=== PATIENT | female | born 1940 ===

== ENCOUNTER 2018-02-24 23:25 | Emergency (ER) | payer MEDICARE ==
[2018-02-24 23:30] VITALS: TEMP 100.9
[2018-02-25 01:07] LABS: Basophils % (A) 0 %; Eosinophils # (A) 0.1 k/uL (0-0.7); Eosinophils % (A) 1 %; HGB 10.9 gm/dL (11.4-16.0); Lymphocytes # (A) 0.5 k/uL (1.0-4.8); Lymphocytes % (A) 6 %; MCH 31.6 pg (25.0-35.0); MCHC 33.2 g/dL (31.0-37.0); MCV 95.4 fL (80.0-100.0); Mean Platelet Volume 7.4; Monocytes # (A) 0.2 k/uL (0-1.0); Monocytes % (A) 2 %; Neutrophils # (A) 7.3 k/uL (1.3-7.7); Neutrophils % (A) 89 %; Platelet Count 159 k/uL (150-450); RBC 3.46 m/uL (3.80-5.40); RDW 14.3 % (11.5-15.5); WBC 8.3 k/uL (3.8-10.6)
[2018-02-25] MEDS ORDERED: ALBUTEROL NEBULIZED 2.5 MG/3 ML INHALATION STA (01:10)
[2018-02-25] MEDS ORDERED: cefTRIAXone IN SWFI 1,000 MG/10 ML SYRINGE IVP STA (01:11)
[2018-02-25] MEDS ORDERED: ACETAMINOPHEN TAB 325 MG TAB PO STA (01:11)
[2018-02-25 01:17] LABS: Albumin 3.1 g/dL (3.5-5.0); Ammonia <9 umol/L (<30); Calcium 8.6 mg/dL (8.4-10.2); Lactic Acid, Venous 1.2 mmol/L (0.7-2.0); Potassium 3.6 mmol/L (3.5-5.1); Total Bilirubin 0.6 mg/dL (0.2-1.3); Total Protein 5.1 g/dL (6.3-8.2)
--- NOTE | 2018-02-25 01:17 | ED ---
Altered Mental Status HPI - General Chief Complaint: Altered Mental Status Stated Complaint: Altered Mental Status Time Seen by Provider: 02/25/18 00:24 Source: patient, EMS Mode of arrival: EMS Limitations: altered mental status - History of Present Illness Initial Comments: This patient is a 77-year-old woman who was persuaded to come the emergency room by her daughter. The patient states that when she was talking to her daughter on the phone her daughter felt that she was more confused than normal. The patient denies having any complaints. She states she is not having any pain. No dyspnea. She denies any neurologic symptoms. Other review of systems , she does acknowledge having a cough which is been going on for between 1 and 2 weeks. She states she is not really having any sputum and that she is not having any shortness of breath related to this. MD Complaint: confusion Onset/Timin -: hour(s) Severity: mild Context: history of similar presentation Associated Symptoms: cough - Related Data Previous Rx's Medication Instructions Recorded Azithromycin [Zithromax Z-pack] 250 mg PO DIRECTED #6 tab 02/25/18 Allergies Allergy/AdvReac Type Severity Reaction Status Date / Time losartan [From Cozaar] Allergy Unknown Verified 02/25/18 00:27 pioglitazone [From Actos] Allergy Unknown Verified 02/25/18 00:27 Review of Systems ROS Statement: Those systems with pertinent positive or pertinent negative responses have been documented in the HPI. ROS Other: All systems not noted in ROS Statement are negative. Constitutional: Denies: fever, chills, weakness ENT: Denies: throat pain Respiratory: Reports: cough. Denies: dyspnea, wheezes, hemoptysis Cardiovascular: Reports: edema (Patient states she has some trace ankle edema). Denies: chest pain, palpitations, syncope Gastrointestinal: Denies: abdominal pain, vomiting, diarrhea Genitourinary: Denies: dysuria, hematuria Musculoskeletal: Denies: back pain Skin: Denies: rash Neurological: Reports: as per HPI, confusion. Denies: headache, weakness, numbness Past Medical History Past Medical History: No Reported History History of Any Multi-Drug Resistant Organisms: None Reported Past Surgical History: No Surgical Hx Reported Past Psychological History: No Psychological Hx Reported Smoking Status: Never smoker Past Alcohol Use History: None Reported Past Drug Use History: None Reported General Exam Limitations: altered mental status General appearance: alert, in no apparent distress, cachectic Head exam: Present: atraumatic, normocephalic Eye exam: Present: normal appearance. Absent: scleral icterus, conjunctival injection ENT exam: Present: mucous membranes dry Neck exam: Present: normal inspection, full ROM Respiratory exam: Present: wheezes (There is trace expiratory wheeze). Absent: respiratory distress, rales, rhonchi, stridor, accessory muscle use, decreased breath sounds, prolonged expiratory Cardiovascular Exam: Present: regular rate, normal rhythm, normal heart sounds. Absent: systolic murmur, diastolic murmur, rubs, gallop GI/Abdominal exam: Present: soft. Absent: distended, tenderness, guarding, rebound Extremities exam: Present: normal inspection, normal capillary refill, pedal edema (Trace edema at the ankles bilaterally). Absent: calf tenderness Back exam: Present: normal inspection. Absent: CVA tenderness (R), CVA tenderness (L) Neurological exam: Present: alert, oriented X3, CN II-XII intact Skin exam: Present: warm, dry, intact, normal color. Absent: rash Course Vital Signs 02/24/18 02/25/18 02/25/18 23:26 00:23 01:29 Temperature 100.9 F H Pulse Rate 86 80 86 Respiratory 17 17 16 Rate Blood Pressure 138/60 138/61 127/58 O2 Sat by Pulse 95 96 96 Oximetry 02/25/18 02/25/18 01:35 01:42 Temperature Pulse Rate 84 83 Respiratory 16 16 Rate Blood Pressure O2 Sat by Pulse Oximetry Medical Decision Making - Medical Decision Making Patient is a 77-year-old woman found to have small pneumonia. Discussed admission, but the patient is refusing at this point stating she would prefer to try outpatient course. She states that she does talk on the phone daily with family and that if there is any change they will prompt her to come to the hospital. - Lab Data Result diagrams: 02/25/18 00:57 02/25/18 00:57 Lab Results 02/25/18 02/25/18 02/25/18 Range/Units 00:57 00:57 00:57 WBC 8.3 (3.8-10.6) k/uL RBC 3.46 L (3.80-5.40) m/uL Hgb 10.9 L (11.4-16.0) gm/dL Hct 33.0 L (34.0-46.0) % MCV 95.4 (80.0-100.0) fL MCH 31.6 (25.0-35.0) pg MCHC 33.2 (31.0-37.0) g/dL RDW 14.3 (11.5-15.5) % Plt Count 159 (150-450) k/uL Neutrophils % 89 % Lymphocytes % 6 % Monocytes % 2 % Eosinophils % 1 % Basophils % 0 % Neutrophils # 7.3 (1.3-7.7) k/uL Lymphocytes # 0.5 L (1.0-4.8) k/uL Monocytes # 0.2 (0-1.0) k/uL Eosinophils # 0.1 (0-0.7) k/uL Basophils # 0.0 (0-0.2) k/uL PT (9.0-12.0) sec INR (<1.2) APTT (22.0-30.0) sec Sodium (137-145) mmol/L Potassium (3.5-5.1) mmol/L Chloride (98-107) mmol/L Carbon Dioxide (22-30) mmol/L Anion Gap mmol/L BUN (7-17) mg/dL Creatinine (0.52-1.04) mg/dL Est GFR (CKD-EPI)AfAm (>60 ml/min/1.73 sqM) Est GFR (CKD-EPI)NonAf (>60 ml/min/1.73 sqM) Glucose (74-99) mg/dL Plasma Lactic Acid Inck 1.2 (0.7-2.0) mmol/L Calcium (8.4-10.2) mg/dL Total Bilirubin (0.2-1.3) mg/dL AST (14-36) U/L ALT (9-52) U/L Alkaline Phosphatase (38-126) U/L Ammonia <9 (<30) umol/L Total Creatine Kinase 697 H (30-135) U/L CK-MB (CK-2) 1.3 (0.0-2.4) ng/mL CK-MB (CK-2) Rel Index 0.2 Troponin I <0.012 (0.000-0.034) ng/mL NT-Pro-B Natriuret Pep pg/mL Total Protein (6.3-8.2) g/dL Albumin (3.5-5.0) g/dL Urine Color Urine Appearance (Clear) Urine pH (5.0-8.0) Ur Specific Graham (1.001-1.035) Urine Protein (Negative) Urine Glucose (UA) (Negative) Urine Ketones (Negative) Urine Blood (Negative) Urine Nitrite (Negative) Urine Bilirubin (Negative) Urine Urobilinogen (<2.0) mg/dL Ur Leukocyte Esterase (Negative) Urine WBC (0-5) /hpf Amorphous Sediment (None) /hpf Hyaline Casts (0-2) /lpf Urine Mucus (None) /hpf Urine Opiates Screen (NotDetected) Ur Oxycodone Screen (NotDetected) Urine Methadone Screen (NotDetected) Ur Propoxyphene Screen (NotDetected) Ur Barbiturates Screen (NotDetected) U Tricyclic Antidepress (NotDetected) Ur Phencyclidine Scrn (NotDetected) Ur Amphetamines Screen (NotDetected) U Methamphetamines Scrn (NotDetected) U Benzodiazepines Scrn (NotDetected) Urine Cocaine Screen (NotDetected) U Marijuana (THC) Screen (NotDetected) 02/25/18 02/25/18 02/25/18 Range/Units 00:57 00:57 00:57 WBC (3.8-10.6) k/uL RBC (3.80-5.40) m/uL Hgb (11.4-16.0) gm/dL Hct (34.0-46.0) % MCV (80.0-100.0) fL MCH (25.0-35.0) pg MCHC (31.0-37.0) g/dL RDW (11.5-15.5) % Plt Count (150-450) k/uL Neutrophils % % Lymphocytes % % Monocytes % % Eosinophils % % Basophils % % Neutrophils # (1.3-7.7) k/uL Lymphocytes # (1.0-4.8) k/uL Monocytes # (0-1.0) k/uL Eosinophils # (0-0.7) k/uL Basophils # (0-0.2) k/uL PT 10.6 (9.0-12.0) sec INR 1.1 (<1.2) APTT 26.6 (22.0-30.0) sec Sodium 140 (137-145) mmol/L Potassium 3.6 (3.5-5.1) mmol/L Chloride 108 H (98-107) mmol/L Carbon Dioxide 23 (22-30) mmol/L Anion Gap 9 mmol/L BUN 40 H (7-17) mg/dL Creatinine 1.20 H (0.52-1.04) mg/dL Est GFR (CKD-EPI)AfAm 51 (>60 ml/min/1.73 sqM) Est GFR (CKD-EPI)NonAf 44 (>60 ml/min/1.73 sqM) Glucose 72 L (74-99) mg/dL Plasma Lactic Acid Nick (0.7-2.0) mmol/L Calcium 8.6 (8.4-10.2) mg/dL Total Bilirubin 0.6 (0.2-1.3) mg/dL AST 56 H (14-36) U/L ALT 36 (9-52) U/L Alkaline Phosphatase 45 (38-126) U/L Ammonia (<30) umol/L Total Creatine Kinase (30-135) U/L CK-MB (CK-2) (0.0-2.4) ng/mL CK-MB (CK-2) Rel Index Troponin I (0.000-0.034) ng/mL NT-Pro-B Natriuret Pep 2370 pg/mL Total Protein 5.1 L (6.3-8.2) g/dL Albumin 3.1 L (3.5-5.0) g/dL Urine Color Urine Appearance (Clear) Urine pH (5.0-8.0) Ur Specific Graham (1.001-1.035) Urine Protein (Negative) Urine Glucose (UA) (Negative) Urine Ketones (Negative) Urine Blood (Negative) Urine Nitrite (Negative) Urine Bilirubin (Negative) Urine Urobilinogen (<2.0) mg/dL Ur Leukocyte Esterase (Negative) Urine WBC (0-5) /hpf Amorphous Sediment (None) /hpf Hyaline Casts (0-2) /lpf Urine Mucus (None) /hpf Urine Opiates Screen (NotDetected) Ur Oxycodone Screen (NotDetected) Urine Methadone Screen (NotDetected) Ur Propoxyphene Screen (NotDetected) Ur Barbiturates Screen (NotDetected) U Tricyclic Antidepress (NotDetected) Ur Phencyclidine Scrn (NotDetected) Ur Amphetamines Screen (NotDetected) U Methamphetamines Scrn (NotDetected) U Benzodiazepines Scrn (NotDetected) Urine Cocaine Screen (NotDetected) U Marijuana (THC) Screen (NotDetected) 02/25/18 Range/Units 01:52 WBC (3.8-10.6) k/uL RBC (3.80-5.40) m/uL Hgb (11.4-16.0) gm/dL Hct (34.0-46.0) % MCV (80.0-100.0) fL MCH (25.0-35.0) pg MCHC (31.0-37.0) g/dL RDW (11.5-15.5) % Plt Count (150-450) k/uL Neutrophils % % Lymphocytes % % Monocytes % % Eosinophils % % Basophils % % Neutrophils # (1.3-7.7) k/uL Lymphocytes # (1.0-4.8) k/uL Monocytes # (0-1.0) k/uL Eosinophils # (0-0.7) k/uL Basophils # (0-0.2) k/uL PT (9.0-12.0) sec INR (<1.2) APTT (22.0-30.0) sec Sodium (137-145) mmol/L Potassium (3.5-5.1) mmol/L Chloride (98-107) mmol/L Carbon Dioxide (22-30) mmol/L Anion Gap mmol/L BUN (7-17) mg/dL Creatinine (0.52-1.04) mg/dL Est GFR (CKD-EPI)AfAm (>60 ml/min/1.73 sqM) Est GFR (CKD-EPI)NonAf (>60 ml/min/1.73 sqM) Glucose (74-99) mg/dL Plasma Lactic Acid Nick (0.7-2.0) mmol/L Calcium (8.4-10.2) mg/dL Total Bilirubin (0.2-1.3) mg/dL AST (14-36) U/L ALT (9-52) U/L Alkaline Phosphatase (38-126) U/L Ammonia (<30) umol/L Total Creatine Kinase (30-135) U/L CK-MB (CK-2) (0.0-2.4) ng/mL CK-MB (CK-2) Rel Index Troponin I (0.000-0.034) ng/mL NT-Pro-B Natriuret Pep pg/mL Total Protein (6.3-8.2) g/dL Albumin (3.5-5.0) g/dL Urine Color Yellow Urine Appearance Cloudy H (Clear) Urine pH 8.0 (5.0-8.0) Ur Specific Graham 1.015 (1.001-1.035) Urine Protein 1+ H (Negative) Urine Glucose (UA) Negative (Negative) Urine Ketones 1+ H (Negative) Urine Blood Negative (Negative) Urine Nitrite Negative (Negative) Urine Bilirubin Negative (Negative) Urine Urobilinogen <2.0 (<2.0) mg/dL Ur Leukocyte Esterase Negative (Negative) Urine WBC 4 (0-5) /hpf Amorphous Sediment Occasional H (None) /hpf Hyaline Casts 31 H (0-2) /lpf Urine Mucus Rare H (None) /hpf Urine Opiates Screen Not Detected (NotDetected) Ur Oxycodone Screen Not Detected (NotDetected) Urine Methadone Screen Not Detected (NotDetected) Ur Propoxyphene Screen Not Detected (NotDetected) Ur Barbiturates Screen Not Detected (NotDetected) U Tricyclic Antidepress Not Detected (NotDetected) Ur Phencyclidine Scrn Not Detected (NotDetected) Ur Amphetamines Screen Not Detected (NotDetected) U Methamphetamines Scrn Not Detected (NotDetected) U Benzodiazepines Scrn Not Detected (NotDetected) Urine Cocaine Screen Not Detected (NotDetected) U Marijuana (THC) Screen Not Detected (NotDetected) - EKG Data -: EKG Interpreted by Ks EKG shows normal: sinus rhythm, axis (Left axis deviation), intervals (QRS duration 126 ms, prolonged consistent with the right bundle-branch block. MN interval 126 ms, normal. QTC 452 ms, normal.), QRS complexes (Right bundle- branch block), ST-T waves (Normal) Rate: normal (Rate 85 bpm) Disposition Clinical Impression: Pneumonia Disposition: HOME SELF-CARE Condition: Fair Instructions: Pneumonia (ED) Prescriptions: Azithromycin [Zithromax Z-pack] 250 mg PO DIRECTED #6 tab Is patient prescribed a controlled substance at d/c from ED?: No Referrals: Catalino Gaona MD [Primary Care Provider] - 1-2 days
[2018-02-25 01:19] LABS: INR 1.1 (<1.2); Partial Thromboplastin Time 26.6 sec (22.0-30.0); Prothrombin Time 10.6 sec (9.0-12.0)
--- NOTE | 2018-02-25 01:23 | XR ---
EXAMINATION TYPE: XR chest 1V portable DATE OF EXAM: 02/25/2018 COMPARISON: 02/24/2014 HISTORY: Altered mental status. Asthma. TECHNIQUE: Single frontal view of the chest is obtained. FINDINGS: There is some pulmonary interstitial edema. Heart size is normal. There are chest leads. IMPRESSION: New pulmonary interstitial edema compared to old exam. This is probably acute mild heart failure.
[2018-02-25 01:30] LABS: Creatine Kinase 697 U/L (30-135)
[2018-02-25 01:38] VITALS: RESP 16
[2018-02-25 01:43] VITALS: PULSE 83
[2018-02-25 01:43] LABS: Creatine Kinase MB 1.3 ng/mL (0.0-2.4); Troponin I <0.012 ng/mL (0.000-0.034)
[2018-02-25 02:09] VITALS: BP 127/58
[2018-02-25 02:16] LABS: Amorphous Sediment,Urine Occasional /hpf; Appearance,Urine Cloudy (Clear); Bilirubin,Urine Negative (Negative); Blood,Urine Negative (Negative); Color,Urine Yellow; Glucose,Urine (UA) Negative (Negative); Hyaline Casts,Urine 31 /lpf (0-2); Ketones,Urine 1+ (Negative); Leukocyte Esterase,Urine Negative (Negative); Mucus,Urine Rare /hpf; Nitrite,Urine Negative (Negative); Protein,Urine 1+ (Negative); Specific Gravity,Urine 1.015 (1.001-1.035); Urobilinogen,Urine <2.0 mg/dL (<2.0); WBC,Urine 4 /hpf (0-5)
[2018-02-25 02:25] LABS: Amphetamine Screen,Urine Not Detected (NotDetected); Barbiturate Screen,Urine Not Detected (NotDetected); Benzodiazepines Screen,Urine Not Detected (NotDetected); Cocaine Screen,Urine Not Detected (NotDetected); Methadone Screen, Urine Not Detected (NotDetected); Opiate Screen,Urine Not Detected (NotDetected); Oxycodone Screen, Urine Not Detected (NotDetected); Phencyclidine Screen,Urine Not Detected (NotDetected); Tricyclic Antidepressant,Urine Not Detected (NotDetected); Urn Cannabinoid Scrn Not Detected (NotDetected)
[2018-02-25] MEDS ORDERED: AZITHROMYCIN 500 MG TAB PO STA (02:27)
== END 2018-02-25 03:20 | disposition home or self-care (01) ==
LOC: EC 23:25
DX: J18.9 Pneumonia, unspecified organism (principal); Z88.8 Allergy status to other drugs, medicaments and biological substances
CPT/HCPCS: 36415; 94640; 93005; 83880; 80053; 82140; 82550; 82553; 83605; 84484; 85025; 85610; 85730; 81001; 80306; 71045; 99285; 96374; J0696

== ENCOUNTER 2018-10-17 18:04 | Inpatient (IN) | payer MEDICARE ==
[2018-10-17 19:30] LABS: Glucose,Whole Blood 254 mg/dL (75-99)
[2018-10-17] MEDS ORDERED: SODIUM CHLORIDE 0.9% 1,000 ML IV SCH (20:30)
[2018-10-17] MEDS: ALBUTEROL NEBULIZED 2.5 MG/3 ML INHALATION SCH (20:55)
[2018-10-17] MEDS: ISOSORBIDE MONONITRATE ER 60 MG TAB.ER.24H PO SCH (21:09)
[2018-10-17] MEDS: MONTELUKAST 10 MG TAB PO SCH (21:09)
[2018-10-17] MEDS: Acetaminophen-Codeine 300-30mg TAB PO PRN (21:09)
[2018-10-17] MEDS: PIPERACILLIN-TAZOBACTAM 3.375 GM in SODIUM CHLORIDE 0.9% 100 ML IVPB SCH (22:07)
[2018-10-17] MEDS: INSULIN ASPART (NovoLOG) 100 UNIT/ML VIAL SQ SCH (22:07)
--- NOTE | 2018-10-17 22:43 | HP ---
HISTORY AND PHYSICAL DATE OF ADMISSION: 10/17/2018. CHIEF COMPLAINT: Chest pain. HISTORY OF PRESENT ILLNESS: This is a 77-year-old female who presents with a complaint of right flank and right shoulder pain. The patient says the pain is worse with any movements. The symptoms have been progressive over the past 2 days. She has minimal cough. No fever, no chills. Denied any other symptoms. She says 2 days ago she started having the flu type of symptoms where she started vomiting. The patient does not feel that she had aspirated any. However, she presents with these symptoms and on clinical examination, patient has a right lower lobe pneumonia, clinical findings of the chest, she was sent in for a stat chest x-ray and CBC, which does confirm that she has right lower lobe pneumonia. CBC however, reveals a normal white count. They suspect there is also a right pleural effusion. The patient's CBC was white count of 8.1 with a hemoglobin of 11.2, platelets of 270. 89% neutrophils. The patient visits her every day at the nursing facility and she is spends most of the day there. It is possible the patient might have aspirated. In view of this, patient placed on Zosyn. The patient's chemistry revealed a sodium of 132, BUN 55, creatinine 1.21, glucose 277. Potassium 4.4. PAST MEDICAL HISTORY: Past medical history is primarily significant for history of longstanding bronchial asthma, mild persistent, on oral inhalers, steroid inhalers. The patient also has a history of coronary artery disease with a stent placed more than 20 years now. History of degenerative arthritis, gastroesophageal reflux. No history of any liver disease, kidney disease, ulcers, TB, hepatitis. No history of any rheumatic fever, myocardial infarction or CVA. Has had a previous herpes zoster infection on the right face. She also has had fracture of both patella, one previously, the left one for which she had surgical repair and recently right patella for which she has had a conservative closed treatment. PAST SURGICAL HISTORY: Significant for appendectomy, total abdominal hysterectomy, right knee arthroscopy, left patella surgery, right shoulder surgery, bilateral cataract surgery. PERSONAL HISTORY: Never smoker. Alcohol none. SOCIAL HISTORY: Patient is and lives alone at home. 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 The patient's spouse is in a retirement following a stroke. FAMILY MEDICAL HISTORY: Father at the age of 80, he had coronary artery disease and history of carcinoma of the lung. Mother at age of 98. She had a history of diabetes mellitus. A brother 74 with history of coronary artery disease. A sister 68 with a history of rheumatoid arthritis. Sister 69 with history of hyperlipidemia, otherwise in good health. The patient has a son 53 in good health and a daughter 54 in good health. REVIEW OF SYSTEMS: Neuro: Denies any headaches, dizziness. No double vision, blurred vision. No symptoms of TIA, syncope, seizures. Psych: No anxiety or depression. Cardiac: Denies chest pain, angina or palpitations. Respiratory: Denies much cough. Present complaint of chest pain, right-sided and pain radiating to the right shoulder area. GI: Had episodes of nausea and vomiting 2 days ago. No diarrhea, constipation, hematochezia, melena. Appetite fair. : No symptoms of dysuria, hematuria, urgency or frequency. Extremities: Complains of generalized pain and malaise. CONSTITUTIONAL: No fever, chills. PHYSICAL EXAMINATION: A 77-year-old female who appears at present, uncomfortable, moving around. VITAL SIGNS: Blood pressure 110/60. She is 5 feet 4 inches tall, weighs 108 pounds. Temperature was 98.1, pulse ox 95 percent on room air. HEENT: Normocephalic. NECK: Supple. Pupils reactive. Nostrils clear. Oral cavity dry. Neck was no JVD. Carotid bruits or thyromegaly. Chest examination decreased air flow right base with crackles, few crackles left base. CARDIAC: Sounds S1, S2 with no gallop. Systolic murmur 2/6 left sternal border. Abdomen: Protuberant, soft. Bowel sounds active. Extremities reveals no edema. Good pulses both upper extremities. Mild decreased pedal pulses. Neurologically awake, alert, oriented with well-coordinated movements. MEDICATIONS: At home includes aspirin 81 mg 2 tablets daily. Theophylline 300 mg at bedtime. Advair 500/50 one puff b.i.d., sublingual nitroglycerin p.r.n., folic acid 400 mcg daily, vitamin D 2000 units daily, magnesium 250 mg 2 tablets daily. Pravastatin 40 mg daily. Singular 10 mg daily. Cetirizine 10 mg daily. Spironolactone 25 mg half tablet daily. Lasix 20 mg daily, metformin 1000 mg b.i.d., Imdur 60 mg b.i.d., Atenolol 25 mg daily, Januvia 50 mg daily, lansoprazole 30 mg daily. ASSESSMENT: 1. Right lower lobe pneumonia, possible aspiration. 2. History of mild persistent bronchial asthma. 3. Coronary artery disease, stable. 4. Mild hyponatremia. 5. Prerenal azotemia secondary to dehydration. 6. Diabetes mellitus. PLAN: Continue medications with updrafts, inhaled steroids, updrafts. Will start the patient on Zosyn. DVT prophylaxis. The patient's condition guarded. Prognosis guarded. Patient admitted to the hospital. MMODL / IJN: [id number] /
[2018-10-17] MEDS: HEPARIN SODIUM,PORCINE 5,000 UNIT/ML 1 ML VIAL SQ SCH (23:08)
[2018-10-17] MEDS: KETOROLAC 30 MG/ML 1 ML VIAL IVP SCH (23:08)
[2018-10-18] MEDS: Acetaminophen-Codeine 300-30mg TAB PO PRN ×3 (01:59→17:29)
[2018-10-18] MEDS: PIPERACILLIN-TAZOBACTAM 3.375 GM in SODIUM CHLORIDE 0.9% 100 ML IVPB SCH ×3 (04:01→20:59)
[2018-10-18] MEDS: KETOROLAC 30 MG/ML 1 ML VIAL IVP SCH ×4 (05:04→22:41)
[2018-10-18 06:49] LABS: Glucose,Whole Blood 147 mg/dL (75-99)
[2018-10-18] MEDS: SYMBICORT 160-4.5 MCG INHALER INHALATION SCH ×3 (08:45→19:45)
[2018-10-18] MEDS: ALBUTEROL NEBULIZED 2.5 MG/3 ML INHALATION SCH ×5 (08:46→19:55)
[2018-10-18] MEDS ORDERED: NON-FORMULARY DRUG (Lansoprazole [Prevacid] 30 MG) PO SCH (09:00)
[2018-10-18] MEDS ORDERED: ATENOLOL 25 MG TAB PO SCH ×2 (09:00)
[2018-10-18] MEDS ORDERED: MONTELUKAST 10 MG TAB PO SCH (09:00)
[2018-10-18] MEDS ORDERED: ISOSORBIDE MONONITRATE ER 60 MG TAB.ER.24H PO SCH (09:00)
[2018-10-18] MEDS: ASPIRIN 81 MG PO SCH (09:24)
[2018-10-18] MEDS: HEPARIN SODIUM,PORCINE 5,000 UNIT/ML 1 ML VIAL SQ SCH ×3 (09:24→22:41)
[2018-10-18] MEDS: PANTOPRAZOLE 40 MG TABLET PO SCH (09:24)
[2018-10-18] MEDS: ISOSORBIDE MONONITRATE ER 60 MG TAB.ER.24H PO SCH (09:24)
[2018-10-18] MEDS: metFORMIN 500 MG TAB PO SCH ×2 (09:25→17:30)
[2018-10-18] MEDS: INSULIN ASPART (NovoLOG) 100 UNIT/ML VIAL SQ SCH ×4 (09:25→20:44)
[2018-10-18] MEDS: CANDESARTAN 4 MG PO SCH (09:27)
[2018-10-18 11:24] LABS: Glucose,Whole Blood 139 mg/dL (75-99)
[2018-10-18] MEDS: SODIUM CHLORIDE 0.9% 1,000 ML IV SCH ×2 (16:10→22:40)
[2018-10-18 17:19] LABS: Glucose,Whole Blood 144 mg/dL (75-99)
[2018-10-18 20:04] LABS: Glucose,Whole Blood 182 mg/dL (75-99)
[2018-10-18] MEDS: MONTELUKAST 10 MG TAB PO SCH (20:43)
[2018-10-18] MEDS ORDERED: SODIUM CHLORIDE 0.9% 1,000 ML IV ONE (21:18)
[2018-10-18] MEDS ORDERED: VANCOMYCIN IV PER PHARMACY 1 EACH MISC MISCELLANE PRN (21:25)
[2018-10-18] MEDS ORDERED: VANCOMYCIN 1,000 MG in SODIUM CHLORIDE 0.9% 250 ML IVPB SCH (22:00)
--- NOTE | 2018-10-18 22:35 | PN ---
PROGRESS NOTE CHIEF COMPLAINT: Re-evaluation. HISTORY OF PRESENT ILLNESS: This patient is a 77-year-old female who was admitted to the hospital with clinical findings of right lower lobe pneumonia and associated pleuritic chest pain. The patient also has significant myalgia. She had no fever at the time of admission at home; however, the patient following admission did have a temperature of 101.4. She had episodes of vomiting at home and suspected that she might have aspirated. However, the patient's blood cultures have come back showing Staph aureus, and in view of this patient's antibiotics were switched to vancomycin. This morning the patient said she felt really well. She does not complain of any major concerns. REVIEW OF SYSTEMS: NEURO: Denies any headaches, dizziness. PSYCH: No anxiety. CARDIAC: No chest pain, angina, palpitations. RESPIRATORY: Denies shortness of breath, cough. GI: No nausea, vomiting, abdominal pain, diarrhea. : No symptoms of dysuria or hematuria, urgency, frequency. EXTREMITIES: Improved aches and pains. CONSTITUTIONAL: She had a fever last night of 101.4. Subsequent to that she has had no fever. PHYSICAL EXAMINATION: Blood pressure this morning was 105/69, temperature 98.7, pulse 86, respirations 16, pulse ox 95% on room air. The patient's blood pressure was reported to be in the 90s to 100 range during the day. HEENT: Normocephalic. NECK: No JVD. CHEST EXAMINATION: Decreased air flow, right base, with crackles. Left base reveals a few crackles. CARDIAC: Distant heart sounds S1, S2 with no gallops. Regular rhythm. ABDOMEN: Soft. No palpable masses. Bowel sounds normal. No organomegaly. No abdominal bruits. Extremities reveal no edema. No tenderness. Neurologically awake, alert, oriented x3 with well-coordinated movements. LABORATORY ASSESSMENT: Accu-Chek was 147 this morning and 254 at bedtime. ASSESSMENT: 1. Right lower lobe pneumonia and possible left lower lobe pneumonia with Staphylococcus aureus. 2. Staphylococcus aureus bacteremia. 3. Diabetes mellitus. 4. History of bronchial asthma. 5. Coronary artery disease, stable. 6. Prerenal azotemia. PLAN: The patient is stable. Continue present medical regimen. Patient's condition was discussed with the patient. Prognosis guarded. Repeat chest x-ray with electrolytes, BUN, creatinine and CBC in the morning. As mentioned above, patient's antibiotics have been switched over to vancomycin. MMODL / IJN: [id number] /
[2018-10-19] MEDS: Acetaminophen-Codeine 300-30mg TAB PO PRN ×3 (03:22→21:39)
[2018-10-19] MEDS: KETOROLAC 30 MG/ML 1 ML VIAL IVP SCH ×3 (05:11→17:44)
[2018-10-19 07:24] LABS: Glucose,Whole Blood 114 mg/dL (75-99)
--- NOTE | 2018-10-19 07:24 | XR ---
EXAMINATION TYPE: XR chest 2V DATE OF EXAM: 10/19/2018 HISTORY: pneumonia. REFERENCE: Previous study dated 10/17/2018. FINDINGS: There is worsening right basilar airspace disease. There are bilateral effusions, greater o n the right than the left. Heart size is obscured. IMPRESSION: 1. WORSENING RIGHT-SIDED INFILTRATE. 2. WORSENING, BILATERAL EFFUSIONS.
[2018-10-19 07:31] LABS: HCT 29.2 % (34.0-46.0); MCH 31.5 pg (25.0-35.0); MCV 98.6 fL (80.0-100.0); Mean Platelet Volume 7.1; Platelet Count 211 k/uL (150-450); RBC 2.97 m/uL (3.80-5.40); RDW 12.8 % (11.5-15.5); WBC 4.7 k/uL (3.8-10.6)
[2018-10-19 07:43] LABS: HGB 9.4 gm/dL (11.4-16.0)
[2018-10-19 08:03] LABS: Calcium 7.4 mg/dL (8.4-10.2); Potassium 5.1 mmol/L (3.5-5.1)
[2018-10-19] MEDS: ALBUTEROL NEBULIZED 2.5 MG/3 ML INHALATION SCH ×4 (08:10→20:25)
[2018-10-19] MEDS: SYMBICORT 160-4.5 MCG INHALER INHALATION SCH ×2 (08:10→20:25)
[2018-10-19] MEDS: INSULIN ASPART (NovoLOG) 100 UNIT/ML VIAL SQ SCH ×4 (08:28→21:36)
[2018-10-19] MEDS: CANDESARTAN 4 MG PO SCH (08:37)
[2018-10-19] MEDS: ATENOLOL 25 MG TAB PO SCH (08:37)
[2018-10-19] MEDS: ASPIRIN 81 MG PO SCH (08:37)
[2018-10-19] MEDS: PANTOPRAZOLE 40 MG TABLET PO SCH (08:37)
[2018-10-19] MEDS: HEPARIN SODIUM,PORCINE 5,000 UNIT/ML 1 ML VIAL SQ SCH ×2 (08:37→16:29)
[2018-10-19] MEDS: metFORMIN 500 MG TAB PO SCH ×2 (08:37→17:43)
[2018-10-19] MEDS: ISOSORBIDE MONONITRATE ER 60 MG TAB.ER.24H PO SCH (08:37)
[2018-10-19 12:10] LABS: Glucose,Whole Blood 137 mg/dL (75-99)
--- NOTE | 2018-10-19 14:00 | P.PN ---
Subjective Progress Note Date: 10/19/18 Principal diagnosis: pneumonia this 71-year-old female was admitted to the hospitalwith her pneumonia. His right-sided with some few crackles at the left base indicative a possible left lower lobe infiltrate 2. Patient prior to hospitalization had some episodes of vomiting suspected she could have aspirated. However the blood cultures came back positive for staph aureus. The patient was switched to vancomycin. She did have some diarrhea today after one episode. She still feels fairly well she does have decreased myalgias. She still does have some right shoulder pain referred from the diaphragm. Her pleuritic chest pain however is improved. Her renal status is improved. Patient hasn't had any further fever. Clinical examinations does suggest a worsening in lung findings with increase findings in the right lung and some at the left base. We will continue present regimen. Repeat x-ray on Sunday. Prognosis remains guarded clinically some improvement. He reported cultures tomorrow. REVIEW OF SYSTEMS: Neuro:[ Denies any headaches dizziness.] Psych: [Denies anxiety depression feels oriented.] Cardiac: [Denies chest pain and angina palpitations.] Respiratory: [Denies shortness of breath cough minimal with no sputum production]. GI: [Denies nausea vomiting or abdominal pain. some diarrhea or constipation,.] :[ Denies dysuria hematuria.] Extremities:[ Denies pain. No edema.] Skin:[ Intact]. Constitutional: [No fever, chills.] Objective - Vital Signs Vital signs: Vital Signs Temp 98.5 F 10/19/18 07:00 Pulse 84 10/19/18 11:25 Resp 16 10/19/18 08:24 BP 114/62 10/19/18 07:00 Pulse Ox 98 10/19/18 08:11 Intake & Output 10/18/18 10/19/18 10/19/18 18:59 06:59 18:59 Intake Total 240 1834 Balance 240 1834 Intake: Intake, IV Titration 1834 Amount Sodium Chloride 0.9% 1, 350 000 ml @ 50 mls/hr IV . Q20H [facility] Rx#:[id number] Sodium Chloride 0.9% 1, 235 000 ml @ 75 mls/hr IV . [id number] [facility] Rx#:[id number] Sodium Chloride 0.9% 1, 999 000 ml @ 999 mls/hr IV . Q1H1M [facility] Rx#:[id number] Vancomycin 1,000 mg In 250 Sodium Chloride 0.9% 250 ml @ 125 mls/hr IVPB Q24HR@1200 [facility] Rx#: [id number] Oral 240 Other: Voiding Method Toilet Toilet # Voids 1 PHYSICAL EXAMINATION: Cooperative, at present in no acute distress. HEENT: [Neck supple. No JVD.] Chest: chest expansion decreased to the right lower lung. There is dullness on percussion right base. There is crackles and bronchial breathing right lower lung field crackles at left base] Cardiac: [Normal S1-S2] [no gallops] [no murmur ]. Abdomen:[ Soft ][bowel sounds present.] Extremities: [No edema] [no tenderness ] Neurologically: [Awake, alert, oriented with well-coordinated movements.] - Labs CBC & Chem 7: 10/19/18 06:21 10/19/18 06:21 Labs: Abnormal Lab Results - Last 24 Hours (Table) 10/18/18 10/18/18 10/19/18 Range/Units 17:08 20:01 06:21 RBC 2.97 L (3.80-5.40) m/uL Hgb 9.4 L D (11.4-16.0) gm/dL Hct 29.2 L (34.0-46.0) % Sodium (137-145) mmol/L Carbon Dioxide (22-30) mmol/L BUN (7-17) mg/dL Creatinine (0.52-1.04) mg/dL Glucose (74-99) mg/dL POC Glucose (mg/dL) 144 H 182 H (75-99) mg/dL Calcium (8.4-10.2) mg/dL 10/19/18 10/19/18 10/19/18 Range/Units 06:21 07:23 11:51 RBC (3.80-5.40) m/uL Hgb (11.4-16.0) gm/dL Hct (34.0-46.0) % Sodium 132 L (137-145) mmol/L Carbon Dioxide 21 L (22-30) mmol/L BUN 49 H (7-17) mg/dL Creatinine 1.32 H (0.52-1.04) mg/dL Glucose 111 H (74-99) mg/dL POC Glucose (mg/dL) 114 H 137 H (75-99) mg/dL Calcium 7.4 L (8.4-10.2) mg/dL Microbiology - Last 24 Hours (Table) 10/17/18 19:39 Blood Culture Gram Stain - Preliminary Blood Blood Culture - Preliminary Staphylococcus aureus 10/17/18 19:39 Blood Culture - Final Blood Assessment and Plan Assessment: assessment: 1. Bilateral lower lung pneumonia predominantly right-sided. 2. Staphylococcus aureus bacteremia 3. History of bronchial asthma 4. 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 Acute on chronic renal failure improved 6. Chronic kidney disease stage III 7. Acute kidney injury 8.anemia 9. Hyponatremia secondary to acute pulmonary disease plan: Continue with vancomycin and Zosyn is discontinued. If continues to have diarrhea check for C. diff. Prognosis was guarded clinically improving. Repeat chest x-ray on Sunday repeat the cultures tomorrow
[2018-10-19] MEDS: VANCOMYCIN 1,000 MG in SODIUM CHLORIDE 0.9% 250 ML IVPB SCH (16:30)
[2018-10-19 17:26] LABS: Glucose,Whole Blood 105 mg/dL (75-99)
[2018-10-19 20:54] LABS: Glucose,Whole Blood 123 mg/dL (75-99)
[2018-10-19] MEDS: SODIUM CHLORIDE 0.9% 1,000 ML IV SCH (21:39)
[2018-10-19] MEDS: MONTELUKAST 10 MG TAB PO SCH (21:40)
[2018-10-20] MEDS: KETOROLAC 30 MG/ML 1 ML VIAL IVP SCH (02:28)
[2018-10-20] MEDS: HEPARIN SODIUM,PORCINE 5,000 UNIT/ML 1 ML VIAL SQ SCH ×3 (03:03→17:16)
[2018-10-20 07:16] LABS: Glucose,Whole Blood 96 mg/dL (75-99)
[2018-10-20] MEDS: ALBUTEROL NEBULIZED 2.5 MG/3 ML INHALATION SCH ×4 (07:31→21:04)
[2018-10-20] MEDS: SYMBICORT 160-4.5 MCG INHALER INHALATION SCH ×2 (07:31→21:04)
[2018-10-20] MEDS: VANCOMYCIN 1,000 MG in SODIUM CHLORIDE 0.9% 250 ML IVPB SCH (08:17)
[2018-10-20] MEDS: PANTOPRAZOLE 40 MG TABLET PO SCH (08:17)
[2018-10-20] MEDS: ASPIRIN 81 MG PO SCH (08:17)
[2018-10-20] MEDS: ISOSORBIDE MONONITRATE ER 60 MG TAB.ER.24H PO SCH (08:17)
[2018-10-20] MEDS: metFORMIN 500 MG TAB PO SCH ×2 (08:17→17:16)
[2018-10-20] MEDS: Acetaminophen-Codeine 300-30mg TAB PO PRN ×3 (08:17→22:11)
[2018-10-20] MEDS: ATENOLOL 25 MG TAB PO SCH (08:17)
[2018-10-20] MEDS: INSULIN ASPART (NovoLOG) 100 UNIT/ML VIAL SQ SCH ×5 (10:44→22:12)
[2018-10-20 10:48] LABS: Potassium 5.2 mmol/L (3.5-5.1)
[2018-10-20] MEDS: CANDESARTAN 4 MG PO SCH (11:09)
--- NOTE | 2018-10-20 11:20 | P.PN ---
Subjective Progress Note Date: 10/20/18 Principal diagnosis: pneumonia This 77-year-old was admitted to the hospital with generalized myalgia right shoulder pain and right chest pain. She'll clinical examination had a right lower lobe pneumonia chest x-ray confirms then. Blood cultures are showing MRSA. Patient is on vancomycin. Patient feels some better today she is more concerned about feeling puffy. Patient has received IV fluids. She was switched from Zosyn to vancomycin yesterday. The patient has had no fever since admission. Her white counts been in the normal range. She has minimal cough. She had diarrhea yesterday but none since her chest still hurts some but not too bad. Labs from today are pending 2 blood cultures are drawn today pending results. Will ask ID to see the patient and pulmonary is on the case. Evidence in the patient yet expect no interventions at present REVIEW OF SYSTEMS: Neuro: Denies any headaches dizziness. Psych: Denies anxiety depression feels oriented. Cardiac: Noncardiac chest pain improved or palpitations, no angina Respiratory: Denies shortness of breath does use oxygen has minimal cough. GI: Denies nausea vomiting or abdominal pain. No diarrhea or constipation, no bowel movement yet. : Denies dysuria hematuria. Extremities: Complains of puffiness of the ankles Skin: Intact. Constitutional: No fever, chills. Objective - Vital Signs Vital signs: Vital Signs Temp 98.6 F 10/20/18 07:00 Pulse 90 10/20/18 08:00 Resp 16 10/20/18 08:00 BP 128/70 10/20/18 07:00 Pulse Ox 95 10/20/18 07:00 Intake & Output 10/19/18 10/20/18 10/20/18 18:59 06:59 18:59 Intake Total 280 120 Balance 280 120 Intake: Intake, IV Titration 280 Amount Sodium Chloride 0.9% 1, 280 000 ml @ 75 mls/hr IV . [id number] [facility] Rx#:[id number] Oral 120 Other: Voiding Method Toilet Toilet # Voids 1 PHYSICAL EXAMINATION: Cooperative, at present in no acute distress. HEENT: Neck supple. No JVD. Chest: Dullness percussion right base with generalized decreased airflow the right lower lung few crackles at the left base patient has some bronchial breathing about mid lung on the right side dullness right base Cardiac: Normal S1-S2 no gallops no murmur . Abdomen: Soft bowel sounds present. Extremities: Trace edema at ankles no tenderness Neurologically: Awake, alert, oriented with well-coordinated movements. - Labs CBC & Chem 7: 10/19/18 06:21 10/20/18 07:58 Labs: Abnormal Lab Results - Last 24 Hours (Table) 10/19/18 10/19/18 10/19/18 Range/Units 11:51 17:22 20:42 Sodium (137-145) mmol/L Potassium (3.5-5.1) mmol/L Carbon Dioxide (22-30) mmol/L BUN (7-17) mg/dL Creatinine (0.52-1.04) mg/dL POC Glucose (mg/dL) 137 H 105 H 123 H (75-99) mg/dL Calcium (8.4-10.2) mg/dL 10/20/18 Range/Units 07:58 Sodium 136 L (137-145) mmol/L Potassium 5.2 H (3.5-5.1) mmol/L Carbon Dioxide 16 L (22-30) mmol/L BUN 40 H (7-17) mg/dL Creatinine 1.19 H (0.52-1.04) mg/dL POC Glucose (mg/dL) (75-99) mg/dL Calcium 8.0 L (8.4-10.2) mg/dL Microbiology - Last 24 Hours (Table) 10/17/18 19:39 Blood Culture Gram Stain - Final Blood Blood Culture - Final Methicillin resist S. aureus Assessment and Plan Assessment: assessment: 1. Bilateral lower lung pneumonia predominantly right-sided. 2. Staphylococcus aureus methicillin resistant bacteremia 3. History of bronchial asthma 4. 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 Acute on chronic renal failure improved 6. Chronic kidney disease stage III 7. Acute anemia due to acute illness 9. Hyponatremia secondary to acute pulmonary disease plan: Continue with vancomycin and Zosyn is discontinued. If continues to have diarrhea check for C. diff. Prognosis was guarded clinically improving. Repeat chest x-ray on Sunday ID to see the patient
[2018-10-20 11:46] LABS: Glucose,Whole Blood 114 mg/dL (75-99)
--- NOTE | 2018-10-20 14:27 | CT ---
EXAMINATION TYPE: CT chest wo con DATE OF EXAM: 10/20/2018 COMPARISON: None HISTORY: pneumonia CT DLP: 209.1 mGycm, Automated exposure control for dose reduction was used. CONTRAST: Performed injected with 0 mL of Isovue 370. TECHNIQUE: Axial images were obtained at 5 mm thick sections. Reconstructed images are reviewed on [employer] computer in the coronal plane. FINDINGS: Right lobe thyroid appears enlarged and somewhat hypodense and its inferior pole which exte nds to the sternal notch. There is some focal thickening along the right apex posteriorly. This could be a small amount of locu lated fluid. A moderate right pleural effusion is present. Adjacent compressive atelectasis is presen t. Coronary artery calcification is noted. A minimal left pleural effusion is present. Limited CT sections are obtained through the upper abdomen which are unremarkable. No enlarged mediastinal or hilar adenopathy is evident. The ascending aorta diameter at the level o f the main pulmonary artery is 3.4 cm. The main pulmonary artery diameter at the bifurcation is 3.3 cm. IMPRESSIONS: 1. Loculated right pleural fluid collections. Minimal left pleural fluid collection is present. 2. Compressive atelectasis appears to be adjacent to the right pleural effusion.
[2018-10-20 16:55] LABS: Glucose,Whole Blood 158 mg/dL (75-99)
[2018-10-20 21:35] LABS: Glucose,Whole Blood 134 mg/dL (75-99)
[2018-10-20] MEDS: MONTELUKAST 10 MG TAB PO SCH (22:11)
[2018-10-20] MEDS: SODIUM CHLORIDE 0.9% 1,000 ML IV SCH ×2 (22:12→22:14)
--- NOTE | 2018-10-20 23:26 | P.CONS ---
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 However the last few days she's had the difficulties of increasing pain to the left shoulder associated with fatigue and malaise. The patient is found it more difficult to try to sit up and do her activities of daily living because of these discomforts. Her home situation is difficult and her has had a stroke and she goes to visit with the halfway an ongoing basis. She relates that he has been ill as of late likely with pneumonia. She feels poorly today. She has weakness and malaise, she does not feel extraordinarily short of breath but does not feel well. The discomfort into her left shoulder continues and it limits her ability to position herself in bed freely. She does not believe that she is having further fevers or chills. Did have some fever and chills prior. With evidence of positive blood culture the infectious diseases consultation has been requested. Review of Systems 77-year-old woman feels weak and poorly HEENT:Denies headache or acute visual change. Denies sinus or mouth discomforts. Denies neck stiffness or pain. Denies significant oral cavity pain. Denies difficulty on swallowing. Lungs: His only mild shortness of breath is not having much cough or sputum production or hemoptysis Cardiovascular: He is not complaining of significant amounts of shortness of breath and denies chest pain, chest wall pain, orthopnea, or syncope, does have dyspnea on exertion Gastrointestinal:Denies nausea, vomiting, diarrhea, constipation, hematemesis, melena, hematochezia. No no significant change of bowel habit noticed. Musculoskeletal: As noted has the discomfort to her left shoulder area which makes it uncomfortable to lie in bed in change her position Skin: Denies new rash or lesions. No new ulcers or wounds are related.. Neuro: Denies headache or visual change. Denies any new onset weakness or difficulty with ambulation. Denies falls or seizures. Psychiatric:Denies anxiety or depression. Endocrine: Significant fatigue weight is stable Past Medical History Past Medical History: No Reported History History of Any Multi-Drug Resistant Organisms: None Reported Past Surgical History: No Surgical Hx Reported Past Psychological History: No Psychological Hx Reported Additional Psychological History / Comment(s): lives in the family home but is in extended care after his stroke she does visit him often and spends time at the extended care facility almost on a daily basis. 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 No new pets Smoking Status: Never smoker Past Alcohol Use History: None Reported Past Drug Use History: None Reported Medications and Allergies Home Medications and Allergies Comment(s): Current Medications Acetaminophen/Codeine Phosphate (Tylenol #3) 1 each PO Q4HR PRN PRN Reason: Pain 1-5 Last Admin: 10/20/18 22:11 Dose: 1 each Documented by: Acetaminophen/Codeine Phosphate (Tylenol #3) 2 each PO Q4HR PRN PRN Reason: Pain 6-10 Last Admin: 10/19/18 21:39 Dose: 2 each Documented by: Albuterol Sulfate (Ventolin Nebulized) 2.5 mg INHALATION RT-QID [facility] Last Admin: 10/20/18 21:04 Dose: 2.5 mg Documented by: Aspirin (Aspirin) 81 mg PO DAILY [facility] Last Admin: 10/20/18 08:17 Dose: 81 mg Documented by: Atenolol (Tenormin) 25 mg PO DAILY [facility] Last Admin: 10/20/18 08:17 Dose: 25 mg Documented by: Budesonide/Formoterol Fumarate (Symbicort 160-4.5 Mcg Inhaler) 2 puff INHALATION RT-BID [facility] Last Admin: 10/20/18 21:04 Dose: 2 puff Documented by: Heparin Sodium (Porcine) (Heparin) 5,000 unit SQ Q8HR [facility] Last Admin: 10/20/18 17:16 Dose: 5,000 unit Documented by: Sodium Chloride (Saline 0.9%) 1,000 mls @ 40 mls/hr IV .Q24H [facility] Last Admin: 10/20/18 22:14 Dose: Not Given Documented by: Vancomycin HCl 1,000 mg/ (Sodium Chloride) 250 mls @ 125 mls/hr IVPB Q18H [facility] Last Admin: 10/20/18 08:17 Dose: 125 mls/hr Documented by: Insulin Aspart (Novolog) 0 unit SQ ACHS [facility]; Protocol Last Admin: 10/20/18 22:12 Dose: Not Given Documented by: Isosorbide Mononitrate (Imdur) 60 mg PO DAILY [facility] Last Admin: 10/20/18 08:17 Dose: 60 mg Documented by: Metformin HCl (Glucophage) 1,000 mg PO BID-W/MEALS [facility] Last Admin: 10/20/18 17:16 Dose: 1,000 mg Documented by: Miscellaneous Information (Vancomycin Trough Due) 0 each MISCELLANE DIRECTED ONE Stop: 10/21/18 21:01 Montelukast Sodium (Singulair) 10 mg PO [facility] Last Admin: 10/20/18 22:11 Dose: 10 mg Documented by: Candesartan 4 Mg 4 mg PO DAILY [facility] Last Admin: 10/20/18 11:09 Dose: Not Given Documented by: Ondansetron HCl (Zofran) 4 mg IVP Q6HR PRN PRN Reason: Nausea And Vomiting Pantoprazole Sodium (Protonix) 40 mg PO AC-BRKFST [facility] Last Admin: 10/20/18 08:17 Dose: 40 mg Documented by: Home Medications Medication Instructions Recorded Confirmed Type Atenolol [Tenormin] 25 mg PO BID 10/17/18 10/17/18 History Benzonatate [Tessalon Perles] 200 mg PO TID PRN 10/17/18 10/17/18 History Candesartan [Atacand] 4 mg PO DAILY 10/17/18 10/17/18 History Cetirizine HCl [Zyrtec] 10 mg PO DAILY 10/17/18 10/17/18 History Fluticasone Nasal [place] [Flonase 2 spr EA NOSTRIL DAILY 10/17/18 10/17/18 History Nasal [place]] Isosorbide Mononitrate ER [Imdur] 60 mg PO BID 10/17/18 10/17/18 History Lansoprazole [Prevacid] 30 mg PO DAILY 10/17/18 10/17/18 History Montelukast [Singulair] 10 mg PO DAILY 10/17/18 10/17/18 History Pravastatin Sodium [Pravachol] 40 mg PO 10/17/18 10/17/18 History Allergies Allergy/AdvReac Type Severity Reaction Status Date / Time losartan [From Cozaar] Allergy Unknown Verified 10/17/18 20:15 pioglitazone [From Actos] Allergy Unknown Verified 10/17/18 20:15 Physical Exam Vitals: Vital Signs Temp Pulse Pulse Pulse Resp BP Pulse Ox 10/20/18 21:18 77 16 10/20/18 21:05 72 16 10/20/18 17:10 70 16 10/20/18 16:58 72 16 10/20/18 16:00 80 96 16 10/20/18 15:00 98.2 F 96 16 125/70 91 L 10/20/18 11:30 70 10/20/18 11:16 70 10/20/18 08:00 90 16 10/20/18 07:43 74 10/20/18 07:31 70 10/20/18 07:00 98.6 F 90 16 128/70 95 10/20/18 01:00 98.2 F 90 16 109/63 93 L Intake and Output 10/20/18 10/20/18 10/21/18 14:59 22:59 06:59 Intake Total 450 240 Output Total 1 Balance 449 240 Intake: Intake, IV Titration 330 Amount Sodium Chloride 0.9% 1, 80 000 ml @ 40 mls/hr IV . Q24H [facility] Rx#:[id number] Vancomycin 1,000 mg In 250 Sodium Chloride 0.9% 250 ml @ 125 mls/hr IVPB Q18H [facility] Rx#:[id number] Oral 120 240 Output: Emesis 1 Other: Voiding Method Toilet Toilet # Emeses 1 Pleasant 77-year-old woman of thin build not in distress but is with discomfort when she tries to change position in bed HEENT: Anicteric conjunctiva are pink and moist nasal mucosa grossly intact without significant lesions, there is no thrush. Neck: The neck is supple without significant lymphadenopathy or thyromegaly. Lungs: They're symmetrical air entry however there are crackles at the right base there is not a significant amount of egophony however there is some localized dullness at the base to the right only, left base only with crackles Heart: Regular rate and rhythm with an audible S1-S2, no S3 no S4. There is no significant murmur click or rub, PMI was nondisplaced. Abdomen: Positive bowel sounds soft and nontender without palpable masses or or ganomegaly. There was no guarding or rebound. Extremities: Upper extremities are without edema but does have discomfort when the left shoulder area is manipulated especially to change her position in bed. There is no edema or lesions. Lower extremities have trace edema no open ulcers Skin is without rash or blisters evidence of any vesicles over the left shoulder area no erythema or other rash Neuro: Awake alert oriented to person place and time. There are no acute new gross focal sensory motor deficits. Results CBC & Chem 7: 10/19/18 06:21 10/20/18 07:58 Labs: Abnormal Lab Results - Last 24 Hours (Table) 10/20/18 10/20/18 10/20/18 Range/Units 07:58 11:46 16:44 Sodium 136 L (137-145) mmol/L Potassium 5.2 H (3.5-5.1) mmol/L Carbon Dioxide 16 L (22-30) mmol/L BUN 40 H (7-17) mg/dL Creatinine 1.19 H (0.52-1.04) mg/dL POC Glucose (mg/dL) 114 H 158 H (75-99) mg/dL Calcium 8.0 L (8.4-10.2) mg/dL 10/20/18 Range/Units 21:17 Sodium (137-145) mmol/L Potassium (3.5-5.1) mmol/L Carbon Dioxide (22-30) mmol/L BUN (7-17) mg/dL Creatinine (0.52-1.04) mg/dL POC Glucose (mg/dL) 134 H (75-99) mg/dL Calcium (8.4-10.2) mg/dL Microbiology - Last 24 Hours (Table) 10/17/18 19:39 Blood Culture Gram Stain - Final Blood Blood Culture - Final Methicillin resist S. aureus Laboratory Results WBC 4.7 k/uL (3.8-10.6) 10/19/18 06:21 RBC 2.97 m/uL (3.80-5.40) L 10/19/18 06:21 Hgb 9.4 gm/dL (11.4-16.0) L D 10/19/18 06:21 Hct 29.2 % (34.0-46.0) L 10/19/18 06:21 MCV 98.6 fL (80.0-100.0) 10/19/18 06:21 MCH 31.5 pg (25.0-35.0) 10/19/18 06:21 MCHC 32.0 g/dL (31.0-37.0) 10/19/18 06:21 RDW 12.8 % (11.5-15.5) 10/19/18 06:21 Plt Count 211 k/uL (150-450) 10/19/18 06:21 Sodium 136 mmol/L (137-145) L 10/20/18 07:58 Potassium 5.2 mmol/L (3.5-5.1) H 10/20/18 07:58 Chloride 107 mmol/L (98-107) 10/20/18 07:58 Carbon Dioxide 16 mmol/L (22-30) L 10/20/18 07:58 Anion Gap 13 mmol/L 10/20/18 07:58 BUN 40 mg/dL (7-17) H 10/20/18 07:58 Creatinine 1.19 mg/dL (0.52-1.04) H 10/20/18 07:58 Est GFR (CKD-EPI)AfAm 51 (>60 ml/min/1.73 sqM) 10/20/18 07:58 Est GFR (CKD-EPI)NonAf 44 (>60 ml/min/1.73 sqM) 10/20/18 07:58 Glucose 88 mg/dL (74-99) 10/20/18 07:58 POC Glucose (mg/dL) 134 mg/dL (75-99) H 10/20/18 21:17 POC Glu Electrical Contacts Adjuster JEREMIAH Mandi Cuellar 10/20/18 21:17 Calcium 8.0 mg/dL (8.4-10.2) L 10/20/18 07:58 Microbiology 10/17/18 19:39 Blood Blood Culture Gram Stain - Final 10/17/18 19:39 Blood Blood Culture - Final Methicillin resist S. 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 She is developed pains in left shoulder area that has been making it difficult for her to perform ADLs and even be comfortable in bed. She also has some shortness of breath and significant fatigue and malaise and difficulty performing ADLs. She has been admitted there is evidence of the right lower lobe pneumonia and computed tomography scan shows evidence of the significant effusion. Antibiotic therapy with vancomycin has been added given the MRSA. Follow blood cultures are requested to try to track the of her bacteremia. If she's not had a recent echocardiogram this may be of importance given the noted bacteremia. A pulmonary source for the bacteremia appears to be most likely. The case is discussed with pulmonary critical care and we will consult Dr. johansen of cardiovascular surgery to evaluate for the possibility of sampling of the effusion with concerns that it could be empyema. Of note the patient does relate that many of the residents at the [facility] appear to have influenza. Computer records are reviewed and does not appear that she has had testing and constantly influenza testing is requested. She is complaining some difficulties with nausea some Zofran will be requested. Current Visit: Yes Status: Acute Code(s): R78.81 - BACTEREMIA SNOMED Code(s): 54149002284679604 (3) Exposure to influenza Current Visit: Yes Status: Acute Code(s): Z20.828 - CONTACT W AND EXPOSURE TO OTH VIRAL COMMUNICABLE DISEASES SNOMED Code(s): 715216425
--- NOTE | 2018-10-21 00:07 | CONS ---
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 She was feeling weak and slept for quite a while. She did not answer her phone. Subsequently, a neighbor came to check on her. She had been having some chills and occasional cough and noticed when she took a deep breath she had a right-sided chest pain. She had a chest x-ray done which showed an infiltrate on the right side and subsequently was directly admitted to the hospital for further treatment. She has a known history of type 2 diabetes as well as a history of asthma. PAST MEDICAL HISTORY: Positive for asthma, history of type 2 diabetes, history of coronary artery disease, history of appendectomy, arthroscopic surgery of her right knee, history of patellar fracture and surgery of the left knee. SOCIAL HISTORY: The patient is a nonsmoker. Does not drink alcohol excessively. 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 FAMILY HISTORY: Positive for coronary artery disease and cancer of the lung in her father. Mother had a history of diabetes. REVIEW OF SYSTEMS: Noncontributory. MEDICATIONS: Prior to admission were pravastatin, benzonatate, Singulair, Prevacid, Imdur, Flonase, cetirizine, Tenormin, Atacand. PHYSICAL EXAMINATION: Respiratory rate is 16, pulse rate of 80, temperature 98.2, blood pressure 125/70, O2 saturation on room air is 91%. HEENT reveals pupils are equal. No jugular venous distention. There is decreased breath sounds in the right base with dullness to percussion. Some bronchovesicular breath sounds in the right base. Occasional crackles. Cardiovascular system is S1, S2. No S3, no S4. Abdomen is soft. There is no pedal edema. LABS: White count is 4.7, hemoglobin of 9.4, sodium 132, potassium 5.1, chloride 105, bicarb 21, BUN 49, creatinine 1.32. Chest X-ray showed right lower zone infiltrate on the lateral, seemed to be bowing of the fissure into the right lung in the mid zone. CT scan of the chest subsequently showed a loculated pleural effusion which is moderately sized in the right with atelectasis and infiltrate in the right lower zone. The images were reconstructed using virtual bronchoscopy software with no evidence of any endobronchial masses or lesions. Blood cultures are growing methicillin-resistant Staph aureus from 10/17/2018. IMPRESSION: 1. Right-sided empyema with loculated pleural effusions as a source of her MRSA is likely. 2. Right lower zone pneumonia. 3. Probable type 2 diabetes. 4. Asthma. At this point in time from a pulmonary standpoint, would continue treatment with IV antibiotics per ID in the form of vancomycin. Would recommend thoracic surgery consultation for possible chest tube and VATS procedure given that she has a loculated pleural effusion. Would keep her on GI and DVT prophylaxis. Continue her on Symbicort. Try to avoid systemic steroids at this time. Her prognosis at this time is guarded. She was counseled regarding her condition and this approach. I would like to thank you for allowing the privilege of participating in the care of my patient. MMODL / IJN: [id number] /
[2018-10-21] MEDS: HEPARIN SODIUM,PORCINE 5,000 UNIT/ML 1 ML VIAL SQ SCH ×3 (00:56→21:43)
[2018-10-21] MEDS: VANCOMYCIN 1,000 MG in SODIUM CHLORIDE 0.9% 250 ML IVPB SCH ×2 (04:38→22:02)
[2018-10-21 07:04] LABS: Glucose,Whole Blood 106 mg/dL (75-99)
[2018-10-21] MEDS: Acetaminophen-Codeine 300-30mg TAB PO PRN ×2 (07:30→13:37)
--- NOTE | 2018-10-21 07:32 | XR ---
EXAMINATION TYPE: XR chest 2V DATE OF EXAM: 10/21/2018 COMPARISON: Chest CT from yesterday. Chest x-ray 2 days ago and older x-rays. HISTORY: Pneumonia progress study. TECHNIQUE: Frontal and lateral views of the chest are obtained. FINDINGS: There is persistent right lung opacity involving apex as well as lateral and basilar porti ons but diffusely involving right lung correlating with nonsimple pleural fluid collection and consol idation with air bronchograms on recent CT. There is elevated right hemidiaphragm redemonstrated. No mediastinal shift is seen. Left lung shows hilar nodular consolidation on CT less well seen on plain films with small left pleural effusion and associated left basilar atelectasis all redemonstrated. C ardiac silhouette size is stable and upper limits of normal with atherosclerotic aorta. The osseous structures are intact. IMPRESSION: Overall stable findings, tiny left pleural effusion with left basilar atelectasis. Multi loculated moderate-sized right pleural fluid collection with right lung consolidation that has air br onchograms. No mediastinal shift is present. Consider thoracentesis for diagnostic purposes.
[2018-10-21 08:12] LABS: Calcium 8.3 mg/dL (8.4-10.2)
[2018-10-21] MEDS: metFORMIN 500 MG TAB PO SCH ×2 (08:14→17:42)
[2018-10-21] MEDS: PANTOPRAZOLE 40 MG TABLET PO SCH (08:14)
[2018-10-21] MEDS: ATENOLOL 25 MG TAB PO SCH (08:14)
[2018-10-21] MEDS: INSULIN ASPART (NovoLOG) 100 UNIT/ML VIAL SQ SCH ×4 (08:14→22:03)
[2018-10-21] MEDS: ISOSORBIDE MONONITRATE ER 60 MG TAB.ER.24H PO SCH (08:14)
[2018-10-21] MEDS: ASPIRIN 81 MG PO SCH (08:14)
[2018-10-21] MEDS: ALBUTEROL NEBULIZED 2.5 MG/3 ML INHALATION SCH ×4 (09:20→20:52)
[2018-10-21] MEDS: SYMBICORT 160-4.5 MCG INHALER INHALATION SCH ×2 (09:21→20:52)
--- NOTE | 2018-10-21 10:04 | P.GSCN ---
History of Present Illness Consult date: 10/21/18 Reason for Consult: Possible right empyema. Requesting physician: Zain Velasquez History of present illness: This is a 77-year-old female patient who is followed by Dr. Catalino Gaona on an outpatient basis. The patient has a past medical history significant for coronary artery disease with a stent placement to her right coronary artery in March of 2000, history of hypertension, hyperlipidemia, tuberculosis in 1969, gastroesophageal reflux disease, constipation and asthma. She reports last 10/15/2018 she developed some right upper chest, shoulder and right flank pain. She describes the pain as constant and aching and progressed over a 2-3 day period. She denies any fever, chills, nausea, vomiting or diarrhea. Due to the progression in her pain, feeling of fatigue and generalized weakness she decided to seek medical attention from her primary care physician. She subsequently underwent a chest x-ray which showed a right lower lobe pneumonia. Her initial lab work showed a WBC count of 4.7, hemoglobin 9.4, BUN 49, and creatinine of 1.32. Due to the patient's presenting symptoms and chest x-ray findings she was admitted to the hospital for further evaluation and treatment. Upon admission to the hospital the patient underwent a computed tomography scan of her chest which demonstrated a loculated right pleural fluid collection and compressive atelectasis adjacent to the right pleural effusion. Subsequently a consult was placed to Dr. Angelica Balderas from cardiothoracic surgery for evaluation and treatment recommendations of her loculated right pleural effusion. Review of Systems A 14 point review of systems was completed and was negative except as mentioned in the HPI. Past Medical History Past Medical History: Asthma, Coronary Artery Disease (CAD), GERD/Reflux, Hyperlipidemia, Hypertension Additional Past Medical History / Comment(s): Constipation, history of ovarian cyst and history of tuberculosis in 1969. History of Any Multi-Drug Resistant Organisms: None Reported Past Surgical History: Breast Surgery (Biopsy right breast in 1997), Heart Catheterization, Heart Catheterization With Stent, Hysterectomy, Joint Replacement, Orthopedic Surgery, Tubal Ligation Additional Past Surgical History / Comment(s): Trigger finger release surgery, fracture left patella with screw placement, history of ovarian cyst removal, fracture left hand, rotator cuff repair. Past Anesthesia/Blood Transfusion Reactions: No Reported Reaction Past Psychological History: No Psychological Hx Reported Additional Psychological History / Comment(s): lives in the family home but is in extended care after his stroke she does visit him often and spends time at the extended care facility almost on a daily basis. 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 No new pets Smoking Status: Never smoker Past Alcohol Use History: None Reported Past Drug Use History: None Reported - Past Family History Mother Family Medical History: Diabetes Mellitus, Pneumonia Additional Family Medical History / Comment(s): Tuberculosis. Past away at age 98. Father Family Medical History: Cancer (Lung cancer), Coronary Artery Disease (CAD) Additional Family Medical History / Comment(s): Past away at age 80. Brother(s) Family Medical History: Coronary Artery Disease (CAD) Sister(s) Additional Family Medical History / Comment(s): Rheumatoid arthritis. Medications and Allergies Home Medications Medication Instructions Recorded Confirmed Type Atenolol [Tenormin] 25 mg PO BID 10/17/18 10/17/18 History Benzonatate [Tessalon Perles] 200 mg PO TID PRN 10/17/18 10/17/18 History Candesartan [Atacand] 4 mg PO DAILY 10/17/18 10/17/18 History Cetirizine HCl [Zyrtec] 10 mg PO DAILY 10/17/18 10/17/18 History Fluticasone Nasal Kerens [Flonase 2 spr EA NOSTRIL DAILY 10/17/18 10/17/18 Histo ry Nasal Kerens] Isosorbide Mononitrate ER [Imdur] 60 mg PO BID 10/17/18 10/17/18 History Lansoprazole [Prevacid] 30 mg PO DAILY 10/17/18 10/17/18 History Montelukast [Singulair] 10 mg PO DAILY 10/17/18 10/17/18 History Pravastatin Sodium [Pravachol] 40 mg PO HS 10/17/18 10/17/18 History Allergies Allergy/AdvReac Type Severity Reaction Status Date / Time losartan [From Cozaar] Allergy Unknown Verified 10/17/18 20:15 pioglitazone [From Actos] Allergy Unknown Verified 10/17/18 20:15 Surgical - Exam Vital Signs Temp Pulse Resp BP Pulse Ox 101.4 F H 117 H 14 122/69 94 L 10/17/18 18:37 10/17/18 18:37 10/17/18 18:37 10/17/18 18:37 10/17/18 18:37 - General well developed, well nourished, no distress, moderate pain (Her right shoulder and right flank) - Eyes PERRL, normal ocular movement - ENT normal pinna, normal nares, normal mucosa, no hearing loss, no congestion - Neck Neck is supple, no lymphadenopathy, no thyroidomegaly no masses, no bruits, trachea midline, no venous distension - Respiratory Lung sounds with scattered crackles throughout, block hacker bilateral bases. Respirations are symmetrical and nonlabored. Oxygen saturation are 98% on 2 L nasal cannula. - Cardiovascular Regular rhythm and rate. S1 and S2 present, negative for S3, gallop. Systolic murmur 2/6 left sternal border. +1 edema to her bilateral lower extremities. - Abdomen Abdomen soft, nontender and slightly distended. Active bowel sounds all 4 abdominal quadrants. No guarding or rigidity. No organomegaly. - Genitourinary Deferred - Rectum Deferred - Integumentary no rash, no growths, no abnormal pigmentation - Neurologic normal coordination, normal sensation - Musculoskeletal normal gait, normal posture - Psychiatric oriented to time, oriented to person, oriented to place, speech is normal, memory intact Results - Labs 10/19/18 06:21 10/21/18 07:34 Abnormal Lab Results - Last 24 Hours (Table) 10/20/18 10/20/18 10/20/18 Range/Units 07:58 11:46 16:44 Sodium 136 L (137-145) mmol/L Potassium 5.2 H (3.5-5.1) mmol/L Carbon Dioxide 16 L (22-30) mmol/L BUN 40 H (7-17) mg/dL Creatinine 1.19 H (0.52-1.04) mg/dL POC Glucose (mg/dL) 114 H 158 H (75-99) mg/dL Calcium 8.0 L (8.4-10.2) mg/dL 10/20/18 10/21/18 Range/Units 21:17 07:03 Sodium (137-145) mmol/L Potassium (3.5-5.1) mmol/L Carbon Dioxide (22-30) mmol/L BUN (7-17) mg/dL Creatinine (0.52-1.04) mg/dL POC Glucose (mg/dL) 134 H 106 H (75-99) mg/dL Calcium (8.4-10.2) mg/dL Diabetes panel 10/20/18 Range/Units 07:58 Sodium 136 L (137-145) mmol/L Potassium 5.2 H (3.5-5.1) mmol/L Chloride 107 (98-107) mmol/L Carbon Dioxide 16 L (22-30) mmol/L BUN 40 H (7-17) mg/dL Creatinine 1.19 H (0.52-1.04) mg/dL Glucose 88 (74-99) mg/dL Calcium 8.0 L (8.4-10.2) mg/dL Calcium panel 10/20/18 Range/Units 07:58 Calcium 8.0 L (8.4-10.2) mg/dL Pituitary panel 10/20/18 Range/Units 07:58 Sodium 136 L (137-145) mmol/L Potassium 5.2 H (3.5-5.1) mmol/L Chloride 107 (98-107) mmol/L Carbon Dioxide 16 L (22-30) mmol/L BUN 40 H (7-17) mg/dL Creatinine 1.19 H (0.52-1.04) mg/dL Glucose 88 (74-99) mg/dL Calcium 8.0 L (8.4-10.2) mg/dL Adrenal panel 10/20/18 Range/Units 07:58 Sodium 136 L (137-145) mmol/L Potassium 5.2 H (3.5-5.1) mmol/L Chloride 107 (98-107) mmol/L Carbon Dioxide 16 L (22-30) mmol/L BUN 40 H (7-17) mg/dL Creatinine 1.19 H (0.52-1.04) mg/dL Glucose 88 (74-99) mg/dL Calcium 8.0 L (8.4-10.2) mg/dL - Imaging Chest x-ray: report reviewed, image reviewed CT scan - chest: report reviewed, image reviewed Assessment and Plan Assessment: 1. Right lower lobe pneumonia. 2. Right lower lobe loculated pleural effusion. 3. History of coronary artery disease with previous stent placement to her right coronary artery in March 2000. 4. Positive blood culture for methicillin resistance at Staphylococcus aureus. 5. History of hypertension. 6. History of hyperlipidemia 7. Gastroesophageal reflux disease. 8. History of asthma. 9. History of tuberculosis in 1970. 10. Elevated random blood glucose. Plan: The patient was seen and examined. Her chart and diagnostics were reviewed by Dr. Angelica Balderas from cardiothoracic surgery. The patient was seen and examined by Dr. Angelica Balderas. Treatment options discussed with the patient by Dr. Balderas regarding her loculated right pleural effusion. Recommendations for placement of right pleural pigtail catheter placement by interventional radiology. Once the pigtail catheter has been placed and the fluid has been drained we will initiate pleural irrigation using alteplase to the pigtail catheter. We will order a incentive spirometry and encourage use every hour while awake. Pulmonary management recommendations per Dr. GABRIEL Merino. Medical management recommendations per Dr. Gaona. Antibiotic management per infectious disease Dr. Velasquez, as blood culture positive for methicillin resistant Staphylococcus aureus. We will continue to monitor her labs and daily chest x-rays. Encourage activity as tolerated. We will order a 2-D echocardiogram as she has a 2/6 systolic murmur. She is on GI prophylaxis with Protonix and DVT prophylaxis with heparin and we will order sequential compression devices to her bilateral lower extremities. Thank you Dr. Velasquez for this consult and we look forward to working with you in the care of your patient. Time with Patient: Greater than 30
[2018-10-21 11:57] LABS: Glucose,Whole Blood 102 mg/dL (75-99)
[2018-10-21] MEDS: CANDESARTAN 4 MG PO SCH (12:05)
--- NOTE | 2018-10-21 12:49 | ECHOF ---
Referral Reason:Systolic murmur MEASUREMENTS -------- HEIGHT: 165.1 cm WEIGHT: 51.7 kg BP: RVIDd: 2.7 cm (< 3.3) IVSd: 1.1 cm (0.6 - 1.1) LVIDd: 4.0 cm (3.9 - 5.3) LVPWd: 1.1 cm (0.6 - 1.1) IVSs: 1.5 cm LVIDs: 3.3 cm LVPWs: 1.4 cm LA Diam: 3.8 cm (2.7 - 3.8) Ao Diam: 2.7 cm (2.0 - 3.7) AV Cusp: 1.6 cm (1.5 - 2.6) LA Diam: 3.8 cm (2.7 - 3.8) MV EXCURSION: 14.924 mm (> 18.000) MV EF SLOPE: 87 mm/s (70 - 150) EPSS: 0.6 cm MV E Srikanth: 0.80 m/s MV DecT: 254 ms MV A Srikanth: 1.09 m/s MV E/A Ratio: 0.74 RAP: 5.00 mmHg RVSP: 37.10 mmHg FINDINGS -------- Sinus rhythm. This was a technically adequate study. LV size, wall thickness and systolic function are normal, with an EF greater than 55%. The left viviane tricular size is normal. The right ventricle is normal in size. The left atrial size is normal. The right atrial size is normal. There is mild aortic valve sclerosis. There is no evidence of aortic regurgitation. Mild mitral annular calcification present. Mild mitral regurgitation is present. Mild tricuspid regurgitation present. There is mild pulmonary hypertension. The right ventricular systolic pressure, as measured by Doppler, is 37.10mmHg. There is no pulmonic regurgitation present. The aortic root size is normal. There is no pericardial effusion. CONCLUSIONS -------- 1. LV size, wall thickness and systolic function are normal, with an EF greater than 55%. 2. The left ventricular size is normal. 3. The right ventricle is normal in size. 4. The left atrial size is normal. 5. The right atrial size is normal. 6. There is mild aortic valve sclerosis. 7. Mild mitral annular calcification present. 8. Mild mitral regurgitation is present. 9. Mild tricuspid regurgitation present. 10. There is mild pulmonary hypertension. 11. The right ventricular systolic pressure, as measured by Doppler, is 37.10mmHg. 12. There is no pulmonic regurgitation present. 13. The aortic root size is normal. 14. There is no pericardial effusion. CONE TENDER: Roslyn Lugo RDCS
[2018-10-21 13:33] LABS: INR 0.9 (<1.2); Prothrombin Time 9.6 sec (9.0-12.0)
--- NOTE | 2018-10-21 15:32 | CT ---
EXAMINATION TYPE: CT chest tube insertion DATE OF EXAM: 10/21/2018 COMPARISON: 10/20/2018 HISTORY: Chest tube insertion for loculated pleural effusion possible empyema CT DLP: 597 mGycm The procedure is discussed with the patient, the risks, complications, benefits and alternatives, wer e discussed and any questions were answered. Informed consent was obtained. The patient is placed p adrienne on the CT table, prepped and draped in the usual sterile fashion. Utilizing a 22-gauge Chiba needle access into the pleural space was achieved and there is passage of an O.018 guidewire. There was conversion to an O.035 system. There was serial dilation to 8 Greenlandic an d placement of an 8 Greenlandic drainage catheter. Samples obtained and sent to pathology for analysis. Al l elements of maximal barrier and sterile technique were utilized. The patient remained stable throu ghout the procedure with no immediate postprocedural complication. IMPRESSION: 1. Successful CT guided right chest tube insertion.
[2018-10-21 17:16] LABS: Glucose,Whole Blood 178 mg/dL (75-99)
[2018-10-21 19:39] LABS: Glucose,Whole Blood 178 mg/dL (75-99)
--- NOTE | 2018-10-21 20:27 | PN ---
PROGRESS NOTE DATE OF SERVICE: 10/21/2018 This patient has been hemodynamically stable. She had a right chest tube pigtail catheter placed today and is draining some yellowish fluid. She feels better overall. On physical examination, her blood pressure is 139/70, respiratory rate of 14, pulse rate of 90, temperature 98.6. Oxygen saturation on 3 L by nasal cannula is 99%. HEENT is unremarkable. Chest reveals decreased breath sounds on the right base. Cardiovascular system is in S1, S2. Abdomen is soft. There is no pedal edema. IMPRESSION AT THIS TIME: 1. Right-sided loculated pleural effusion, status post chest tube placement by Interventional Radiology. 2. Patient may need VATS procedure with decortication. 3. Methicillin-resistant Staphylococcus aeruginosa sepsis, with pneumonia and right- sided empyema likely. 4. Diabetes mellitus. Continue antibiotics. Keep her on adequate caloric intake and protein intake. Keep her on GI and DVT prophylaxis. Her prognosis at this time is guarded. MMODL / IJN: [id number] /
[2018-10-21] MEDS ORDERED: VANCOMYCIN TROUGH DUE 1 EACH MISC MISCELLANE ONE (21:00)
[2018-10-21 21:35] LABS: Appearance,BF Clear; Color,BF Yellow; Nucleated Cells, Body Fluid 8 /uL; RBC, Body Fluid 885 /uL
[2018-10-21] MEDS: SODIUM CHLORIDE 0.9% 1,000 ML IV SCH (22:03)
[2018-10-21] MEDS: MONTELUKAST 10 MG TAB PO SCH (22:03)
--- NOTE | 2018-10-21 22:30 | PN ---
PROGRESS NOTE CHIEF COMPLAINT: Re-evaluation. HISTORY OF PRESENT ILLNESS: This is a 77-year-old female admitted to the hospital with right lung pneumonia due to MRSA. The patient has been seen by Pulmonary as well as ID. They elected to refer the patient for surgical drainage of the right pleural effusion. Apparently the cell count is not complete. Difficult to say whether there is any evidence of purulent effusion. Cultures are obviously pending. So far, the repeat blood cultures are negative. The patient is feeling fairly well. Her appetite has been poor. REVIEW OF SYSTEMS: NEURO: Denies any headaches, dizziness. PSYCH: No anxiety. CARDIAC: No chest pain, angina, palpitations. RESPIRATORY: Denies shortness of breath with oxygen. Still has some chest pain on the right side, which has improved. Right shoulder pain improved. Minimal cough. No hemoptysis. GI: No nausea, vomiting. Decreased appetite. No abdominal pain. Has some diarrhea. : No symptoms of dysuria or hematuria. EXTREMITIES: No pain, edema. CONSTITUTIONAL: No fever, chills. PHYSICAL EXAMINATION: Pleasant female, in no distress. VITAL SIGNS: Temperature 98.8, pulse 96, respirations 16, blood pressure 145/71, pulse ox 98% on 2 L. HEENT: Normocephalic. NECK: Supple. No JVD. Chest reveals some dullness to percussion, right base, with decreased air flow. Some bronchial breathing. Left lung has a few crackles in the left base. CARDIAC: Normal S1, S2 with no gallops. Systolic murmur 2/6, left sternal border. Abdomen is mildly protuberant, soft. Bowel sounds active. EXTREMITIES: No edema. No tenderness. NEUROLOGIC: Awake, alert, oriented with well-coordinated movements. LABORATORY ASSESSMENT: Blood sugar is adequately controlled. ASSESSMENT: 1. Right lung pneumonia. 2. Parapneumonic effusion. 3. Methicillin-resistant Staphylococcus aeruginosa bacteremia. 4. Diabetes mellitus. 5. History of bronchial asthma. 6. Stable coronary artery disease. PLAN: The patient is stable. Continue present medical regimen. Patient's condition was discussed with the patient. Prognosis is guarded. Patient was seen by Cardiothoracic and a chest tube has been placed. Also patient had an echocardiogram which reveals adequate ejection fraction, no evidence of PICC line endocarditis. Stool will be sent for C difficile if she continues to have diarrhea. MMODL / IJN: [id number] /
--- NOTE | 2018-10-21 23:21 | P.PN ---
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 However the last few days she's had the difficulties of increasing pain to the left shoulder associated with fatigue and malaise. The patient is found it more difficult to try to sit up and do her activities of daily living because of these discomforts. Her home situation is difficult and her has had a stroke and she goes to visit with the half-way an ongoing basis. She relates that he has been ill as of late likely with pneumonia. She feels poorly today. She has weakness and malaise, she does not feel extraordinarily short of breath but does not feel well. The discomfort into her left shoulder continues and it limits her ability to position herself in bed freely. She does not believe that she is having further fevers or chills. Did have some fever and chills prior. With evidence of positive blood culture the infectious diseases consultation has been requested. 10/21/2018 patient has now been seen by cardiothoracic surgery. They suggested CT-guided drainage of the effusion. The patient relates almost directly after the drainage occurred she started to feel considerably better. Her shortness of breath, cough and dyspnea all improved. She's had no further fever and is very pleased that she is feeling so much better. The tube itself is not very uncomfortable and she has no other new acute complaints. Objective - Vital Signs Vital signs: Vital Signs Temp 98.8 F 10/21/18 20:00 Pulse 80 10/21/18 21:08 Resp 16 10/21/18 20:00 BP 139/54 10/21/18 20:00 Pulse Ox 98 10/21/18 20:00 Intake & Output 10/21/18 10/21/18 10/22/18 06:59 18:59 06:59 Intake Total 480 200 Output Total 25 45 Balance 455 155 Intake: Oral 480 200 Output: Chest Tube Drainage 25 45 right posterior chest 25 45 Other: Voiding Method Toilet # Voids 1 2 1 - Exam Beena 77-year-old woman of thin build not in distress but is with discomfort when she tries to change position in bed HEENT: Anicteric conjunctiva are pink and moist nasal mucosa grossly intact without significant lesions, there is no thrush. Neck: The neck is supple without significant lymphadenopathy or thyromegaly. Lungs: They're symmetrical air entry however there are crackles at the right base there is not a significant amount of egophony however there is some localized dullness at the base to the right only, left base only with crackles percutaneous drain noted in the right lateral chest wall Heart: Regular rate and rhythm with an audible S1-S2, no S3 no S4. There is no significant murmur click or rub, PMI was nondisplaced. Abdomen: Positive bowel sounds soft and nontender without palpable masses or organomegaly. There was no guarding or rebound. Extremities: Upper extremities are without edema but does have discomfort when the left shoulder area is manipulated especially to change her position in bed. There is no edema or lesions. Lower extremities have trace edema no open ulcers Skin is without rash or blisters evidence of any vesicles over the left shoulder area no erythema or other rash Neuro: Awake alert oriented to person place and time. There are no acute new gross focal sensory motor deficits. - Labs CBC & Chem 7: 10/19/18 06:21 10/21/18 07:34 Labs: Abnormal Lab Results - Last 24 Hours (Table) 10/21/18 10/21/18 10/21/18 Range/Units 07:03 07:34 11:55 Chloride 109 H (98-107) mmol/L Carbon Dioxide 20 L (22-30) mmol/L BUN 25 H (7-17) mg/dL Glucose 114 H (74-99) mg/dL POC Glucose (mg/dL) 106 H 102 H (75-99) mg/dL Calcium 8.3 L (8.4-10.2) mg/dL 10/21/18 10/21/18 Range/Units 17:14 19:35 Chloride (98-107) mmol/L Carbon Dioxide (22-30) mmol/L BUN (7-17) mg/dL Glucose (74-99) mg/dL POC Glucose (mg/dL) 178 H 178 H (75-99) mg/dL Calcium (8.4-10.2) mg/dL Microbiology - Last 24 Hours (Table) 10/20/18 07:58 Blood Culture - Preliminary Blood No Growth after 24 hours Laboratory Results WBC 4.7 k/uL (3.8-10.6) 10/19/18 06:21 RBC 2.97 m/uL (3.80-5.40) L 10/19/18 06:21 Hgb 9.4 gm/dL (11.4-16.0) L D 10/19/18 06:21 Hct 29.2 % (34.0-46.0) L 10/19/18 06:21 MCV 98.6 fL (80.0-100.0) 10/19/18 06:21 MCH 31.5 pg (25.0-35.0) 10/19/18 06:21 MCHC 32.0 g/dL (31.0-37.0) 10/19/18 06:21 RDW 12.8 % (11.5-15.5) 10/19/18 06:21 Plt Count 211 k/uL (150-450) 10/19/18 06:21 PT 9.6 sec (9.0-12.0) 10/21/18 13:03 INR 0.9 (<1.2) 10/21/18 13:03 Sodium 137 mmol/L (137-145) 10/21/18 07:34 Potassium 5.0 mmol/L (3.5-5.1) 10/21/18 07:34 Chloride 109 mmol/L (98-107) H 10/21/18 07:34 Carbon Dioxide 20 mmol/L (22-30) L 10/21/18 07:34 Anion Gap 8 mmol/L 10/21/18 07:34 BUN 25 mg/dL (7-17) H 10/21/18 07:34 Creatinine 0.88 mg/dL (0.52-1.04) 10/21/18 07:34 Est GFR (CKD-EPI)AfAm 74 (>60 ml/min/1.73 sqM) 10/21/18 07:34 Est GFR (CKD-EPI)NonAf 64 (>60 ml/min/1.73 sqM) 10/21/18 07:34 Glucose 114 mg/dL (74-99) H 10/21/18 07:34 POC Glucose (mg/dL) 178 mg/dL (75-99) H 10/21/18 19:35 POC Glu Production Maintenance Mechanic ID Jayesh Rendon 10/21/18 19:35 Calcium 8.3 mg/dL (8.4-10.2) L 10/21/18 07:34 Fluid Source Pleural 10/21/18 14:40 Fluid Color Yellow 10/21/18 14:40 Fluid Appearance Clear 10/21/18 14:40 Fluid RBC 885 /uL 10/21/18 14:40 Fluid Nucleated Cells 8 /uL 10/21/18 14:40 Vancomycin Trough 14.2 ug/mL 10/21/18 21:46 Influenza Type A RNA Not Detected (Not Detectd) 10/21/18 04:42 Influenza Type B (PCR) Not Detected (Not Detectd) 10/21/18 04:42 Microbiology 10/20/18 07:58 Blood Blood Culture - Preliminary No Growth after 24 hours 10/17/18 19:39 Blood Blood Culture Gram Stain - Final 10/17/18 19:39 Blood Blood Culture - Final Methicillin resist S. 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 She is developed pains in left shoulder area that has been making it difficult for her to perform ADLs and even be comfortable in bed. She also has some shortness of breath and significant fatigue and malaise and difficulty performing ADLs. She has been admitted there is evidence of the right lower lobe pneumonia and computed tomography scan shows evidence of the significant effusion. Antibiotic therapy with vancomycin has been added given the MRSA. Follow blood cultures are requested to try to track the of her bacteremia. If she's not had a recent echocardiogram this may be of importance given the noted bacteremia. A pulmonary source for the bacteremia appears to be most likely. The case is discussed with pulmonary critical care and we will consult Dr. johansen of cardiovascular surgery to evaluate for the possibility of sampling of the effusion with concerns that it could be empyema. Of note the patient does relate that many of the residents at the [facility] appear to have influenza. Computer records are reviewed and does not a ppear that she has had testing and constantly influenza testing is requested. She is complaining some difficulties with nausea some Zofran will be requested. 10/21/2018 patient is now feeling considerably better status post the percutaneous drainage into the pleural space. Cultures are pending. The patient does have MRSA bacteremia within the bases of pneumonia and this loculated fluid collection that has now been drained. She is feeling much better than she expected. Shortness of breath is improved. Once he is evidence of clearance of the bacteremia will have to have IV access placed and will plan a several week course of outpatient intravenous antibiotic therapy at the time of discharge. Nausea has resolved. Current Visit: Yes Status: Acute Code(s): R78.81 - BACTEREMIA SNOMED Code(s): 00747480478889278 (3) Exposure to influenza Current Visit: Yes Status: Acute Code(s): Z20.828 - CONTACT W AND EXPOSURE TO [facility] VIRAL COMMUNICABLE DISEASES SNOMED Code(s): 697075095
[2018-10-22] MEDS ORDERED: ACETAMINOPHEN TAB 325 MG TAB PO PRN (02:03)
[2018-10-22] MEDS: HEPARIN SODIUM,PORCINE 5,000 UNIT/ML 1 ML VIAL SQ SCH ×4 (02:39→23:58)
[2018-10-22] MEDS: Acetaminophen-Codeine 300-30mg TAB PO PRN ×4 (02:39→21:25)
[2018-10-22 07:34] LABS: Glucose,Whole Blood 131 mg/dL (75-99)
--- NOTE | 2018-10-22 07:44 | XR ---
EXAMINATION TYPE: XR chest 1V portable DATE OF EXAM: 10/22/2018 COMPARISON: 10/21/2018 HISTORY: Loculated right pleural effusion TECHNIQUE: Single frontal view of the chest is obtained. FINDINGS: There is persistent bilateral consolidation and pleural effusion much greater on the right which demonstrates no significant interval change. Right-sided chest tube is seen in position. No si zable pneumothorax. A bone island overlying the left glenoid. Arthropathy of the shoulders. Prominenc e of the right paratracheal stripe could been the basis of adenopathy. IMPRESSION: 1. Bilateral consolidation and pleural effusion much greater on the right is stable. Chest tube is se en with no sizable pneumothorax. 2. Persistent right paratracheal soft tissue fullness. Differential diagnosis includes adenopathy.
[2018-10-22 08:02] LABS: HCT 28.7 % (34.0-46.0); HGB 9.7 gm/dL (11.4-16.0); MCH 32.8 pg (25.0-35.0); MCHC 33.7 g/dL (31.0-37.0); MCV 97.5 fL (80.0-100.0); Mean Platelet Volume 7.2; Platelet Count 274 k/uL (150-450); RBC 2.94 m/uL (3.80-5.40); RDW 13.1 % (11.5-15.5); WBC 7.2 k/uL (3.8-10.6)
[2018-10-22 08:14] LABS: Anion Gap 5 mmol/L; Blood Urea Nitrogen 19 mg/dL (7-17); Calcium 8.7 mg/dL (8.4-10.2); Carbon Dioxide 22 mmol/L (22-30); Chloride 109 mmol/L (98-107); Glucose 127 mg/dL (74-99); Sodium 136 mmol/L (137-145)
[2018-10-22] MEDS: ALBUTEROL NEBULIZED 2.5 MG/3 ML INHALATION SCH ×4 (08:16→19:40)
[2018-10-22] MEDS: SYMBICORT 160-4.5 MCG INHALER INHALATION SCH ×2 (08:16→19:49)
[2018-10-22] MEDS: ATENOLOL 25 MG TAB PO SCH (10:42)
[2018-10-22] MEDS: ASPIRIN 81 MG PO SCH (10:42)
[2018-10-22] MEDS: metFORMIN 500 MG TAB PO SCH ×2 (10:42→17:40)
[2018-10-22] MEDS: ISOSORBIDE MONONITRATE ER 60 MG TAB.ER.24H PO SCH (10:42)
[2018-10-22] MEDS: PANTOPRAZOLE 40 MG TABLET PO SCH (10:43)
[2018-10-22 11:58] LABS: Glucose,Whole Blood 154 mg/dL (75-99)
[2018-10-22] MEDS: INSULIN ASPART (NovoLOG) 100 UNIT/ML VIAL SQ SCH ×4 (12:27→23:40)
[2018-10-22] MEDS: CANDESARTAN 4 MG PO SCH (12:27)
[2018-10-22] MEDS: ALTEPLASE 10 MG in SODIUM CHLORIDE 0.9% 100 ML IRRIGATION ONE (12:33)
--- NOTE | 2018-10-22 14:02 | P.PN ---
Subjective Progress Note Date: 10/22/18 Principal diagnosis: Right lower lobe pneumonia, right loculated pleural effusion, history of coronary artery disease with previous stent placement to her right coronary artery in March 2000, history of hypertension, hyperlipidemia, gastroesophageal reflux disease, asthma, history of tuberculosis 1969, and elevated random blood glucose. The patient is laying in bed with her and elevated. She is in no acute distress. She reports that she has having some bouts of discomfort to her back and chest with coughing, reports that her shortness of breath has improved since the pigtail catheter has been placed. Right chest pigtail catheter remains in place to low continuous wall suction -20 cm of H2O. 170 mL of yellow colored drainage has drained in the last 24 hours. She is achieving 1000 mL on her incentive spirometry. Oxygen saturation are 92% on room air. Her T-max temperature in the last 24 hours is 100.8F. Objective - Vital Signs Vital signs: Vital Signs Temp 98.7 F 10/22/18 04:00 Pulse 76 10/22/18 11:42 Resp 16 10/22/18 01:52 BP 164/73 10/22/18 01:52 Pulse Ox 92 L 10/22/18 01:52 Intake & Output 10/21/18 10/22/18 10/22/18 18:59 06:59 18:59 Intake Total 480 810 Output Total 25 135 Balance 455 675 Intake: Intake, IV Titration 610 Amount Sodium Chloride 0.9% 1, 360 000 ml @ 40 mls/hr IV . Q24H [facility] Rx#:[id number] Vancomycin 1,000 mg In 250 Sodium Chloride 0.9% 250 ml @ 125 mls/hr IVPB Q18H [facility] Rx#:[id number] Oral 480 200 Output: Chest Tube Drainage 25 135 right posterior chest 25 135 Other: Voiding Method Toilet # Voids 2 2 - Constitutional General appearance: Present: cooperative, no acute distress, thin - Respiratory Details: Few scattered crackles to bilateral bases. Respirations are symmetrical and nonlabored. Oxygen saturation are 92% on room air. She is achieving 1000 mL on her incentive spirometry. Right posterior chest pigtail catheter in place to low continuous wall suction -20 cm H2O. Draining thin yellow drainage. Intermittent air leak present. 170 mL output since the pigtail catheter placement. - Cardiovascular Details: Regular rhythm and rate. S1 and S2 doesn't, negative for S3, gallop or murmur. No edema present. - Gastrointestinal Gastrointestinal Comment(s): Abdomen is soft, nontender and nondistended. Hypoactive bowel sounds to all 4 abdominal quadrants. No guarding or rigidity. No organomegaly. - Genitourinary Genitourinary Comment(s): Following clear yellow urine. - Integumentary Integumentary Comment(s): Skin is warm and dry. No clubbing or cyanosis is present. No rash or abnormal pigmentation is present. Right posterior chest pigtail catheter in place, dressing clean, dry and intact. - Neurologic Neurologic: Present: CNII-XII intact - Musculoskeletal Musculoskeletal: Present: gait normal, generalized weakness, strength equal bilaterally - Psychiatric Psychiatric: Present: A&O x's 3, appropriate affect, intact judgment & insight - Allied health notes Allied health notes reviewed: nursing - Labs CBC & Chem 7: 10/22/18 07:34 10/22/18 07:34 Labs: Abnormal Lab Results - Last 24 Hours (Table) 10/21/18 10/21/18 10/22/18 Range/Units 17:14 19:35 07:31 RBC (3.80-5.40) m/uL Hgb (11.4-16.0) gm/dL Hct (34.0-46.0) % Sodium (137-145) mmol/L Chloride (98-107) mmol/L BUN (7-17) mg/dL Glucose (74-99) mg/dL POC Glucose (mg/dL) 178 H 178 H 131 H (75-99) mg/dL 10/22/18 10/22/18 10/22/18 Range/Units 07:34 07:34 11:57 RBC 2.94 L (3.80-5.40) m/uL Hgb 9.7 L (11.4-16.0) gm/dL Hct 28.7 L (34.0-46.0) % Sodium 136 L (137-145) mmol/L Chloride 109 H (98-107) mmol/L BUN 19 H (7-17) mg/dL Glucose 127 H (74-99) mg/dL POC Glucose (mg/dL) 154 H (75-99) mg/dL Microbiology - Last 24 Hours (Table) 10/20/18 07:58 Blood Culture - Preliminary Blood No Growth after 48 hours 10/21/18 14:40 Gram Stain - Preliminary Pleural Fluid Body Fluid Culture - Preliminary 10/21/18 14:40 Acid Fast Bacilli Culture - Preliminary Pleural Fluid 10/21/18 14:40 Fungal Culture - Preliminary Pleural Fluid - Imaging and Cardiology Chest x-ray: report reviewed, image reviewed Assessment and Plan Assessment: 1. Right lower lobe pneumonia. 2. Right, loculated pleural effusion. 3. History of coronary artery disease with previous stent placement to her right coronary artery in March 2000. 4. Positive blood culture for methicillin resistance at Staphylococcus aureus. 5. History of hypertension. 6. History of hyperlipidemia 7. Gastroesophageal reflux disease. 8. History of asthma. 9. History of tuberculosis in 1969. 10. Elevated random blood glucose. Plan: 1. Continue medical management per primary care service recommendations. 2. Keep right chest pigtail catheter in place to low continuous wall suction - 20 cm H2O. 3. Instill alteplase 10 mg/100 mL normal saline through the pigtail catheter daily and keep pigtail catheter clamped post instillation then placed back to continuous low wall suction. 4. Continue GI and DVT prophylaxis. 5. Antibiotic management per infectious disease Dr. Velsaquez recommendations. Blood culture positive for MRSA bacteremia. 6. Bronchodilators for pulmonary management. 7. More recommendations to follow based on patient's clinical course. Time with Patient: Greater than 30
[2018-10-22 15:10] VITALS: BMI 20.9
[2018-10-22] MEDS: VANCOMYCIN 1,000 MG in SODIUM CHLORIDE 0.9% 250 ML IVPB SCH (16:08)
--- NOTE | 2018-10-22 16:49 | PN ---
PROGRESS NOTE DATE OF SERVICE: 10/22/2018 This patient has been hemodynamically stable. She seems quite weak. On physical examination, her respiratory rate is 18, pulse rate of 72, temperature 100.8, blood pressure 164/73. HEENT is unremarkable. Chest reveals decreased breath sounds in the right with dullness to percussion as well as a pigtail catheter in place. Left side with occasional rhonchi. Cardiovascular system is in S1, S2. No S3. Short systolic murmur. Abdomen is soft. There is trace edema. Body fluid culture, which is pleural fluid, is showing rare polymorphonuclear leukocytes. White count of 7.2, hemoglobin 9.7, sodium 136, potassium 5, chloride 109, bicarb 22, BUN 19, creatinine 0.73, blood sugar of 131. IMPRESSION AT THIS TIME: 1. Right-sided pleural effusion with empyema and pneumonia secondary to methicillin- resistant Staphylococcus aureus is likely. 2. Diabetes mellitus. 3. Asthma. Would recommend VATS with decortication patient continues to have low-grade fevers. Her prognosis at this time is guarded. She was counseled regarding her condition. MMODL / IJN: [id number] /
[2018-10-22 16:55] LABS: Glucose,Whole Blood 194 mg/dL (75-99)
--- NOTE | 2018-10-22 18:49 | PN ---
PROGRESS NOTE ATTENDING PHYSICIAN: Dr. Ron Gaona. CHIEF COMPLAINT: Re-evaluation. HISTORY OF PRESENT ILLNESS: This 77-year-old female was admitted to the hospital with a right lower lobe pneumonia secondary to MRSA. The patient was also bacteremic. The condition of this patient blood cultures are negative. She has been on vancomycin initially, she was put on Zosyn. I suspect patient may have aspirated because she has been vomiting. The patient also had some clinical evidence of left lower lobe pneumonia clinically. The patient chest x-ray, she has been negative. Today's x-ray does suggest some consolidation at both bases. There might be some fluid at the left base too. The patient had a chest tube placed yesterday for a right pleural effusion, which is an exudative with hardly any pus felt in there though. The patient cultures are pending on the fluid. It appears that the patient probably had a parapneumonic effusion. Not an empyema. She is feeling better. She has no further diarrhea. She did have a low- grade temperature. The patient has not really contacted her family to come in. The patient's son lives in [place]. Daughter lives in [place]. The patient's spouse is in a fci. I did talk to her about contacting her son or daughter to come in at least make a trip as she is fairly ill and she is not going to be able to really go home. She might require placement to the nursing facility subsequent. This will happen after the chest tube is removed. surgery is following. The patient is also followed by ID. REVIEW OF SYSTEMS: Neuro: Denies any headaches, dizziness. Psych: No anxiety. Cardiac: No chest pain, angina, palpitations. Respiratory: Mild shortness of breath, but improved. Does have some cough. No hemoptysis. Does have chest pain at the site of the tube. GI: No nausea, vomiting, decreased appetite. No abdominal pain. No diarrhea. : No symptoms of dysuria or hematuria. Extremities: No pain or edema. Constitutional: Had a low-grade temperature of 100.8 last night. PHYSICAL EXAMINATION: Pleasant female at present in no distress. Vital signs revealed temperature 98.7, pulse 78, respirations 20, blood pressure 136/70, pulse ox 99% on 2 L. HEENT: Normocephalic. Neck: No JVD. CHEST EXAMINATION: Decreased air flow right base. Cardiac: Normal S1, S2 with no gallops. Irregular rhythm. Systolic murmur 2 x 6 left sternal border. Left base some few crackles. ABDOMEN: Soft. Protuberant. Bowel sounds are active. Extremities reveal no edema. Neurological: Awake, alert, oriented x3 with well- coordinated movements. LABORATORY ASSESSMENT: Hemoglobin 9.7, white count 7.2, platelets 274. Sodium 136, potassium 5.0, chloride 109, CO2 22, BUN 19, creatinine 0.73. Glucose 131. ASSESSMENT: 1. Right lower lobe pneumonia secondary to MRSA. 2. MRSA bacteremia. 3. Acute renal failure, improved. 4. Anemia, chronic. 5. Diabetes mellitus. 6. History of mild persistent bronchial asthma. 7. Parapneumonic pleural effusion. PLAN: The patient is stable. Continue present medical regimen. Patient's condition discussed with the patient. Prognosis guarded. Continue present IV antibiotics. She probably will require long-term antibiotic. We will discuss with ID regarding the central line once the blood cultures are confirmed to be negative. So far the blood cultures are negative. Once the chest tube is removed, the patient will be considered for placement to a nursing facility for rehab. MMODL / IJN: [id number] /
[2018-10-22] MEDS: KETOROLAC 30 MG/ML 1 ML VIAL IVP SCH ×2 (18:53→23:58)
[2018-10-22 20:40] LABS: Glucose,Whole Blood 130 mg/dL (75-99)
[2018-10-22] MEDS: MONTELUKAST 10 MG TAB PO SCH (21:17)
--- NOTE | 2018-10-22 21:53 | P.PN ---
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 However the last few days she's had the difficulties of increasing pain to the left shoulder associated with fatigue and malaise. The patient is found it more difficult to try to sit up and do her activities of daily living because of these discomforts. Her home situation is difficult and her has had a stroke and she goes to visit with the [facility] an ongoing basis. She relates that he has been ill as of late likely with pneumonia. She feels poorly today. She has weakness and malaise, she does not feel extraordinarily short of breath but does not feel well. The discomfort into her left shoulder continues and it limits her ability to position herself in bed freely. She does not believe that she is having further fevers or chills. Did have some fever and chills prior. With evidence of positive blood culture the infectious diseases consultation has been requested. 10/21/2018 patient has now been seen by cardiothoracic surgery. They suggested CT-guided drainage of the effusion. The patient relates almost directly after the drainage occurred she started to feel considerably better. Her shortness of breath, cough and dyspnea all improved. She's had no further fever and is very pleased that she is feeling so much better. The tube itself is not very uncomfortable and she has no other new acute complaints. 10/22/2018 patient was feeling better yesterday but now with some reexpansion of the lung she's had some increasing amount of discomfort to the right chest. Abdomen admission but certainly is uncomfortable. She denying fevers or chills. With the alteplase and manipulation today despite a significant increase in the amount of drainage from the chest tube. Chest x-ray showed evidence of residual amounts of effusion prompting the alteplase. Objective - Vital Signs Vital signs: Vital Signs Temp 98.8 F 10/22/18 20:47 Pulse 92 10/22/18 20:47 Resp 17 10/22/18 20:47 BP 120/66 10/22/18 20:47 Pulse Ox 98 10/22/18 20:47 Intake & Output 10/22/18 10/22/18 10/23/18 06:59 18:59 06:59 Intake Total 810 120 Output Total 135 415 325 Balance 675 -295 -325 Weight 57.289 kg Intake: Intake, IV Titration 610 Amount Sodium Chloride 0.9% 1, 360 000 ml @ 40 mls/hr IV . Q24H [facility] Rx#:[id number] Vancomycin 1,000 mg In 250 Sodium Chloride 0.9% 250 ml @ 125 mls/hr IVPB Q18H [facility] Rx#:[id number] Oral 200 120 Output: Chest Tube Drainage 135 415 325 right posterior chest 135 415 325 Other: Voiding Method Toilet # Voids 2 1 1 - Exam Pleasant 77-year-old woman of thin build not in distress but is with discomfort when she tries to change position in bed HEENT: Anicteric conjunctiva are pink and moist nasal mucosa grossly intact without significant lesions, there is no thrush. Neck: The neck is supple without significant lymphadenopathy or thyromegaly. Lungs: They're symmetrical air entry however there are crackles at the right base there is not a significant amount of egophony however there is some localized dullness at the base to the right only, left base only with crackles percutaneous drain noted in the right lateral chest wall Heart: Regular rate and rhythm with an audible S1-S2, no S3 no S4. There is no significant murmur click or rub, PMI was nondisplaced. Abdomen: Positive bowel sounds soft and nontender without palpable masses or organomegaly. There was no guarding or rebound. Extremities: Upper extremities are without edema but does have discomfort when the left shoulder area is manipulated especially to change her position in bed. There is no edema or lesions. Lower extremities have trace edema no open ulcers Skin is without rash or blisters evidence of any vesicles over the left shoulder area no erythema or other rash Neuro: Awake alert oriented to person place and time. There are no acute new gross focal sensory motor deficits. - Labs CBC & Chem 7: 10/22/18 07:34 10/22/18 07:34 Labs: Abnormal Lab Results - Last 24 Hours (Table) 10/22/18 10/22/18 10/22/18 Range/Units 07:31 07:34 07:34 RBC 2.94 L (3.80-5.40) m/uL Hgb 9.7 L (11.4-16.0) gm/dL Hct 28.7 L (34.0-46.0) % Sodium 136 L (137-145) mmol/L Chloride 109 H (98-107) mmol/L BUN 19 H (7-17) mg/dL Glucose 127 H (74-99) mg/dL POC Glucose (mg/dL) 131 H (75-99) mg/dL 10/22/18 10/22/18 10/22/18 Range/Units 11:57 16:54 20:38 RBC (3.80-5.40) m/uL Hgb (11.4-16.0) gm/dL Hct (34.0-46.0) % Sodium (137-145) mmol/L Chloride (98-107) mmol/L BUN (7-17) mg/dL Glucose (74-99) mg/dL POC Glucose (mg/dL) 154 H 194 H 130 H (75-99) mg/dL Microbiology - Last 24 Hours (Table) 10/21/18 14:40 Gram Stain - Preliminary Pleural Fluid Body Fluid Culture - Preliminary 10/20/18 07:58 Blood Culture - Preliminary Blood No Growth after 48 hours 10/21/18 14:40 Acid Fast Bacilli Culture - Preliminary Pleural Fluid 10/21/18 14:40 Fungal Culture - Preliminary Pleural Fluid Microbiology 10/21/18 14:40 Pleural Fluid Gram Stain - Preliminary 10/21/18 14:40 Pleural Fluid Body Fluid Culture - Preliminary 10/20/18 07:58 Blood Blood Culture - Preliminary No Growth after 48 hours 10/21/18 14:40 Pleural Fluid Acid Fast Bacilli Culture - Preliminary 10/21/18 14:40 Pleural Fluid Fungal Culture - Preliminary 10/17/18 19:39 Blood Blood Culture Gram Stain - Final 10/17/18 19:39 Blood Blood Culture - Final Methicillin resist S. 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 She is developed pains in left shoulder area that has been making it difficult for her to perform ADLs and even be comfortable in bed. She also has some shortness of breath and significant fatigue and malaise and difficulty performing ADLs. She has been admitted there is evidence of the right lower lobe pneumonia and computed tomography scan shows evidence of the significant effusion. Antibiotic therapy with vancomycin has been added given the MRSA. Follow blood cultures are requested to try to track the of her bacteremia. If she's not had a recent echocardiogram this may be of importance given the noted bacteremia. A pulmonary source for the bacteremia appears to be most likely. The case is discussed with pulmonary critical care and we will consult Dr. johansen of cardiovascular surgery to evaluate for the possibility of sampling of the effusion with concerns that it could be empyema. Of note the patient does relate that many of the residents at the [facility] appear to have influenza. Computer records are reviewed and does not appear that she has had testing and constantly influenza testing is requested. She is complaining some difficulties with nausea some Zofran will be requested. 10/21/2018 patient is now feeling considerably better status post the percutaneous drainage into the pleural space. Cultures are pending. The patient does have MRSA bacteremia within the bases of pneumonia and this loculated fluid collection that has now been drained. She is feeling much better than she expected. Shortness of breath is improved. Once is evidence of clearance of the bacteremia will have to have IV access placed and will plan a several week course of outpatient intravenous antibiotic therapy at the time of discharge. Nausea has resolved. 10/22/2018 patient is without fever, but with lung reexpansion has had some increasing mild discomfort in her chest. But is less short of breath. No surgical plan as noted. Toradol is restarted to try to help her significant discomfort. Antibiotic therapy continues with vancomycin. Once blood cultures are clear with PICC line placed and outpatient intravenous antibiotic therapy. Current Visit: Yes Status: Acute Code(s): R78.81 - BACTEREMIA SNOMED Code(s): 23483419117847849 (3) Exposure to influenza Current Visit: Yes Status: Acute Code(s): Z20.828 - CONTACT W AND EXPOSURE TO OTH VIRAL COMMUNICABLE DISEASES SNOMED Code(s): 090788681
[2018-10-22] MEDS: SODIUM CHLORIDE 0.9% 1,000 ML IV SCH (23:41)
[2018-10-23] MEDS: Acetaminophen-Codeine 300-30mg TAB PO PRN ×3 (02:08→19:10)
[2018-10-23] MEDS: KETOROLAC 30 MG/ML 1 ML VIAL IVP SCH ×4 (05:10→23:58)
[2018-10-23] MEDS: VANCOMYCIN 1,000 MG in SODIUM CHLORIDE 0.9% 250 ML IVPB SCH ×2 (05:10→21:29)
[2018-10-23 07:03] LABS: Glucose,Whole Blood 99 mg/dL (75-99)
--- NOTE | 2018-10-23 07:20 | XR ---
EXAMINATION TYPE: XR chest 1V portable DATE OF EXAM: 10/23/2018 COMPARISON: 10/22/2018 HISTORY: Chest tube TECHNIQUE: Single frontal view of the chest is obtained. FINDINGS: Right-sided consolidation pleural effusion demonstrates mild improvement. Small left effus ion and consolidation noted. Apical pleural thickening. Arthropathy of the shoulders. Atherosclerotic change of the aorta. Right-sided chest tube stable. IMPRESSION: Mild improvement of the right-sided consolidation and pleural effusion
[2018-10-23] MEDS ORDERED: ALTEPLASE 10 MG in SODIUM CHLORIDE 0.9% 100 ML IRRIGATION ONE (08:30)
[2018-10-23 08:36] LABS: Potassium 5.1 mmol/L (3.5-5.1)
[2018-10-23] MEDS: INSULIN ASPART (NovoLOG) 100 UNIT/ML VIAL SQ SCH ×4 (08:51→21:29)
[2018-10-23] MEDS: CANDESARTAN 4 MG PO SCH (08:59)
[2018-10-23] MEDS: ALBUTEROL NEBULIZED 2.5 MG/3 ML INHALATION SCH ×4 (09:11→19:47)
[2018-10-23] MEDS: ISOSORBIDE MONONITRATE ER 60 MG TAB.ER.24H PO SCH (09:13)
[2018-10-23] MEDS: ATENOLOL 25 MG TAB PO SCH (09:13)
[2018-10-23] MEDS: ASPIRIN 81 MG PO SCH (09:13)
[2018-10-23] MEDS: metFORMIN 500 MG TAB PO SCH ×2 (09:13→17:29)
[2018-10-23] MEDS: PANTOPRAZOLE 40 MG TABLET PO SCH (09:13)
[2018-10-23] MEDS: HEPARIN SODIUM,PORCINE 5,000 UNIT/ML 1 ML VIAL SQ SCH ×3 (09:14→23:58)
[2018-10-23] MEDS: SYMBICORT 160-4.5 MCG INHALER INHALATION SCH ×2 (09:25→19:47)
--- NOTE | 2018-10-23 10:14 | P.PN ---
Subjective Progress Note Date: 10/23/18 Principal diagnosis: Right loculated pleural effusion status post pigtail catheter placement by interventional radiology and alteplase instillation, right lower lobe pneumonia, bacteremia with MRSA. 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 Patient's currently sitting up in bed in no acute distress eating breakfast. States pain is well controlled on current medication regimen, states shortness of breath has improved significantly since placement of chest tube and alteplase installation. No new complaints. Objective - Vital Signs Vital signs: Vital Signs Temp 97.9 F 10/23/18 08:02 Pulse 76 10/23/18 09:23 Resp 14 10/23/18 09:15 BP 124/66 10/23/18 08:02 Pulse Ox 96 10/23/18 09:15 Intake & Output 10/22/18 10/23/18 10/23/18 18:59 06:59 18:59 Intake Total 120 Output Total 415 375 0 Balance -295 -375 0 Weight 57.289 kg Intake: Oral 120 Output: Chest Tube Drainage 415 375 0 right posterior chest 415 375 0 Other: Voiding Method Toilet # Voids 1 1 - Constitutional General appearance: Present: cooperative, no acute distress - Respiratory Details: Lungs sounds diminished bilaterally. Respirations even, nonlabored. Currently on 2 L nasal cannula with oxygen saturation 100%. Right sided pigtail catheter present, 50 mL drainage overnight, 790 mL drainage in the last 24 hours of which 685 mL were drained following alteplase instillation. - Cardiovascular Details: S1, S2 present. Regular rate and rhythm. Palpable peripheral pulses bilaterally. No edema present. No calf pain or tenderness noted. - Gastrointestinal Gastrointestinal Comment(s): Abdomen soft, nontender, nondistended. Active bowel sounds present 4 quadrants. Tolerating diet. - Genitourinary Genitourinary Comment(s): Continues to void. - Integumentary Integumentary Comment(s): Skin is warm and dry with evidence of good perfusion. Pigtail catheter site cov ered with dry intact dressing. - Neurologic Neurologic: Present: CNII-XII intact - Musculoskeletal Musculoskeletal: Present: gait normal, strength equal bilaterally - Psychiatric Psychiatric: Present: A&O x's 3, appropriate affect, intact judgment & insight - Allied health notes Allied health notes reviewed: nursing - Labs CBC & Chem 7: 10/22/18 07:34 10/23/18 08:03 Labs: Abnormal Lab Results - Last 24 Hours (Table) 10/22/18 10/22/18 10/22/18 Range/Units 11:57 16:54 20:38 Sodium (137-145) mmol/L BUN (7-17) mg/dL Glucose (74-99) mg/dL POC Glucose (mg/dL) 154 H 194 H 130 H (75-99) mg/dL 10/23/18 Range/Units 08:03 Sodium 136 L (137-145) mmol/L BUN 19 H (7-17) mg/dL Glucose 120 H (74-99) mg/dL POC Glucose (mg/dL) (75-99) mg/dL Microbiology - Last 24 Hours (Table) 10/21/18 14:40 Acid Fast Bacilli Smear - Final Pleural Fluid Acid Fast Bacilli Culture - Preliminary 10/21/18 14:40 Gram Stain - Preliminary Pleural Fluid Body Fluid Culture - Preliminary 10/20/18 07:58 Blood Culture - Preliminary Blood No Growth after 48 hours - Imaging and Cardiology Chest x-ray: report reviewed, image reviewed Assessment and Plan Assessment: 1. Right loculated pleural effusion status post pigtail catheter placement by interventional radiology and alteplase instillation 2. Right lower lobe pneumonia 3. Bacteremia with MRSA 4. History of tuberculosis in 1969 5. Asthma 6. Coronary artery disease with RCA stent placement 7. Hypertension 8. Hyperlipidemia 9. GERD Plan: 1. Will instill alteplase again today, clamp tube for 1 hour post instillation. Will continue to monitor chest tube output. No surgical intervention at this time. 2. Will continue to monitor daily x-rays. 3. Bronchodilators per pulmonology. 4. Wean O2 as tolerated. Encourage incentive spirometry 10 times every hour while awake. 5. Antibiotics per infectious disease. 6. GI/DVT prophylaxis with Protonix/subcu heparin. 7. Pain control with current medication regimen. 8. Management of other medical comorbidities per primary care service. 9. More recommendations to follow. Time with Patient: Greater than 30
[2018-10-23 11:35] LABS: Glucose,Whole Blood 170 mg/dL (75-99)
--- NOTE | 2018-10-23 12:56 | P.PN ---
Subjective Progress Note Date: 10/23/18 10/23/2017: Patient seen and examined. Patient states she is tired and would like to go back to bed. She states she is frustrated because a few days ago she was "a normal person." She denies fevers and chills. She does complain of cough and some shortness of breath with exertion. Objective - Vital Signs Vital signs: Vital Signs Temp 97.9 F 10/23/18 08:02 Pulse 76 10/23/18 09:23 Resp 14 10/23/18 09:15 BP 124/66 10/23/18 08:02 Pulse Ox 96 10/23/18 09:15 Intake & Output 10/22/18 10/23/18 10/23/18 18:59 06:59 18:59 Intake Total 120 360 Output Total 415 375 0 Balance -295 -375 360 Weight 57.289 kg Intake: Oral 120 360 Output: Chest Tube Drainage 415 375 0 right posterior chest 415 375 0 Other: Voiding Method Toilet # Voids 1 1 - Exam Gen.: Patient is alert and oriented 3, no acute distress Cardiovascular: Regular rate and rhythm, S1/S2 Lungs: Coarse breath sounds on the right, right posterior chest pigtail catheter in place Abdomen: Soft nontender nondistended positive bowel sounds Extremities: No edema - Labs CBC & Chem 7: 10/22/18 07:34 10/23/18 08:03 Labs: Abnormal Lab Results - Last 24 Hours (Table) 10/22/18 10/22/18 10/23/18 Range/Units 16:54 20:38 08:03 Sodium 136 L (137-145) mmol/L BUN 19 H (7-17) mg/dL Glucose 120 H (74-99) mg/dL POC Glucose (mg/dL) 194 H 130 H (75-99) mg/dL 10/23/18 Range/Units 11:34 Sodium (137-145) mmol/L BUN (7-17) mg/dL Glucose (74-99) mg/dL POC Glucose (mg/dL) 170 H (75-99) mg/dL Microbiology - Last 24 Hours (Table) 10/20/18 07:58 Blood Culture - Preliminary Blood No Growth after 72 hours 10/21/18 14:40 Acid Fast Bacilli Smear - Final Pleural Fluid Acid Fast Bacilli Culture - Preliminary 10/21/18 14:40 Gram Stain - Preliminary Pleural Fluid Body Fluid Culture - Preliminary Assessment and Plan Assessment: Right loculated pleural effusion, status post pigtail catheter placement Right lower lobe pneumonia Bacteremia with MRSA History of tuberculosis in 1970 Asthma History of coronary artery disease and stenting Hypertension Dyslipidemia GERD Diabetes mellitus type 2 O2 to maintain saturation greater than or equal to 90% Cardiothoracic surgery has been consult recommending alteplase infusion into the pigtail catheter Patient may very well need VATS with decortication Continue antibiotics per ID Incentive spirometry and pulmonary hygiene Bronchodilators: Symbicort, albuterol Singulair GI and DVT prophylaxis
--- NOTE | 2018-10-23 15:36 | CT ---
EXAMINATION TYPE: CT chest wo con DATE OF EXAM: 10/23/2018 COMPARISON: 10/20/2018 HISTORY: Follow up chest tube insertion CT DLP: 206 mGycm, Automated exposure control for dose reduction was used. CONTRAST: None TECHNIQUE: Axial images were obtained at 5 mm thick sections. Reconstructed images are reviewed on [employer] computer in the coronal plane. FINDINGS: Thyroid is enlarged and has a somewhat hypodense area within the inferior right lobe measur ing 1.3 x 2.4 cm. Consider additional follow-up with ultrasound when the patient is stable. Some mild infiltrate or small mass is at the anterior right apex measuring 1.6 cm in size. Series 201 image 18. There is a consolidation with cavitation. Air-fluid levels within this region. This area m easures 4.7 x 4.0 cm. This may have been a previous loculated collection on the prior CT. Series 201 image 33. A consolidation with air bronchograms is at the right infrahilar region. Multiple small lymph nodes are within the mediastinum. No enlarged mediastinal lymph nodes are prese nt. No pericardial effusion is evident. Moderate coronary artery calcification is present. The ascend ing aorta diameter at the level of the main pulmonary artery is 3.3 cm. The main pulmonary artery di ameter at the bifurcation is 3.[address] sections are obtained through the upper abdomen. Abdomen is essentially unremarkable. IMPRESSIONS: 1. Consolidation with cavitation versus neoplasm with cavitation within the periphery of the right carlos ng. 2. Minimal bilateral pleural effusions. 3. Hypodense mass at the inferior pole right lobe thyroid. Follow-up when the patient is stable with ultrasound.
[2018-10-23 17:10] LABS: Glucose,Whole Blood 181 mg/dL (75-99)
[2018-10-23 21:15] LABS: Glucose,Whole Blood 153 mg/dL (75-99)
[2018-10-23] MEDS: SODIUM CHLORIDE 0.9% 1,000 ML IV SCH (21:29)
[2018-10-23] MEDS: MONTELUKAST 10 MG TAB PO SCH (21:30)
[2018-10-24] MEDS: Acetaminophen-Codeine 300-30mg TAB PO PRN ×5 (03:45→22:06)
--- NOTE | 2018-10-24 05:29 | PN ---
PROGRESS NOTE CHIEF COMPLAINT: Re-evaluation. HISTORY OF PRESENT ILLNESS: This 77-year-old female was admitted to the hospital with MRSA pneumonia. The patient had a chest tube placed on the right side for a parapneumonic effusion. The patient subsequent blood cultures are negative. She is feeling better. She looks much improved. REVIEW OF SYSTEMS: NEURO: Denies any headaches, dizziness. PSYCH: No anxiety. CARDIAC: No chest pain, angina, palpitation. RESPIRATORY: Denies shortness of breath, cough. GI: No nausea, vomiting, abdominal pain, diarrhea. : No symptoms of dysuria, hematuria. EXTREMITIES: No pain, edema. CONSTITUTIONAL: No fever, chills. Does have some discomfort to the site of chest tube. PHYSICAL EXAMINATION: Pleasant 77-year-old in no distress. Vital signs reveals a temperature 97.9, pulse 72, respirations 16, blood pressure 124/66, pulse ox 100% on 2 L. HEENT: Normocephalic. NECK: Decreased range of motion. No JVD. No carotid bruits. No thyromegaly. CHEST EXAMINATION: Clear to auscultation except for a few crackles at the left base and some decreased air flow at the right base. No bronchial breathing appreciated. CARDIAC: Distant heart sounds. S1, S2 with no gallops. Regular rhythm. Systolic murmur 2/6 left sternal border. ABDOMEN: Soft. No palpable masses. Bowel sounds present. Extremities reveal no edema, no tenderness. NEUROLOGICALLY: Awake, alert, oriented x3 with well-coordinated movements. LABORATORY ASSESSMENT: Electrolytes with sodium 136, otherwise normal. BUN 19. Glucose 120. ASSESSMENT: 1. Methicillin-resistant Staphylococcus aureus pneumonia. 2. Methicillin-resistant Staphylococcus aureus bacteremia. 3. Parapneumonic effusion. 4. Right chest tube. 5. Diabetes mellitus. 6. Mild hyponatremia, improving. 7. Anemia. PLAN: The patient is stable. Continue present medical regimen. Patient's condition discussed with the patient. Prognosis remains guarded. Await final decision from cardiothoracic as well as ID. The patient's condition is discussed with the patient. Prognosis guarded. MMODL / IJN: [id number] /
[2018-10-24] MEDS: KETOROLAC 30 MG/ML 1 ML VIAL IVP SCH ×4 (05:45→23:26)
[2018-10-24 07:38] LABS: Glucose,Whole Blood 113 mg/dL (75-99)
[2018-10-24] MEDS: SYMBICORT 160-4.5 MCG INHALER INHALATION SCH ×2 (08:32→20:49)
[2018-10-24] MEDS: ALBUTEROL NEBULIZED 2.5 MG/3 ML INHALATION SCH ×4 (08:32→20:49)
[2018-10-24 08:35] LABS: INR 0.9 (<1.2); Partial Thromboplastin Time 25.2 sec (22.0-30.0); Prothrombin Time 9.8 sec (9.0-12.0)
[2018-10-24 08:52] LABS: Calcium 8.5 mg/dL (8.4-10.2)
[2018-10-24] MEDS: INSULIN ASPART (NovoLOG) 100 UNIT/ML VIAL SQ SCH ×4 (09:02→21:50)
[2018-10-24] MEDS: HEPARIN SODIUM,PORCINE 5,000 UNIT/ML 1 ML VIAL SQ SCH ×3 (09:03→23:30)
[2018-10-24] MEDS: ISOSORBIDE MONONITRATE ER 60 MG TAB.ER.24H PO SCH (09:04)
[2018-10-24] MEDS: ASPIRIN 81 MG PO SCH (09:05)
[2018-10-24] MEDS: CANDESARTAN 4 MG PO SCH (09:05)
[2018-10-24] MEDS: ATENOLOL 25 MG TAB PO SCH (09:05)
[2018-10-24] MEDS: metFORMIN 500 MG TAB PO SCH ×2 (09:05→17:36)
[2018-10-24] MEDS: PANTOPRAZOLE 40 MG TABLET PO SCH (09:05)
[2018-10-24 09:08] LABS: Basophils % (A) 0 %; Eosinophils # (A) 0.1 k/uL (0-0.7); Eosinophils % (A) 2 %; HCT 28.1 % (34.0-46.0); HGB 8.8 gm/dL (11.4-16.0); Lymphocytes # (A) 0.7 k/uL (1.0-4.8); Lymphocytes % (A) 10 %; MCH 30.8 pg (25.0-35.0); MCHC 31.3 g/dL (31.0-37.0); MCV 98.4 fL (80.0-100.0); Mean Platelet Volume 8.3; Monocytes # (A) 0.3 k/uL (0-1.0); Monocytes % (A) 5 %; Neutrophils # (A) 5.3 k/uL (1.3-7.7); Neutrophils % (A) 80 %; Platelet Count 353 k/uL (150-450); RBC 2.85 m/uL (3.80-5.40); RDW 13.7 % (11.5-15.5); WBC 6.6 k/uL (3.8-10.6)
--- NOTE | 2018-10-24 09:40 | P.PN ---
Subjective Progress Note Date: 10/24/18 Principal diagnosis: Right loculated pleural effusion status post pigtail catheter placement by interventional radiology and alteplase instillation, right lower lobe pneumonia, bacteremia with MRSA. 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 Patient's currently sitting up in bed in no acute distress eating breakfast. States pain is well controlled on current medication regimen, denies shortness of breath. No new complaints. Attempted to instill alteplase again yesterday but unable secondary to resistance. CT of the chest was ordered and de monstrated consolidation with cavitation versus neoplasm in the right lung periphery with minimal bilateral effusions. Objective - Vital Signs Vital signs: Vital Signs Temp 97.0 F L 10/24/18 07:23 Pulse 76 10/24/18 08:51 Resp 18 10/24/18 07:23 BP 135/63 10/24/18 07:23 Pulse Ox 100 10/24/18 07:23 Intake & Output 10/23/18 10/24/18 10/24/18 18:59 06:59 18:59 Intake Total 480 640 240 Output Total 0 0 Balance 480 640 240 Intake: Intake, IV Titration 640 Amount Sodium Chloride 0.9% 1, 640 000 ml @ 40 mls/hr IV . Q24H [facility] Rx#:[id number] Oral 480 240 Output: Chest Tube Drainage 0 0 right posterior chest 0 0 Other: Voiding Method Toilet # Voids 1 2 - Constitutional General appearance: Present: cooperative, no acute distress - Respiratory Details: Lungs sounds diminished bilaterally. Respirations even, nonlabored. Currently on 2 L nasal cannula with oxygen saturation 99%. Right sided pigtail catheter present, no drainage in the last 24 hours. - Cardiovascular Details: S1, S2 present. Regular rate and rhythm. Palpable peripheral pulses bilaterally. No edema present. No calf pain or tenderness noted. - Gastrointestinal Gastrointestinal Comment(s): Abdomen soft, nontender, nondistended. Active bowel sounds present 4 quadrants. Tolerating diet. - Genitourinary Genitourinary Comment(s): Continues to void. - Integumentary Integumentary Comment(s): Skin is warm and dry with evidence of good perfusion. Pigtail catheter site covered with dry intact dressing. - Neurologic Neurologic: Present: CNII-XII intact - Musculoskeletal Musculoskeletal: Present: gait normal, strength equal bilaterally - Psychiatric Psychiatric: Present: A&O x's 3, appropriate affect, intact judgment & insight - Allied health notes Allied health notes reviewed: nursing - Labs CBC & Chem 7: 10/24/18 07:31 10/24/18 07:31 Labs: Abnormal Lab Results - Last 24 Hours (Table) 10/23/18 10/23/18 10/23/18 Range/Units 11:34 16:58 21:13 Sodium (137-145) mmol/L Chloride (98-107) mmol/L BUN (7-17) mg/dL Glucose (74-99) mg/dL POC Glucose (mg/dL) 170 H 181 H 153 H (75-99) mg/dL 10/24/18 10/24/18 Range/Units 07:31 07:36 Sodium 136 L (137-145) mmol/L Chloride 108 H (98-107) mmol/L BUN 20 H (7-17) mg/dL Glucose 104 H (74-99) mg/dL POC Glucose (mg/dL) 113 H (75-99) mg/dL Microbiology - Last 24 Hours (Table) 10/21/18 14:40 Gram Stain - Preliminary Pleural Fluid Body Fluid Culture - Preliminary 10/20/18 07:58 Blood Culture - Preliminary Blood No Growth after 72 hours - Imaging and Cardiology CT scan - chest: report reviewed, image reviewed Assessment and Plan Assessment: 1. Right loculated pleural effusion status post pigtail catheter placement by interventional radiology and alteplase instillation 2. Right lower lobe pneumonia 3. Consolidation with cavitation versus neoplasm in the right lung periphery on CT of chest yesterday 4. Bacteremia with MRSA 5. History of tuberculosis in 1970 6. Asthma 7. Coronary artery disease with RCA stent placement 8. Hypertension 9. Hyperlipidemia 10. GERD Plan: 1. Plan is for right sided VATS tomorrow. If any masses are found will biopsy. Nothing to eat or drink after midnight. 2. Interventional radiology may remove pigtail catheter. 3. Will continue to monitor daily x-rays. 4. Bronchodilators per pulmonology. 5. Wean O2 as tolerated. Encourage incentive spirometry 10 times every hour while awake. 6. Antibiotics per infectious disease. 7. GI/DVT prophylaxis with Protonix/subcu heparin. 8. Pain control with current medication regimen. 9. Management of other medical comorbidities per primary care service. 10. More recommendations to follow. Time with Patient: Greater than 30
[2018-10-24 12:24] LABS: Glucose,Whole Blood 231 mg/dL (75-99)
[2018-10-24] MEDS ORDERED: VANCOMYCIN TROUGH DUE 1 EACH MISC MISCELLANE ONE (13:00)
--- NOTE | 2018-10-24 13:10 | XR ---
EXAMINATION TYPE: XR chest 1V portable DATE OF EXAM: 10/24/2018 COMPARISON: Prior chest x-ray 10/23/2017 HISTORY: Status post chest tube removal TECHNIQUE: Single frontal view of the chest is obtained. FINDINGS: There has been interval removal of the patient's pigtail catheter. No other significant in terval change. IMPRESSION: No evident complication status post chest tube removal.
[2018-10-24] MEDS: VANCOMYCIN 1,000 MG in SODIUM CHLORIDE 0.9% 250 ML IVPB SCH (13:33)
[2018-10-24 17:11] LABS: Glucose,Whole Blood 108 mg/dL (75-99)
[2018-10-24 20:20] LABS: Glucose,Whole Blood 208 mg/dL (75-99)
[2018-10-24] MEDS: SODIUM CHLORIDE 0.9% 1,000 ML IV SCH (21:48)
[2018-10-24] MEDS: MONTELUKAST 10 MG TAB PO SCH (21:51)
--- NOTE | 2018-10-24 23:29 | PN ---
PROGRESS NOTE ATTENDING PHYSICIAN: Dr. Ron Gaona. CHIEF COMPLAINT: Re-evaluation. HISTORY OF PRESENT ILLNESS: This is a 77-year-old female who was admitted to the hospital a week ago with pneumonia. The patient has MRSA bacteremia. The blood cultures subsequently were negative. The patient has been on vancomycin. She also had a large pleural effusion on the right side for which she had a thoracentesis and chest tube placement. The patient had a pigtail catheter placement. The patient had a CT scan done yesterday. They tried activated in there which could not be infused. The patient had a CT scan of the chest done, which revealed possibility of an abscess or a loculated pocket. The patient is going to undergo a VATS procedure tomorrow. REVIEW OF SYSTEMS: Neuro: Denies any headaches, dizziness. Psych: No anxiety. Cardiac: No chest pain, angina, palpitations. Respiratory: Some shortness of breath, minimal cough. The patient does have pain in the chest, right-sided chest. GI: No nausea, vomiting, abdominal pain, diarrhea. No bowel movement. no symptoms of dysuria or hematuria. Extremities: No pain. CONSTITUTIONAL: No fever or chills. PHYSICAL EXAMINATION: Pleasant female at present in no distress. Vital signs reveals temperature 97, pulse 77, respirations 18, blood pressure 135/63, pulse ox 100% on 2 L. HEENT: Normocephalic. Neck no JVD. CHEST: The patient chest examination reveals some dullness to percussion right base. The patient has decreased air flow right lung base with crackles. A few crackles at the left base. Cardiac: Normal S1, S2 with no gallops, murmurs. ABDOMEN: Soft. No palpable masses. Bowel sounds normal. No organomegaly. No abdominal bruits. Extremities reveal no edema. Neurologically awake, alert, oriented with well-coordinated movements. LABORATORY ASSESSMENT: Chest x-ray which reveals no evident complication post chest tube removal. Hemoglobin is 8.8. Electrolytes are normal. BUN 20, creatinine 0.85, glucose 104. ASSESSMENT: 1. MRSA pneumonia. 2. MRSA bacteremia. 3. Parapneumonic effusion. 4. Anemia secondary to acute illness. 5. Acute renal failure secondary to dehydration, resolved. 6. Diabetes mellitus, controlled. PLAN: The patient is stable. Continue present medical regimen. Patient is scheduled for VATS procedure tomorrow. The patient condition discussed with the patient. Also, the patient's condition is discussed with the daughter, answered all questions. The patient's prognosis remains guarded, but the patient probably benefit going to rehab following this acute hospitalization stay. It probably would be about a couple of days. GORDY / NAN: [id number] /
--- NOTE | 2018-10-25 00:51 | PN ---
PROGRESS NOTE DATE OF SERVICE: 10/24/2018. HISTORY: She has been hemodynamically stable. She is sleepy but arousable. She feels quite weak. PHYSICAL EXAMINATION: Her blood pressure is 134/64, respiratory rate of 18, pulse of 78, temperature 98.1, O2 saturation on room air is 95%. HEENT: Unremarkable. CHEST: Decreased breath sounds on the right. CARDIOVASCULAR: S1, S2. ABDOMEN: Soft. There is no pedal edema. LABS: White count of 6.6, hemoglobin of 8.8. Sodium 136, potassium 5, chloride 108, bicarb 22, BUN 20, creatinine 0.85. Chest x-ray shows infiltrate and opacification in the right lower zone. IMPRESSION: 1. Right lower lobe pneumonia with loculated pleural effusion. 2. MRSA sepsis. 3. Asthma. 4. Diabetes mellitus. PLAN: At this point in time, would agree with VATS procedure with decortication of the right hemithorax. Continue her on antibiotics to maintain her nutrition. Her prognosis at this time is guarded. We will follow her closely during the hospital stay. MMODL / IJN: [id number] /
[2018-10-25] MEDS: ONDANSETRON 4 MG/2 ML VIAL IVP PRN (04:06)
[2018-10-25] MEDS: KETOROLAC 30 MG/ML 1 ML VIAL IVP SCH ×3 (05:49→18:56)
[2018-10-25] MEDS: VANCOMYCIN 1,000 MG in SODIUM CHLORIDE 0.9% 250 ML IVPB SCH ×2 (05:53→22:30)
[2018-10-25 06:50] LABS: Glucose,Whole Blood 108 mg/dL (75-99)
[2018-10-25] MEDS: HEPARIN SODIUM,PORCINE 5,000 UNIT/ML 1 ML VIAL SQ SCH ×3 (06:52→23:59)
[2018-10-25] MEDS ORDERED: IV FLUID CONTINUATION 800 ML IV ONE (07:53)
[2018-10-25] MEDS ORDERED: ceFAZolin IN SWFI 2 GM/20 ML SYRINGE IVP ONE (08:00)
[2018-10-25] MEDS: SYMBICORT 160-4.5 MCG INHALER INHALATION SCH ×2 (08:02→19:47)
[2018-10-25] MEDS: ALBUTEROL NEBULIZED 2.5 MG/3 ML INHALATION SCH ×4 (08:02→19:44)
[2018-10-25] MEDS: INSULIN ASPART (NovoLOG) 100 UNIT/ML VIAL SQ SCH ×4 (08:06→21:20)
[2018-10-25 08:37] LABS: Glucose,Whole Blood 108 mg/dL (75-99)
[2018-10-25] MEDS: PANTOPRAZOLE 40 MG TABLET PO SCH (08:41)
[2018-10-25] MEDS: CANDESARTAN 4 MG PO SCH (08:42)
[2018-10-25] MEDS ORDERED: BUPIVACAINE (PF) 0.5% 30 ML VIAL SQ ONE ×2 (09:05→11:23)
[2018-10-25] MEDS ORDERED: LACTATED RINGERS 1,000 ML IV ONE (09:20)
[2018-10-25] MEDS ORDERED: FUROSEMIDE 10 MG/ML 2 ML VIAL ONE (09:25)
[2018-10-25] MEDS ORDERED: GLYCOPYRROLATE 0.2 MG/ML 2 ML VIAL ONE (09:25)
[2018-10-25] MEDS ORDERED: PROPOFOL 10 MG/ML 20 ML VIAL IV ONE (09:25)
[2018-10-25] MEDS ORDERED: SUCCINYLCHOLINE CHLORIDE 100 MG/5 ML SYR IV ONE (09:25)
[2018-10-25] MEDS ORDERED: MIDAZOLAM 2 MG/2 ML VIAL ONE (09:25)
[2018-10-25] MEDS ORDERED: ROCURONIUM BROMIDE 10 MG/ML 10 ML VIAL IV ONE (09:25)
[2018-10-25] MEDS ORDERED: LABETALOL 5 MG/ML VIAL MDV ONE (09:25)
[2018-10-25] MEDS ORDERED: fentaNYL (PF) 50 MCG/ML 2 ML AMP ONE (09:25)
[2018-10-25] MEDS ORDERED: LIDOCAINE 1% INJ 10MG/ML (20 ML MDV) ONE (09:25)
[2018-10-25] MEDS ORDERED: NEOSTIGMINE 1 MG/ML 10 ML VIAL ONE (09:25)
[2018-10-25 12:21] LABS: Glucose,Whole Blood 136 mg/dL (75-99)
--- NOTE | 2018-10-25 12:31 | OP ---
OPERATIVE REPORT DATE OF SURGERY: 10/25/2018 PREOPERATIVE DIAGNOSIS: Loculated right pleural effusion. POSTOPERATIVE DIAGNOSIS: Loculated right pleural effusion. PROCEDURE: 1. Right VATS decortication. 2. Pleural biopsy. SURGEON: Ander Hudson MD. STRATEGIC CONSULTANT: None. ANESTHESIA: General. SPECIMEN: 1. Pleural peel. 2. Pleural fluid. EBL: 25 mL. INDICATION: The patient is a 77-year-old female with a history of multiple medical problems, who presented to the hospital with some right sided chest pain. Chest x-ray was consistent with pneumonia. The patient was started on antibiotics. A CT scan revealed a pleural fluid collection, which was treated with a pigtail catheter and installation of alteplase. Despite this treatment, the fluid was persistent. VATS decortication with biopsy was recommended. The risks, benefits, and alternatives to these procedures were discussed with the patient. All of her questions were answered. Consent was obtained. FINDINGS: A relatively small amount of pleural fluid was noted in the right chest. It did not appear to be purulent in nature. There were significant adhesions between the lung and the chest wall with fibrinous debris present. There was no studding of the chest wall. There was no obvious mass noted within the pleural cavity. PROCEDURE IN DETAIL: The patient was taken to the operating room and placed supine on the operating table. After induction of anesthesia, a double-lumen endotracheal tube was placed by the anesthesia service. Its position was confirmed using a bronchoscope. The patient was then placed in the left lateral decubitus position with the right side up. Care was taken to pad all pressure points. The right chest and flank were prepped and draped in the usual sterile fashion. With the right lung down, an incision was made along the posterior axillary line at approximately the sixth intercostal space. A thoracoscope was then introduced into the right pleural space. Significant adhesions were noted between the lung and the chest wall. Blunt dissection was used to free up enough space for a second port. This was placed under direct vision. At this point, using blunt dissection, the right lung was carefully taken down from the chest wall. This inspection revealed a small pleural effusion. This did not appear to be purulent in nature. There was no studding along the chest wall although there was a fair amount of fibrinous tissue in the chest. The right upper lobe, right middle lobe and right lower lobes were all freed up carefully. Pleural peel was sent for both pathology and microbiology. The fluid was sent for microbiology. No obvious mass was noted within the chest cavity. Hemostasis was assured. Two chest tubes were placed. The anterior chest tube was a right angle chest tube, which is directed over the diaphragm. The posterior chest tube is directed posteriorly up toward the apex. These were secured to the skin using sutures. The lung appeared to inflate nicely. The two wounds were then closed in layers. Sterile dressings were applied. The patient appeared to tolerate the procedure well. There were no immediate complications. She was extubated at the completion of the case and returned to the recovery room in stable condition. MMODL / IJN: [id number] / MINDY
[2018-10-25 12:50] LABS: Glucose,Whole Blood 123 mg/dL (75-99)
--- NOTE | 2018-10-25 12:52 | XR ---
EXAMINATION TYPE: XR chest 1V portable DATE OF EXAM: 10/25/2018 COMPARISON: Prior chest x-ray 10/24/2018 HISTORY: Right pleural effusion, status post VATS, chest tube TECHNIQUE: Single frontal view of the chest is obtained. FINDINGS: Interval placement of 2 right-sided chest tubes. There is some subcutaneous emphysema. Min imal apical pneumothorax noted. There is some improved aeration along the right costophrenic angle le favian. No other significant interval change. IMPRESSION: Satisfactory postoperative chest x-ray.
[2018-10-25] MEDS ORDERED: HYDROmorphone 1 MG/ML 1 ML SYRINGE IVP ONE (13:13)
[2018-10-25] MEDS: ATENOLOL 25 MG TAB PO SCH (14:19)
[2018-10-25] MEDS: metFORMIN 500 MG TAB PO SCH ×2 (14:19→18:15)
[2018-10-25] MEDS: ASPIRIN 81 MG PO SCH (14:19)
[2018-10-25] MEDS: ISOSORBIDE MONONITRATE ER 60 MG TAB.ER.24H PO SCH (14:20)
[2018-10-25 16:48] LABS: Glucose,Whole Blood 98 mg/dL (75-99)
[2018-10-25] MEDS: Acetaminophen-Codeine 300-30mg TAB PO PRN (19:59)
[2018-10-25 20:48] LABS: Glucose,Whole Blood 104 mg/dL (75-99)
[2018-10-25] MEDS: MONTELUKAST 10 MG TAB PO SCH (21:20)
[2018-10-25] MEDS ORDERED: MORPHINE SULFATE 2 MG/ML SYRINGE IVP STA (21:21)
[2018-10-25] MEDS: SODIUM CHLORIDE 0.9% 1,000 ML IV SCH (21:37)
--- NOTE | 2018-10-25 21:37 | PN ---
PROGRESS NOTE DATE OF SERVICE: 10/25/2018. HISTORY: She underwent thoracoscopic surgery with decortication. She is sleepy and lying in bed. She is easily aroused and complains of pain in her right chest. She has [address] PHYSICAL EXAMINATION: Her respiratory rate is 14, pulse rate of 76. She is afebrile. Her blood pressure is stable. HEENT reveals pupils that are equal. Chest reveals [address] on the right side. Decreased breath sounds on the right. Occasional rhonchi on the left. Cardiovascular system reveals is S1, S2. Systolic murmur is heard. Abdomen is soft. There is no pedal edema. LABS AND X-RAY: Reviewed. IMPRESSION: 1. Methicillin resistant streptococcus aureus with MRSA sepsis. 2. Right-sided pleural effusion status post VATS decortication. 3. Asthma. At this point in time, encourage her to use incentive spirometer. Maintain nutrition. Continue antibiotics per ID for MRSA. Her prognosis at this time is guarded. She was counseled regarding her condition. MMODL / IJN: [id number] /
--- NOTE | 2018-10-26 00:25 | P.PN ---
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 However the last few days she's had the difficulties of increasing pain to the left shoulder associated with fatigue and malaise. The patient is found it more difficult to try to sit up and do her activities of daily living because of these discomforts. Her home situation is difficult and her has had a stroke and she goes to visit with the [place] [facility] an ongoing basis. She relates that he has been ill as of late likely with pneumonia. She feels poorly today. She has weakness and malaise, she does not feel extraordinarily short of breath but does not feel well. The discomfort into her left shoulder continues and it limits her ability to position herself in bed freely. She does not believe that she is having further fevers or chills. Did have some fever and chills prior. With evidence of positive blood culture the infectious diseases consultation has been requested. 10/21/2018 patient has now been seen by cardiothoracic surgery. They suggested CT-guided drainage of the effusion. The patient relates almost directly after the drainage occurred she started to feel considerably better. Her shortness of breath, cough and dyspnea all improved. She's had no further fever and is very pleased that she is feeling so much better. The tube itself is not very uncomfortable and she has no other new acute complaints. 10/22/2018 patient was feeling better yesterday but now with some reexpansion of the lung she's had some increasing amount of discomfort to the right chest. Abdomen admission but certainly is uncomfortable. She denying fevers or chills. With the alteplase and manipulation today despite a significant increase in the amount of drainage from the chest tube. Chest x-ray showed evidence of residual amounts of effusion prompting the alteplase. 10/25/2018 the patient has not had significant improvement and constantly has been seen by cardiothoracic surgery. Because of her lack of improvement she has now been taken the operating room and a VATS procedure is been performed. She is postoperative with chest tubes in place that she relates are very painful. O ther than that she relates she's feeling better. She is less short of breath and is not having much cough. Objective - Vital Signs Vital signs: Vital Signs Temp 97.5 F L 10/25/18 21:25 Pulse 88 10/25/18 21:25 Resp 20 10/25/18 21:25 BP 130/67 10/25/18 21:25 Pulse Ox 97 10/25/18 21:25 Intake & Output 10/25/18 10/25/18 10/26/18 06:59 18:59 06:59 Intake Total 320 1725 320 Output Total 61 1200 Balance 320 1664 -880 Weight 57.289 kg Intake: IV 1725 Intake, IV Titration 320 320 Amount Sodium Chloride 0.9% 1, 320 320 000 ml @ 40 mls/hr IV . Q24H POPEYE Rx#:[id number] Output: Urine 1200 Straight 550 Pleural Fluid 36 Estimated Blood Loss 25 Other: Voiding Method Toilet Toilet # Voids 1 # Bowel Movements 1 - Exam Pleasant 77-year-old woman of thin build not in distress but is with discomfort when she tries to change position in bed HEENT: Anicteric conjunctiva are pink and moist nasal mucosa grossly intact without significant lesions, there is no thrush. Neck: The neck is supple without significant lymphadenopathy or thyromegaly. Lungs: Symmetrical air entry is noted. The chest tubes are in place the right chest with tenderness. Appears to be adequate inflation of the right chest. Heart: Regular rate and rhythm with an audible S1-S2, no S3 no S4. There is no significant murmur click or rub, PMI was nondisplaced. Abdomen: Positive bowel sounds soft and nontender without palpable masses or organomegaly. There was no guarding or rebound. Extremities: Upper extremities are without edema but does have discomfort when the left shoulder area is manipulated especially to change her position in bed. There is no edema or lesions. Lower extremities have trace edema no open ulcers Skin is without rash or blisters evidence of any vesicles over the left shoulder area no erythema or other rash Neuro: Awake alert oriented to person place and time. There are no acute new gross focal sensory motor deficits. - Labs CBC & Chem 7: 10/24/18 07:31 10/24/18 07:31 Labs: Abnormal Lab Results - Last 24 Hours (Table) 10/25/18 10/25/18 10/25/18 Range/Units 06:45 08:35 12:12 POC Glucose (mg/dL) 108 H 108 H 136 H (75-99) mg/dL 10/25/18 10/25/18 Range/Units 12:48 20:47 POC Glucose (mg/dL) 123 H 104 H (75-99) mg/dL Microbiology - Last 24 Hours (Table) 10/25/18 14:45 Tissue Culture - Preliminary Lung - Right 10/25/18 14:45 Anaerobic Culture - Preliminary Lung - Right 10/21/18 14:40 Gram Stain - Final Pleural Fluid Body Fluid Culture - Final 10/20/18 07:58 Blood Culture - Preliminary Blood No Growth after 120 hours Laboratory Results WBC 6.6 k/uL (3.8-10.6) 10/24/18 07:31 RBC 2.85 m/uL (3.80-5.40) L 10/24/18 07:31 Hgb 8.8 gm/dL (11.4-16.0) L 10/24/18 07:31 Hct 28.1 % (34.0-46.0) L 10/24/18 07:31 MCV 98.4 fL (80.0-100.0) 10/24/18 07:31 MCH 30.8 pg (25.0-35.0) 10/24/18 07:31 MCHC 31.3 g/dL (31.0-37.0) 10/24/18 07:31 RDW 13.7 % (11.5-15.5) 10/24/18 07:31 Plt Count 353 k/uL (150-450) 10/24/18 07:31 Neutrophils % 80 % 10/24/18 07:31 Lymphocytes % 10 % 10/24/18 07:31 Monocytes % 5 % 10/24/18 07:31 Eosinophils % 2 % 10/24/18 07:31 Basophils % 0 % 10/24/18 07:31 Neutrophils # 5.3 k/uL (1.3-7.7) 10/24/18 07:31 Lymphocytes # 0.7 k/uL (1.0-4.8) L 10/24/18 07:31 Monocytes # 0.3 k/uL (0-1.0) 10/24/18 07:31 Eosinophils # 0.1 k/uL (0-0.7) 10/24/18 07:31 Basophils # 0.0 k/uL (0-0.2) 10/24/18 07:31 PT 9.8 sec (9.0-12.0) 10/24/18 07:31 INR 0.9 (<1.2) 10/24/18 07:31 APTT 25.2 sec (22.0-30.0) 10/24/18 07:31 Sodium 136 mmol/L (137-145) L 10/24/18 07:31 Potassium 5.0 mmol/L (3.5-5.1) 10/24/18 07:31 Chloride 108 mmol/L (98-107) H 10/24/18 07:31 Carbon Dioxide 22 mmol/L (22-30) 10/24/18 07:31 Anion Gap 6 mmol/L 10/24/18 07:31 BUN 20 mg/dL (7-17) H 10/24/18 07:31 Creatinine 0.85 mg/dL (0.52-1.04) 10/24/18 07:31 Est GFR (CKD-EPI)AfAm 77 (>60 ml/min/1.73 sqM) 10/24/18 07:31 Est GFR (CKD-EPI)NonAf 67 (>60 ml/min/1.73 sqM) 10/24/18 07:31 Glucose 104 mg/dL (74-99) H 10/24/18 07:31 POC Glucose (mg/dL) 104 mg/dL (75-99) H 10/25/18 20:47 POC Glu Chro ID Darrell Shelby 10/25/18 20:47 Calcium 8.5 mg/dL (8.4-10.2) 10/24/18 07:31 Fluid Source Pleural 10/21/18 14:40 Fluid Color Yellow 10/21/18 14:40 Fluid Appearance Clear 10/21/18 14:40 Fluid RBC 885 /uL 10/21/18 14:40 Fluid Nucleated Cells 8 /uL 10/21/18 14:40 Body Fluid Protein Source Pleural Fluid 10/21/18 14:40 Fluid Total Protein 2501.0 mg/dL 10/21/18 14:40 Body Fluid LDH Source Pleural Fluid 10/21/18 14:40 Fluid LDH 667 U/L 10/21/18 14:40 Vancomycin Trough 19.2 ug/mL 10/24/18 13:48 Influenza Type A RNA Not Detected (Not Detectd) 10/21/18 04:42 Influenza Type B (PCR) Not Detected (Not Detectd) 10/21/18 04:42 Blood Type O Positive 10/24/18 07:31 Blood Type Confirm O Positive 10/22/18 07:34 Blood Type Recheck CABO Indicated 10/24/18 07:31 Antibody Screen NEGATIVE 10/24/18 07:31 Spec Expiration Date 10/27/2018 - 2331 10/24/18 07:31 Microbiology 10/25/18 14:45 Lung - Right Tissue Culture - Preliminary 10/25/18 14:45 Lung - Right Anaerobic Culture - Preliminary 10/21/18 14:40 Pleural Fluid Gram Stain - Final 10/21/18 14:40 Pleural Fluid Body Fluid Culture - Final 10/20/18 07:58 Blood Blood Culture - Preliminary No Growth after 120 hours 10/21/18 14:40 Pleural Fluid Acid Fast Bacilli Smear - Final 10/21/18 14:40 Pleural Fluid Acid Fast Bacilli Culture - Preliminary 10/21/18 14:40 Pleural Fluid Fungal Culture - Preliminary 10/17/18 19:39 Blood Blood Culture Gram Stain - Final 10/17/18 19:39 Blood Blood Culture - Final Methicillin resist S. 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 She is developed pains in left shoulder area that has been making it difficult for her to perform ADLs and even be comfortable in bed. She also has some shortness of breath and significant fatigue and malaise and difficulty performing ADLs. She has been admitted there is evidence of the right lower lobe pneumonia and computed tomography scan shows evidence of the significant effusion. Antibiotic therapy with vancomycin has been added given the MRSA. Follow blood cultures are requested to try to track the of her bacteremia. If she's not had a recent echocardiogram this may be of importance given the noted bacteremia. A pulmonary source for the bacteremia appears to be most likely. The case is discussed with pulmonary critical care and we will consult Dr. johansen of cardiovascular surgery to evaluate for the possibility of sampling of the effusion with concerns that it could be empyema. Of note the patient does relate that many of the residents at the extended care facility appear to have influenza. Computer records are reviewed and does not appear that she has had testing and constantly influenza testing is requested. She is complaining some difficulties with nausea some Zofran will be requested. 10/21/2018 patient is now feeling considerably better status post the percutaneous drainage into the pleural space. Cultures are pending. The patient does have MRSA bacteremia within the bases of pneumonia and this loculated fluid collection that has now been drained. She is feeling much better than she expected. Shortness of breath is improved. Once is evidence of clearance of the bacteremia will have to have IV access placed and will plan a several week course of outpatient intravenous antibiotic therapy at the time of discharge. Nausea has resolved. 10/22/2018 patient is without fever, but with lung reexpansion has had some increasing mild discomfort in her chest. But is less short of breath. No surgical plan as noted. Toradol is restarted to try to help her significant discomfort. Antibiotic therapy continues with vancomycin. Once blood cultures are clear with PICC line placed and outpatient intravenous antibiotic therapy. 10/25/2018 patient is now status post VATS procedure and seems to be doing well. Respirations are with only minimal discomfort but does have pain in the chest tube site. The blood culture show evidence of MRSA, await the results of the VATS cultures. Continue antibiotic therapy for now, will need IV access to be placed for her course of antibiotic therapy at discharge. Current Visit: Yes Status: Acute Code(s): R78.81 - BACTEREMIA SNOMED Code(s): 71074234120536497 (3) Exposure to influenza Current Visit: Yes Status: Acute Code(s): Z20.828 - CONTACT W AND EXPOSURE TO OT VIRAL COMMUNICABLE DISEASES SNOMED Code(s): 984134911
[2018-10-26] MEDS ORDERED: FUROSEMIDE 10 MG/ML 2 ML VIAL IV ONE (00:31)
[2018-10-26] MEDS: Acetaminophen-Codeine 300-30mg TAB PO PRN ×2 (04:29→15:12)
[2018-10-26] MEDS: KETOROLAC 30 MG/ML 1 ML VIAL IVP SCH ×2 (06:22)
[2018-10-26 07:02] LABS: Glucose,Whole Blood 83 mg/dL (75-99)
--- NOTE | 2018-10-26 07:08 | XR ---
EXAMINATION TYPE: XR chest 1V portable DATE OF EXAM: 10/26/2018 HISTORY: right pleural effusion. REFERENCE: Previous study dated 10/25/2018. FINDINGS: Right pleural drain remains in place. There is right basilar airspace disease. There are bi lateral effusions, greater on the right than the left. There is some left basilar airspace disease as well. Heart size is obscured. IMPRESSION: SLIGHT WORSENING OF THE OPACITY OF THE RIGHT SIDE OF THE CHEST.
--- NOTE | 2018-10-26 07:41 | PN ---
PROGRESS NOTE ATTENDING PHYSICIAN: Dr. Ron Gaona CHIEF COMPLAINT: Re-evaluation. HISTORY OF PRESENT ILLNESS: This lady, 77 years of age, was admitted to the hospital with pneumonia. The patient was seen before she went for a VATS procedure. She has MRSA pneumonia with MRSA bacteremia which blood cultures are coming out negative. Now, the patient has significant pain in the right chest. REVIEW OF SYSTEMS: Neuro: Denies any headaches, dizziness. Psych: No anxiety. Cardiac: No chest pain, angina, palpitation. Respiratory: Denies shortness of breath. Does have some mild cough. She has significant chest pain on the right side up to the shoulder. The shoulder pain seems to be referred pain. GI: No nausea, vomiting, abdominal pain, diarrhea. Did have bowel movement. : No symptoms of dysuria, hematuria. Extremities: No pain. Constitutional: No fever or chills. PHYSICAL EXAMINATION: Pleasant female in no distress. Vital signs revealed temperature 97.9, pulse 83, respirations 16, blood pressure 125/69, pulse ox 99 percent on 2 L. HEENT: Normocephalic. NECK: No JVD. CHEST EXAMINATION: Decreased air flow right lung with some bronchial breathing and rhonchi and left base a few crackles. CARDIAC: Sounds S1, S2 with no gallop. Systolic murmur 2/6 left sternal border. ABDOMEN: Soft, protuberant. Bowel sounds active. EXTREMITIES: Reveal trace edema. NEUROLOGIC: Awake, alert, oriented with well-coordinated movements. LABORATORY ASSESSMENT: Accu-Cheks which are well controlled. Blood cultures are negative so far. Pleural fluid culture was no growth. ASSESSMENT: 1. MRSA pneumonia. 2. MRSA bacteremia. 3. Parapneumonic effusion. 4. History of bronchial asthma. 5. Diabetes mellitus. 6. Anemia. 7. Acute renal failure, resolved. 8. Status post VATS procedure. PLAN: Continue present medical regimen. Patient's condition discussed with the patient. Prognosis guarded. MMODL / IJN: [id number] /
[2018-10-26] MEDS: INSULIN ASPART (NovoLOG) 100 UNIT/ML VIAL SQ SCH ×4 (08:15→20:21)
[2018-10-26] MEDS: ASPIRIN 81 MG PO SCH (08:20)
[2018-10-26] MEDS: PANTOPRAZOLE 40 MG TABLET PO SCH (08:20)
[2018-10-26] MEDS: ISOSORBIDE MONONITRATE ER 60 MG TAB.ER.24H PO SCH (08:20)
[2018-10-26] MEDS: metFORMIN 500 MG TAB PO SCH ×2 (08:20→17:19)
[2018-10-26] MEDS: ALBUTEROL NEBULIZED 2.5 MG/3 ML INHALATION SCH ×4 (08:21→19:44)
[2018-10-26] MEDS: HEPARIN SODIUM,PORCINE 5,000 UNIT/ML 1 ML VIAL SQ SCH ×2 (08:21→14:59)
[2018-10-26] MEDS: ATENOLOL 25 MG TAB PO SCH (08:21)
[2018-10-26] MEDS: SYMBICORT 160-4.5 MCG INHALER INHALATION SCH ×2 (08:21→19:44)
[2018-10-26 09:46] LABS: HCT 26.9 % (34.0-46.0); HGB 8.6 gm/dL (11.4-16.0); Hypochromasia Slight; MCH 31.3 pg (25.0-35.0); MCHC 32.1 g/dL (31.0-37.0); MCV 97.5 fL (80.0-100.0); Macrocytosis Slight; Platelet Count 470 k/uL (150-450); RBC 2.75 m/uL (3.80-5.40); RDW 15.4 % (11.5-15.5)
[2018-10-26 09:58] LABS: Calcium 8.5 mg/dL (8.4-10.2)
[2018-10-26] MEDS: MORPHINE SULFATE 2 MG/ML SYRINGE IVP PRN (11:01)
[2018-10-26 11:55] LABS: Glucose,Whole Blood 163 mg/dL (75-99)
[2018-10-26] MEDS: CANDESARTAN 4 MG PO SCH (12:00)
[2018-10-26] MEDS ORDERED: Acetaminophen-Codeine 300-30mg TAB PO SCH (12:00)
--- NOTE | 2018-10-26 12:06 | P.PN ---
Subjective Progress Note Date: 10/26/18 Principal diagnosis: Right loculated pleural effusion status post pigtail catheter placement by interventional radiology and alteplase instillation, right lower lobe pneumonia, bacteremia with MRSA. 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 POD #1 right video-assisted thoracoscopic decortication with pleural biopsy Patient's currently sitting up in bed in no acute distress. Does complain of pain at chest tube site as she just got back to bed. Attempting to use incentive spirometry. Remains hemodynamically stable. Has had episodes of uri nary retention with straight cath 2. Objective - Vital Signs Vital signs: Vital Signs Temp 98.3 F 10/26/18 07:36 Pulse 82 10/26/18 08:32 Resp 18 10/26/18 08:21 BP 135/66 10/26/18 07:36 Pulse Ox 99 10/26/18 07:36 Intake & Output 10/25/18 10/26/18 10/26/18 18:59 06:59 18:59 Intake Total 1725 320 Output Total 61 2074 Balance 1664 -1754 Weight 57.289 kg Intake: IV 1725 Intake, IV Titration 320 Amount Sodium Chloride 0.9% 1, 320 000 ml @ 40 mls/hr IV . Q24H [facility] Rx#:[id number] Output: Chest Tube Drainage 149 Right 60 right posterior chest 89 Urine 1925 Straight 925 Pleural Fluid 36 Estimated Blood Loss 25 Other: Voiding Method Toilet Toilet - Constitutional General appearance: Present: cooperative, no acute distress - Respiratory Details: Lungs sounds diminished bilaterally, right greater than left. Respirations even, nonlabored. Currently on 2 L nasal cannula with oxygen saturation 99%. Right anterior chest tube to continuous wall suction, 60 mL serous drainage overnight, 180 mL since surgery. Right posterior chest tube to continuous wall suction, 89 mL serous drainage overnight, 100 mL since surgery. No air leaks present. - Cardiovascular Details: S1, S2 present. Regular rate and rhythm. Palpable peripheral pulses bilaterally. No edema present. No calf pain or tenderness noted. - Gastrointestinal Gastrointestinal Comment(s): Abdomen soft, nontender, nondistended. Active bowel sounds present 4 quadrants. Tolerating diet. - Genitourinary Genitourinary Comment(s): Patient has been unable to void since surgery and has had to have straight cath completed 2. - Integumentary Integumentary Comment(s): Skin is warm and dry with evidence of good perfusion. Right pleural chest tube site covered with dry intact dressing. - Neurologic Neurologic: Present: CNII-XII intact - Musculoskeletal Musculoskeletal: Present: gait normal, strength equal bilaterally - Psychiatric Psychiatric: Present: A&O x's 3, appropriate affect, intact judgment & insight - Allied health notes Allied health notes reviewed: nursing - Labs CBC & Chem 7: 10/26/18 08:48 10/26/18 08:48 Labs: Abnormal Lab Results - Last 24 Hours (Table) 10/25/18 10/25/18 10/25/18 Range/Units 12:12 12:48 20:47 WBC (3.8-10.6) k/uL RBC (3.80-5.40) m/uL Hgb (11.4-16.0) gm/dL Hct (34.0-46.0) % Plt Count (150-450) k/uL Sodium (137-145) mmol/L Potassium (3.5-5.1) mmol/L Chloride (98-107) mmol/L Carbon Dioxide (22-30) mmol/L BUN (7-17) mg/dL Creatinine (0.52-1.04) mg/dL Glucose (74-99) mg/dL POC Glucose (mg/dL) 136 H 123 H 104 H (75-99) mg/dL 10/26/18 10/26/18 10/26/18 Range/Units 08:48 08:48 11:53 WBC 11.0 H (3.8-10.6) k/uL RBC 2.75 L (3.80-5.40) m/uL Hgb 8.6 L (11.4-16.0) gm/dL Hct 26.9 L (34.0-46.0) % Plt Count 470 H (150-450) k/uL Sodium 134 L (137-145) mmol/L Potassium 6.0 H (3.5-5.1) mmol/L Chloride 108 H (98-107) mmol/L Carbon Dioxide 16 L (22-30) mmol/L BUN 32 H (7-17) mg/dL Creatinine 1.37 H (0.52-1.04) mg/dL Glucose 115 H (74-99) mg/dL POC Glucose (mg/dL) 163 H (75-99) mg/dL Microbiology - Last 24 Hours (Table) 10/20/18 07:58 Blood Culture - Final Blood No Growth after 144 hours 10/25/18 14:45 Gram Stain - Preliminary Lung - Right Tissue Culture - Preliminary 10/25/18 14:45 Anaerobic Culture - Preliminary Lung - Right 10/21/18 14:40 Gram Stain - Final Pleural Fluid Body Fluid Culture - Final - Imaging and Cardiology Chest x-ray: report reviewed, image reviewed Assessment and Plan Assessment: 1. Right loculated pleural effusion status post pigtail catheter placement by interventional radiology and alteplase instillation, status post VATS decortic ation 2. Right lower lobe pneumonia 3. Consolidation with cavitation versus neoplasm in the right lung periphery on CT of chest yesterday 4. Bacteremia with MRSA 5. History of tuberculosis in 1969 6. Asthma 7. Coronary artery disease with RCA stent placement 8. Hypertension 9. Hyperlipidemia 10. GERD Plan: 1. Continue right side anterior and posterior chest tubes to wall suction. Will monitor output. Pleural fluid sent for cytology and culture, will follow results. 2. Will continue to monitor daily x-rays. 3. Bronchodilators per pulmonology. 4. Wean O2 as tolerated. Encourage incentive spirometry 10 times every hour while awake. 5. Antibiotics per infectious disease. 6. GI/DVT prophylaxis with Protonix/subcu heparin. 7. Pain control with current medication regimen. Morphine added per primary care services. 8. Management of other medical comorbidities per primary care service. 9. More recommendations to follow. Time with Patient: Greater than 30
--- NOTE | 2018-10-26 12:32 | PN ---
PROGRESS NOTE he was seen on 10/26/2018. She has been hemodynamically stable. She is more awake and alert. She has less pain in her right chest. On physical examination, respiratory rate is 18, pulse rate 82, temperature 98.3, blood pressure 135/66, O2 SAT on 2 L by nasal cannula is 99%. HEENT is unremarkable. Chest has decreased breath sounds on the right. Cardiovascular system with chest tubes in place. Cardiovascular system reveals S1, S2. Abdomen is soft. There is trace pedal edema. White count is 11, hemoglobin of 8.6. Chest x-ray shows atelectatic change in the right base with infiltrate. IMPRESSION: 1. Methicillin-resistant Staphylococcus aureus pneumonia with methicillin-resistant Staphylococcus aureus sepsis. 2. Pleural effusion which is loculated, status post decortication and VATS procedure. 3. Diabetes mellitus. 4. Anemia. Encourage incentive spirometry. Maintain nutrition. Increase activity level. Will follow closely during her hospital stay and appreciate the opportunity to care for our patient. MMODL / IJN: [id number] /
[2018-10-26] MEDS ORDERED: VANCOMYCIN TROUGH DUE 1 EACH MISC MISCELLANE ONE (13:00)
[2018-10-26] MEDS: VANCOMYCIN 1,000 MG in SODIUM CHLORIDE 0.9% 250 ML IVPB SCH (14:05)
[2018-10-26] MEDS ORDERED: SODIUM POLYSTYRENE SULFONATE 15 GM/60 ML BOTTLE PO STA (14:52)
[2018-10-26] MEDS ORDERED: FUROSEMIDE 10 MG/ML 4 ML VIAL IV STA (14:53)
[2018-10-26 17:02] LABS: Glucose,Whole Blood 247 mg/dL (75-99)
[2018-10-26 19:27] LABS: Glucose,Whole Blood 224 mg/dL (75-99)
[2018-10-26] MEDS: DOCUSATE 100 MG CAP PO SCH (20:21)
[2018-10-26] MEDS: MONTELUKAST 10 MG TAB PO SCH (20:21)
[2018-10-26] MEDS: SODIUM CHLORIDE 0.9% 1,000 ML IV SCH (22:02)
--- NOTE | 2018-10-27 00:14 | PN ---
PROGRESS NOTE ATTENDING PHYSICIAN: Dr. Aracelis Gaona. CHIEF COMPLAINT: Re-evaluation. HISTORY OF PRESENT ILLNESS: This lady was admitted to the hospital with pneumonia and MRSA bacteremia. The physician had a parapneumonic effusion and underwent VATS yesterday. The patient is feeling better today. Her chest pain is improved. REVIEW OF SYSTEMS: NEURO: Denies any headaches or dizziness. PSYCH: No anxiety. CARDIAC: No chest pain, angina or palpitations. RESPIRATORY: Denies shortness of breath, cough. GI: No nausea, vomiting, abdominal pain, diarrhea. : No symptoms of dysuria, hematuria, urgency, frequency. EXTREMITIES: Denies pain. CONSTITUTIONAL: No fevers or chills. PHYSICAL EXAMINATION: No fevers or chills. PHYSICAL EXAMINATION: GENERAL: Pleasant female in no acute distress. VITAL SIGNS: Temperature 97.8, pulse 91, respirations 18, blood pressure 133/69, pulse ox 99 percent. HEENT: Normocephalic. NECK: No JVD. CHEST EXAMINATION: Decreased air flow right lung with some scattered rhonchi. CARDIAC: Normal S1, S2 with no gallops. Regular rhythm. ABDOMEN: Soft. Bowel sounds present. EXTREMITIES: Edema in both upper and lower extremities of about 1 to 2+. NEUROLOGIC: Awake, alert, oriented with well-coordinated movements. LABORATORY ASSESSMENT: Hemoglobin is 8.6, platelets 470,000, white count 11. Electrolytes reveal potassium 6, CO2 content 16, BUN 32, creatinine 1.37. Glucose 163. ASSESSMENT: 1. MRSA bacteremia. 2. MRSA pneumonia. 3. Status post VATS surgery with 2 chest tubes present. 4. Anemia secondary to acute illness. 5. Diabetes mellitus. 6. Acute kidney injury. PLAN: Continue present medical regimen. Patient will be given 2 doses of Kayexalate. The patient will be given Lasix 40 mg IV push. The patient's Toradol was discontinued. The patient's condition is guarded. Prognosis guarded. MMODL / IJN: [id number] /
[2018-10-27] MEDS: HEPARIN SODIUM,PORCINE 5,000 UNIT/ML 1 ML VIAL SQ SCH ×3 (03:45→21:06)
[2018-10-27] MEDS: MORPHINE SULFATE 2 MG/ML SYRINGE IVP PRN (05:56)
[2018-10-27 06:52] LABS: Glucose,Whole Blood 151 mg/dL (75-99)
--- NOTE | 2018-10-27 07:41 | XR ---
EXAMINATION TYPE: XR chest 1V portable DATE OF EXAM: 10/27/2018 HISTORY: Right pneumothorax. REFERENCE: Previous study dated 10/26/2018. FINDINGS: The right pleural drain remains in place. No definite residual pneumothorax is seen. There is bibasilar airspace disease. There is increased opacity to the right hemithorax. The heart is mildl y enlarged. There are bilateral effusions, greater on the right than the left. IMPRESSION: NO SIGNIFICANT INTERVAL CHANGE IN THE APPEARANCE OF THE CHEST.
[2018-10-27] MEDS: Acetaminophen-Codeine 300-30mg TAB PO PRN (08:52)
[2018-10-27] MEDS: ATENOLOL 25 MG TAB PO SCH (08:59)
[2018-10-27] MEDS: INSULIN ASPART (NovoLOG) 100 UNIT/ML VIAL SQ SCH ×4 (08:59→22:20)
[2018-10-27] MEDS: DOCUSATE 100 MG CAP PO SCH ×2 (08:59→21:06)
[2018-10-27] MEDS: FUROSEMIDE 10 MG/ML 4 ML VIAL IV SCH (09:00)
[2018-10-27] MEDS: metFORMIN 500 MG TAB PO SCH ×2 (09:09→17:31)
[2018-10-27] MEDS: PANTOPRAZOLE 40 MG TABLET PO SCH (09:09)
[2018-10-27] MEDS: ISOSORBIDE MONONITRATE ER 60 MG TAB.ER.24H PO SCH (09:11)
[2018-10-27] MEDS: CANDESARTAN 4 MG PO SCH (09:11)
[2018-10-27] MEDS: ALBUTEROL NEBULIZED 2.5 MG/3 ML INHALATION SCH ×4 (09:14→20:52)
[2018-10-27] MEDS: SYMBICORT 160-4.5 MCG INHALER INHALATION SCH ×2 (09:14→20:52)
[2018-10-27 09:49] LABS: HCT 22.7 % (34.0-46.0); HGB 7.2 gm/dL (11.4-16.0); MCH 30.7 pg (25.0-35.0); MCHC 31.6 g/dL (31.0-37.0); MCV 97.1 fL (80.0-100.0); Mean Platelet Volume 8.3; Platelet Count 589 k/uL (150-450); RBC 2.33 m/uL (3.80-5.40); RDW 13.9 % (11.5-15.5); WBC 10.2 k/uL (3.8-10.6)
[2018-10-27 09:53] LABS: Calcium 8.4 mg/dL (8.4-10.2)
[2018-10-27 10:21] LABS: Potassium 6.3 mmol/L (3.5-5.1)
--- NOTE | 2018-10-27 10:40 | P.PN ---
Subjective Progress Note Date: 10/27/18 Principal diagnosis: Right loculated pleural effusion status post pigtail catheter placement by interventional radiology and alteplase instillation, right lower lobe pneumonia, bacteremia with MRSA. 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 POD #2 right video-assisted thoracoscopic decortication with pleural biopsy Patient's currently sitting up in bed in no acute distress. Does complain of pain at chest tube site especially. Attempting to use incentive spirometry. Remains hemodynamically stable. Objective - Vital Signs Vital signs: Vital Signs Temp 98.3 F 10/27/18 08:00 Pulse 90 10/27/18 09:27 Resp 16 10/27/18 08:00 BP 163/70 10/27/18 08:00 Pulse Ox 97 10/27/18 08:00 Intake & Output 10/26/18 10/27/18 10/27/18 18:59 06:59 18:59 Intake Total 500 320 110 Output Total 20 10 Balance 480 310 110 Intake: Intake, IV Titration 140 Amount Sodium Chloride 0.9% 1, 140 000 ml @ 40 mls/hr IV . Q24H [facility] Rx#:[id number] Oral 500 180 110 Output: Chest Tube Drainage 20 10 Right 10 right posterior chest 10 10 Other: Voiding Method Toilet Toilet # Voids 2 - Constitutional General appearance: Present: cooperative, no acute distress - Respiratory Details: Lungs sounds diminished bilaterally, right greater than left. Respirations even, nonlabored. Currently on 2 L nasal cannula with oxygen saturation 99%. Right anterior chest tube to continuous wall suction, no drainage overnight, 40 mL in the last 24 hours. Right posterior chest tube to continuous wall suction, 10 mL serous drainage overnight, 20 mL in the last 24 hours. No air leaks present. - Cardiovascular Details: S1, S2 present. Regular rate and rhythm. Palpable peripheral pulses bilaterally. No edema present. No calf pain or tenderness noted. - Gastrointestinal Gastrointestinal Comment(s): Abdomen soft, nontender, nondistended. Active bowel sounds present 4 quadrants. Tolerating diet. - Genitourinary Genitourinary Comment(s): Voided twice on midnight. - Integumentary Integumentary Comment(s): Skin is warm and dry with evidence of good perfusion. Right pleural chest tube site covered with dry intact dressing. - Neurologic Neurologic: Present: CNII-XII intact - Musculoskeletal Musculoskeletal: Present: strength equal bilaterally - Psychiatric Psychiatric: Present: A&O x's 3 - Allied health notes Allied health notes reviewed: nursing - Labs CBC & Chem 7: 10/27/18 07:57 10/27/18 07:57 Labs: Abnormal Lab Results - Last 24 Hours (Table) 10/26/18 10/26/18 10/26/18 Range/Units 11:53 17:01 19:25 RBC (3.80-5.40) m/uL Hgb (11.4-16.0) gm/dL Hct (34.0-46.0) % Plt Count (150-450) k/uL Sodium (137-145) mmol/L Potassium (3.5-5.1) mmol/L Chloride (98-107) mmol/L Carbon Dioxide (22-30) mmol/L BUN (7-17) mg/dL Creatinine (0.52-1.04) mg/dL Glucose (74-99) mg/dL POC Glucose (mg/dL) 163 H 247 H 224 H (75-99) mg/dL 10/27/18 10/27/18 10/27/18 Range/Units 06:50 07:57 07:57 RBC 2.33 L (3.80-5.40) m/uL Hgb 7.2 L (11.4-16.0) gm/dL Hct 22.7 L (34.0-46.0) % Plt Count 589 H (150-450) k/uL Sodium 136 L (137-145) mmol/L Potassium 6.3 H* (3.5-5.1) mmol/L Chloride 110 H (98-107) mmol/L Carbon Dioxide 20 L (22-30) mmol/L BUN 34 H (7-17) mg/dL Creatinine 1.38 H (0.52-1.04) mg/dL Glucose 142 H (74-99) mg/dL POC Glucose (mg/dL) 151 H (75-99) mg/dL Microbiology - Last 24 Hours (Table) 10/20/18 07:58 Blood Culture - Final Blood No Growth after 144 hours 10/25/18 14:45 Gram Stain - Preliminary Lung - Right Tissue Culture - Preliminary - Imaging and Cardiology Chest x-ray: report reviewed, image reviewed Assessment and Plan Assessment: 1. Right loculated pleural effusion status post pigtail catheter placement by interventional radiology and alteplase instillation, status post VATS deco rtication 2. Right lower lobe pneumonia 3. Consolidation with cavitation versus neoplasm in the right lung periphery on CT of chest yesterday 4. Bacteremia with MRSA 5. History of tuberculosis in 1969 6. Asthma 7. Coronary artery disease with RCA stent placement 8. Hypertension 9. Hyperlipidemia 10. GERD 11. Anemia 12. Acute kidney injury Plan: 1. Chest tubes placed to waterseal, likely will discontinue tomorrow. Will monitor output. Pleural fluid sent for cytology and culture, results still pending. 2. Will continue to monitor daily x-rays. 3. Bronchodilators per pulmonology. 4. Wean O2 as tolerated. Encourage incentive spirometry 10 times every hour while awake. 5. Antibiotics per infectious disease. 6. GI/DVT prophylaxis with Protonix/subcu heparin. 7. Pain control with current medication regimen. 8. Management of other medical comorbidities per primary care service. 9. Avoid nephrotoxic agents. 10. More recommendations to follow. Time with Patient: Greater than 30
[2018-10-27] MEDS ORDERED: SODIUM POLYSTYRENE SULFONATE 15 GM/60 ML BOTTLE PO STA ×2 (11:27→15:56)
[2018-10-27] MEDS ORDERED: INSULIN REGULAR 100 UNIT/ML VIAL IV ONE (11:38)
[2018-10-27] MEDS ORDERED: DEXTROSE 50%-WATER 50 ML SYRINGE IVP STA (11:39)
[2018-10-27 12:12] LABS: Glucose,Whole Blood 195 mg/dL (75-99)
[2018-10-27] MEDS: MORPHINE SULFATE 4 MG/ML SYRINGE IVP PRN (12:22)
--- NOTE | 2018-10-27 12:27 | PN ---
PROGRESS NOTE DATE OF SERVICE: 10/27/2018 Patient is a 77-year-old female who is seen lying in bed, is awake, alert, does complain of significant pain at the chest tube sites, worse with deep inspiration. The patient is afebrile, hemodynamically stable, in no acute distress. PHYSICAL EXAM: Vital signs: Temp is 98.3, heart rate is 88, respiratory rate is 16, blood pressure is 163/70, O2 sats 97% on room air. HEENT: Head is normocephalic, atraumatic. Neck is supple. Trachea is midline. LUNGS: With relatively clear breath sounds on the left, diminished on the right. HEART: S1, S2 are heard. Not tachycardic. ABDOMEN: Soft. Bowel sounds are positive. EXTREMITIES: No edema. NEUROLOGIC: Patient is awake and alert. LABS: White count 10.2, hemoglobin 7.2, hematocrit 22.7 with 589,000 platelets. Sodium is 136, potassium 6.3, chloride 110, CO2 is 20, anion gap is 6, BUN is 34, creatinine is 1.38, glucose is 142, calcium is 8.4. IMAGING: Chest x-ray done this morning shows no significant interval change in the appearance of the chest. IMPRESSION: 1. Methicillin-resistant staphylococcal aureus pneumonia with MRSA sepsis. 2. Pleural effusion which is loculated, status post decortication and VATS procedure. 3. Hyperkalemia. 4. Diabetes mellitus. 5. Anemia. PLAN: Continue current medications which have been reviewed. We will order a dose of Kayexalate x1 now. Repeat lytes q 6 hours x 2. Maintain nutrition. Encourage incentive spirometry 10 times q.1 hour while awake. Increase activity as tolerated. We will follow patient closely with you making further changes as necessary. Patient seen by Dr. Price covering for Dr. Matthew Merino. I performed a History & Physical Examination of the patient and discussed their management with nurse practitioner. I reviewed the nurse practitioner's note and agree with the documented findings and plan of care. MMODL / ANGUSN: [id number] / MTDD
[2018-10-27] MEDS ORDERED: SODIUM BICARB 8.4% 50 ML SYR (1 MEQ/ML) IV STA (12:34)
[2018-10-27] MEDS: Acetaminophen-Codeine 300-30mg TAB PO SCH ×3 (12:52→23:29)
--- NOTE | 2018-10-27 14:17 | PN ---
PROGRESS NOTE ATTENDING PHYSICIAN: Dr. Ron Gaona CHIEF COMPLAINT: Re-evaluation. HISTORY OF PRESENT ILLNESS: 77-year-old admitted with MRSA bacteremia and right lung pneumonia. The patient also had a parapneumonic effusion for which she has had VATS done. The patient has pain at the site of 2 chest tubes. Otherwise, the breathing is better. The patient, however, has developed acute kidney injury. I wonder if it is from the Toradol and acute illness. The patient's Toradol was discontinued. The patient has hyperkalemia for which she is given Kaopectate and IV changed to bicarb. We will ask Nephrology to see. She otherwise denies any other major symptoms except for the chest pain. REVIEW OF SYSTEMS: Neuro: Denies any headaches, dizziness. Psych: No anxiety. Cardiac: No angina. Respiratory: Shortness of breath improved. Chest pain in the right chest is still significant. GI: No nausea or vomiting. Decreased appetite. No abdominal pain. No diarrhea. No bowel movement. : No symptoms of dysuria or hematuria. Extremities: Edema including sacral edema. Constitutional: No fever, chills. PHYSICAL EXAMINATION: Pleasant female at present in no distress. Vital signs reveals temperature 98.3, pulse 89, respirations 16, blood pressure 163/70, pulse ox 97% on 2 L. HEENT: Normocephalic. Neck: No JVD. Chest examination reveals decreased air flow right lung but improved. The patient has some bronchial breathing on the right side. The left lung is clear. Cardiac: Normal S1, S2 with no gallops. Heart rate is 90. The patient is the patient. Abdomen is soft. Bowel sounds present. Extremities reveal edema. The patient does say she has some genital edema too. Neurologically awake, alert, oriented with well-coordinated movements. LAB ASSESSMENT: Hemoglobin is 7.2, white count 10.2, platelets are 589. Potassium 6.3, CO2 of 20, anion gap 6, BUN 34, creatinine 1.38. ASSESSMENT: 1. Hyperkalemia. 2. Acute kidney injury. 3. Right lung pneumonia. 4. Parapneumonic fluid. 5. Chest tubes for drainage. 6. MRSA bacteremia, resolved. 7. Diabetes mellitus. PLAN: Continue present medical regimen. Will decrease her heparin to twice a day. Hydrate the patient with bicarbonate. I will ask nephrology to see the patient. Patient's prognosis is guarded. Patient's condition discussed with the patient. The patient's Tylenol #3 will be scheduled and we will increase the morphine to help the pain. The patient's prognosis remains guarded. Continue present treatment. MMBRIANNA / ANGUSN: [id number] /
[2018-10-27 15:06] LABS: Potassium 5.4 mmol/L (3.5-5.1)
[2018-10-27] MEDS: DEXTROSE 5% IN WATER 1,000 ML with SODIUM BICARB (1 MEQ/ML) 100 ML IV SCH (15:51)
[2018-10-27 16:50] LABS: Glucose,Whole Blood 144 mg/dL (75-99)
[2018-10-27] MEDS ORDERED: VANCOMYCIN TROUGH DUE 1 EACH MISC MISCELLANE ONE (20:00)
[2018-10-27 20:14] LABS: Glucose,Whole Blood 126 mg/dL (75-99)
[2018-10-27 20:55] LABS: Potassium 5.6 mmol/L (3.5-5.1)
[2018-10-27] MEDS ORDERED: VANCOMYCIN 1,000 MG in SODIUM CHLORIDE 0.9% 250 ML IVPB SCH (21:00)
[2018-10-27] MEDS: MONTELUKAST 10 MG TAB PO SCH (21:06)
[2018-10-27] MEDS ORDERED: VANCOMYCIN IV PER PHARMACY 1 EACH MISC MISCELLANE PRN (21:32)
[2018-10-28] MEDS: Acetaminophen-Codeine 300-30mg TAB PO SCH ×4 (05:48→23:07)
[2018-10-28 06:59] LABS: Glucose,Whole Blood 140 mg/dL (75-99)
--- NOTE | 2018-10-28 07:20 | XR ---
EXAMINATION TYPE: XR chest 2V DATE OF EXAM: 10/28/2018 COMPARISON: Prior chest x-ray, 10/27/2018 HISTORY: Right-sided chest tubes, right pneumothorax TECHNIQUE: Frontal and lateral views of the chest are obtained. FINDINGS: Right-sided chest tubes remain in place. No evident pneumothorax. Pleural parenchymal manley ges show similar appearance. There is basilar increased density with blunting of the left costophreni c angle. Heart size is stable. IMPRESSION: Basilar effusions and associated atelectasis, postinflammatory change. Correlate to excl ude pneumonia.
[2018-10-28] MEDS ORDERED: DOCUSATE 283 MG/5 ML ENEMA RECTAL ONE (07:45)
[2018-10-28] MEDS: FUROSEMIDE 10 MG/ML 4 ML VIAL IV SCH ×2 (08:14→22:52)
[2018-10-28] MEDS: HEPARIN SODIUM,PORCINE 5,000 UNIT/ML 1 ML VIAL SQ SCH ×2 (08:14→22:46)
[2018-10-28] MEDS: DOCUSATE 100 MG CAP PO SCH ×2 (08:15→22:44)
[2018-10-28] MEDS: ISOSORBIDE MONONITRATE ER 60 MG TAB.ER.24H PO SCH (08:15)
[2018-10-28] MEDS: ATENOLOL 25 MG TAB PO SCH (08:15)
[2018-10-28] MEDS: ASPIRIN 81 MG PO SCH (08:15)
[2018-10-28] MEDS: metFORMIN 500 MG TAB PO SCH ×2 (08:15→17:41)
[2018-10-28] MEDS: PANTOPRAZOLE 40 MG TABLET PO SCH (08:15)
[2018-10-28] MEDS: INSULIN ASPART (NovoLOG) 100 UNIT/ML VIAL SQ SCH ×4 (08:17→22:45)
[2018-10-28 08:18] LABS: Calcium 7.9 mg/dL (8.4-10.2); Potassium 5.5 mmol/L (3.5-5.1)
[2018-10-28] MEDS ORDERED: BISACODYL 10 MG SUPP RECTAL STA (08:20)
[2018-10-28] MEDS: ALBUTEROL NEBULIZED 2.5 MG/3 ML INHALATION SCH ×4 (08:47→21:16)
[2018-10-28] MEDS: SYMBICORT 160-4.5 MCG INHALER INHALATION SCH ×2 (08:47→21:16)
--- NOTE | 2018-10-28 09:30 | P.PN ---
Subjective Progress Note Date: 10/28/18 Principal diagnosis: Right loculated pleural effusion status post pigtail catheter placement by interventional radiology and alteplase instillation, right lower lobe pneumonia, bacteremia with MRSA. 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 POD #3 right video-assisted thoracoscopic decortication with pleural biopsy Patient's currently sitting up in bed in no acute distress. Does complain of pain at chest tube site especially. Attempting to use incentive spirometry. Remains hemodynamically stable. Chest tubes have been to waterseal for 24 hours Objective - Vital Signs Vital signs: Vital Signs Temp 98.1 F 10/28/18 07:43 Pulse 76 10/28/18 09:04 Resp 18 10/28/18 01:31 BP 135/68 10/28/18 07:43 Pulse Ox 96 10/28/18 07:43 Intake & Output 10/27/18 10/28/18 10/28/18 18:59 06:59 18:59 Intake Total 228 Output Total 600 Balance 228 -600 Intake: Oral 228 Output: Urine 600 Other: # Voids 1 1 - Constitutional General appearance: Present: cooperative, no acute distress - Respiratory Details: Lungs sounds diminished bilaterally, right greater than left. Respirations even, nonlabored. Currently on 2 L nasal cannula with oxygen saturation 97%. Right anterior chest tube to continuous wall suction, no drainage overnight, 20 mL in the last 24 hours. Right posterior chest tube to continuous wall suction, 10 mL drainage overnight, 20 mL in the last 24 hours. No air leaks present. - Cardiovascular Details: S1, S2 present. Regular rate and rhythm. Palpable peripheral pulses bilaterally. No edema present. No calf pain or tenderness noted. - Gastrointestinal Gastrointestinal Comment(s): Abdomen soft, nontender, nondistended. Active bowel sounds present 4 quadrants. Tolerating diet. - Genitourinary Genitourinary Comment(s): Continues to void - Integumentary Integumentary Comment(s): Skin is warm and dry with evidence of good perfusion. Right pleural chest tube site covered with dry intact dressing. - Neurologic Neurologic: Present: CNII-XII intact - Musculoskeletal Musculoskeletal: Present: strength equal bilaterally - Psychiatric Psychiatric: Present: A&O x's 3, appropriate affect, intact judgment & insight - Allied health notes Allied health notes reviewed: nursing - Labs CBC & Chem 7: 10/27/18 07:57 10/28/18 07:31 Labs: Abnormal Lab Results - Last 24 Hours (Table) 10/27/18 10/27/18 10/27/18 Range/Units 07:57 07:57 12:10 RBC 2.33 L (3.80-5.40) m/uL Hgb 7.2 L (11.4-16.0) gm/dL Hct 22.7 L (34.0-46.0) % Plt Count 589 H (150-450) k/uL Sodium 136 L (137-145) mmol/L Potassium 6.3 H* (3.5-5.1) mmol/L Chloride 110 H (98-107) mmol/L Carbon Dioxide 20 L (22-30) mmol/L BUN 34 H (7-17) mg/dL Creatinine 1.38 H (0.52-1.04) mg/dL Glucose 142 H (74-99) mg/dL POC Glucose (mg/dL) 195 H (75-99) mg/dL Calcium (8.4-10.2) mg/dL 10/27/18 10/27/18 10/27/18 Range/Units 14:16 16:43 16:49 RBC (3.80-5.40) m/uL Hgb (11.4-16.0) gm/dL Hct (34.0-46.0) % Plt Count (150-450) k/uL Sodium 136 L (137-145) mmol/L Potassium 5.4 H 5.7 H (3.5-5.1) mmol/L Chloride 108 H (98-107) mmol/L Carbon Dioxide (22-30) mmol/L BUN (7-17) mg/dL Creatinine (0.52-1.04) mg/dL Glucose (74-99) mg/dL POC Glucose (mg/dL) 144 H (75-99) mg/dL Calcium (8.4-10.2) mg/dL 10/27/18 10/27/18 10/28/18 Range/Units 20:12 20:16 06:57 RBC (3.80-5.40) m/uL Hgb (11.4-16.0) gm/dL Hct (34.0-46.0) % Plt Count (150-450) k/uL Sodium 136 L (137-145) mmol/L Potassium 5.6 H (3.5-5.1) mmol/L Chloride (98-107) mmol/L Carbon Dioxide (22-30) mmol/L BUN (7-17) mg/dL Creatinine (0.52-1.04) mg/dL Glucose (74-99) mg/dL POC Glucose (mg/dL) 126 H 140 H (75-99) mg/dL Calcium (8.4-10.2) mg/dL 10/28/18 Range/Units 07:31 RBC (3.80-5.40) m/uL Hgb (11.4-16.0) gm/dL Hct (34.0-46.0) % Plt Count (150-450) k/uL Sodium 133 L (137-145) mmol/L Potassium 5.5 H (3.5-5.1) mmol/L Chloride (98-107) mmol/L Carbon Dioxide (22-30) mmol/L BUN 42 H (7-17) mg/dL Creatinine 1.31 H (0.52-1.04) mg/dL Glucose 118 H (74-99) mg/dL POC Glucose (mg/dL) (75-99) mg/dL Calcium 7.9 L (8.4-10.2) mg/dL Microbiology - Last 24 Hours (Table) 10/25/18 14:45 Gram Stain - Preliminary Lung - Right Tissue Culture - Preliminary - Imaging and Cardiology Chest x-ray: report reviewed, image reviewed Assessment and Plan Assessment: 1. Right loculated pleural effusion status post pigtail catheter placement by interventional radiology and alteplase instillation, status post VATS decortication 2. Right lower lobe pneumonia 3. Consolidation with cavitation versus neoplasm in the right lung periphery on CT of chest yesterday 4. Bacteremia with MRSA 5. History of tuberculosis in 1970 6. Asthma 7. Coronary artery disease with RCA stent placement 8. Hypertension 9. Hyperlipidemia 10. GERD 11. Anemia 12. Acute kidney injury Plan: 1. Will discontinue chest tubes today. Pleural fluid sent for cytology and culture, results still pending. 2. Will continue to monitor daily x-rays. 3. Bronchodilators per pulmonology. 4. Wean O2 as tolerated. Encourage incentive spirometry 10 times every hour while awake. 5. Antibiotics per infectious disease. 6. GI/DVT prophylaxis with Protonix/subcu heparin. 7. Pain control with current medication regimen. 8. Management of other medical comorbidities per primary care service. 9. Avoid nephrotoxic agents. 10. More recommendations to follow. Right pleural chest tubes discontinued without incident. Pt tolerated well. 2V CXR in AM. Time with Patient: Greater than 30
[2018-10-28] MEDS: MORPHINE SULFATE 4 MG/ML SYRINGE IVP PRN (11:01)
[2018-10-28 11:51] LABS: Glucose,Whole Blood 152 mg/dL (75-99)
--- NOTE | 2018-10-28 12:28 | CONS ---
CONSULTATION REASON FOR CONSULT: Acute kidney injury and hyperkalemia. HISTORY OF PRESENT ILLNESS: The patient is a 77-year-old female who was initially admitted to the hospital on 10/17/2018 with complaints of chest pain. She was found to have right lower lobe pneumonia and was maintained on antibiotics. She had a chest CT on 10/23/2018, but no contrast was used. The patient was found to have right-sided empyema and had a chest tube insertion. She had been on vancomycin, the last vancomycin level yesterday was 25.0. Patient has received a few doses of Toradol as well. She is currently being diuresed and maintained on IV Lasix and candesartan is on hold. Patient is complaining of constipation. Serum creatinine was 0.85 mg/dL on 10/24/2018 and increased to 1.37 and has been staying there for the last few days. The serum potassium peaked at 6.3 on 10/27/2018, it is now down to 5.5. PAST MEDICAL HISTORY: Bronchial asthma, history of coronary artery disease, gastroesophageal reflux disease, osteoarthritis. PAST SURGICAL HISTORY: Appendectomy, total abdominal hysterectomy, right knee arthroscopy, right shoulder surgery, bilateral cataract surgery, left knee surgery. 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 No history of drug abuse or alcohol abuse. MEDICATIONS: Medications prior to admission included Pravachol, Singulair, Prevacid, Imdur, Zyrtec, Tenormin, Atacand. REVIEW OF SYSTEMS: As per HPI. Patient did complain of constipation. Other systems are negative. PHYSICAL EXAMINATION: On examination, patient is currently comfortable. Blood pressure is 135/68, heart rate 80 per minute. The patient is afebrile. EXAMINATION OF THE HEART: S1, S2. EXAMINATION OF THE LUNGS: Bilateral breath sounds are heard. The patient has a chest tube in on the right side. Examination of the abdomen reveals it to be soft, nontender. Examination of lower extremities shows edema 3+ bilaterally. PILLAR MAN exam is grossly intact. LABS: Labs show sodium 133, potassium 5.5, BUN 42, serum creatinine 1.3. Vancomycin level 25.0. ASSESSMENT: 1. Acute kidney injury, multifactorial including NSAIDs, underlying pneumonia and infection. Blood pressure has been slightly on the lower side, but not much. The patient was also on vancomycin which has contributed to some degree to the acute kidney injury. Last vancomycin level was 25. I will continue to hold off on the angiotensin receptor blockers for now. The patient is volume overloaded. We will continue to diurese her. I will increase her Lasix. 2. Hyperkalemia associated with acute kidney injury, use of NSAIDs and angiotensin receptor blockers. Avoid NSAIDs. Continue to hold off on angiotensin receptor blockers. Repeat labs in a.m. Avoid constipation. Control blood sugars and I will continue with loop diuretics, which will help with the hyperkalemia. 3. Pneumonia with right-sided empyema with the chest tube placement. 4. Volume overload. PLAN: DC the IV fluids. Increase Lasix to b.i.d. Repeat labs in a.m. Continue to hold off on the Atacand for now. Check urinalysis and try to hold off on the vancomycin as well. If the renal function deteriorates, I would hold off on the Glucophage, it is okay to continue for now. Thank you for this consultation. We will continue to follow the patient with you during her hospitalization. MMDEBORAHL / IJN: [id number] / MINDY
[2018-10-28] MEDS: CANDESARTAN 4 MG PO SCH (12:34)
[2018-10-28] MEDS: DEXTROSE 5% IN WATER 1,000 ML with SODIUM BICARB (1 MEQ/ML) 100 ML IV SCH (12:35)
[2018-10-28 16:32] LABS: Glucose,Whole Blood 131 mg/dL (75-99)
--- NOTE | 2018-10-28 16:54 | P.PN ---
Subjective Progress Note Date: 10/28/18 10/28/2018: Patient seen and examined. Patient is sitting up in the chair on room air. She states that she has been nauseous since the chest tubes have been pulled. She is declining any medication for nausea. She states she did try to eat a few bites of soup and this made it worse. She states her breathing is okay. She denies any fevers and chills. Objective - Vital Signs Vital signs: Vital Signs Temp 98.2 F 10/28/18 14:45 Pulse 76 10/28/18 16:00 Resp 18 10/28/18 14:45 BP 126/60 10/28/18 14:45 Pulse Ox 92 L 10/28/18 14:45 Intake & Output 10/27/18 10/28/18 10/28/18 18:59 06:59 18:59 Intake Total 228 Output Total 600 Balance 228 -600 Weight 57.289 kg Intake: Oral 228 Output: Urine 600 Other: Voiding Method Toilet # Voids 1 1 - Exam Gen.: Patient is alert and oriented 3, no acute distress Cardiovascular: Regular rate and rhythm, S1/S2 Lungs: Coarse breath sounds on the right, right posterior chest pigtail catheter in place Abdomen: Soft nontender nondistended positive bowel sounds Ext: no edema - Labs CBC & Chem 7: 10/27/18 07:57 10/28/18 07:31 Labs: Abnormal Lab Results - Last 24 Hours (Table) 10/27/18 10/27/18 10/27/18 Range/Units 14:16 16:43 20:12 Sodium 136 L (137-145) mmol/L Potassium 5.4 H 5.7 H (3.5-5.1) mmol/L Chloride 108 H (98-107) mmol/L BUN (7-17) mg/dL Creatinine (0.52-1.04) mg/dL Glucose (74-99) mg/dL POC Glucose (mg/dL) 126 H (75-99) mg/dL Calcium (8.4-10.2) mg/dL 10/27/18 10/28/18 10/28/18 Range/Units 20:16 06:57 07:31 Sodium 136 L 133 L (137-145) mmol/L Potassium 5.6 H 5.5 H (3.5-5.1) mmol/L Chloride (98-107) mmol/L BUN 42 H (7-17) mg/dL Creatinine 1.31 H (0.52-1.04) mg/dL Glucose 118 H (74-99) mg/dL POC Glucose (mg/dL) 140 H (75-99) mg/dL Calcium 7.9 L (8.4-10.2) mg/dL 10/28/18 10/28/18 Range/Units 11:49 16:31 Sodium (137-145) mmol/L Potassium (3.5-5.1) mmol/L Chloride (98-107) mmol/L BUN (7-17) mg/dL Creatinine (0.52-1.04) mg/dL Glucose (74-99) mg/dL POC Glucose (mg/dL) 152 H 131 H (75-99) mg/dL Calcium (8.4-10.2) mg/dL Microbiology - Last 24 Hours (Table) 10/25/18 14:45 Anaerobic Culture - Preliminary Lung - Right Presumptive Staph aureus 10/25/18 14:45 Gram Stain - Preliminary Lung - Right Tissue Culture - Preliminary Assessment and Plan Assessment: Right loculated pleural effusion, status post pigtail catheter placement and VATS Right lower lobe pneumonia - cultures prelim staph aureus Bacteremia with MRSA History of tuberculosis in 1970 Asthma History of coronary artery disease and stenting Hypertension Dyslipidemia GERD Diabetes mellitus type 2 O2 to maintain saturation greater than or equal to 90% Continue antibiotics per ID Incentive spirometry and pulmonary hygiene Bronchodilators: Symbicort, albuterol Singulair GI and DVT prophylaxis PT and OT
[2018-10-28 17:17] LABS: Hemoglobin A1C 7.8 % (4.0-6.0)
[2018-10-28 20:22] LABS: Glucose,Whole Blood 182 mg/dL (75-99)
--- NOTE | 2018-10-28 22:16 | PN ---
PROGRESS NOTE ATTENDING PHYSICIAN: Dr. Ron Gaona. CHIEF COMPLAINT: Re-evaluation. HISTORY OF PRESENT ILLNESS: A 77-year-old female was admitted to the hospital with MRSA bacteremia and right mid lung pneumonia. She is feeling better. She had a chest tube today to be removed. REVIEW OF SYSTEMS: Neuro: Denies any headaches, dizziness. Psych: No anxiety. Cardiac: No chest pain, angina or palpitation. Respiratory: Denies shortness of breath. Patient had minimal cough. GI no nausea, vomiting, abdominal pain, diarrhea. no symptoms of dysuria, hematuria. Extremities: No pain or edema. CONSTITUTIONAL: No fever or chills. PHYSICAL EXAMINATION: Pleasant female in no distress. Vital signs reveals temperature 98.1, pulse 82, blood pressure 135/68, pulse ox 96% on room air. HEENT: Normocephalic. Neck: No JVD. Chest examination is clear to auscultation left lung. Right lung patient has decreased air flow, especially at the bases. A few crackles. CARDIAC: Distant heart sounds S1, S2. No gallops. Regular rhythm. ABDOMEN: Soft, protuberant. Bowel sounds active. Extremities reveals 3+ edema. NEUROLOGIC: Awake, alert, oriented with well-coordinated movements. LABORATORY ASSESSMENT: Sodium 133, potassium 5.5, chloride 104, CO2 content 23, BUN 42, creatinine 1.31, calcium 7.9. Glucose 118. ASSESSMENT: 1. Pneumonia. 2. MRSA bacteremia, resolved. 3. Present chest tubes. 4. Anasarca. 5. Hyperkalemia. 6. Acute kidney injury. PLAN: The patient is stable. Continue present medical regimen. Patient will be given Lasix and goal is to try and see if he can reduce edema. The patient will be given Dulcolax suppository. Patient's prognosis remains guarded. Await opinion from ID regarding duration of antibiotic. The patient's condition discussed with the daughter. MMODL / IJN: [id number] /
[2018-10-28] MEDS: MONTELUKAST 10 MG TAB PO SCH (22:43)
[2018-10-28] MEDS: ONDANSETRON 4 MG/2 ML VIAL IVP PRN (23:17)
[2018-10-29 05:08] LABS: Amorphous Sediment,Urine Rare /hpf; Appearance,Urine Clear (Clear); Bacteria,Urine Rare /hpf; Bilirubin,Urine Negative (Negative); Blood,Urine Trace (Negative); Color,Urine Yellow; Glucose,Urine (UA) Negative (Negative); Hyaline Casts,Urine 32 /lpf (0-2); Ketones,Urine Negative (Negative); Leukocyte Esterase,Urine Negative (Negative); Mucus,Urine Rare /hpf; Nitrite,Urine Negative (Negative); Protein,Urine Negative (Negative); RBC,Urine 6 /hpf (0-5); Specific Gravity,Urine 1.012 (1.001-1.035); Squamous Epithelial Cell,Urine 2 /hpf (0-4); Transitional Epi Cells,Urine <1 /hpf (0-1); Urobilinogen,Urine <2.0 mg/dL (<2.0); WBC,Urine 2 /hpf (0-5)
[2018-10-29] MEDS: Acetaminophen-Codeine 300-30mg TAB PO SCH ×4 (06:01→23:01)
[2018-10-29 07:32] LABS: Glucose,Whole Blood 102 mg/dL (75-99)
--- NOTE | 2018-10-29 07:35 | XR ---
EXAMINATION TYPE: XR chest 2V DATE OF EXAM: 10/29/2018 COMPARISON: October 28, 2018 HISTORY: Shortness of breath TECHNIQUE: Frontal and lateral views of the chest are obtained. FINDINGS: Scattered senescent parenchymal changes noted. Hyperinflation compatible with COPD. Right-sided chest tube has been removed. No evidence for pneumothorax. Patchy infiltrate right mid an d right lower lung zones with associated pleural effusion. Left basilar atelectasis and/or infiltrate with small effusion unchanged. Heart size is stable. Mediastinal structures are stable and grossly unremarkable. No evidence for hilar prominence. Degenerative changes dorsal spine. IMPRESSION: 1. Right-sided chest tube has been removed. No evidence for pneumothorax. Patchy infiltrate right mid and right lower lung zones with associated pleural effusion. Left basilar atelectasis and/or infiltr ate with small effusion unchanged.
[2018-10-29] MEDS: INSULIN ASPART (NovoLOG) 100 UNIT/ML VIAL SQ SCH ×4 (07:40→20:56)
[2018-10-29] MEDS: CANDESARTAN 4 MG PO SCH (07:41)
[2018-10-29] MEDS: metFORMIN 500 MG TAB PO SCH ×2 (07:50→17:28)
[2018-10-29] MEDS: ISOSORBIDE MONONITRATE ER 60 MG TAB.ER.24H PO SCH (07:50)
[2018-10-29] MEDS: HEPARIN SODIUM,PORCINE 5,000 UNIT/ML 1 ML VIAL SQ SCH ×2 (07:50→20:56)
[2018-10-29] MEDS: PANTOPRAZOLE 40 MG TABLET PO SCH (07:50)
[2018-10-29] MEDS: FUROSEMIDE 10 MG/ML 4 ML VIAL IV SCH ×2 (07:50→20:56)
[2018-10-29] MEDS: DOCUSATE 100 MG CAP PO SCH ×2 (07:51→20:56)
[2018-10-29] MEDS: ATENOLOL 25 MG TAB PO SCH (07:51)
[2018-10-29] MEDS: ASPIRIN 81 MG PO SCH (07:51)
--- NOTE | 2018-10-29 09:07 | P.PN ---
Subjective Progress Note Date: 10/29/18 Principal diagnosis: Right loculated pleural effusion status post pigtail catheter placement by interventional radiology and alteplase instillation, right lower lobe pneumonia, bacteremia with MRSA, acute kidney injury. Previous medical history of tuberculosis in 1970, asthma, coronary artery disease with stent placement to the right coronary artery, hypertension, hyperlipidemia, and GERD. POD #4 right video-assisted thoracoscopic decortication with pleural biopsy Patient's currently sitting up in bed in no acute distress. Does complain of pain to right shoulder. Attempting to use incentive spirometry. Remains hemodynamically stable. Chest tubes removed yesterday. Objective - Vital Signs Vital signs: Vital Signs Temp 98.1 F 10/29/18 07:00 Pulse 87 10/29/18 07:00 Resp 12 10/29/18 07:00 BP 124/56 10/29/18 07:00 Pulse Ox 90 L 10/29/18 07:00 Intake & Output 10/28/18 10/29/18 10/29/18 18:59 06:59 18:59 Output Total 600 550 Balance -600 -550 Weight 57.289 kg Output: Urine 600 350 Emesis 200 Other: Voiding Method Toilet Toilet # Voids 1 1 # Bowel Movements 1 - Constitutional General appearance: Present: cooperative, no acute distress - Respiratory Details: Lungs sounds diminished bilaterally. Respirations even, nonlabored. Currently on 2 L nasal cannula with oxygen saturation 98%. Obtaining 500 mL on incentive spirometry. - Cardiovascular Details: S1, S2 present. Regular rate and rhythm. Palpable peripheral pulses bilaterally. No edema present. No calf pain or tenderness noted. - Gastrointestinal Gastrointestinal Comment(s): Abdomen soft, nontender, nondistended. Active bowel sounds present 4 quadrants. Tolerating diet. - Genitourinary Genitourinary Comment(s): Continues to void - Integumentary Integumentary Comment(s): Skin is warm and dry with evidence of good perfusion. Right pleural chest tube site covered with dry intact dressing. - Neurologic Neurologic: Present: CNII-XII intact - Musculoskeletal Musculoskeletal: Present: gait normal, strength equal bilaterally - Psychiatric Psychiatric: Present: A&O x's 3, appropriate affect, intact judgment & insight - Allied health notes Allied health notes reviewed: nursing - Labs CBC & Chem 7: 10/27/18 07:57 10/28/18 07:31 Labs: Abnormal Lab Results - Last 24 Hours (Table) 10/27/18 10/28/18 10/28/18 Range/Units 07:57 11:49 16:31 POC Glucose (mg/dL) 152 H 131 H (75-99) mg/dL Hemoglobin A1c 7.8 H (4.0-6.0) % Urine Blood (Negative) Urine RBC (0-5) /hpf Amorphous Sediment (None) /hpf Urine Bacteria (None) /hpf Hyaline Casts (0-2) /lpf Urine Mucus (None) /hpf 10/28/18 10/29/18 10/29/18 Range/Units 20:20 04:15 07:30 POC Glucose (mg/dL) 182 H 102 H (75-99) mg/dL Hemoglobin A1c (4.0-6.0) % Urine Blood Trace H (Negative) Urine RBC 6 H (0-5) /hpf Amorphous Sediment Rare H (None) /hpf Urine Bacteria Rare H (None) /hpf Hyaline Casts 32 H (0-2) /lpf Urine Mucus Rare H (None) /hpf Microbiology - Last 24 Hours (Table) 10/25/18 14:45 Gram Stain - Final Lung - Right Tissue Culture - Final 10/21/18 14:40 Acid Fast Bacilli Smear - Final Pleural Fluid Acid Fast Bacilli Culture - Preliminary 10/25/18 14:45 Anaerobic Culture - Preliminary Lung - Right Presumptive Staph aureus - Imaging and Cardiology Chest x-ray: report reviewed, image reviewed Assessment and Plan Assessment: 1. Right loculated pleural effusion status post pigtail catheter placement by interventional radiology and alteplase instillation, status post VATS decortication, cytology negative for malignancy, pathology pending, culture with presumptive staff preliminarily 2. Right lower lobe pneumonia 3. Consolidation with cavitation versus neoplasm in the right lung periphery on CT of chest 4. Bacteremia with MRSA 5. History of tuberculosis in 1970 6. Asthma 7. Coronary artery disease with RCA stent placement 8. Hypertension 9. Hyperlipidemia 10. GERD 11. Anemia 12. Acute kidney injury Plan: 1. Repeat CXR stable. Pleural fluid culture still pending but preliminary presumptive staph, cytology negative for malignancy, path pending. 2. Bronchodilators per pulmonology. 3. Wean O2 as tolerated. Encourage incentive spirometry 10 times every hour while awake. 4. Antibiotics per infectious disease. 5. GI/DVT prophylaxis with Protonix/subcu heparin. 6. Pain control with current medication regimen. 7. Management of other medical comorbidities per primary care service. 8. Avoid nephrotoxic agents. 9. Will sign off the case. Please contact us with any further questions or con cerns. Time with Patient: Greater than 30
--- NOTE | 2018-10-29 11:06 | CDI ---
Documentation Clarification Form Date: 10/29/2018 10:31:18 AM From: Louise Kurtz RN, CCDS Admit Date: 10/17/2018 6:19:00 PM Patient Name: Irina Case Visit Number: [id number] Discharge Date: ATTENTION: The Clinical Documentation Specialists (CDI) and [facility] Coding Staff appreciate your assistance in clarifying documentation. Please respond to the clarification below the line at the bottom and electronically sign. The CDI & [facility] Coding staff will review the response and follow-up if needed. Please note: Queries are made part of the Legal Health Record. If you have any questions, please contact the author of this message via ITS. Dr. Catalino Gaona The patient presented with the following: Complaint of right flank and right shoulder pain. History/Risk Factors: Bronchial asthma, Coronary artery disease, GERD Clinical Indicators: 77-year-old who started having flu type symptoms with vomiting. Chest x-ray has right lower lobe pneumonia. WBC 8.1, 89 % neutrophils Blood cultures: MRSA Vitals signs on admission: 122/69 117 14 101.4 94 % ra 10/21/18 Pulmonary (Dr. Merino) Ongoing progress note has Methicillin-resistant Staphylococcus aeruginosa sepsis with pneumonia and right-sided emphyma likely Treatment: Incentive spirometry Ventolin nebulized Vancomycin IV ( now DC) Zosyn IV (now DC) ID Consult: Dr. Velasquez: MRSA bacteremia within the bases of pneumonia and this loculated fluid collection has been drained. IV fluids Right chest tube insertion Right VATS decortication, Pleural biopsy In your professional opinion, please clarify if these findings signify one of the following conditions, whether the condition is POA, and cause, if known: Condition MRSA Sepsis ruled out MRSA Bacteremia with Sepsis (present on admission) Other, please specify Unable to determine Link or clarify if there is associated (due to/with): Organ failure SIRS Criteria (2 or more of the following may indicate SIRS): -Temperature < 96.8F (36C) or > 101.0F (38.3C) -Heart Rate > 90 bpm -Respiratory Rate > 20 breaths/min or PaCO2 < 32 mmHg -White Blood Cell Count > 12,000 or < 4,000 cells/mm3 or > 10% bands -Lactate >2.0 mmol/L (>4.0 is equivalent to septic shock) (Last Revision: October 2017) MTDD
[2018-10-29] MEDS: ALBUTEROL NEBULIZED 2.5 MG/3 ML INHALATION SCH ×4 (11:27→20:09)
[2018-10-29] MEDS: SYMBICORT 160-4.5 MCG INHALER INHALATION SCH ×2 (11:27→20:09)
[2018-10-29 11:40] LABS: Glucose,Whole Blood 111 mg/dL (75-99)
[2018-10-29 14:08] LABS: Calcium 8.3 mg/dL (8.4-10.2); Potassium 5.4 mmol/L (3.5-5.1)
[2018-10-29 16:39] LABS: Glucose,Whole Blood 123 mg/dL (75-99)
--- NOTE | 2018-10-29 20:02 | P.PN ---
Subjective Progress Note Date: 10/29/18 11/08/2018: Patient seen and examined. Patient is sitting up in the chair. She states she is feeling much better today. Her shortness of breath is still an issue. She states she gets very short of breath ambulating in the hallway. She is dates she would like to go to [facility] for rehabilitation. Objective - Vital Signs Vital signs: Vital Signs Temp 98.1 F 10/29/18 15:00 Pulse 87 10/29/18 16:00 Resp 12 10/29/18 16:00 BP 122/76 10/29/18 15:00 Pulse Ox 96 10/29/18 15:00 Intake & Output 10/29/18 10/29/18 10/30/18 06:59 18:59 06:59 Intake Total 296 Output Total 550 Balance -550 296 Intake: Oral 296 Output: Urine 350 Emesis 200 Other: Voiding Method Toilet Toilet # Voids 1 2 - Exam Gen.: Patient is alert and oriented 3, no acute distress Cardiovascular: Regular rate and rhythm, S1/S2 Lungs: Coarse breath sounds on the right Abdomen: Soft nontender nondistended positive bowel sounds Ext: no edema - Labs CBC & Chem 7: 10/27/18 07:57 10/29/18 13:34 Labs: Abnormal Lab Results - Last 24 Hours (Table) 10/28/18 10/29/18 10/29/18 Range/Units 20:20 04:15 07:30 Sodium (137-145) mmol/L Potassium (3.5-5.1) mmol/L BUN (7-17) mg/dL Creatinine (0.52-1.04) mg/dL Glucose (74-99) mg/dL POC Glucose (mg/dL) 182 H 102 H (75-99) mg/dL Calcium (8.4-10.2) mg/dL Urine Blood Trace H (Negative) Urine RBC 6 H (0-5) /hpf Amorphous Sediment Rare H (None) /hpf Urine Bacteria Rare H (None) /hpf Hyaline Casts 32 H (0-2) /lpf Urine Mucus Rare H (None) /hpf 10/29/18 10/29/18 10/29/18 Range/Units 11:38 13:34 16:27 Sodium 134 L (137-145) mmol/L Potassium 5.4 H (3.5-5.1) mmol/L BUN 50 H (7-17) mg/dL Creatinine 1.58 H (0.52-1.04) mg/dL Glucose 128 H (74-99) mg/dL POC Glucose (mg/dL) 111 H 123 H (75-99) mg/dL Calcium 8.3 L (8.4-10.2) mg/dL Urine Blood (Negative) Urine RBC (0-5) /hpf Amorphous Sediment (None) /hpf Urine Bacteria (None) /hpf Hyaline Casts (0-2) /lpf Urine Mucus (None) /hpf Microbiology - Last 24 Hours (Table) 10/25/18 14:45 Anaerobic Culture - Preliminary Lung - Right Presumptive MRSA Alpha Hemolytic Streptococcus 10/25/18 14:45 Gram Stain - Final Lung - Right Tissue Culture - Final 10/21/18 14:40 Acid Fast Bacilli Smear - Final Pleural Fluid Acid Fast Bacilli Culture - Preliminary Assessment and Plan Assessment: Right loculated pleural effusion, status post pigtail catheter placement and VATS Right lower lobe pneumonia - cultures prelim staph aureus Bacteremia with MRSA MUNDO with mild hyperkalemia History of tuberculosis in 1970 Asthma History of coronary artery disease and stenting Hypertension Dyslipidemia GERD Diabetes mellitus type 2 O2 to maintain saturation greater than or equal to 90% Continue antibiotics per ID Lasix per primary team Incentive spirometry and pulmonary hygiene Bronchodilators: Symbicort, albuterol Singulair GI and DVT prophylaxis PT and OT Discharge planning for possible rehab
[2018-10-29 20:37] LABS: Glucose,Whole Blood 110 mg/dL (75-99)
[2018-10-29] MEDS: MONTELUKAST 10 MG TAB PO SCH (20:56)
[2018-10-29] MEDS ORDERED: VANCOMYCIN 1,000 MG in SODIUM CHLORIDE 0.9% 250 ML IVPB ONE (21:00)
--- NOTE | 2018-10-29 22:53 | P.PN ---
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 However the last few days she's had the difficulties of increasing pain to the left shoulder associated with fatigue and malaise. The patient is found it more difficult to try to sit up and do her activities of daily living because of these discomforts. Her home situation is difficult and her has had a stroke and she goes to visit with the retirement an ongoing basis. She relates that he has been ill as of late likely with pneumonia. She feels poorly today. She has weakness and malaise, she does not feel extraordinarily short of breath but does not feel well. The discomfort into her left shoulder continues and it limits her ability to position herself in bed freely. She does not believe that she is having further fevers or chills. Did have some fever and chills prior. With evidence of positive blood culture the infectious diseases consultation has been requested. 10/21/2018 patient has now been seen by cardiothoracic surgery. They suggested CT-guided drainage of the effusion. The patient relates almost directly after the drainage occurred she started to feel considerably better. Her shortness of breath, cough and dyspnea all improved. She's had no further fever and is very pleased that she is feeling so much better. The tube itself is not very uncomfortable and she has no other new acute complaints. 10/22/2018 patient was feeling better yesterday but now with some reexpansion of the lung she's had some increasing amount of discomfort to the right chest. Abdomen admission but certainly is uncomfortable. She denying fevers or chills. With the alteplase and manipulation today despite a significant increase in the amount of drainage from the chest tube. Chest x-ray showed evidence of residual amounts of effusion prompting the alteplase. 10/25/2018 the patient has not had significant improvement and constantly has been seen by cardiothoracic surgery. Because of her lack of improvement she has now been taken the operating room and a VATS procedure is been performed. She is postoperative with chest tubes in place that she relates are very painful. O ther than that she relates she's feeling better. She is less short of breath and is not having much cough. 10/29/2018 patient is feeling better, chest tubes been removed she is less short of breath but is still very weak. She relates her family is coming to town but since her has early in extended care she'll be going there to receive her care chill she strong enough to be with a care of herself. Objective - Vital Signs Vital signs: Vital Signs Temp 97.6 F 10/29/18 19:45 Pulse 88 10/29/18 20:25 Resp 16 10/29/18 19:45 BP 134/64 10/29/18 19:45 Pulse Ox 87 L 10/29/18 20:09 Intake & Output 10/29/18 10/29/18 10/30/18 06:59 18:59 06:59 Intake Total 296 Output Total 550 Balance -550 296 Intake: Oral 296 Output: Urine 350 Emesis 200 Other: Voiding Method Toilet Toilet Toilet # Voids 1 2 1 - Exam Pleasant 77-year-old woman of thin build not in distress but is with discomfort when she tries to change position in bed HEENT: Anicteric conjunctiva are pink and moist nasal mucosa grossly intact without significant lesions, there is no thrush. Neck: The neck is supple without significant lymphadenopathy or thyromegaly. Lungs: Symmetrical air entry is noted. chest tube is removed and there is evidence ofadequate breath sounds into the right chest only few basilar crackles Heart: Regular rate and rhythm with an audible S1-S2, no S3 no S4. There is no significant murmur click or rub, PMI was nondisplaced. Abdomen: Positive bowel sounds soft and nontender without palpable masses or organomegaly. There was no guarding or rebound. Extremities: Upper extremities are without edema but does have discomfort when the left shoulder area is manipulated especially to change her position in bed. There is no edema or lesions. Lower extremities have trace edema no open ulcers Skin is without rash or blisters evidence of any vesicles over the left shoulder area no erythema or other rash Neuro: Awake alert oriented to person place and time. There are no acute new gross focal sensory motor deficits. - Labs CBC & Chem 7: 10/27/18 07:57 10/29/18 13:34 Labs: Abnormal Lab Results - Last 24 Hours (Table) 10/29/18 10/29/18 10/29/18 Range/Units 04:15 07:30 11:38 Sodium (137-145) mmol/L Potassium (3.5-5.1) mmol/L BUN (7-17) mg/dL Creatinine (0.52-1.04) mg/dL Glucose (74-99) mg/dL POC Glucose (mg/dL) 102 H 111 H (75-99) mg/dL Calcium (8.4-10.2) mg/dL Urine Blood Trace H (Negative) Urine RBC 6 H (0-5) /hpf Amorphous Sediment Rare H (None) /hpf Urine Bacteria Rare H (None) /hpf Hyaline Casts 32 H (0-2) /lpf Urine Mucus Rare H (None) /hpf 10/29/18 10/29/18 10/29/18 Range/Units 13:34 16:27 20:36 Sodium 134 L (137-145) mmol/L Potassium 5.4 H (3.5-5.1) mmol/L BUN 50 H (7-17) mg/dL Creatinine 1.58 H (0.52-1.04) mg/dL Glucose 128 H (74-99) mg/dL POC Glucose (mg/dL) 123 H 110 H (75-99) mg/dL Calcium 8.3 L (8.4-10.2) mg/dL Urine Blood (Negative) Urine RBC (0-5) /hpf Amorphous Sediment (None) /hpf Urine Bacteria (None) /hpf Hyaline Casts (0-2) /lpf Urine Mucus (None) /hpf Microbiology - Last 24 Hours (Table) 10/25/18 14:45 Anaerobic Culture - Preliminary Lung - Right Presumptive MRSA Alpha Hemolytic Streptococcus 10/25/18 14:45 Gram Stain - Final Lung - Right Tissue Culture - Final 10/21/18 14:40 Acid Fast Bacilli Smear - Final Pleural Fluid Acid Fast Bacilli Culture - Preliminary Laboratory Results WBC 10.2 k/uL (3.8-10.6) 10/27/18 07:57 RBC 2.33 m/uL (3.80-5.40) L 10/27/18 07:57 Hgb 7.2 gm/dL (11.4-16.0) L 10/27/18 07:57 Hct 22.7 % (34.0-46.0) L 10/27/18 07:57 MCV 97.1 fL (80.0-100.0) 10/27/18 07:57 MCH 30.7 pg (25.0-35.0) 10/27/18 07:57 MCHC 31.6 g/dL (31.0-37.0) 10/27/18 07:57 RDW 13.9 % (11.5-15.5) 10/27/18 07:57 Plt Count 589 k/uL (150-450) H 10/27/18 07:57 Neutrophils % 80 % 10/24/18 07:31 Lymphocytes % 10 % 10/24/18 07:31 Monocytes % 5 % 10/24/18 07:31 Eosinophils % 2 % 10/24/18 07:31 Basophils % 0 % 10/24/18 07:31 Neutrophils # 5.3 k/uL (1.3-7.7) 10/24/18 07:31 Lymphocytes # 0.7 k/uL (1.0-4.8) L 10/24/18 07:31 Monocytes # 0.3 k/uL (0-1.0) 10/24/18 07:31 Eosinophils # 0.1 k/uL (0-0.7) 10/24/18 07:31 Basophils # 0.0 k/uL (0-0.2) 10/24/18 07:31 Hypochromasia Slight 10/26/18 08:48 Macrocytosis Slight 10/26/18 08:48 PT 9.8 sec (9.0-12.0) 10/24/18 07:31 INR 0.9 (<1.2) 10/24/18 07:31 APTT 25.2 sec (22.0-30.0) 10/24/18 07:31 Sodium 134 mmol/L (137-145) L 10/29/18 13:34 Potassium 5.4 mmol/L (3.5-5.1) H 10/29/18 13:34 Chloride 101 mmol/L (98-107) 10/29/18 13:34 Carbon Dioxide 25 mmol/L (22-30) 10/29/18 13:34 Anion Gap 8 mmol/L 10/29/18 13:34 BUN 50 mg/dL (7-17) H 10/29/18 13:34 Creatinine 1.58 mg/dL (0.52-1.04) H 10/29/18 13:34 Est GFR (CKD-EPI)AfAm 36 (>60 ml/min/1.73 sqM) 10/29/18 13:34 Est GFR (CKD-EPI)NonAf 31 (>60 ml/min/1.73 sqM) 10/29/18 13:34 Glucose 128 mg/dL (74-99) H 10/29/18 13:34 POC Glucose (mg/dL) 110 mg/dL (75-99) H 10/29/18 20:36 POC Glu Fish Cleaner ID Jeanie Galloway 10/29/18 20:[address] Glu mg/dL 177 10/27/18 07:57 Hemoglobin A1c 7.8 % (4.0-6.0) H 10/27/18 07:57 Calcium 8.3 mg/dL (8.4-10.2) L 10/29/18 13:34 Urine Color Yellow 10/29/18 04:15 Urine Appearance Clear (Clear) 10/29/18 04:15 Urine pH 5.0 (5.0-8.0) 10/29/18 04:15 Ur Specific [place] 1.012 (1.001-1.035) 10/29/18 04:15 Urine Protein Negative (Negative) 10/29/18 04:15 Urine Glucose (UA) Negative (Negative) 10/29/18 04:15 Urine Ketones Negative (Negative) 10/29/18 04:15 Urine Blood Trace (Negative) H 10/29/18 04:15 Urine Nitrite Negative (Negative) 10/29/18 04:15 Urine Bilirubin Negative (Negative) 10/29/18 04:15 Urine Urobilinogen <2.0 mg/dL (<2.0) 10/29/18 04:15 Ur Leukocyte Esterase Negative (Negative) 10/29/18 04:15 Urine RBC 6 /hpf (0-5) H 10/29/18 04:15 Urine WBC 2 /hpf (0-5) 10/29/18 04:15 Ur Squamous Epith Cells 2 /hpf (0-4) 10/29/18 04:15 Ur Transition Epith Cell <1 /hpf (0-1) 10/29/18 04:15 Amorphous Sediment Rare /hpf (None) H 10/29/18 04:15 Urine Bacteria Rare /hpf (None) H 10/29/18 04:15 Hyaline Casts 32 /lpf (0-2) H 10/29/18 04:15 Urine Mucus Rare /hpf (None) H 10/29/18 04:15 Fluid Source Pleural 10/21/18 14:40 Fluid Color Yellow 10/21/18 14:40 Fluid Appearance Clear 10/21/18 14:40 Fluid RBC 885 /uL 10/21/18 14:40 Fluid Nucleated Cells 8 /uL 10/21/18 14:40 Body Fluid Protein Source Pleural Fluid 10/21/18 14:40 Fluid Total Protein 2501.0 mg/dL 10/21/18 14:40 Body Fluid LDH Source Pleural Fluid 10/21/18 14:40 Fluid LDH 667 U/L 10/21/18 14:40 Vancomycin Trough 25.0 ug/mL 10/27/18 20:16 Random Vancomycin 30.7 ug/mL 10/28/18 07:31 Influenza Type A RNA Not Detected (Not Detectd) 10/21/18 04:42 Influenza Type B (PCR) Not Detected (Not Detectd) 10/21/18 04:42 Blood Type O Positive 10/24/18 07:31 Blood Type Confirm O Positive 10/22/18 07:34 Blood Type Recheck CABO Indicated 10/24/18 07:31 Antibody Screen NEGATIVE 10/24/18 07:31 Spec Expiration Date 10/27/2018 - 23310/24/18 07:31 Microbiology 10/25/18 14:45 Lung - Right Anaerobic Culture - Preliminary Presumptive MRSA Alpha Hemolytic Streptococcus 10/25/18 14:45 Lung - Right Gram Stain - Final 10/25/18 14:45 Lung - Right Tissue Culture - Final 10/21/18 14:40 Pleural Fluid Acid Fast Bacilli Smear - Final 10/21/18 14:40 Pleural Fluid Acid Fast Bacilli Culture - Preliminary 10/20/18 07:58 Blood Blood Culture - Final No Growth after 144 hours 10/21/18 14:40 Pleural Fluid Gram Stain - Final 10/21/18 14:40 Pleural Fluid Body Fluid Culture - Final 10/21/18 14:40 Pleural Fluid Fungal Culture - Preliminary 10/17/18 19:39 Blood Blood Culture Gram Stain - Final 10/17/18 19:39 Blood Blood Culture - Final Methicillin resist S. 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 She is developed pains in left shoulder area that has been making it difficult for her to perform ADLs and even be comfortable in bed. She also has some shortness of breath and significant fatigue and malaise and difficulty performing ADLs. She has been admitted there is evidence of the right lower lobe pneumonia and computed tomography scan shows evidence of the significant effusion. Antibiotic therapy with vancomycin has been added given the MRSA. Follow blood cultures are requested to try to track the of her bacteremia. If she's not had a recent echocardiogram this may be of importance given the noted bacteremia. A pulmonary source for the bacteremia appears to be most likely. The case is discussed with pulmonary critical care and we will consult Dr. johansen of cardiovascular surgery to evaluate for the possibility of sampling of the effusi on with concerns that it could be empyema. Of note the patient does relate that many of the residents at the [facility] appear to have influenza. Computer records are reviewed and does not appear that she has had testing and constantly influenza testing is requested. She is complaining some difficulties with nausea some Zofran will be requested. 10/21/2018 patient is now feeling considerably better status post the percutaneous drainage into the pleural space. Cultures are pending. The patient does have MRSA bacteremia within the bases of pneumonia and this loculated fluid collection that has now been drained. She is feeling much better than she expected. Shortness of breath is improved. Once is evidence of clearance of the bacteremia will have to have IV access placed and will plan a several week course of outpatient intravenous antibiotic therapy at the time of discharge. Nausea has resolved. 10/22/2018 patient is without fever, but with lung reexpansion has had some increasing mild discomfort in her chest. But is less short of breath. No surgical plan as noted. Toradol is restarted to try to help her significant discomfort. Antibiotic therapy continues with vancomycin. Once blood cultures are clear with PICC line placed and outpatient intravenous antibiotic therapy. 10/25/2018 patient is now status post VATS procedure and seems to be doing well. Respirations are with only minimal discomfort but does have pain in the chest tube site. The blood culture show evidence of MRSA, await the results of the VATS cultures. Continue antibiotic therapy for now, will need IV access to be placed for her course of antibiotic therapy at discharge. 10/29/2018 the patient is status post VATS procedure and a chest tube is now removed and she is feeling somewhat better. She is with less shortness of breath in the pain from the chest tube and discomfort from the infection has improved. However her creatinine is elevated a bit today and her ankle level is high and constantly bank was put on hold. Would like to investigate if she is a candidate for Ceftaroline given her MRSA pneumonia and what appears to be intolerance to vancomycin, daptomycin cannot be used for pneumonia. Current Visit: Yes Status: Acute Code(s): R78.81 - BACTEREMIA SNOMED Code(s): 59843546159197275 (3) Exposure to influenza Current Visit: Yes Status: Acute Code(s): Z20.828 - CONTACT W AND EXPOSURE TO OTH VIRAL COMMUNICABLE DISEASES SNOMED Code(s): 661313330
--- NOTE | 2018-10-29 23:13 | PN ---
PROGRESS NOTE The patient was seen this morning. She still has significant lower extremity edema. Patient denied any significant shortness of breath. She did receive an extra dose of Lasix yesterday, which was increased to twice a day. The patient is maintained on vancomycin with the last level being at 30.7 yesterday for random. PHYSICAL EXAMINATION: This morning blood pressure was 124/56, heart rate 90 per minute. Patient is afebrile. Examination of the heart S1, S2. Examination of the lungs, decreased breath sounds, particularly on the right side. ABDOMEN: Soft. Examination of lower extremities shows edema 2+ bilaterally. 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 LAB: Show sodium 134, potassium 5.4, BUN 50, serum creatinine 1.58, calcium 8.3. ASSESSMENT: 1. Acute kidney injury, multifactorial, associated with the underlying pneumonia, NSAIDs as well as vancomycin level. Random level was 30 yesterday. At this time, given the worsening renal function, I will hold off on the vancomycin. We can switch to daptomycin. Pt is being followed by ID. 2. MRSA bacteremia and right lung, MRSA pneumonia maintained on vancomycin. 3. Interstitial edema. Third spacing and volume overload, maintained on Lasix which was increased yesterday. The patient's weight has not been checked today. I will have her weighed daily. We also need strict I's and O's. 4. Mild hyperkalemia associated with acute kidney injury, use of NSAIDs. Continue with the Lasix for now. Maintain patient on low-potassium diet and avoid angiotensin receptor blockers. PLAN: DC candesartan. Stop vancomycin given the worsening renal failure and relatively high levels. Continue with Lasix. Repeat labs in a.m. MMODL / IJN: [id number] / [facility]
--- NOTE | 2018-10-30 00:07 | PN ---
PROGRESS NOTE ATTENDING PHYSICIAN: Dr. Gaona. CHIEF COMPLAINT: Re-evaluation. HISTORY OF PRESENT ILLNESS: This is a 77-year-old who is status post removal of chest tube. The patient had MRSA bacteremia and MRSA pneumonia. She did have a VATS procedure done. She is feeling better today. She has significant anasarca. She is on diuretics and is putting out urine adequately. She did have an acute kidney injury, probably due to use of nonsteroidals. Electrolytes reveal BUN is up to 50, creatinine 1.58 today. The anaerobic culture from the right chest reveals presumed MRSA and alpha hemolytic Streptococcus. I talked to Dr. Velasquez and he was planning to order the patient some continued IV antibiotics at the nursing facility, awaiting this back. REVIEW OF SYSTEMS: NEURO: Denies any headaches or dizziness. PSYCH: No anxiety or depression. CARDIAC: Denies angina. RESPIRATORY: Mild cough. Chest pain is significantly improved. GI: No nausea, vomiting, abdominal pain. He did has some loose stools. No diarrhea. No blood or mucus. : No symptoms of hematuria. EXTREMITIES: No edema. CONSTITUTIONAL: No fevers or chills. PHYSICAL EXAMINATION: Pleasant female in no distress. Vital signs reveal temperature 98.1, pulse 87, respirations 12, blood pressure 126/56, pulse ox 90% on room air. HEENT: Normocephalic. Some facial edema. NECK: No JVD. CHEST: Crackles in the left base. Right lung decreased air flow. A few crackles. CARDIAC: Distant sounds S1, S2 with no gallop. Systolic murmur 2/6 left sternal border. ABDOMEN: Soft. No palpable masses. Bowel sounds normal. No organomegaly. No abdominal bruits. EXTREMITIES: 3+ edema. NEUROLOGIC: Awake, alert, oriented with well-coordinated movements. LABS: Input and output revealed not much change in the weight. Blood sugar is adequately controlled. Sodium 134, potassium 5.4, chloride 101, CO2 content 25, BUN 15, creatinine 1.58. Anaerobic culture from the right pleural cavity right lung reveals MRSA and also hemolytic Streptococcus. Chest x-ray revealed patchy infiltrate right main and right lower lung zones with some associated pleural effusion as well as some left basilar atelectasis. ASSESSMENT: 1. MRSA bacteremia. 2. MRSA pneumonia. 3. Parapneumonic effusion. 4. Anemia. 5. Acute renal failure. 6. Diabetes mellitus. 7. History of bronchial asthma. PLAN: Continue present medical regimen. Patient's condition discussed with the patient. Prognosis is guarded. Potential transfer to nursing facility in a day or two. We will recheck patient's renal function tomorrow. GORDY / NAN: [id number] /
[2018-10-30] MEDS: Acetaminophen-Codeine 300-30mg TAB PO SCH ×4 (05:19→21:14)
[2018-10-30 06:55] LABS: Glucose,Whole Blood 100 mg/dL (75-99)
[2018-10-30] MEDS: ALBUTEROL NEBULIZED 2.5 MG/3 ML INHALATION SCH ×4 (08:14→20:51)
[2018-10-30] MEDS: SYMBICORT 160-4.5 MCG INHALER INHALATION SCH ×2 (08:14→20:52)
[2018-10-30 08:28] LABS: HCT 23.4 % (34.0-46.0); HGB 7.4 gm/dL (11.4-16.0); Hypochromasia Slight; MCH 31.6 pg (25.0-35.0); MCHC 31.8 g/dL (31.0-37.0); MCV 99.4 fL (80.0-100.0); Mean Platelet Volume 7.6; RBC 2.36 m/uL (3.80-5.40); RDW 13.7 % (11.5-15.5)
[2018-10-30 08:36] LABS: Platelet Count 946 k/uL (150-450)
[2018-10-30] MEDS: HEPARIN SODIUM,PORCINE 5,000 UNIT/ML 1 ML VIAL SQ SCH ×2 (08:48→21:01)
[2018-10-30] MEDS: PANTOPRAZOLE 40 MG TABLET PO SCH (08:49)
[2018-10-30] MEDS: ATENOLOL 25 MG TAB PO SCH (08:49)
[2018-10-30] MEDS: ISOSORBIDE MONONITRATE ER 60 MG TAB.ER.24H PO SCH (08:49)
[2018-10-30] MEDS: FUROSEMIDE 10 MG/ML 4 ML VIAL IV SCH ×2 (08:49→21:01)
[2018-10-30] MEDS: ASPIRIN 81 MG PO SCH (08:49)
[2018-10-30] MEDS: DOCUSATE 100 MG CAP PO SCH ×2 (08:49→21:02)
[2018-10-30 11:58] LABS: Glucose,Whole Blood 138 mg/dL (75-99)
[2018-10-30] MEDS: INSULIN ASPART (NovoLOG) 100 UNIT/ML VIAL SQ SCH ×4 (12:32→21:01)
--- NOTE | 2018-10-30 13:26 | P.PN ---
Subjective Progress Note Date: 10/30/18 10/30/2017: Patient seen and examined. Patient is on 2 L nasal cannula. She denies fevers and chills. She states she is feeling okay today. Plan is for PICC line placement and placement to possible [place]. Objective - Vital Signs Vital signs: Vital Signs Temp 97.7 F 10/30/18 07:00 Pulse 76 10/30/18 11:43 Resp 16 10/30/18 07:00 BP 126/62 10/30/18 07:00 Pulse Ox 99 10/30/18 07:00 Intake & Output 10/29/18 10/30/18 10/30/18 18:59 06:59 18:59 Intake Total 296 Balance 296 Intake: Oral 296 Other: Voiding Method Toilet Toilet # Voids 2 1 - Exam Gen.: Patient is alert and oriented 3, no acute distress Cardiovascular: Regular rate and rhythm, S1/S2 Lungs: Coarse breath sounds on the right Abdomen: Soft nontender nondistended positive bowel sounds Ext: no edema - Labs CBC & Chem 7: 10/30/18 07:35 10/30/18 07:35 Labs: Abnormal Lab Results - Last 24 Hours (Table) 10/29/18 10/29/18 10/29/18 Range/Units 13:34 16:27 20:36 RBC (3.80-5.40) m/uL Hgb (11.4-16.0) gm/dL Hct (34.0-46.0) % Plt Count (150-450) k/uL Sodium 134 L (137-145) mmol/L Potassium 5.4 H (3.5-5.1) mmol/L BUN 50 H (7-17) mg/dL Creatinine 1.58 H (0.52-1.04) mg/dL Glucose 128 H (74-99) mg/dL POC Glucose (mg/dL) 123 H 110 H (75-99) mg/dL Calcium 8.3 L (8.4-10.2) mg/dL 10/30/18 10/30/18 10/30/18 Range/Units 06:49 07:35 07:35 RBC 2.36 L (3.80-5.40) m/uL Hgb 7.4 L (11.4-16.0) gm/dL Hct 23.4 L (34.0-46.0) % Plt Count 946 H (150-450) k/uL Sodium 133 L (137-145) mmol/L Potassium (3.5-5.1) mmol/L BUN 51 H (7-17) mg/dL Creatinine 1.53 H (0.52-1.04) mg/dL Glucose (74-99) mg/dL POC Glucose (mg/dL) 100 H (75-99) mg/dL Calcium 8.0 L (8.4-10.2) mg/dL 10/30/18 Range/Units 11:49 RBC (3.80-5.40) m/uL Hgb (11.4-16.0) gm/dL Hct (34.0-46.0) % Plt Count (150-450) k/uL Sodium (137-145) mmol/L Potassium (3.5-5.1) mmol/L BUN (7-17) mg/dL Creatinine (0.52-1.04) mg/dL Glucose (74-99) mg/dL POC Glucose (mg/dL) 138 H (75-99) mg/dL Calcium (8.4-10.2) mg/dL Microbiology - Last 24 Hours (Table) 10/25/18 14:45 Anaerobic Culture - Preliminary Lung - Right Methicillin resist S. aureus Alpha Hemolytic Streptococcus Assessment and Plan Assessment: Right loculated pleural effusion, status post pigtail catheter placement and VATS Right lower lobe pneumonia - cultures prelim staph aureus Bacteremia with MRSA MUNDO with mild hyperkalemia History of tuberculosis in 1970 Asthma History of coronary artery disease and stenting Hypertension Dyslipidemia GERD Diabetes mellitus type 2 O2 to maintain saturation greater than or equal to 90% Continue antibiotics per ID Lasix per primary team Incentive spirometry and pulmonary hygiene Bronchodilators: Symbicort, albuterol Singulair GI and DVT prophylaxis PT and OT Discharge planning for possible rehab Awaiting PICC line placement Ok to DC to rehab with IV ABX from pulmonary standpoint. Would repeat CT chest in 4-6 weeks
[2018-10-30] MEDS ORDERED: LIDOCAINE 1% INJ 10MG/ML (20 ML MDV) ONE (13:47)
[2018-10-30] MEDS ORDERED: HEPARIN SODIUM 1,000 UN/ML (10ML VL) ONE (14:00)
[2018-10-30] MEDS ORDERED: LIDOCAINE 1% INJ 10MG/ML (20 ML MDV) SQ ONE (14:26)
--- NOTE | 2018-10-30 16:07 | IR ---
EXAMINATION TYPE: IR cvc insert >=5 years DATE OF EXAM: 10/30/2018 COMPARISON: NONE CLINICAL HISTORY: Infection Needs long-term intravenous access for antibiotics. PROCEDURE: After informed consent, the skin overlying the right brachial vein was localized with ultrasound and noted to be compressible and patent. An ultrasound image was obtained and submitted on the patient's chart. The overlying skin was prepped and draped and Lidocaine was used for local anesthesia. A sk in chepe was made with a scalpel. Access was gained to the vein under ultrasound guidance with a 21 g auge needle and a 0.018 inch wire was advanced. Access site was dilated with Peel-Away sheath and ca theter tailored to the appropriate length and advanced such that the distal tip is at the cavoatrial junction. Spot image was obtained verifying placement. Catheter was fixed to the skin and a sterile dressing was placed following hemostasis. Catheter was aspirated and flushed with saline. Patient was discharged in stable condition without complication. Maximal barrier technique is utilized. Ultr asound image is documented on the chart. Ultrasound used with sterile technique. Fluoro time and fluoroscopic images submitted to document procedure: 157 intraoperative C-arm images, 0.2 minutes fluoroscopy IMPRESSION: STATUS POST ULTRASOUND AND FLUOROSCOPIC GUIDED PICC LINE PLACEMENT, READY FOR USE. THIS PROCEDURE WAS PERFORMED BY THE UNDERSIGNED.
[2018-10-30 17:06] LABS: Glucose,Whole Blood 100 mg/dL (75-99)
[2018-10-30 20:14] LABS: Glucose,Whole Blood 141 mg/dL (75-99)
[2018-10-30 20:46] VITALS: RESP 16
[2018-10-30] MEDS: MONTELUKAST 10 MG TAB PO SCH (21:02)
--- NOTE | 2018-10-30 22:15 | PN ---
PROGRESS NOTE Patient is seen for followup for acute kidney injury. Patient's renal function is stable for the last 2 days with creatinine staying at 1.5. She has been volume- overloaded and maintained on IV Lasix. Her weight is actually up today; I am not sure if this is accurate. [id number] urine output is not accurately charted. On examination this morning, blood pressure was 126/62, heart rate of 80 per minute. Patient is afebrile. EXAMINATION OF THE HEART: S1 and S2. EXAMINATION OF LUNGS: Decreased breath sounds at the bases. ABDOMEN: Soft, non-tender. Examination of lower extremities shows edema 3+ bilaterally. 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 Labs reveal sodium 133, potassium 5.0, BUN 51, serum creatinine 1.53, hemoglobin 7.4 g/dL. ASSESSMENT: 1. Acute kidney injury, multifactorial, associated with underlying infection, pneumonia, use of non-steroidal anti-inflammatories as well as vancomycin. Patient is being followed by ID and there is consideration to switch the antibiotics. 2. Volume overload, maintained on IV Lasix, which I will continue. Daily weights have been ordered. Swelling is about the same. It has not changed much. I am not sure if her weight from today is accurate. 3. Methicillin-resistant Staphylococcus aeruginosa pneumonia and empyema. 4. Hypertension, currently off of angiotensin receptor blockers. PLAN: Continue off of candesartan. Strongly recommend to discontinue the vancomycin if other options are available. Repeat labs in a.m. MMODL / IJN: [id number] /
--- NOTE | 2018-10-30 23:33 | PN ---
PROGRESS NOTE ATTENDING PHYSICIAN: Dr. Ron Gaona. CHIEF COMPLAINT: Re-evaluation. HISTORY OF PRESENT ILLNESS: This is a 77-year-old female who was admitted to the hospital with MRSA pneumonia and MRSA bacteremia with sepsis. The patient's general condition had gradually worsened due to the bacteremia. The patient had a significant right pleural effusion, parapneumonic. She had undergone for drainage. The patient is feeling better. Her respirations improved. The patient has underlying diabetes mellitus, history of bronchial asthma and coronary artery disease. She has remained stable. The patient is anemic. No other associated symptoms. She has developed significant anasarca. She also developed acute kidney injury which is improving. REVIEW OF SYSTEMS: NEURO: Denies any headaches or dizziness. PSYCH: No anxiety. CARDIAC: No chest pain, angina, palpitations. RESPIRATORY: Denies shortness of breath or cough. GI: No nausea, vomiting, abdominal pain, diarrhea. : No symptoms of dysuria or hematuria. EXTREMITIES: No pain. Does have edema. CONSTITUTIONAL: No fevers or chills. PHYSICAL EXAMINATION: Pleasant female in no distress at present. Using oxygen. Vital signs reveal temperature 97.7, pulse 84, respirations 16, blood pressure 126/62, pulse ox 99 percent on room air. HEENT: Normocephalic neck no JVD. CHEST: Clear to auscultation with decreased air flow in the right lower lung. A few crackles left base. CARDIAC: Normal S1, S2 with no gallops. Regular rhythm. ABDOMEN: Protuberant, soft. Bowel sounds active. EXTREMITIES: 3+ edema which is somewhat improved. NEUROLOGIC: Awake, alert, oriented with well-coordinated movements. LABORATORY ASSESSMENT: CBC which revealed a hemoglobin of 7.4 stable. Platelet count 946. Reactive thrombocytosis. Sodium 133, BUN 51, creatinine 1.53, glucose is 82. ASSESSMENT: 1. MRSA pneumonia. 2. MRSA bacteremia with sepsis. 3. Acute kidney injury secondary to sepsis, bacteremia, pneumonia, nonsteroidals, dehydration. 4. Diabetes mellitus. 5. Reactive thrombocytosis. 6. Anemia secondary to acute illness. 7. Anasarca. PLAN: Continue present medical regimen. Renal function is improved today. Potential discharge in the next day or so. She had a PICC line and she will continue with antibiotics at the nursing facility. The patient's condition is discussed with the patient prognosis guarded. DEIRDREODL / IJN: [id number] /
[2018-10-31 07:04] LABS: Glucose,Whole Blood 99 mg/dL (75-99)
[2018-10-31 08:07] VITALS: BP 129/66; PULSE 88; TEMP 98.6
[2018-10-31] MEDS: INSULIN ASPART (NovoLOG) 100 UNIT/ML VIAL SQ SCH ×2 (08:31→11:52)
[2018-10-31] MEDS: ASPIRIN 81 MG PO SCH ×2 (08:35→08:36)
[2018-10-31] MEDS: PANTOPRAZOLE 40 MG TABLET PO SCH ×2 (08:35→08:36)
[2018-10-31] MEDS: Acetaminophen-Codeine 300-30mg TAB PO SCH ×2 (08:35→14:19)
[2018-10-31] MEDS: FUROSEMIDE 10 MG/ML 4 ML VIAL IV SCH (08:36)
[2018-10-31] MEDS: HEPARIN SODIUM,PORCINE 5,000 UNIT/ML 1 ML VIAL SQ SCH (08:36)
[2018-10-31] MEDS: ISOSORBIDE MONONITRATE ER 60 MG TAB.ER.24H PO SCH (08:36)
[2018-10-31] MEDS: ATENOLOL 25 MG TAB PO SCH (08:37)
[2018-10-31] MEDS: DOCUSATE 100 MG CAP PO SCH (08:37)
--- NOTE | 2018-10-31 09:29 | P.DS ---
Providers Date of admission: 10/17/18 18:19 Attending physician: Catalino Gaona Consults: 10/19/18 22:40 Consult Physician Routine Consulting Provider: Mati Merino Consult Reason/Comments: pneumonia Do you want consulting provider notified?: Yes, Notify in am 10/20/18 10:19 Consult Physician Routine Consulting Provider: Zain Velasquez Consult Reason/Comments: pneumonia Do you want consulting provider notified?: Yes 10/20/18 16:09 Consult Physician Routine Consulting Provider: Angelica Balderas Consult Reason/Comments: empyema Do you want consulting provider notified?: Yes, Notify in am 10/27/18 11:28 Consult Physician Urgent Consulting Provider: Jeffery Reynolds Consult Reason/Comments: hyperkalemia /MUNDO Do you want consulting provider notified?: Yes Primary care physician: Catalino Gaona Hospital Course: This 77-year-old female was admitted to the hospital with a right chest pain and shoulder pain. Patient on clinical examination the office was noted to have suggestion of right lower lobe pneumonia. Chest x-ray did confirm this she had no fever and no white count at the time of admission. She appeared sick. The patient in view of this after the outpatient evaluation is admitted to the hospital directly. Patient's vital signs were stable. She dates spiked a temperature that night. She had been sick for the past few days prior to admission history and some episodes of vomiting. Due to a right lower lobe pneumonia and recent vomiting suspected she may have had some aspiration however the patient's blood works showed MRSA. She does visit her on a regular basis at the nursing facility. She is there every day. The patient also had acute renal acute renal failure due to dehydration. This was corrected. The patient was started on vancomycin. Patient fever had defervesced rapidly. The patient however continued to have some increasing respiratory symptoms of chest pain and a chest x-ray showed increased right pleural effusion. Pulmonary saw the patient IDs of the patient. Patient was referred to thoracic surgeon for drainage. The patient had a pig tail catheter placed into the right pleural cavity with some effusion aspirated. Culture was negative but he was an exudative fluid. Patient and the of this underwent VAPS with decortication. 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 Patient developed acute kidney injury related to acute illness, sepsis, bacteremia, underlying diabetes, and use of nonsteroidals. Patient had increased edema. Patient was seen by nephrology. Patient's been on diuretics with improving renal function. Also vancomycin was felt to be toxic contributed to the renal failure. In view of this ID will change antibiotics. Patient has a PICC line placed and will continue antibiotic in the rehab. Duration an antibiotic to be addressed by Dr. Velasquez. Condition discussed with Dr. Kim from nephrology and Dr. Velasquez. Patient's prognosis remains guarded she will be transferred to nursing facility for rehab. I do not believe patient had empyema patient had more of a parapneumonic effusion. Patient had anasarca relating to multiple factors including acute renal failure, decreased nutritionl status, anemia. Patient will continue on on heparin 5000 units subcu 2 weeks. She will also be placed on Glucerna and increased protein intake. Glucophage has been held because of renal disease. She will require insulin coverage Review of system: Neuro: No headaches dizziness Psych: Alert.. Respiratory: Mild cough and chest pain Cardiac: No palpitations GI: Did have bowel movement no bleeding : No dysuria hematuria Extremities: Edema decreased Physical exam the day of discharge, Vital signs are stable Neck no JVD Lungs reveal dullness percussion right base with decreased airflow right lung. Few crackles left base Cardiac: Sinus rhythm no murmurs Abdomen: Soft active bowel sounds Extremities: Edema My final diagnoses 1. MRSA bacteremia and sepsis 2. MRSA pneumonia 3. Acute on chronic renal failure 4. Acute kidney injury 5. Diabetes mellitus type 2 6. Stable coronary artery disease 7. Thrombocytosis reactive 8. Anemia secondary to acute illness. 9. Right parapneumonic pleural effusion 10. Anasarca, multifactorial Plan - Discharge Summary Discharge Rx Participant: No New Discharge Prescriptions: New Aspirin 81 mg PO DAILY chew Docusate [Colace] 100 mg PO BID cap Heparin Sodium,Porcine [Heparin Sodium] 5,000 unit SQ Q12HR vial Furosemide [Lasix] 40 mg PO DAILY #30 tablet INSULIN ASPART (NovoLOG) [NovoLOG (formulary)] 0 unit SQ ACHS vial Montelukast [Singulair] 10 mg PO HS tab Acetaminophen Tab [Tylenol] 650 mg PO Q6HR PRN tab PRN Reason: Fever and/ or MILD Pain Acetaminophen-Codeine 300-30mg [Tylenol w/codeine #3] 2 each PO Q6HR tab Albuterol Nebulized [Ventolin Nebulized] 2.5 mg INHALATION RT-QID nebu Continue Atenolol [Tenormin] 25 mg PO BID Benzonatate [Tessalon Perles] 200 mg PO TID PRN PRN Reason: Cough Cetirizine HCl [Zyrtec] 10 mg PO DAILY Fluticasone Nasal [place] [Flonase Nasal [place]] 2 spr EA NOSTRIL DAILY Isosorbide Mononitrate ER [Imdur] 60 mg PO BID Lansoprazole [Prevacid] 30 mg PO DAILY Montelukast [Singulair] 10 mg PO DAILY Pravastatin Sodium [Pravachol] 40 mg PO HS Discontinued Candesartan [Atacand] 4 mg PO DAILY Discharge Medication List Atenolol [Tenormin] 25 mg PO BID 10/17/18 [History] Benzonatate [Tessalon Perles] 200 mg PO TID PRN 10/17/18 [History] Cetirizine HCl [Zyrtec] 10 mg PO DAILY 10/17/18 [History] Fluticasone Nasal [place] [Flonase Nasal [place]] 2 spr EA NOSTRIL DAILY 10/17/18 [History] Isosorbide Mononitrate ER [Imdur] 60 mg PO BID 10/17/18 [History] Lansoprazole [Prevacid] 30 mg PO DAILY 10/17/18 [History] Montelukast [Singulair] 10 mg PO DAILY 10/17/18 [History] Pravastatin Sodium [Pravachol] 40 mg PO HS 10/17/18 [History] Acetaminophen Tab [Tylenol] 650 mg PO Q6HR PRN tab 10/31/18 [Rx] Acetaminophen-Codeine 300-30mg [Tylenol w/codeine #3] 2 each PO Q6HR tab 10/31/18 [Rx] Albuterol Nebulized [Ventolin Nebulized] 2.5 mg INHALATION RT-QID nebu 10/31/18 [Rx] Aspirin 81 mg PO DAILY chew 10/31/18 [Rx] Docusate [Colace] 100 mg PO BID cap 10/31/18 [Rx] Furosemide [Lasix] 40 mg PO DAILY #30 tablet 10/31/18 [Rx] Heparin Sodium,Porcine [Heparin Sodium] 5,000 unit SQ Q12HR vial 10/31/18 [Rx] INSULIN ASPART (NovoLOG) [NovoLOG (formulary)] 0 unit SQ ACHS vial 10/31/18 [Rx ] Montelukast [Singulair] 10 mg PO HS tab 10/31/18 [Rx]
[2018-10-31] MEDS: ALBUTEROL NEBULIZED 2.5 MG/3 ML INHALATION SCH ×3 (09:54→16:13)
[2018-10-31] MEDS: SYMBICORT 160-4.5 MCG INHALER INHALATION SCH (09:55)
[2018-10-31 11:36] LABS: Glucose,Whole Blood 132 mg/dL (75-99)
[2018-10-31 12:02] LABS: Calcium 8.4 mg/dL (8.4-10.2)
--- NOTE | 2018-10-31 13:40 | PN ---
PROGRESS NOTE The patient is seen for followup for acute kidney injury and volume overload. She is maintained on Lasix. She states she is feeling better. She is trying to walk with therapy. There are plans for possible discharge today. Serum creatinine is staying at about 1.5 mg/dL. There is consideration to switch the antibiotic from Vanco given her acute kidney injury. PHYSICAL EXAMINATION: On examination this morning, blood pressure was 129/66, heart rate 88 per minute. Patient is afebrile. EXAMINATION OF THE HEART: S1 and S2. EXAMINATION OF THE LUNGS: Decreased breath sounds at the bases. Abdomen is soft, nontender. Exam of lower extremities shows edema 2+ bilaterally. 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 LABS: Labs show sodium 134, potassium 5.0, BUN 49, serum creatinine 1.52. Random Vanco level was 20. ASSESSMENT: 1. Acute kidney injury, multifactorial, currently nonoliguric and staying stable. The patient did have NSAIDs and she has underlying infection, pneumonia and also is maintained on vancomycin. There are plans to change the antibiotics as outpatient. The patient is advised to stay off of the angiotensin receptor blockers and needs to continue to avoid . 2. Volume overload. Continue with Lasix. Patient can be discharged home on 40 mg p.o. daily. 3. Methicillin-resistant Staphylococcus aureus pneumonia and empyema, status post antibiotics, status post chest tube placement. 4. Hypertension currently controlled. PLAN: Continue off of angiotensin receptor blockers and strongly recommend to change the antibiotic as outpatient. MMODL / IJN: [id number] /
[2018-10-31] MEDS ORDERED: VANCOMYCIN 1,000 MG in SODIUM CHLORIDE 0.9% 250 ML IVPB ONE (14:00)
--- NOTE | 2018-10-31 16:07 | PN ---
PROGRESS NOTE DATE OF SERVICE: 10/31/2018 This patient is hemodynamically stable. She is doing significantly better. Her chest tubes have been removed. On physical examination, her respiratory rate is 16, pulse rate of 88, temperature 98.6, oxygen saturation on room air 96%. HEENT is unremarkable. Chest reveals decreased breath sounds in the right base. Cardiovascular system is in S1, S2. Abdomen is soft. There is no pedal edema. IMPRESSION AT THIS TIME: 1. Methicillin-resistant Staphylococcus aeruginosa pneumonia with methicillin- resistant Staphylococcus aeruginosa empyema with loculated effusion, status post VATS procedure. 2. Diabetes mellitus. 3. Asthma. The patient is being discharged to a fpc, which we agree with, on intravenous antibiotics. Would be happy to follow her in the outpatient setting. Continue on her current medications, which are reviewed. Her prognosis is fair. She was counseled regarding her condition. MMODL / IJN: [id number] /
--- NOTE | 2018-11-01 00:24 | P.PN ---
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 However the last few days she's had the difficulties of increasing pain to the left shoulder associated with fatigue and malaise. The patient is found it more difficult to try to sit up and do her activities of daily living because of these discomforts. Her home situation is difficult and her has had a stroke and she goes to visit with the detention an ongoing basis. She relates that he has been ill as of late likely with pneumonia. She feels poorly today. She has weakness and malaise, she does not feel extraordinarily short of breath but does not feel well. The discomfort into her left shoulder continues and it limits her ability to position herself in bed freely. She does not believe that she is having further fevers or chills. Did have some fever and chills prior. With evidence of positive blood culture the infectious diseases consultation has been requested. 10/21/2018 patient has now been seen by cardiothoracic surgery. They suggested CT-guided drainage of the effusion. The patient relates almost directly after the drainage occurred she started to feel considerably better. Her shortness of breath, cough and dyspnea all improved. She's had no further fever and is very pleased that she is feeling so much better. The tube itself is not very uncomfortable and she has no other new acute complaints. 10/22/2018 patient was feeling better yesterday but now with some reexpansion of the lung she's had some increasing amount of discomfort to the right chest. Abdomen admission but certainly is uncomfortable. She denying fevers or chills. With the alteplase and manipulation today despite a significant increase in the amount of drainage from the chest tube. Chest x-ray showed evidence of residual amounts of effusion prompting the alteplase. 10/25/2018 the patient has not had significant improvement and constantly has been seen by cardiothoracic surgery. Because of her lack of improvement she has now been taken the operating room and a VATS procedure is been performed. She is postoperative with chest tubes in place that she relates are very painful. O ther than that she relates she's feeling better. She is less short of breath and is not having much cough. 10/29/2018 patient is feeling better, chest tubes been removed she is less short of breath but is still very weak. She relates her family is coming to town but since her has early in extended care she'll be going there to receive her care chill she strong enough to be with a care of herself. 10/31/2018 patient does feel better overall. Chest tubes are out and her pain is improved. She is less short of breath but he has significant weakness. Objective - Vital Signs Vital signs: Vital Signs Temp 98.6 F 10/31/18 08:00 Pulse 88 10/31/18 08:00 Resp 16 10/31/18 08:00 BP 129/66 10/31/18 08:00 Pulse Ox 96 10/31/18 08:00 Intake & Output 10/31/18 10/31/18 11/01/18 06:59 18:59 06:59 Output Total 2 Balance -2 Weight 64.5 kg Output: Urine 2 Other: Voiding Method Toilet Toilet # Voids 1 1 - Exam Pleasant 77-year-old woman of thin build not in distress but is with discomfort when she tries to change position in bed HEENT: Anicteric conjunctiva are pink and moist nasal mucosa grossly intact without significant lesions, there is no thrush. Neck: The neck is supple without significant lymphadenopathy or thyromegaly. Lungs: Symmetrical air entry is noted. chest tube is removed and there is evidence ofadequate breath sounds into the right chest only few basilar crackles Heart: Regular rate and rhythm with an audible S1-S2, no S3 no S4. There is no significant murmur click or rub, PMI was nondisplaced. Abdomen: Positive bowel sounds soft and nontender without palpable masses or organomegaly. There was no guarding or rebound. Extremities: Upper extremities are without edema but does have discomfort when the left shoulder area is manipulated especially to change her position in bed. There is no edema or lesions. Lower extremities have trace edema no open ulcers Skin is without rash or blisters evidence of any vesicles over the left shoulder area no erythema or other rash Neuro: Awake alert oriented to person place and time. There are no acute new gross focal sensory motor deficits. - Labs CBC & Chem 7: 10/30/18 07:35 10/31/18 10:52 Labs: Abnormal Lab Results - Last 24 Hours (Table) 10/31/18 10/31/18 Range/Units 10:52 11:34 Sodium 134 L (137-145) mmol/L BUN 49 H (7-17) mg/dL Creatinine 1.52 H (0.52-1.04) mg/dL Glucose 118 H (74-99) mg/dL POC Glucose (mg/dL) 132 H (75-99) mg/dL Microbiology - Last 24 Hours (Table) 10/25/18 14:45 Anaerobic Culture - Final Lung - Right Methicillin resist S. aureus Alpha Hemolytic Streptococcus Laboratory Results WBC 8.0 k/uL (3.8-10.6) 10/30/18 07:35 RBC 2.36 m/uL (3.80-5.40) L 10/30/18 07:35 Hgb 7.4 gm/dL (11.4-16.0) L 10/30/18 07:35 Hct 23.4 % (34.0-46.0) L 10/30/18 07:35 MCV 99.4 fL (80.0-100.0) 10/30/18 07:35 MCH 31.6 pg (25.0-35.0) 10/30/18 07:35 MCHC 31.8 g/dL (31.0-37.0) 10/30/18 07:35 RDW 13.7 % (11.5-15.5) 10/30/18 07:35 Plt Count 946 k/uL (150-450) H 10/30/18 07:35 Neutrophils % 80 % 10/24/18 07:31 Lymphocytes % 10 % 10/24/18 07:31 Monocytes % 5 % 10/24/18 07:31 Eosinophils % 2 % 10/24/18 07:31 Basophils % 0 % 10/24/18 07:31 Neutrophils # 5.3 k/uL (1.3-7.7) 10/24/18 07:31 Lymphocytes # 0.7 k/uL (1.0-4.8) L 10/24/18 07:31 Monocytes # 0.3 k/uL (0-1.0) 10/24/18 07:31 Eosinophils # 0.1 k/uL (0-0.7) 10/24/18 07:31 Basophils # 0.0 k/uL (0-0.2) 10/24/18 07:31 Hypochromasia Slight 10/30/18 07:35 Macrocytosis Slight 10/26/18 08:48 PT 9.8 sec (9.0-12.0) 10/24/18 07:31 INR 0.9 (<1.2) 10/24/18 07:31 APTT 25.2 sec (22.0-30.0) 10/24/18 07:31 Sodium 134 mmol/L (137-145) L 10/31/18 10:52 Potassium 5.0 mmol/L (3.5-5.1) 10/31/18 10:52 Chloride 102 mmol/L (98-107) 10/31/18 10:52 Carbon Dioxide 25 mmol/L (22-30) 10/31/18 10:52 Anion Gap 7 mmol/L 10/31/18 10:52 BUN 49 mg/dL (7-17) H 10/31/18 10:52 Creatinine 1.52 mg/dL (0.52-1.04) H 10/31/18 10:52 Est GFR (CKD-EPI)AfAm 38 (>60 ml/min/1.73 sqM) 10/31/18 10:52 Est GFR (CKD-EPI)NonAf 33 (>60 ml/min/1.73 sqM) 10/31/18 10:52 Glucose 118 mg/dL (74-99) H 10/31/18 10:52 POC Glucose (mg/dL) 132 mg/dL (75-99) H 10/31/18 11:34 POC Glu [employer] ID Aalina Denson 10/31/18 11:[address] Glu mg/dL 177 10/27/18 07:57 Hemoglobin A1c 7.8 % (4.0-6.0) H 10/27/18 07:57 Calcium 8.4 mg/dL (8.4-10.2) 10/31/18 10:52 Urine Color Yellow 10/29/18 04:15 Urine Appearance Clear (Clear) 10/29/18 04:15 Urine pH 5.0 (5.0-8.0) 10/29/18 04:15 Ur Specific [place] 1.012 (1.001-1.035) 10/29/18 04:15 Urine Protein Negative (Negative) 10/29/18 04:15 Urine Glucose (UA) Negative (Negative) 10/29/18 04:15 Urine Ketones Negative (Negative) 10/29/18 04:15 Urine Blood Trace (Negative) H 10/29/18 04:15 Urine Nitrite Negative (Negative) 10/29/18 04:15 Urine Bilirubin Negative (Negative) 10/29/18 04:15 Urine Urobilinogen <2.0 mg/dL (<2.0) 10/29/18 04:15 Ur Leukocyte Esterase Negative (Negative) 10/29/18 04:15 Urine RBC 6 /hpf (0-5) H 10/29/18 04:15 Urine WBC 2 /hpf (0-5) 10/29/18 04:15 Ur Squamous Epith Cells 2 /hpf (0-4) 10/29/18 04:15 Ur Transition Epith Cell <1 /hpf (0-1) 10/29/18 04:15 Amorphous Sediment Rare /hpf (None) H 10/29/18 04:15 Urine Bacteria Rare /hpf (None) H 10/29/18 04:15 Hyaline Casts 32 /lpf (0-2) H 10/29/18 04:15 Urine Mucus Rare /hpf (None) H 10/29/18 04:15 Fluid Source Pleural 10/21/18 14:40 Fluid Color Yellow 10/21/18 14:40 Fluid Appearance Clear 10/21/18 14:40 Fluid RBC 885 /uL 10/21/18 14:40 Fluid Nucleated Cells 8 /uL 10/21/18 14:40 Body Fluid Protein Source Pleural Fluid 10/21/18 14:40 Fluid Total Protein 2501.0 mg/dL 10/21/18 14:40 Body Fluid LDH Source Pleural Fluid 10/21/18 14:40 Fluid LDH 667 U/L 10/21/18 14:40 Vancomycin Trough 25.0 ug/mL 10/27/18 20:16 Random Vancomycin 20.0 ug/mL 10/31/18 10:52 Influenza Type A RNA Not Detected (Not Detectd) 10/21/18 04:42 Influenza Type B (PCR) Not Detected (Not Detectd) 10/21/18 04:42 Blood Type O Positive 10/24/18 07:31 Blood Type Confirm O Positive 10/22/18 07:34 Blood Type Recheck CABO Indicated 10/24/18 07:31 Antibody Screen NEGATIVE 10/24/18 07:31 Spec Expiration Date 10/27/2018 - 2331 10/24/18 07:31 Microbiology 10/25/18 14:45 Lung - Right Anaerobic Culture - Final Methicillin resist S. aureus Alpha Hemolytic Streptococcus 10/25/18 14:45 Lung - Right Gram Stain - Final 10/25/18 14:45 Lung - Right Tissue Culture - Final 10/21/18 14:40 Pleural Fluid Acid Fast Bacilli Smear - Final 10/21/18 14:40 Pleural Fluid Acid Fast Bacilli Culture - Preliminary 10/20/18 07:58 Blood Blood Culture - Final No Growth after 144 hours 10/21/18 14:40 Pleural Fluid Gram Stain - Final 10/21/18 14:40 Pleural Fluid Body Fluid Culture - Final 10/21/18 14:40 Pleural Fluid Fungal Culture - Preliminary 10/17/18 19:39 Blood Blood Culture Gram Stain - Final 10/17/18 19:39 Blood Blood Culture - Final Methicillin resist S. 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 She is developed pains in left shoulder area that has been making it difficult for her to perform ADLs and even be comfortable in bed. She also has some shortness of breath and significant fatigue and malaise and difficulty performing ADLs. She has been admitted there is evidence of the right lower lobe pneumonia and computed tomography scan shows evidence of the significant effusion. Antibiotic therapy with vancomycin has been added given the MRSA. Follow blood cultures are requested to try to track the of her bacteremia. If she's not had a recent echocardiogram this may be of importance given the noted bacteremia. A pulmonary source for the bacteremia appears to be most likely. The case is discussed with pulmonary critical care and we will consult Dr. johansen of cardiovascular surgery to evaluate for the possibility of sampling of the effusion with concerns that it could be empyema. Of note the patient does relate that many of the residents at the extended care facility appear to have influenza. Computer records are reviewed and does not appear that she has had testing and constantly influenza testing is requested. She is complaining some difficulties with nausea some Zofran will be requested. 10/21/2018 patient is now feeling considerably better status post the percutaneous drainage into the pleural space. Cultures are pending. The patient does have MRSA bacteremia within the bases of pneumonia and this loculated fluid collection that has now been drained. She is feeling much better than she expected. Shortness of breath is improved. Once is evidence of clearance of the bacteremia will have to have IV access placed and will plan a several week course of outpatient intravenous antibiotic therapy at the time of discharge. Nausea has resolved. 10/22/2018 patient is without fever, but with lung reexpansion has had some increasing mild discomfort in her chest. But is less short of breath. No surgical plan as noted. Toradol is restarted to try to help her significant discomfort. Antibiotic therapy continues with vancomycin. Once blood cultures are clear with PICC line placed and outpatient intravenous antibiotic therapy. 10/25/2018 patient is now status post VATS procedure and seems to be doing well. Respirations are with only minimal discomfort but does have pain in the chest tube site. The blood culture show evidence of MRSA, await the results of the VATS cultures. Continue antibiotic therapy for now, will need IV access to be placed for her course of antibiotic therapy at discharge. 10/29/2018 the patient is status post VATS procedure and a chest tube is now removed and she is feeling somewhat better. She is with less shortness of breath in the pain from the chest tube and discomfort from the infection has improved. However her creatinine is elevated a bit today and her ankle level is high and constantly bank was put on hold. Would like to investigate if she is a candidate for Ceftaroline given her MRSA pneumonia and what appears to be intolerance to vancomycin, daptomycin cannot be used for pneumonia. 10/31/2018 the patient is status post VATS and is now had the chest tubes removed and overall is improved. Still is somewhat weak and is requiring rehab to regain her independence status at the time of discharge. Her pain control is adequate. As for his antibiotic therapy she was treated with vancomycin and had a bit of an elevated level and some increased creatinine. Creatinine is now nearly back to baseline and she is improved. Her Vanco level should be low enough to require another dose tomorrow and will ask the pharmacy dosing service at the rehab facility to initiate therapy then. Trough of 12-15 is the target. Large creatinine closely if there is any increasing difficulties will have to alter antibiotic therapy. Status: Acute Code(s): R78.81 - BACTEREMIA SNOMED Code(s): 86253881163445280 (3) Exposure to influenza Status: Acute Code(s): Z20.828 - CONTACT W AND EXPOSURE TO OTH VIRAL COMMUNICABLE DISEASES SNOMED Code(s): 976046917
== END 2018-10-31 15:37 | DRG 853 ==
LOC: 4SSUR 18:19
PROVIDERS: ADMIT Internal Medicine; ATTEND Internal Medicine
PROC: 0BNC4ZZ Release Right Upper Lung Lobe, Percutaneous Endoscopic Approach (ICD-10-PCS; 2018-10-25)
PROC: 0BND4ZZ Release Right Middle Lung Lobe, Percutaneous Endoscopic Approach (ICD-10-PCS; 2018-10-25)
PROC: 0B9N4ZX Drainage of Right Pleura, Percutaneous Endoscopic Approach, Diagnostic (ICD-10-PCS; 2018-10-25)
PROC: 0BNF4ZZ Release Right Lower Lung Lobe, Percutaneous Endoscopic Approach (ICD-10-PCS; principal; 2018-10-25 09:00)
DX: A41.02 Sepsis due to Methicillin resistant Staphylococcus aureus (principal); J15.212 Pneumonia due to Methicillin resistant Staphylococcus aureus; J69.0 Pneumonitis due to inhalation of food and vomit; J86.9 Pyothorax without fistula; E87.1 Hypo-osmolality and hyponatremia; J91.8 Pleural effusion in other conditions classified elsewhere; J98.11 Atelectasis; N17.9 Acute kidney failure, unspecified; R65.20 Severe sepsis without septic shock; E11.22 Type 2 diabetes mellitus with diabetic chronic kidney disease; E87.5 Hyperkalemia; E87.70 Fluid overload, unspecified; E86.0 Dehydration; N18.3 Chronic kidney disease, stage 3 (moderate); D64.89 Other specified anemias; E78.5 Hyperlipidemia, unspecified; I12.9 Hypertensive chronic kidney disease with stage 1 through stage 4 chronic kidney disease, or unspecified chronic kidney disease; I25.10 Atherosclerotic heart disease of native coronary artery without angina pectoris; J45.30 Mild persistent asthma, uncomplicated; K21.9 Gastro-esophageal reflux disease without esophagitis; M19.90 Unspecified osteoarthritis, unspecified site; T39.395A Adverse effect of other nonsteroidal anti-inflammatory drugs [NSAID], initial encounter; T36.8X5A Adverse effect of other systemic antibiotics, initial encounter; M25.511 Pain in right shoulder; M25.512 Pain in left shoulder; R01.1 Cardiac murmur, unspecified; R19.7 Diarrhea, unspecified; R33.9 Retention of urine, unspecified; Z20.828 Contact with and (suspected) exposure to other viral communicable diseases; Z79.899 Other long term (current) drug therapy; Z86.11 Personal history of tuberculosis; Z86.73 Personal history of transient ischemic attack (TIA), and cerebral infarction without residual deficits; Z90.49 Acquired absence of other specified parts of digestive tract; Z90.710 Acquired absence of both cervix and uterus; Z95.5 Presence of coronary angioplasty implant and graft; Z96.60 Presence of unspecified orthopedic joint implant; Z88.8 Allergy status to other drugs, medicaments and biological substances; Z98.42 Cataract extraction status, left eye; Z98.41 Cataract extraction status, right eye; Z96.1 Presence of intraocular lens; Z98.51 Tubal ligation status; Z80.1 Family history of malignant neoplasm of trachea, bronchus and lung; Z82.49 Family history of ischemic heart disease and other diseases of the circulatory system; Z83.3 Family history of diabetes mellitus; Z82.61 Family history of arthritis
CPT/HCPCS: 32551; 36415; 36573; 71045; 71046; 71250; 80048; 80051; 80053; 80202; 81001; 83036; 83615; 84132; 84157; 85025; 85027; 85610; 85730; 86850; 86900; 86901; 87040; 87070; 87075; 87077; 87102; 87116; 87186; 87205; 87206; 87502; 88108; 88305; 88341; 88342; 89050; 93306; 94640; 94760

== ENCOUNTER → 2018-10-17 | Outpatient (CLI) | payer MEDICARE ==
[2018-10-17 17:18] LABS: HGB 11.2 gm/dL (11.4-16.0); MCH 31.6 pg (25.0-35.0); MCHC 32.1 g/dL (31.0-37.0); MCV 98.4 fL (80.0-100.0); Mean Platelet Volume 7.6; Platelet Count 270 k/uL (150-450); RBC 3.55 m/uL (3.80-5.40); RDW 12.8 % (11.5-15.5); WBC 8.1 k/uL (3.8-10.6)
[2018-10-17 17:30] LABS: ALT 30 U/L (9-52); AST 34 U/L (14-36); Albumin 3.2 g/dL (3.5-5.0); Albumin/Globulin Ratio 1.3; Alkaline Phosphatase 108 U/L (38-126); Anion Gap 17 mmol/L; Blood Urea Nitrogen 55 mg/dL (7-17); Calcium 9.2 mg/dL (8.4-10.2); Carbon Dioxide 24 mmol/L (22-30); Chloride 91 mmol/L (98-107); Globulin 2.4 g/dL; Glucose 277 mg/dL (74-99); Potassium 4.4 mmol/L (3.5-5.1); Sodium 132 mmol/L (137-145); Total Bilirubin 0.8 mg/dL (0.2-1.3); Total Protein 5.6 g/dL (6.3-8.2)
--- NOTE | 2018-10-17 18:08 | XR ---
EXAMINATION TYPE: XR chest 2V DATE OF EXAM: 10/17/2018 COMPARISON: 02/25/2018 HISTORY: Altered mental status TECHNIQUE: Frontal and lateral views of the chest are obtained. FINDINGS: There is some airspace consolidation and atelectasis in the right lower lobe. Left lung is relatively clear. There is no heart failure. Bony thorax appears intact. IMPRESSION: There is combined right lower lobe pneumonia and atelectasis and pleural fluid that is s ignificantly more than last exam. No heart failure seen.
== END ==
LOC: LABWHC1 16:45
PROVIDERS: ATTEND Internal Medicine
DX: J18.1 Lobar pneumonia, unspecified organism (principal)
CPT/HCPCS: 36415; 71046; 80053; 85027

== ENCOUNTER 2018-11-02 12:29 | Inpatient (IN) | payer MEDICARE ==
[2018-11-02] MEDS ORDERED: SODIUM CHLORIDE 0.9% 500 ML 500 ML IV STA (12:55)
--- NOTE | 2018-11-02 13:05 | ED ---
General Adult HPI - General Chief complaint: Weakness Stated complaint: Sob/mrsa Time Seen by Provider: 11/02/18 12:40 Source: patient, RN notes reviewed Mode of arrival: EMS Limitations: no limitations - History of Present Illness Initial comments: This is a 77-year-old female with past history significant for MRSA pneumonia. Patient comes in today because she's becoming weaker and weaker over the last few days. According to the [facility] her hemoglobin yesterday was 6.8 and today it was under 6. Patient states she is not short of breath or having any difficulty breathing however reports the usp was that she was short of breath. Patient denies any chest pain or palpitations. Patient denies any recent fever chills. Patient denies abdominal pain. Patient denies any nausea vomiting or diarrhea. Patient denies any black or bloody stools. Patient denies being lightheaded or dizzy. - Related Data Home Medications Medication Instructions Recorded Confirmed Atenolol [Tenormin] 25 mg PO BID 10/17/18 11/02/18 Benzonatate [Tessalon Perles] 200 mg PO TID PRN 10/17/18 11/02/18 Cetirizine HCl [Zyrtec] 10 mg PO DAILY 10/17/18 11/02/18 Fluticasone Nasal [place] [Flonase 2 spr EA NOSTRIL DAILY 10/17/18 11/02/18 Nasal [place]] Isosorbide Mononitrate ER [Imdur] 60 mg PO BID 10/17/18 11/02/18 Lansoprazole [Prevacid] 30 mg PO DAILY 10/17/18 11/02/18 Pravastatin Sodium [Pravachol] 40 mg PO HS 10/17/18 11/02/18 Bisacodyl [Dulcolax] 10 mg RECTAL DAILY PRN 11/02/18 11/02/18 Insulin Aspart [NovoLOG] See Protocol SQ ACHS 11/02/18 11/02/18 Magnesium Hydroxide [Milk of 2,400 mg PO DAILY PRN 11/02/18 11/02/18 Magnesia] Na Phos,M-B/Na Phos,Di-Ba [Fleet 133 ml RECTAL DAILY PRN 11/02/18 11/02/18 Adult] Previous Rx's Medication Instructions Recorded Acetaminophen Tab [Tylenol] 650 mg PO Q6HR PRN tab 10/31/18 Acetaminophen-Codeine 300-30mg 2 each PO Q6HR #21 tab 10/31/18 [Tylenol w/codeine #3] Albuterol Nebulized [Ventolin 2.5 mg INHALATION RT-QID nebu 10/31/18 Nebulized] Aspirin 81 mg PO DAILY chew 10/31/18 Docusate [Colace] 100 mg PO BID cap 10/31/18 Furosemide [Lasix] 40 mg PO DAILY #30 tablet 10/31/18 Heparin Sodium,Porcine [Heparin 5,000 unit SQ Q12HR vial 10/31/18 Sodium] Montelukast [Singulair] 10 mg PO HS tab 10/31/18 Vancomycin 1,000 mg IVPB Q24HR #15 bag 10/31/18 Allergies Allergy/AdvReac Type Severity Reaction Status Date / Time losartan [From Cozaar] Allergy Unknown Verified 11/02/18 13:53 perfume Allergy Unknown Verified 11/02/18 13:53 pioglitazone [From Actos] Allergy Unknown Verified 11/02/18 13:53 Review of Systems ROS Statement: Those systems with pertinent positive or pertinent negative responses have been documented in the HPI. ROS Other: All systems not noted in ROS Statement are negative. Past Medical History Past Medical History: Asthma, Coronary Artery Disease (CAD), GERD/Reflux, Hyperlipidemia, Hypertension Additional Past Medical History / Comment(s): Constipation, history of ovarian cyst and history of tuberculosis in 1969. History of Any Multi-Drug Resistant Organisms: MRSA Date of last positivie culture/infection: 10/25/18 MDRO Source:: LUNG/BLOOD MRSA Past Surgical History: Breast Surgery, Heart Catheterization, Heart Catheterization With Stent, Hysterectomy, Joint Replacement, Orthopedic Surgery, Tubal Ligation Additional Past Surgical History / Comment(s): Trigger finger release surgery, fracture left patella with screw placement, history of ovarian cyst removal, fracture left hand, rotator cuff repair. Past Anesthesia/Blood Transfusion Reactions: No Reported Reaction Past Psychological History: No Psychological Hx Reported Smoking Status: Never smoker Past Alcohol Use History: None Reported Past Drug Use History: None Reported - Past Family History Mother Family Medical History: Diabetes Mellitus, Pneumonia Additional Family Medical History / Comment(s): Tuberculosis. Past away at age 98. Father Family Medical History: Cancer (Lung cancer), Coronary Artery Disease (CAD) Additional Family Medical History / Comment(s): Past away at age 80. Brother(s) Family Medical History: Coronary Artery Disease (CAD) Sister(s) Additional Family Medical History / Comment(s): Rheumatoid arthritis. General Exam - General Exam Comments Initial Comments: GENERAL: Patient is well-developed and well-nourished. Patient is nontoxic and well- hydrated and is in mild distress. ENT: Neck is soft and supple. No significant lymphadenopathy is noted. Oropharynx is clear. Moist mucous membranes. Neck has full range of motion without eliciting any pain. EYES: The sclera were anicteric and conjunctiva were pink and moist. Extraocular movements were intact and pupils were equal round and reactive to light. Eyelids were unremarkable. PULMONARY: Patient has crackles in both bases. CARDIOVASCULAR: There is a regular rate and rhythm without any murmurs gallops or rubs. Femoral pulses are equal bilaterally ABDOMEN: Soft and nontender with normal bowel sounds. No palpable organomegaly was noted. There is no palpable pulsatile mass. SKIN: Skin is clear with no lesions or rashes and otherwise unremarkable. NEUROLOGIC: Patient is alert and oriented x3. Cranial nerves II through XII are grossly intact. Motor and sensory are also intact. Normal speech, volume and content. Symmetrical smile. MUSCULOSKELETAL: Normal extremities with adequate strength and full range of motion. No lower extremity swelling or edema. No calf tenderness. LYMPHATICS: No significant lymphadenopathy is noted PSYCHIATRIC: Normal psychiatric evaluation. Limitations: no limitations Course Vital Signs 11/02/18 11/02/18 12:39 13:42 Temperature 98.2 F Pulse Rate 78 72 Respiratory 16 16 Rate Blood Pressure 141/73 147/64 O2 Sat by Pulse 98 100 Oximetry Medical Decision Making - Medical Decision Making EKG shows normal sinus rhythm at 73 bpm [place] interval is 162 QRS is 122 QTC intervals is 495 Q-T intervals 450. Patient's EKG shows no ST segment elevation or depression. Patient has a right bundle chen block. Patient is anemic at 7.1 however her occult blood was negative slight did not give the patient any packed red blood cells in the department. I spoke with some physicians he agreed to admit the patient admitted the patient did serial CBCs. - Lab Data Result diagrams: 11/02/18 12:52 11/02/18 12:52 Lab Results 11/02/18 11/02/18 11/02/18 Range/Units 12:52 12:52 12:52 WBC 6.5 (3.8-10.6) k/uL RBC 2.36 L (3.80-5.40) m/uL Hgb 7.1 L D (11.4-16.0) gm/dL Hct 22.8 L (34.0-46.0) % MCV 96.7 (80.0-100.0) fL MCH 30.1 (25.0-35.0) pg MCHC 31.2 (31.0-37.0) g/dL RDW 14.4 (11.5-15.5) % Plt Count 979 H (150-450) k/uL Neutrophils % 72 % Lymphocytes % 11 % Monocytes % 11 % Eosinophils % 3 % Basophils % 1 % Neutrophils # 4.7 (1.3-7.7) k/uL Lymphocytes # 0.7 L (1.0-4.8) k/uL Monocytes # 0.7 (0-1.0) k/uL Eosinophils # 0.2 (0-0.7) k/uL Basophils # 0.0 (0-0.2) k/uL Hypochromasia Slight PT (9.0-12.0) sec INR (<1.2) APTT (22.0-30.0) sec Sodium 135 L (137-145) mmol/L Potassium 4.6 (3.5-5.1) mmol/L Chloride 104 (98-107) mmol/L Carbon Dioxide 22 (22-30) mmol/L Anion Gap 9 mmol/L BUN 51 H (7-17) mg/dL Creatinine 1.46 H (0.52-1.04) mg/dL Est GFR (CKD-EPI)AfAm 40 (>60 ml/min/1.73 sqM) Est GFR (CKD-EPI)NonAf 35 (>60 ml/min/1.73 sqM) Glucose 108 H (74-99) mg/dL Calcium 8.0 L (8.4-10.2) mg/dL Magnesium 1.8 (1.6-2.3) mg/dL Total Bilirubin 0.2 (0.2-1.3) mg/dL AST 17 (14-36) U/L ALT 23 (9-52) U/L Alkaline Phosphatase 135 H (38-126) U/L Troponin I (0.000-0.034) ng/mL NT-Pro-B Natriuret Pep pg/mL Total Protein 4.2 L (6.3-8.2) g/dL Albumin 1.9 L (3.5-5.0) g/dL Stool Occult Blood (Negative) Blood Type O Positive Blood Type Recheck No Antibody Screen NEGATIVE Spec Expiration Date 11/05/2018235111/02/18 11/02/18 11/02/18 Range/Units 12:52 12:52 12:52 WBC (3.8-10.6) k/uL RBC (3.80-5.40) m/uL Hgb (11.4-16.0) gm/dL Hct (34.0-46.0) % MCV (80.0-100.0) fL MCH (25.0-35.0) pg MCHC (31.0-37.0) g/dL RDW (11.5-15.5) % Plt Count (150-450) k/uL Neutrophils % % Lymphocytes % % Monocytes % % Eosinophils % % Basophils % % Neutrophils # (1.3-7.7) k/uL Lymphocytes # (1.0-4.8) k/uL Monocytes # (0-1.0) k/uL Eosinophils # (0-0.7) k/uL Basophils # (0-0.2) k/uL Hypochromasia PT 10.3 (9.0-12.0) sec INR 1.0 (<1.2) APTT 30.3 H (22.0-30.0) sec Sodium (137-145) mmol/L Potassium (3.5-5.1) mmol/L Chloride (98-107) mmol/L Carbon Dioxide (22-30) mmol/L Anion Gap mmol/L BUN (7-17) mg/dL Creatinine (0.52-1.04) mg/dL Est GFR (CKD-EPI)AfAm (>60 ml/min/1.73 sqM) Est GFR (CKD-EPI)NonAf (>60 ml/min/1.73 sqM) Glucose (74-99) mg/dL Calcium (8.4-10.2) mg/dL Magnesium (1.6-2.3) mg/dL Total Bilirubin (0.2-1.3) mg/dL AST (14-36) U/L ALT (9-52) U/L Alkaline Phosphatase (38-126) U/L Troponin I (0.000-0.034) ng/mL NT-Pro-B Natriuret Pep 2460 pg/mL Total Protein (6.3-8.2) g/dL Albumin (3.5-5.0) g/dL Stool Occult Blood Negative (Negative) Blood Type Blood Type Recheck Antibody Screen Spec Expiration Date 11/02/18 Range/Units 12:52 WBC (3.8-10.6) k/uL RBC (3.80-5.40) m/uL Hgb (11.4-16.0) gm/dL Hct (34.0-46.0) % MCV (80.0-100.0) fL MCH (25.0-35.0) pg MCHC (31.0-37.0) g/dL RDW (11.5-15.5) % Plt Count (150-450) k/uL Neutrophils % % Lymphocytes % % Monocytes % % Eosinophils % % Basophils % % Neutrophils # (1.3-7.7) k/uL Lymphocytes # (1.0-4.8) k/uL Monocytes # (0-1.0) k/uL Eosinophils # (0-0.7) k/uL Basophils # (0-0.2) k/uL Hypochromasia PT (9.0-12.0) sec INR (<1.2) APTT (22.0-30.0) sec Sodium (137-145) mmol/L Potassium (3.5-5.1) mmol/L Chloride (98-107) mmol/L Carbon Dioxide (22-30) mmol/L Anion Gap mmol/L BUN (7-17) mg/dL Creatinine (0.52-1.04) mg/dL Est GFR (CKD-EPI)AfAm (>60 ml/min/1.73 sqM) Est GFR (CKD-EPI)NonAf (>60 ml/min/1.73 sqM) Glucose (74-99) mg/dL Calcium (8.4-10.2) mg/dL Magnesium (1.6-2.3) mg/dL Total Bilirubin (0.2-1.3) mg/dL AST (14-36) U/L ALT (9-52) U/L Alkaline Phosphatase (38-126) U/L Troponin I <0.012 (0.000-0.034) ng/mL NT-Pro-B Natriuret Pep pg/mL Total Protein (6.3-8.2) g/dL Albumin (3.5-5.0) g/dL Stool Occult Blood (Negative) Blood Type Blood Type Recheck Antibody Screen Spec Expiration Date Disposition Clinical Impression: Anemia, Generalized weakness Disposition: ADMITTED IP TO THIS HOSP Referrals: Catalino Gaona MD [Primary Care Provider] - 1-2 days Time of Disposition: 14:41
[2018-11-02 13:21] LABS: Basophils % (A) 1 %; Eosinophils # (A) 0.2 k/uL (0-0.7); Eosinophils % (A) 3 %; HCT 22.8 % (34.0-46.0); Hypochromasia Slight; Lymphocytes # (A) 0.7 k/uL (1.0-4.8); Lymphocytes % (A) 11 %; MCH 30.1 pg (25.0-35.0); MCHC 31.2 g/dL (31.0-37.0); MCV 96.7 fL (80.0-100.0); Monocytes # (A) 0.7 k/uL (0-1.0); Monocytes % (A) 11 %; Neutrophils # (A) 4.7 k/uL (1.3-7.7); Neutrophils % (A) 72 %; Platelet Count 979 k/uL (150-450); RBC 2.36 m/uL (3.80-5.40); RDW 14.4 % (11.5-15.5); WBC 6.5 k/uL (3.8-10.6)
[2018-11-02 13:25] LABS: HGB 7.1 gm/dL (11.4-16.0); Partial Thromboplastin Time 30.3 sec (22.0-30.0); Prothrombin Time 10.3 sec (9.0-12.0)
[2018-11-02 13:26] LABS: Albumin 1.9 g/dL (3.5-5.0); Magnesium 1.8 mg/dL (1.6-2.3); Potassium 4.6 mmol/L (3.5-5.1); Total Bilirubin 0.2 mg/dL (0.2-1.3); Total Protein 4.2 g/dL (6.3-8.2)
--- NOTE | 2018-11-02 13:59 | XR ---
EXAMINATION TYPE: XR chest 2V DATE OF EXAM: 11/02/2018 HISTORY: difficulty breathing. REFERENCE: Previous study dated 10/29/2018. FINDINGS: There is a pleural reaction on the right consisting of pleural thickening and some pleural fluid. There is volume loss on the right. There continues be right basilar airspace disease. The hear t is mildly prominent. There are increased interstitial markings on the left. There is a smaller left effusion. IMPRESSION: NO SIGNIFICANT INTERVAL CHANGE IN THE APPEARANCE OF THE CHEST.
[2018-11-02 15:36] LABS: Basophils % (A) 0 %; Eosinophils # (A) 0.2 k/uL (0-0.7); Eosinophils % (A) 3 %; HCT 21.9 % (34.0-46.0); Hypochromasia Slight; Lymphocytes # (A) 0.9 k/uL (1.0-4.8); Lymphocytes % (A) 13 %; MCH 29.4 pg (25.0-35.0); MCHC 29.6 g/dL (31.0-37.0); MCV 99.3 fL (80.0-100.0); Mean Platelet Volume 6.7; Monocytes # (A) 0.5 k/uL (0-1.0); Monocytes % (A) 7 %; Neutrophils # (A) 5.2 k/uL (1.3-7.7); Neutrophils % (A) 73 %; Platelet Count 976 k/uL (150-450); RBC 2.21 m/uL (3.80-5.40); WBC 7.1 k/uL (3.8-10.6)
[2018-11-02 15:40] LABS: HGB 6.5 gm/dL (11.4-16.0)
[2018-11-02 17:02] VITALS: BMI 16.6
[2018-11-02] MEDS ORDERED: ACETAMINOPHEN TAB 325 MG TAB PO PRN (18:07)
[2018-11-02] MEDS ORDERED: BISACODYL 10 MG SUPP RECTAL PRN (18:07)
[2018-11-02] MEDS ORDERED: MAGNESIUM HYDROXIDE 2,400 MG/10 ML CUP PO PRN (18:07)
[2018-11-02] MEDS ORDERED: VANCOMYCIN IV PER PHARMACY 1 EACH MISC MISCELLANE PRN (18:12)
--- NOTE | 2018-11-02 18:29 | P.HPIM ---
History of Present Illness H&P Date: 11/02/18 Chief Complaint: anemia 77-year-old female with history of hypertension hyperlipidemia and CAD. Patient recently discharged from our hospital 2 days ago currently residing in correction for rehab post prolonged hospitalization course for 2 weeks which she was treated for sepsis secondary to MRSA pneumonia and bacteremia conjugated by finding empyema over the right lung requiring VATS and decortication, biopsies returned showing no evidence of malignancy. Cultures were positive and the pleural fluid for MRSA indicating empyema. Patient discharged 2 days ago to continue course of vancomycin with goal of trophic to 12-15. Most recent positive blood culture was from 10/17/2018. Patient was sent to her facility today due to finding of anemia or hemoglobin dropped down to 6, despite that there is no reported GI bleeding or melena. Patient is complaining of some epigastric tenderness feeling weak and tired. Denies any chest pain or shortness of breath denies any fevers or chills denies any coughing. Denies any GI bleeding. Patient has chronic history of anemia from before. However this is an acute drop. Patient also has acute kidney injury since her last hospitalization due to sepsis, she continues to make urine. Patient has bilateral leg swelling and tenderness she reports that this is been the case since last hospitalization she has been on heparin for DVT prophylaxis however her platelets count is close to 1 million which puts her at risk of thrombosis we'll check venous duplex ultrasound of lower extremities. Patient will be transfused for hemoglobin less than 7. Patient admitted for further evaluation and monitoring Review of Systems Pertinent positives as noted in HPI. All other systems were reviewed and are negative Past Medical History Past Medical History: Asthma, Coronary Artery Disease (CAD), GERD/Reflux, Hyperlipidemia, Hypertension Additional Past Medical History / Comment(s): Constipation, history of ovarian cyst and history of tuberculosis in 1970. History of Any Multi-Drug Resistant Organisms: MRSA Date of last positivie culture/infection: 10/25/18 MDRO Source:: LUNG/BLOOD MRSA Past Surgical History: Breast Surgery, Heart Catheterization, Heart Catheterization With Stent, Hysterectomy, Joint Replacement, Orthopedic Surgery, Tubal Ligation Additional Past Surgical History / Comment(s): Trigger finger release surgery, fracture left patella with screw placement, history of ovarian cyst removal, fracture left hand, rotator cuff repair. Past Anesthesia/Blood Transfusion Reactions: No Reported Reaction Date of Last Stent Placement:: unknown Smoking Status: Never smoker - Past Family History Mother Family Medical History: Diabetes Mellitus, Pneumonia Additional Family Medical History / Comment(s): Tuberculosis. Past away at age 98. Father Family Medical History: Cancer, Coronary Artery Disease (CAD) Additional Family Medical History / Comment(s): Past away at age 80. Brother(s) Family Medical History: Coronary Artery Disease (CAD) Sister(s) Additional Family Medical History / Comment(s): Rheumatoid arthritis. Medications and Allergies Home Medications Medication Instructions Recorded Confirmed Type Atenolol [Tenormin] 25 mg PO BID 10/17/18 11/02/18 History Benzonatate [Tessalon Perles] 200 mg PO TID PRN 10/17/18 11/02/18 History Cetirizine HCl [Zyrtec] 10 mg PO DAILY 10/17/18 11/02/18 History Fluticasone Nasal [place] [Flonase 2 spr EA NOSTRIL DAILY 10/17/18 11/02/18 History Nasal [place]] Isosorbide Mononitrate ER [Imdur] 60 mg PO BID 10/17/18 11/02/18 History Lansoprazole [Prevacid] 30 mg PO DAILY 10/17/18 11/02/18 History Pravastatin Sodium [Pravachol] 40 mg PO HS 10/17/18 11/02/18 History Acetaminophen Tab [Tylenol] 650 mg PO Q6HR PRN tab 10/31/18 11/02/18 Rx Acetaminophen-Codeine 300-30mg 2 each PO Q6HR #21 tab 10/31/18 11/02/18 Rx [Tylenol w/codeine #3] Albuterol Nebulized [Ventolin 2.5 mg INHALATION RT-QID nebu 10/31/18 11/02/18 Rx Nebulized] Aspirin 81 mg PO DAILY chew 10/31/18 11/02/18 Rx Docusate [Colace] 100 mg PO BID cap 10/31/18 11/02/18 Rx Furosemide [Lasix] 40 mg PO DAILY #30 tablet 10/31/18 11/02/18 Rx Heparin Sodium,Porcine [Heparin 5,000 unit SQ Q12HR vial 10/31/18 11/02/18 Rx Sodium] Montelukast [Singulair] 10 mg PO HS tab 10/31/18 11/02/18 Rx Vancomycin 1,000 mg IVPB Q24HR #15 bag 10/31/18 11/02/18 Rx Bisacodyl [Dulcolax] 10 mg RECTAL DAILY PRN 11/02/18 11/02/18 History Insulin Aspart [NovoLOG] See Protocol SQ ACHS 11/02/18 11/02/18 History Magnesium Hydroxide [Milk of 2,400 mg PO DAILY PRN 11/02/18 11/02/18 History Magnesia] Na Phos,M-B/Na Phos,Di-Ba [Fleet 133 ml RECTAL DAILY PRN 11/02/18 11/02/18 History Adult] Allergies Allergy/AdvReac Type Severity Reaction Status Date / Time losartan [From Cozaar] Allergy Unknown Verified 11/02/18 17:06 perfume Allergy Unknown Verified 11/02/18 17:06 pioglitazone [From Actos] Allergy Unknown Verified 11/02/18 17:06 Physical Exam Vitals: Vital Signs Temp Pulse Resp BP BP Pulse Ox 11/02/18 16:54 97.8 F 18 157/63 94 L 11/02/18 16:12 81 16 126/56 97 11/02/18 13:42 72 16 147/64 100 11/02/18 12:39 98.2 F 78 16 141/73 98 Intake and Output 11/02/18 11/02/18 11/02/18 06:59 14:59 22:59 Other: Weight 45.359 kg Constitutional: No acute distress, conversant, pleasant Eyes: Anicteric sclerae, moist conjunctiva, no lid-lag Pupils equal round reactive to light ENMT: NC/AT Oropharynx clear, no erythema, exudates Neck: Supple, FROM, no masses, or JVD No carotid bruits No thyromegaly Lungs: Clear to auscultation, decreased breath sounds over right lung base with bronchial breathing and rales Decreased tone of percussion over right lung base Normal respiratory effort, no accessory muscle use Cardiovascular: Heart regular in rate and rhythm, No murmurs, gallops, or rubs +2 bilateral peripheral edema over bilateral legs with tenderness to palpation of bilateral calf muscles, legs looks shiny slight erythema over the right leg Abdominal: Soft Tenderness to palpation of the epigastric region , no guarding, rebound or rigidity Abdomen moving with respiration Normoactive bowel sounds No hepatomegaly, No splenomegaly No palpable mass No abdominal wall hernia noted Skin: Normal temperature, tone, texture, turgor No induration No subcutaneous nodules No rash, lesions No ulcers Extremities: No digital cyanosis No clubbing Pedal pulses could not be evaluated due to swelling of bilateral feet and tenderness to palpation Radial pulses intact and symmetrical No calf tenderness Psychiatric: Alert and oriented to person, place and time Appropriate affect fair judgment Neuro Muscles Strength 3-4/5 in all 4 extremities Sensation to light touch grossly present throughout Cranial nerves II-XII grossly intact No focal sensory deficits Lymphatics: no palpable cervical or supraclavicular , or inguinal lymph nodes Results CBC & Chem 7: 11/02/18 15:17 11/02/18 12:52 Labs: Abnormal Lab Results - Last 24 Hours (Table) 11/02/18 11/02/18 11/02/18 Range/Units 12:52 12:52 12:52 RBC 2.36 L (3.80-5.40) m/uL Hgb 7.1 L D (11.4-16.0) gm/dL Hct 22.8 L (34.0-46.0) % MCHC (31.0-37.0) g/dL Plt Count 979 H (150-450) k/uL Lymphocytes # 0.7 L (1.0-4.8) k/uL APTT 30.3 H (22.0-30.0) sec Sodium 135 L (137-145) mmol/L BUN 51 H (7-17) mg/dL Creatinine 1.46 H (0.52-1.04) mg/dL Glucose 108 H (74-99) mg/dL Calcium 8.0 L (8.4-10.2) mg/dL Alkaline Phosphatase 135 H (38-126) U/L Total Protein 4.2 L (6.3-8.2) g/dL Albumin 1.9 L (3.5-5.0) g/dL 11/02/18 Range/Units 15:17 RBC 2.21 L (3.80-5.40) m/uL Hgb 6.5 L* (11.4-16.0) gm/dL Hct 21.9 L (34.0-46.0) % MCHC 29.6 L (31.0-37.0) g/dL Plt Count 976 H (150-450) k/uL Lymphocytes # 0.9 L (1.0-4.8) k/uL APTT (22.0-30.0) sec Sodium (137-145) mmol/L BUN (7-17) mg/dL Creatinine (0.52-1.04) mg/dL Glucose (74-99) mg/dL Calcium (8.4-10.2) mg/dL Alkaline Phosphatase (38-126) U/L Total Protein (6.3-8.2) g/dL Albumin (3.5-5.0) g/dL Thrombosis Risk Factor Assmnt - Choose All That Apply Each Factor Represents 1 point: Abnormal pulmonary function (COPD), Serious lung disease incl. pneumonia (< 1month), Swollen legs (current) Other Risk Factors: Yes Each Risk Factor Represents 3 Points: Age 75 years or older Other congenital or acquired thrombophilia - If yes, enter type in comment: No Thrombosis Risk Factor Assessment Total Risk Factor Score: 6 Thrombosis Risk Factor Assessment Level: High Risk Assessment and Plan Assessment: 77-year-old female with recent hospitalization for pneumonia and right empyema. Patient is admitted as inpatient with anticipated length of stay more than 48 hours for acute anemia that developed at correction no evidence of GI bleeding. Patient had a prolonged hospital course recently was discharged 2 days ago for MRSA bacteremia and pneumonia with empyema complleted with acute kidney injury due to sepsis. Patient still takes vancomycin at the correction. Plan: Anemia Acute kidney injury Recent history of MRSA bacteremia Bilateral leg swelling and tenderness Severe thrombocyte doses possibly reactive to recent sepsis due to MRSA bacteremia Atelectasis and loss of volume over the right lung base with residual pleural effusion CBC every 8 hours Blood transfusion for hemoglobin less than 7 I will transfuse 2 units GI consult Check fecal occult blood test Continue aspirin, due to severe thrombocytosis Check venous duplex ultrasound of bilateral lower extremities rule out DVT GI consultation Nephrology consultation Avoid nephrotoxic meds Continue with by mouth diuresis with Lasix Encourage incentive spirometry Follow-up blood cultures Continue vancomycin goal trough 12-15, consult ID for further recommendations regarding duration of antibiotic therapy Most recent positive culture was 10/17/2018, repeated blood cultures today will follow up GI prophylaxis with PPI twice a day [place] for pain control Chronic conditions Debility patient will be sent back to correction once stabilized Hypertension Hyperlipidemia History of CAD DVT prophylaxis on heparin subcu twice a day There is no obvious source of anemia, no evidence of GI bleeding at this point except for acute drop in hemoglobin. Preformed a thorough record review from recent hospitalization she was discharged 2 days ago treated for sepsis secondary to MRSA bacteremia pneumonia and empyema requiring VATS and decortication biopsies showed no evidence of malignancy. Most recent 2-D echocardiogram showed left ventricular EF of 55% CODE STATUS: Full code Discussed with: Patient, ER, RN Anticipated discharge: 48-[address]: [facility] A total of 60 minutes was spent on the care of this complex patient more than 50% of the time was spent in counseling and care coordination.
--- NOTE | 2018-11-02 20:08 | US ---
EXAMINATION TYPE: US venous doppler duplex LE BI DATE OF EXAM: 11/02/2018 6:12 PM COMPARISON: NONE CLINICAL HISTORY: swelling and tenderness, r/o DVT. SIDE PERFORMED: Bilateral TECHNIQUE: The lower extremity deep venous system is examined utilizing real time linear array sonog haydee with graded compression, doppler sonography and color-flow sonography. VESSELS IMAGED: External Iliac Vein (EIV) Common Femoral Vein Deep Femoral Vein Greater Saphenous Vein * Femoral Vein Popliteal Vein Small Saphenous Vein * Proximal Calf Veins (* superficial vessels) Right Leg: Negative for DVT Left Leg: Negative for DVT IMPRESSION: No evidence of deep venous thrombosis in both legs.
[2018-11-02] MEDS: ALBUTEROL NEBULIZED 2.5 MG/3 ML INHALATION SCH (20:26)
[2018-11-02 20:41] LABS: Glucose,Whole Blood 79 mg/dL (75-99)
[2018-11-02] MEDS: PANTOPRAZOLE 40 MG TABLET PO SCH (21:14)
[2018-11-02] MEDS: INSULIN ASPART (NovoLOG) 100 UNIT/ML VIAL SQ SCH (21:16)
[2018-11-02] MEDS: ISOSORBIDE MONONITRATE ER 60 MG TAB.ER.24H PO SCH (21:49)
[2018-11-02] MEDS: ATENOLOL 25 MG TAB PO SCH (21:50)
[2018-11-02] MEDS: MONTELUKAST 10 MG TAB PO SCH (21:50)
[2018-11-02] MEDS: PRAVASTATIN SODIUM 40 MG TAB PO SCH (21:50)
[2018-11-02] MEDS: HEPARIN SODIUM,PORCINE 5,000 UNIT/ML 1 ML VIAL SQ SCH (21:50)
[2018-11-02] MEDS: DOCUSATE 100 MG CAP PO SCH (21:50)
[2018-11-03 00:41] LABS: HCT 26.3 % (34.0-46.0); MCH 30.8 pg (25.0-35.0); MCHC 32.5 g/dL (31.0-37.0); MCV 94.7 fL (80.0-100.0); Mean Platelet Volume 7.2; Platelet Count 691 k/uL (150-450); RBC 2.78 m/uL (3.80-5.40); RDW 14.5 % (11.5-15.5); WBC 8.6 k/uL (3.8-10.6)
[2018-11-03 00:48] LABS: HGB 8.6 gm/dL (11.4-16.0)
[2018-11-03 07:09] LABS: Glucose,Whole Blood 91 mg/dL (75-99)
[2018-11-03] MEDS ORDERED: PANTOPRAZOLE 40 MG TABLET PO SCH (07:30)
[2018-11-03 07:56] LABS: HCT 29.9 % (34.0-46.0); HGB 9.6 gm/dL (11.4-16.0); MCHC 32.1 g/dL (31.0-37.0); MCV 93.5 fL (80.0-100.0); Mean Platelet Volume 6.6; Platelet Count 794 k/uL (150-450); RDW 14.6 % (11.5-15.5); WBC 8.3 k/uL (3.8-10.6)
[2018-11-03] MEDS: HEPARIN SODIUM,PORCINE 5,000 UNIT/ML 1 ML VIAL SQ SCH ×2 (08:17→20:45)
[2018-11-03] MEDS: DOCUSATE 100 MG CAP PO SCH ×2 (08:18→20:44)
[2018-11-03] MEDS: ISOSORBIDE MONONITRATE ER 60 MG TAB.ER.24H PO SCH ×2 (08:18→20:45)
[2018-11-03] MEDS: ATENOLOL 25 MG TAB PO SCH ×2 (08:18→20:44)
[2018-11-03] MEDS: FLUTICASONE 50MCG/SPRAY NASAL 16GM EA NOSTRIL SCH (08:18)
[2018-11-03] MEDS: LORATADINE 10 MG TAB PO SCH (08:18)
[2018-11-03] MEDS: ALBUTEROL NEBULIZED 2.5 MG/3 ML INHALATION SCH ×4 (08:37→20:13)
[2018-11-03] MEDS: PANTOPRAZOLE 40 MG TABLET PO SCH ×2 (09:00→17:33)
[2018-11-03] MEDS ORDERED: FUROSEMIDE 40 MG TAB PO SCH (09:00)
[2018-11-03] MEDS: INSULIN ASPART (NovoLOG) 100 UNIT/ML VIAL SQ SCH ×4 (09:58→20:45)
--- NOTE | 2018-11-03 10:12 | P.PN ---
Subjective Progress Note Date: 11/03/18 Principal diagnosis: follow up for anemia , MRSA bactremia , swelling in the legs , MUNDO patient seen and examined, looks and feels way better compared to yesterday, reports having very good night of sleep . no evidence of bleeding again. deneis any chest pain or SOB. reports tolerating PO intake . agreeable with going back to SNF in AM if Hgb remains stable Objective - Vital Signs Vital signs: Vital Signs Temp 97.9 F 11/03/18 07:00 Pulse 82 11/03/18 08:47 Resp 18 11/03/18 07:00 BP 150/60 11/03/18 07:00 Pulse Ox 95 11/03/18 07:00 Intake & Output 11/02/18 11/03/18 11/03/18 18:59 06:59 18:59 Intake Total 1600 0 Balance 1600 0 Weight 45.359 kg Intake: Oral 50 0 Blood Product 1550 Rc As-3 Unit 310 [id number] Rc As-3 Unit 310 [id number] Other: Voiding Method Bedpan # Voids 1 - Exam Constitutional: vital signs stable, Not in acute distress, pleasant, co nversant Lungs: Clear to auscultation bilaterally, improved breath sounds over right lung base, with some residual fine rales, clear to percussion, normal respiratory effort no use of accessory muscles Cardiovascular: Regular rate and rhythm, no murmurs, no gallops, no rubs, +2 bilateral peripheral edema Gastrointestinal: Soft, no tenderness to palpation, no palpable hepatosplenomegally, bowel sounds positive, no abdominal wall hernias Extremities: No digital cyanosis or clubbing, peripheral pulses palpable and equal over bilateral radial arteries , with tenderness to palpation of bilate ral calf muscles Psych: Alert, oriented to place, person and time, appropriate affect, intact judgment Neuro: Cranial nerves II-XII grossly intact, no focal sensory deficits to touch - Labs CBC & Chem 7: 11/03/18 07:11 11/02/18 12:52 Labs: Abnormal Lab Results - Last 24 Hours (Table) 11/02/18 11/02/18 11/02/18 Range/Units 12:52 12:52 12:52 RBC 2.36 L (3.80-5.40) m/uL Hgb 7.1 L D (11.4-16.0) gm/dL Hct 22.8 L (34.0-46.0) % MCHC (31.0-37.0) g/dL Plt Count 979 H (150-450) k/uL Lymphocytes # 0.7 L (1.0-4.8) k/uL APTT (22.0-30.0) sec Sodium 135 L (137-145) mmol/L BUN 51 H (7-17) mg/dL Creatinine 1.46 H (0.52-1.04) mg/dL Glucose 108 H (74-99) mg/dL Calcium 8.0 L (8.4-10.2) mg/dL Alkaline Phosphatase 135 H (38-126) U/L Total Protein 4.2 L (6.3-8.2) g/dL Albumin 1.9 L (3.5-5.0) g/dL Crossmatch See Detail 11/02/18 11/02/18 11/03/18 Range/Units 12:52 15:17 00:27 RBC 2.21 L 2.78 L (3.80-5.40) m/uL Hgb 6.5 L* 8.6 L D (11.4-16.0) gm/dL Hct 21.9 L 26.3 L (34.0-46.0) % MCHC 29.6 L (31.0-37.0) g/dL Plt Count 976 H 691 H (150-450) k/uL Lymphocytes # 0.9 L (1.0-4.8) k/uL APTT 30.3 H (22.0-30.0) sec Sodium (137-145) mmol/L BUN (7-17) mg/dL Creatinine (0.52-1.04) mg/dL Glucose (74-99) mg/dL Calcium (8.4-10.2) mg/dL Alkaline Phosphatase (38-126) U/L Total Protein (6.3-8.2) g/dL Albumin (3.5-5.0) g/dL Crossmatch 11/03/18 Range/Units 07:11 RBC 3.20 L (3.80-5.40) m/uL Hgb 9.6 L (11.4-16.0) gm/dL Hct 29.9 L (34.0-46.0) % MCHC (31.0-37.0) g/dL Plt Count 794 H (150-450) k/uL Lymphocytes # (1.0-4.8) k/uL APTT (22.0-30.0) sec Sodium (137-145) mmol/L BUN (7-17) mg/dL Creatinine (0.52-1.04) mg/dL Glucose (74-99) mg/dL Calcium (8.4-10.2) mg/dL Alkaline Phosphatase (38-126) U/L Total Protein (6.3-8.2) g/dL Albumin (3.5-5.0) g/dL Crossmatch Assessment and Plan Assessment: 77-year-old female with recent hospitalization for pneumonia and right empyema. Patient is admitted as inpatient with anticipated length of stay more than 48 hours for acute anemia that developed at [facility] no evidence of GI bleeding. Patient had a prolonged hospital course recently was discharged 2 days ago for MRSA bacteremia and pneumonia with empyema complleted with acute kidney injury due to sepsis. Patient still takes vancomycin at the [facility]. patient transfused 2 units of blood for hgb <7 on 11/02 , toelrated well, hgb responded well. fecal occult blood test was negative. no source of bleeding. most likely explanation is her earlier sepsis and prolonged hospital course with frequent blood draws resulted in drop in her hgb with bone marrow suppression from overwhelming sepsis earlier this month during her hospitalization all factored into her anemia. this should start improving now her infection controlled. if hgb stable in the morning , she should be cleared for DC back to SNF Plan: Anemia, secondary to frequent blood draws and bone marrow suppression from severe acute illness Acute kidney injury, improving Recent history of MRSA bacteremia Bilateral leg swelling and tenderness, venous US of the legs negative for acute DVT Severe thrombocyte doses possibly reactive to recent sepsis due to MRSA bacteremia, improving now Atelectasis and loss of volume over the right lung base with residual pleural effusion debility from prolonged hospital course and acute illness hgb stable, check daily s/p 2 units transfusion FOBT negative Continue aspirin, due to severe thrombocytosis GI consultation Nephrology consultation Avoid nephrotoxic meds Continue with by mouth diuresis with Lasix Encourage incentive spirometry Follow-up blood cultures Continue vancomycin goal trough 12-15, consult ID for further recommendations regarding duration of antibiotic therapy Most recent positive culture was 10/17/2018, repeated blood cultures today will follow up GI prophylaxis with PPI twice a day [place] for pain control Chronic conditions Debility patient will be sent back to [facility] once stabilized Hypertension Hyperlipidemia History of CAD DVT prophylaxis on heparin subcu twice a day compression stocking IF HGB stable in am, then will discharge back to SNF
[2018-11-03 11:31] LABS: Glucose,Whole Blood 95 mg/dL (75-99)
--- NOTE | 2018-11-03 11:54 | CONS ---
CONSULTATION REASON FOR CONSULT: Renal failure. HISTORY OF PRESENT ILLNESS: Patient is a 77-year-old female who was recently discharged from the hospital after treatment for MRSA pneumonia and empyema. The patient had a chest tube in place as well. During her admission, she had developed acute kidney injury associated with NSAIDs. She had also been on vancomycin. The patient was on angiotensin receptor blockers which were eventually discontinued. There was concern for trying to change the antibiotics as outpatient from vancomycin to another agent, however, this could not be done secondary to coverage. The patient's renal function had improved. Her creatinine was staying at about 1.5 mg/dL. During the admission, patient was also quite volume overloaded and was maintained on IV Lasix. At this point, she denies any active bleeding. The patient was admitted with a hemoglobin of 6.5 g/dL. Her creatinine has been about 1.46. PAST MEDICAL HISTORY: Recent MRSA pneumonia on the right side with right pleural effusion status post chest tube placement, maintained on vancomycin, status post PICC line from last admission. The patient also has history of stage III CKD, gastroesophageal reflux disease, hyperlipidemia, coronary artery disease, asthma, hypertension. PAST SURGICAL HISTORY: Cardiac catheterization, coronary stent placement, tubal ligation, ovarian cyst removal, rotator cuff repair, recent chest tube placement. MEDICATIONS: Prior to admission included Tenormin, Zyrtec, Prevacid, Pravachol, Ventolin, Colace, Lasix, Singulair, insulin. ALLERGIES: Include ACTOS, COZAAR, PATIENT WAS INTOLERANT TO IT, BUT SHE WAS ABLE TO TOLERATE CANDESARTAN WHICH IS ANOTHER ANGIOTENSIN RECEPTOR OSKAR. PHYSICAL EXAMINATION: Currently patient is comfortable. She is short of breath, not in any acute distress. Alert and oriented x3. Blood pressure is 150/60, heart rate 80 per minute. She is afebrile. Examination of the heart S1, S2. Examination of the lungs, bilateral breath sounds are heard. Abdomen is soft, nontender. Examination of lower extremities shows edema 3+ bilaterally. 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 LABS: Hemoglobin 9.6, sodium was 135 mEq/L yesterday. I do not have labs today. Serum creatinine 1.46 yesterday, BUN of 51, potassium 4.6. ASSESSMENT: 1. Acute kidney injury during last admission. Renal function has improved. Creatinine had peaked at about 1.6 mg/dL. I will maintain the patient on IV Lasix. Repeat labs in a.m. Continue to hold off on angiotensin receptor blockers. Continue to avoid NSAIDs. The patient is maintained on vancomycin from her last admission. We need to check levels. Her last level this morning was 26. May continue with vancomycin as long as renal function is stable. 2. Methicillin-resistant Staphylococcus aureus pneumonia with right pleural effusion and empyema status post chest tube. 3. Anemia. No active bleeding noted, status post packed RBCs transfusion. Stool for occult blood was negative. Platelet count is 794,000. Consider EGD. PLAN: Start IV Lasix. Repeat labs in a.m. Monitor vancomycin levels closely. MMODL / IJN: [id number] /
[2018-11-03] MEDS: FUROSEMIDE 10 MG/ML 4 ML VIAL IV SCH (12:33)
[2018-11-03 17:00] LABS: Glucose,Whole Blood 114 mg/dL (75-99)
--- NOTE | 2018-11-03 17:52 | P.CONS ---
History of Present Illness - Reason for Consult Consult date: 11/03/18 MRSA pneumonia Requesting physician: Wendy Story - Chief Complaint Weakness and MRSA pneumonia - History of Present Illness Patient is 77-year-old female who was recently admitted at this facility treated for right-sided MRSA pneumonia and parapneumonic effusion along with MRSA bacteremia on 10/17/2018 blood culture were negative on 10/20/2018, patient did have a chest tube placement on the right side on 10/21/2018 and is status post right VATS decortication and pleural biopsy on 10/25/2018, after stabilization the patient discharged to the local long-term on 10/31/2018 to continue on IV vancomycin pharmacy to dose with the last day of antibiotics to be 11/15/2018. Patient is now brought back to the ER at [facility] on 11/02/2018 after the patient was noticed to have a low hemoglobin of 6 patient been complaining of generalized weakness no energy denies any headache or urinary symptoms patient right-sided chest pain has improved she did have minimal congestion, not begin any sputum. Denies any nausea no vomiting no abdominal pain and no diarrhea, patient currently being managed for her anemia by admitting team and infectious disease was consulted for follow-up on her MRSA bacteremia and pneumonia Review of Systems Positive points has been mentioned in HPI rest of the systems are negative Past Medical History Past Medical History: Asthma, Coronary Artery Disease (CAD), GERD/Reflux, Hyperlipidemia, Hypertension Additional Past Medical History / Comment(s): Constipation, history of ovarian cyst and history of tuberculosis in 1970. History of Any Multi-Drug Resistant Organisms: MRSA Year Discovered:: 10/25/18 MDRO Source:: LUNG/BLOOD MRSA Past Surgical History: Breast Surgery, Heart Catheterization, Heart Catheterization With Stent, Hysterectomy, Joint Replacement, Orthopedic Surgery, Tubal Ligation Additional Past Surgical History / Comment(s): Trigger finger release surgery, fracture left patella with screw placement, history of ovarian cyst removal, fracture left hand, rotator cuff repair. Past Anesthesia/Blood Transfusion Reactions: No Reported Reaction Date of Last Stent Placement:: unknown Smoking Status: Never smoker - Past Family History Mother Family Medical History: Diabetes Mellitus, Pneumonia Additional Family Medical History / Comment(s): Tuberculosis. Past away at age 98. Father Family Medical History: Cancer, Coronary Artery Disease (CAD) Additional Family Medical History / Comment(s): Past away at age 80. Brother(s) Family Medical History: Coronary Artery Disease (CAD) Sister(s) Additional Family Medical History / Comment(s): Rheumatoid arthritis. Medications and Allergies Home Medications Medication Instructions Recorded Confirmed Type Atenolol [Tenormin] 25 mg PO BID 10/17/18 11/02/18 History Benzonatate [Tessalon Perles] 200 mg PO TID PRN 10/17/18 11/02/18 History Cetirizine HCl [Zyrtec] 10 mg PO DAILY 10/17/18 11/02/18 History Fluticasone Nasal [place] [Flonase 2 spr EA NOSTRIL DAILY 10/17/18 11/02/18 History Nasal [place]] Isosorbide Mononitrate ER [Imdur] 60 mg PO BID 10/17/18 11/02/18 History Lansoprazole [Prevacid] 30 mg PO DAILY 10/17/18 11/02/18 History Pravastatin Sodium [Pravachol] 40 mg PO HS 10/17/18 11/02/18 History Acetaminophen Tab [Tylenol] 650 mg PO Q6HR PRN tab 10/31/18 11/02/18 Rx Acetaminophen-Codeine 300-30mg 2 each PO Q6HR #21 tab 10/31/18 11/02/18 Rx [Tylenol w/codeine #3] Albuterol Nebulized [Ventolin 2.5 mg INHALATION RT-QID nebu 10/31/18 11/02/18 Rx Nebulized] Aspirin 81 mg PO DAILY chew 10/31/18 11/02/18 Rx Docusate [Colace] 100 mg PO BID cap 10/31/18 11/02/18 Rx Furosemide [Lasix] 40 mg PO DAILY #30 tablet 10/31/18 11/02/18 Rx Heparin Sodium,Porcine [Heparin 5,000 unit SQ Q12HR vial 10/31/18 11/02/18 Rx Sodium] Montelukast [Singulair] 10 mg PO HS tab 10/31/18 11/02/18 Rx Vancomycin 1,000 mg IVPB Q24HR #15 bag 10/31/18 11/02/18 Rx Bisacodyl [Dulcolax] 10 mg RECTAL DAILY PRN 04/13/19 04/13/19 History Insulin Aspart [NovoLOG] See Protocol SQ ACHS 11/02/18 11/02/18 History Magnesium Hydroxide [Milk of 2,400 mg PO DAILY PRN 11/02/18 11/02/18 History Magnesia] Na Phos,M-B/Na Phos,Di-Ba [Fleet 133 ml RECTAL DAILY PRN 11/02/18 11/02/18 History Adult] Allergies Allergy/AdvReac Type Severity Reaction Status Date / Time losartan [From Cozaar] Allergy Unknown Verified 11/02/18 17:06 perfume Allergy Unknown Verified 11/02/18 17:06 pioglitazone [From Actos] Allergy Unknown Verified 11/02/18 17:06 Physical Exam Vitals: Vital Signs Temp Pulse Pulse Resp BP BP Pulse Ox 11/03/18 15:59 76 11/03/18 15:50 74 11/03/18 15:00 98.0 F 73 15 164/69 97 11/03/18 11:45 84 11/03/18 11:35 88 11/03/18 08:47 82 11/03/18 08:37 80 11/03/18 07:00 97.9 F 79 18 150/60 95 11/03/18 03:04 98.4 F 81 16 163/86 97 11/03/18 01:45 98.4 F 80 18 147/77 97 11/03/18 00:38 98.5 F 80 14 166/64 11/03/18 00:08 98.6 F 80 14 168/68 97 11/02/18 23:58 98.9 F 81 14 160/65 97 11/02/18 23:36 99.3 F 83 16 163/64 97 11/02/18 21:47 99 F 82 16 172/68 97 11/02/18 21:17 98.4 F 84 14 176/70 98 11/02/18 21:07 98.9 F 82 16 174/69 98 11/02/18 20:43 84 11/02/18 20:26 84 11/02/18 19:15 98.6 F 84 18 164/64 98 Intake and Output 11/03/18 11/03/18 11/03/18 06:59 14:59 22:59 Intake Total 1290 100 Balance 1290 100 Intake: Oral 50 100 Blood Product 1240 As-3 Unit 310 [id number] As-3 Unit 310 [id number] Other: Voiding Method Bedpan # Voids 1 4 Weight 45.359 kg General: The patient is awake and alert, in no distress. Skin: no rashes and no masses palpable. Eye: Pupils are equal, round, there is normal conjunctiva bilaterally. Ears, nose, mouth and throat: There are moist mucous membranes and no oral lesions. Neck: The neck is supple, there is no thyromegaly. Cardiovascular: S1-S2 regular rate and rhythm. No murmur. Respiratory: Unlabored breathing decreased breath sound at the Base Gastrointestinal: Soft, non-distended, non-tender abdomen without masses or organomegaly noted. Neurological: There are no obvious motor or sensory deficits. Coordination appears grossly intact. Speech is normal. Psychiatric: Patient is awake and alert and oriented 3, appropriate mood & affect, normal judgment. Results CBC & Chem 7: 11/03/18 07:11 11/02/18 12:52 Labs: Abnormal Lab Results - Last 24 Hours (Table) 11/02/18 11/03/18 11/03/18 Range/Units 12:52 00:27 07:11 RBC 2.78 L 3.20 L (3.80-5.40) m/uL Hgb 8.6 L D 9.6 L (11.4-16.0) gm/dL Hct 26.3 L 29.9 L (34.0-46.0) % Plt Count 691 H 794 H (150-450) k/uL POC Glucose (mg/dL) (75-99) mg/dL Crossmatch See Detail 11/03/18 Range/Units 16:58 RBC (3.80-5.40) m/uL Hgb (11.4-16.0) gm/dL Hct (34.0-46.0) % Plt Count (150-450) k/uL POC Glucose (mg/dL) 114 H (75-99) mg/dL Crossmatch Assessment and Plan Assessment: 1-patient with recent diagnosis of MRSA bacteremia secondary to right-sided MRSA pneumonia and parapneumonic effusion patient is status post chest tube insertion followed by right-sided VATS procedure, currently being admitted to hospital her with anemia being managed by the admitting team, at this point and not running any fever or elevated white count clinic suspicious low for any worsening infection or failure of antibiotic therapy (1) MRSA bacteremia Current Visit: No Status: Acute Code(s): R78.81 - BACTEREMIA SNOMED Code(s): 11517069208124613 (2) Pneumonia Current Visit: No Status: Acute Code(s): J18.9 - PNEUMONIA, UNSPECIFIED ORGANISM SNOMED Code(s): 953833435 Plan: 1-vancomycin pharmacy to dose target trough of 15 with significant kidney function Vanco trough closely 2-gentle IV fluid Dr. Velasquez will follow this patient as of tomorrow to whom this patient is well known Time with Patient: Greater than 30
[2018-11-03] MEDS: MONTELUKAST 10 MG TAB PO SCH (20:44)
[2018-11-03] MEDS: PRAVASTATIN SODIUM 40 MG TAB PO SCH (20:44)
[2018-11-03 20:46] LABS: Glucose,Whole Blood 134 mg/dL (75-99)
--- NOTE | 2018-11-03 21:20 | P.CONS ---
History of Present Illness - Reason for Consult Consult date: 11/03/18 Anemia Requesting physician: Catalino Gaona - Chief Complaint Weakness, low hemoglobin - History of Present Illness Very pleasant 77-year-old female with a medical history significant for hypertension, hyperlipidemia, coronary artery disease, recent hospitalization during which she underwent treatment for sepsis secondary to MRSA pneumonia who presents after being found to be anemic. The patient had been complaining of generalized weakness, and decrease in her energy with outpatient labs significant for a depressed hemoglobin of 6. She denies any epigastric pain, chronic NSAID use, reporting very infrequent use of pain medications. She denies any change in her bowel habits, which are generally a bowel movement every other day. No hematochezia, melena, hematemesis or nausea and vomiting. She does suffer from reflux at baseline. She had stool testing on [facility] which was found to be negative for occult blood. She reports remote history of colonoscopy Review of Systems REVIEW OF SYSTEMS: CONSTITUTIONAL: Denies any fevers, chills, weight change but does note weakness and fatigue in the outpatient setting. CARDIOVASCULAR: Denies any chest pain, palpitations high or low blood pressures RESPIRATORY: Denies any shortness of breath, hemoptysis or cough. GENITOURINARY: No dysuria or hematuria. MUSCULOSKELETAL: No weakness reported. SKIN: Denies any new rashes or lesions, jaundice or pallor. PSYCHIATRIC: Denies any depression or anxiety. NEUROLOGY: Denies headache, denies any new focal deficits. EARS/NOSE/THROAT: No recent hearing change, congestion, nasal discharge or sore throat. EYES: No pain in eyes, discharge or change in vision. GASTROINTESTINAL: As per HPI. Past Medical History Past Medical History: Asthma, Coronary Artery Disease (CAD), GERD/Reflux, Hyperlipidemia, Hypertension Additional Past Medical History / Comment(s): Constipation, history of ovarian cyst and history of tuberculosis in 1969. History of Any Multi-Drug Resistant Organisms: MRSA Year Discovered:: 10/25/18 MDRO Source:: LUNG/BLOOD MRSA Past Surgical History: Breast Surgery, Heart Catheterization, Heart Catheterization With Stent, Hysterectomy, Joint Replacement, Orthopedic Surgery, Tubal Ligation Additional Past Surgical History / Comment(s): Trigger finger release surgery, fracture left patella with screw placement, history of ovarian cyst removal, fracture left hand, rotator cuff repair. Past Anesthesia/Blood Transfusion Reactions: No Reported Reaction Date of Last Stent Placement:: unknown Smoking Status: Never smoker - Past Family History Mother Family Medical History: Diabetes Mellitus, Pneumonia Additional Family Medical History / Comment(s): Tuberculosis. Past away at age 98. Father Family Medical History: Cancer, Coronary Artery Disease (CAD) Additional Family Medical History / Comment(s): Past away at age 80. Brother(s) Family Medical History: Coronary Artery Disease (CAD) Sister(s) Additional Family Medical History / Comment(s): Rheumatoid arthritis. Medications and Allergies Home Medications Medication Instructions Recorded Confirmed Type Atenolol [Tenormin] 25 mg PO BID 10/17/18 11/02/18 History Benzonatate [Tessalon Perles] 200 mg PO TID PRN 10/17/18 11/02/18 History Cetirizine HCl [Zyrtec] 10 mg PO DAILY 10/17/18 11/02/18 History Fluticasone Nasal [place] [Flonase 2 spr EA NOSTRIL DAILY 10/17/18 11/02/18 History Nasal [place]] Isosorbide Mononitrate ER [Imdur] 60 mg PO BID 10/17/18 11/02/18 History Lansoprazole [Prevacid] 30 mg PO DAILY 10/17/18 11/02/18 History Pravastatin Sodium [Pravachol] 40 mg PO HS 10/17/18 11/02/18 History Acetaminophen Tab [Tylenol] 650 mg PO Q6HR PRN tab 10/31/18 11/02/18 Rx Acetaminophen-Codeine 300-30mg 2 each PO Q6HR #21 tab 10/31/18 11/02/18 Rx [Tylenol w/codeine #3] Albuterol Nebulized [Ventolin 2.5 mg INHALATION RT-QID nebu 10/31/18 11/02/18 Rx Nebulized] Aspirin 81 mg PO DAILY chew 10/31/18 11/02/18 Rx Docusate [Colace] 100 mg PO BID cap 10/31/18 11/02/18 Rx Furosemide [Lasix] 40 mg PO DAILY #30 tablet 10/31/18 11/02/18 Rx Heparin Sodium,Porcine [Heparin 5,000 unit SQ Q12HR vial 10/31/18 11/02/18 Rx Sodium] Montelukast [Singulair] 10 mg PO HS tab 10/31/18 11/02/18 Rx Vancomycin 1,000 mg IVPB Q24HR #15 bag 10/31/18 11/02/18 Rx Bisacodyl [Dulcolax] 10 mg RECTAL DAILY PRN 11/02/18 11/02/18 History Insulin Aspart [NovoLOG] See Protocol SQ ACHS 11/02/18 11/02/18 History Magnesium Hydroxide [Milk of 2,400 mg PO DAILY PRN 11/02/18 11/02/18 History Magnesia] Na Phos,M-B/Na Phos,Di-Ba [Fleet 133 ml RECTAL DAILY PRN 11/02/18 11/02/18 History Adult] Allergies Allergy/AdvReac Type Severity Reaction Status Date / Time losartan [From Cozaar] Allergy Unknown Verified 11/02/18 17:06 perfume Allergy Unknown Verified 11/02/18 17:06 pioglitazone [From Actos] Allergy Unknown Verified 11/02/18 17:06 Physical Exam Vitals: Vital Signs Temp Pulse Pulse Resp BP BP Pulse Ox 11/03/18 20:25 78 11/03/18 20:14 76 11/03/18 15:59 76 11/03/18 15:50 74 11/03/18 15:00 98.0 F 73 15 164/69 97 11/03/18 11:45 84 11/03/18 11:35 88 11/03/18 08:47 82 11/03/18 08:37 80 11/03/18 07:00 97.9 F 79 18 150/60 95 11/03/18 03:04 98.4 F 81 16 163/86 97 11/03/18 01:45 98.4 F 80 18 147/77 97 11/03/18 00:38 98.5 F 80 14 166/64 11/03/18 00:08 98.6 F 80 14 168/68 97 11/02/18 23:58 98.9 F 81 14 160/65 97 11/02/18 23:36 99.3 F 83 16 163/64 97 11/02/18 21:47 99 F 82 16 172/68 97 11/02/18 21:17 98.4 F 84 14 176/70 98 Intake and Output 04/14/19 04/14/19 04/14/19 06:59 14:59 22:59 Intake Total 1290 100 Balance 1290 100 Intake: Oral 50 100 Blood Product 1240 As-3 Unit 310 [id number] As-3 Unit 310 [id number] Other: Voiding Method Bedpan # Voids 1 4 Weight 45.359 kg On physical examination, patient appears comfortable in no apparent distress. HEAD: Normocephalic, atraumatic. EYES: No scleral icterus. No conjunctival injection. MOUTH: No lesions, tongue midline. NECK: Trachea midline, no gross abnormalities. CHEST: Decreased air entry bilaterally, with no wheezing appreciated. HEART: S1-S2 appreciated with no murmurs appreciated. ABDOMEN: Soft, obese. Bowel sounds are positive. No organomegaly. No guarding or rigidity. EXTREMITIES: No pedal edema. SKIN: No rashes, no jaundice. NEUROLOGIC: Alert and oriented x3. No focal deficits. Results CBC & Chem 7: 11/03/18 07:11 11/02/18 12:52 Labs: Abnormal Lab Results - Last 24 Hours (Table) 11/02/18 11/03/18 11/03/18 Range/Units 12:52 00:27 07:11 RBC 2.78 L 3.20 L (3.80-5.40) m/uL Hgb 8.6 L D 9.6 L (11.4-16.0) gm/dL Hct 26.3 L 29.9 L (34.0-46.0) % Plt Count 691 H 794 H (150-450) k/uL POC Glucose (mg/dL) (75-99) mg/dL Crossmatch See Detail 11/03/18 11/03/18 Range/Units 16:58 20:44 RBC (3.80-5.40) m/uL Hgb (11.4-16.0) gm/dL Hct (34.0-46.0) % Plt Count (150-450) k/uL POC Glucose (mg/dL) 114 H 134 H (75-99) mg/dL Crossmatch Assessment and Plan (1) Anemia Narrative/Plan: Symptomatic anemia of unknown etiology. The patient denies any signs or symptoms of GI bleeding with negative stool testing for occult blood. Differential includes occult GI bleed, hematopoietic dysfunction in the setting of recent infection, or other source of blood loss. Current Visit: Yes Status: Acute Code(s): D64.9 - ANEMIA, UNSPECIFIED SNOMED Code(s): 623676813 (2) GERD (gastroesophageal reflux disease) Current Visit: Yes Status: Acute Code(s): K21.9 - GASTRO-ESOPHAGEAL REFLUX D ISEASE WITHOUT ESOPHAGITIS SNOMED Code(s): 899450665 Plan: Supportive care We'll change diet to clear liquids We'll plan on bowel prep tomorrow for EGD and colonoscopy on 11/05/2018 Iron studies, folate, B12 and reticulocyte count will be ordered Monitor for signs or symptoms of GI bleeding Continue Protonix twice daily Consider further imaging of the chest/abdomen/pelvis to rule out hematoma, retroperitoneal bleed or other causes of blood loss Thank you for allowing us to participate in the care of the patient we will continue to follow
[2018-11-04 06:50] LABS: Calcium 8.1 mg/dL (8.4-10.2); Potassium 4.3 mmol/L (3.5-5.1)
[2018-11-04 06:56] LABS: Vancomycin,Random 18.8 ug/mL
[2018-11-04 06:57] LABS: Glucose,Whole Blood 106 mg/dL (75-99)
[2018-11-04 07:04] LABS: Basophils % (A) 0 %; Eosinophils # (A) 0.2 k/uL (0-0.7); Eosinophils % (A) 3 %; HCT 29.7 % (34.0-46.0); HGB 9.8 gm/dL (11.4-16.0); Lymphocytes # (A) 0.9 k/uL (1.0-4.8); Lymphocytes % (A) 14 %; MCH 30.7 pg (25.0-35.0); MCHC 33.1 g/dL (31.0-37.0); MCV 92.6 fL (80.0-100.0); Mean Platelet Volume 7.2; Monocytes # (A) 0.7 k/uL (0-1.0); Monocytes % (A) 13 %; Neutrophils % (A) 66 %; Platelet Count 727 k/uL (150-450); RBC 3.21 m/uL (3.80-5.40); RDW 14.8 % (11.5-15.5); Reticulocyte % 1.3 % (0.5-2.0)
[2018-11-04] MEDS: ALBUTEROL NEBULIZED 2.5 MG/3 ML INHALATION SCH ×4 (07:21→19:45)
[2018-11-04] MEDS: INSULIN ASPART (NovoLOG) 100 UNIT/ML VIAL SQ SCH ×4 (08:21→21:10)
[2018-11-04] MEDS: LORATADINE 10 MG TAB PO SCH (08:35)
[2018-11-04] MEDS: FLUTICASONE 50MCG/SPRAY NASAL 16GM EA NOSTRIL SCH (08:35)
[2018-11-04] MEDS: ATENOLOL 25 MG TAB PO SCH ×2 (08:36→21:18)
[2018-11-04] MEDS: HEPARIN SODIUM,PORCINE 5,000 UNIT/ML 1 ML VIAL SQ SCH ×2 (08:36→21:18)
[2018-11-04] MEDS: ISOSORBIDE MONONITRATE ER 60 MG TAB.ER.24H PO SCH ×2 (08:36→21:18)
[2018-11-04] MEDS: DOCUSATE 100 MG CAP PO SCH ×2 (08:36→21:18)
[2018-11-04] MEDS: PANTOPRAZOLE 40 MG TABLET PO SCH ×2 (08:36→18:16)
[2018-11-04] MEDS: FUROSEMIDE 10 MG/ML 4 ML VIAL IV SCH (08:36)
[2018-11-04] MEDS: HYDROcodone/APAP 5-325MG 1 EACH TAB PO PRN (09:25)
--- NOTE | 2018-11-04 09:27 | CT ---
EXAMINATION TYPE: CT ChestAbdPelvis wo con DATE OF EXAM: 11/04/2018 COMPARISON: Chest CT 12 days ago. HISTORY: unexplained anemia, r/o hematoma CT DLP: 513.9 mGycm. Automated Exposure Control for Dose Reduction was Utilized. TECHNIQUE: CT scan of the thorax, abdomen and pelvis is performed without IV contrast. FINDINGS: LUNGS: There is interval removal of right-sided chest tube. There is persistent small nonsimple right pleural fluid collection with lateral and anterior component increased in size from prior exam. Ther e is associated right mid to lower lung atelectasis and/or consolidation with air bronchograms. There is small left pleural effusion increased in size from prior CT extending to left lung apex. There is associated compressive atelectasis in the left lower lobe. MEDIASTINUM: There are persistent prominent and some enlarged thoracic lymph nodes. For reference ri ght pericarinal lymph node measures 1.4 x 1.3 cm axial image 22. Tiny pericardial effusion is seen. Enlarged main pulmonary artery at 3.1 cm on axial image 27 is present. There is moderate to severe 3 vessel coronary artery calcification and/or stents. OTHER: New right-sided PICC line terminates in SVC. LIVER/GB: No significant abnormality is appreciated. PANCREAS: No significant abnormality is seen. SPLEEN: No significant abnormality is seen. ADRENALS: No significant abnormality is seen. KIDNEYS: There is exophytic simple appearing 7.3 x 6.1 cm cyst lower pole level left kidney coronal i mage 45. BOWEL: Some residual oral contrast distal bowel is present. No suspicious small or large bowel dilata tion. Scattered right-sided colonic diverticula. Mild wall thickening at level sigmoid colon is prese nt. Cannot exclude colitis at this level. Correlate clinically. Stomach is poorly distended and thus suboptimally evaluated. GENITAL ORGANS: Uterus is surgically absent or atrophic. Small amount of free fluid in the pelvic cul -de-sac right of midline axial image 108 is noted. LYMPH NODES: No greater than 1cm abdominal or pelvic lymph nodes are appreciated. OSSEOUS STRUCTURES: Moderate disc space narrowing with vacuum disc phenomenon L3-L4 and L4-L5 levels. Eofs-tv-whcjquya narrowing both hip joints. S-shaped scoliotic curvature. OTHER: Mild to moderate calcified plaque of aorta extends into branch vessels. Moderate diffuse subcu taneous edema is seen most prominent over the abdomen and pelvis extending into bilateral groin regio n. IMPRESSION: 1. No significant focal intraperitoneal or retroperitoneal fluid collection to suggest hematoma. 2. Interval removal of right sided chest tube. Small to moderate-sized recurrent nonsimple right pleu ral fluid collection with increasing right mid to lower lung atelectasis and/or consolidation noted. Small left pleural effusion increased in size from prior. Moderate diffuse soft tissue anasarca incr eased from prior. Small pelvic ascites. Findings presumed product of desired fluid overload state.
--- NOTE | 2018-11-04 10:41 | P.PN ---
Subjective Progress Note Date: 11/04/18 Principal diagnosis: follow up for anemia , MRSA bactremia , swelling in the legs , MUNDO patient seen and examined, patient doing ok, no new complaints. Reports feeling better overall. plans for EGD in the morning . tolerating PO intake , denies any SOB or chest pain Objective - Vital Signs Vital signs: Vital Signs Temp 97.7 F 11/04/18 07:00 Pulse 77 11/04/18 08:35 Resp 16 11/04/18 08:35 BP 169/71 11/04/18 07:00 Pulse Ox 99 11/04/18 07:00 Intake & Output 11/03/18 11/04/18 11/04/18 18:59 06:59 18:59 Intake Total 100 Balance 100 Weight 45.359 kg Intake: Oral 100 Other: Voiding Method Bedside Commode # Voids 4 1 # Bowel Movements 1 - Exam Constitutional: vital signs stable, Not in acute distress, pleasant, conversant Lungs: decrease breath sounds over the right lung base, with some residual fine rales, dull to percussion over right lung base, normal respiratory effort no use of accessory muscles Cardiovascular: Regular rate and rhythm, no murmurs, no gallops, no rubs, +2 bilateral peripheral edema , compression stockings in place Gastrointestinal: Soft, no tenderness to palpation, no palpable hepatosplenomegally, bowel sounds positive, no abdominal wall hernias Extremities: No digital cyanosis or clubbing, peripheral pulses palpable and equal over bilateral radial arteries , with tenderness to palpation of bilateral legs Psych: Alert, oriented to place, person and time, appropriate affect, intact judgment Neuro: Cranial nerves II-XII grossly intact, no focal sensory deficits to touch - Labs CBC & Chem 7: 11/04/18 05:51 11/04/18 05:51 Labs: Abnormal Lab Results - Last 24 Hours (Table) 11/03/18 11/03/18 11/04/18 Range/Units 16:58 20:44 05:51 RBC (3.80-5.40) m/uL Hgb (11.4-16.0) gm/dL Hct (34.0-46.0) % Plt Count (150-450) k/uL Lymphocytes # (1.0-4.8) k/uL Sodium 136 L (137-145) mmol/L Carbon Dioxide 21 L (22-30) mmol/L BUN 43 H (7-17) mg/dL Creatinine 1.34 H (0.52-1.04) mg/dL Glucose 109 H (74-99) mg/dL POC Glucose (mg/dL) 114 H 134 H (75-99) mg/dL Calcium 8.1 L (8.4-10.2) mg/dL 11/04/18 11/04/18 Range/Units 05:51 06:56 RBC 3.21 L (3.80-5.40) m/uL Hgb 9.8 L (11.4-16.0) gm/dL Hct 29.7 L (34.0-46.0) % Plt Count 727 H (150-450) k/uL Lymphocytes # 0.9 L (1.0-4.8) k/uL Sodium (137-145) mmol/L Carbon Dioxide (22-30) mmol/L BUN (7-17) mg/dL Creatinine (0.52-1.04) mg/dL Glucose (74-99) mg/dL POC Glucose (mg/dL) 106 H (75-99) mg/dL Calcium (8.4-10.2) mg/dL Microbiology - Last 24 Hours (Table) 11/03/18 07:11 Blood Culture - Preliminary Blood No Growth after 24 hours Assessment and Plan Assessment: 77-year-old female with recent hospitalization for pneumonia and right empyema. Patient is admitted as inpatient with anticipated length of stay more than 48 hours for acute anemia that developed at halfway no evidence of GI ble eding. Patient had a prolonged hospital course recently was discharged 2 days ago for MRSA bacteremia and pneumonia with empyema complleted with acute kidney injury due to sepsis. Patient still takes vancomycin at the halfway. patient transfused 2 units of blood for hgb <7 on 11/02 , toelrated well, hgb responded well. fecal occult blood test was negative. no source of bleeding. most likely explanation is her earlier sepsis and prolonged hospital course with frequent blood draws resulted in drop in her hgb with bone marrow suppression from overwhelming sepsis earlier this month during her hospitalization all factored into her anemia. this should start improving now her infection contr olled. 11/04 hemoglobin stable , no signs of ongoing bleeding. GI planning on GD in AM, will do CT w out contrast of the chest and abd /pelvis to rule out any hematoma. Plan: Anemia, secondary to frequent blood draws and bone marrow suppression from severe acute illness, stable now and improving Acute kidney injury, improving Recent history of MRSA bacteremia Bilateral leg swelling and tenderness, venous US of the legs negative for acute DVT Severe thrombocytosis possibly reactive to recent sepsis due to MRSA bacteremia, improving now Atelectasis and loss of volume over the right lung base with residual pleural effusion debility from prolonged hospital course and acute illness severe protein caolrie malnutrition blood pressure poorly controlled overall, i will add Norvasc 5 mg daily , continue with atenolol, and imdur hgb stable, check daily s/p 2 units transfusion total during this hospital course FOBT negative Continue aspirin GI plans for EGD on 11/05 Nephrology following Avoid nephrotoxic meds continue with IV lasix Encourage incentive spirometry Follow-up blood cultures Continue vancomycin goal trough 12-15, ID following, plans to continue vanco up until 11/15 Most recent positive culture was 10/17/2018 GI prophylaxis with PPI twice a day Molt for pain control add ensure Chronic conditions Debility patient will be sent back to halfway once stabilized Hypertension Hyperlipidemia History of CAD DVT prophylaxis on heparin subcu twice a day compression stocking plans for EGD in AM 11/05 optimize BP control follow up CT results to rule out any hematoma discharge to [facility] once stable
[2018-11-04] MEDS ORDERED: amLODIPine 5 MG TAB PO SCH (10:45)
[2018-11-04 11:48] LABS: Glucose,Whole Blood 132 mg/dL (75-99)
[2018-11-04] MEDS ORDERED: VANCOMYCIN 1,000 MG in SODIUM CHLORIDE 0.9% 250 ML IVPB ONE (12:00)
[2018-11-04 13:18] LABS: Iron Saturation 12.74 (12.00-45.00); Vitamin B12 >4000.0 pg/mL (211-911)
--- NOTE | 2018-11-04 15:31 | PN ---
PROGRESS NOTE Patient is seen for followup for acute kidney injury. She was admitted to the hospital after recent discharge after a right lung pneumonia from MRSA as well as a right lung empyema status post drainage and chest tube placement. Patient was readmitted a few days later with anemia and hemoglobin of 6.5 g/dL. During this time, she has been volume overloaded and has been maintained on IV diuretics. Her serum creatinine peaked at about 1.6 mg/dL, but is staying now at about 1.3-1.4. Previous creatinine was 0.8 on 10/24/2018. This morning, patient is comfortable. She is not in any acute distress. Blood pressure is 169/71, heart rate 76 per minute. She is afebrile. Examination of the heart, S1, S2. Examination of the lungs, bilateral breath sounds are heard. Abdomen soft, nontender. Examination of the lower extremities shows edema 3+ bilaterally. [employer] exam is grossly intact. LABS: Show sodium 136, potassium 4.3, BUN 43, serum creatinine 1.34. Iron saturation was 12%. Iron level was 20. Hemoglobin 9.8 g/dL. ASSESSMENT: 1. Acute kidney injury associated with use of NSAIDs and ongoing sepsis, currently improving from last admission. Continue with the IV diuretics as patient remains volume overloaded with significant third spacing and interstitial edema. Continue to avoid NSAIDs and hold off on angiotensin receptor blockers for now. 2. Anemia with iron deficiency noted. We can add IV iron. 3. Methicillan-resistant Staphylococcus aureus pneumonia and empyema, maintained on vancomycin. PLAN: Continue with IV Lasix. Add IV iron and continue to avoid nephrotoxic medications. May continue with the vancomycin for now. MMODL / IJN: [id number] /
[2018-11-04 16:40] LABS: Glucose,Whole Blood 140 mg/dL (75-99)
[2018-11-04] MEDS ORDERED: PEG 3350-NA SULF,BICARB,CL/KCL 4,000 ML BOTTLE PO ONE (17:00)
[2018-11-04] MEDS ORDERED: BISACODYL 5 MG TABLET.DR PO ONE (18:00)
--- NOTE | 2018-11-04 19:50 | P.PN ---
Subjective Progress Note Date: 11/04/18 Principal diagnosis: Anemia Patient lying in bed. Tolerated her diet yesterday. No abdominal pain reported. No signs or symptoms of GI bleeding. Objective - Vital Signs Vital signs: Vital Signs Temp 97.7 F 11/04/18 07:00 Pulse 77 11/04/18 08:35 Resp 16 11/04/18 08:35 BP 169/71 11/04/18 07:00 Pulse Ox 99 11/04/18 07:00 Intake & Output 11/03/18 11/04/18 11/04/18 18:59 06:59 18:59 Intake Total 100 Balance 100 Weight 45.359 kg Intake: Oral 100 Other: Voiding Method Bedside Commode # Voids 4 1 # Bowel Movements 1 - Exam On physical examination, patient appears comfortable in no apparent distress. HEAD: Normocephalic, atraumatic. EYES: No scleral icterus. No conjunctival injection. MOUTH: No lesions, tongue midline. NECK: Trachea midline, no gross abnormalities. CHEST: Clear to auscultation with no wheezing or rhonchi appreciated. HEART: S1S2 appreciated. ABDOMEN: Soft, obese. Bowel sounds are positive. No organomegaly. No guarding or rigidity. EXTREMITIES: No pedal edema. SKIN: No rashes, no jaundice. NEUROLOGIC: Alert and oriented x3. No focal deficits. - Labs CBC & Chem 7: 11/04/18 05:51 11/04/18 05:51 Labs: Abnormal Lab Results - Last 24 Hours (Table) 11/03/18 11/03/18 11/04/18 Range/Units 16:58 20:44 05:51 RBC (3.80-5.40) m/uL Hgb (11.4-16.0) gm/dL Hct (34.0-46.0) % Plt Count (150-450) k/uL Lymphocytes # (1.0-4.8) k/uL Sodium 136 L (137-145) mmol/L Carbon Dioxide 21 L (22-30) mmol/L BUN 43 H (7-17) mg/dL Creatinine 1.34 H (0.52-1.04) mg/dL Glucose 109 H (74-99) mg/dL POC Glucose (mg/dL) 114 H 134 H (75-99) mg/dL Calcium 8.1 L (8.4-10.2) mg/dL 11/04/18 11/04/18 Range/Units 05:51 06:56 RBC 3.21 L (3.80-5.40) m/uL Hgb 9.8 L (11.4-16.0) gm/dL Hct 29.7 L (34.0-46.0) % Plt Count 727 H (150-450) k/uL Lymphocytes # 0.9 L (1.0-4.8) k/uL Sodium (137-145) mmol/L Carbon Dioxide (22-30) mmol/L BUN (7-17) mg/dL Creatinine (0.52-1.04) mg/dL Glucose (74-99) mg/dL POC Glucose (mg/dL) 106 H (75-99) mg/dL Calcium (8.4-10.2) mg/dL Microbiology - Last 24 Hours (Table) 11/03/18 07:11 Blood Culture - Preliminary Blood No Growth after 24 hours Assessment and Plan (1) Anemia Narrative/Plan: Symptomatic anemia of unknown etiology. The patient denies any signs or symptoms of GI bleeding with negative stool testing for occult blood. Diff erential includes occult GI bleed, hematopoietic dysfunction in the setting of recent infection, or other source of blood loss. Current Visit: Yes Status: Acute Code(s): D64.9 - ANEMIA, UNSPECIFIED SNOMED Code(s): 364030794 (2) GERD (gastroesophageal reflux disease) Current Visit: Yes Status: Acute Code(s): K21.9 - GASTRO-ESOPHAGEAL REFLUX DISEASE WITHOUT ESOPHAGITIS SNOMED Code(s): 518915049 Plan: Supportive care Clear liquids NPO after midnight We'll plan on bowel prep tomorrow for EGD and colonoscopy on 11/05/2018 Monitor for signs or symptoms of GI bleeding Continue Protonix twice daily Thank you for allowing us to participate in the care of the patient we will continue to follow
[2018-11-04 20:23] LABS: Hemoglobin A1C 6.8 % (4.0-6.0)
[2018-11-04 21:04] LABS: Glucose,Whole Blood 159 mg/dL (75-99)
[2018-11-04] MEDS: MONTELUKAST 10 MG TAB PO SCH (21:18)
[2018-11-04] MEDS: PRAVASTATIN SODIUM 40 MG TAB PO SCH (21:18)
[2018-11-04] MEDS: LACTATED RINGERS 1,000 ML IV SCH (21:19)
[2018-11-04] MEDS ORDERED: TRIMETHOBENZAMIDE 300 MG CAP PO ONE (22:00)
--- NOTE | 2018-11-04 23:42 | P.PN ---
Subjective Progress Note Date: 11/04/18 77-year-old female who presents to Hospital for sudden significant worsening of her weakness and was found evidence of significant blood loss anemia. Was admitted over the weekend and I'm assuming care. Patient was recently hospitalized for she had MRSA pneumonia and empyema and underwent a VATS procedure. She is receiving vancomycin therapy with improvement of her pneumonia. She did have acute renal failure that has shown ongoing improvement. She is getting prepped for her endoscopy to evaluate causes of her acute blood loss anemia. No further fevers are noted. Objective - Vital Signs Vital signs: Vital Signs Temp 97.8 F 11/04/18 19:47 Pulse 76 11/04/18 19:50 Resp 20 11/04/18 19:47 BP 171/72 11/04/18 19:47 Pulse Ox 96 11/04/18 19:47 Intake & Output 11/04/18 11/04/18 11/05/18 06:59 18:59 06:59 Intake Total 250 Balance 250 Intake: Intake, IV Titration 250 Amount Vancomycin 1,000 mg In 250 Sodium Chloride 0.9% 250 ml @ 125 mls/hr IVPB ONCE ONE Rx#:[id number] Other: Voiding Method Bedside Commode # Voids 1 # Bowel Movements 1 - Exam Pleasant 77-year-old woman of thin build not in distress but is with discomfort when she tries to change position in bed HEENT: Anicteric conjunctiva are pink and moist nasal mucosa grossly intact without significant lesions, there is no thrush. Neck: The neck is supple without significant lymphadenopathy or thyromegaly. Lungs: Symmetrical air entry is noted. chest tube is removed and there is evidence ofadequate breath sounds into the right chest only few basilar crackles Heart: Regular rate and rhythm with an audible S1-S2, no S3 no S4. There is no significant murmur click or rub, PMI was nondisplaced. Abdomen: Positive bowel sounds soft and nontender without palpable masses or organomegaly. There was no guarding or rebound. Extremities: Upper extremities are without edema but does have discomfort when the left shoulder area is manipulated especially to change her position in bed. There is no edema or lesions. Lower extremities have trace edema no open ulcers Skin is without rash or blisters evidence of any vesicles over the left shoulder area no erythema or other rash Neuro: Awake alert oriented to person place and time. There are no acute new gross focal sensory motor deficits. - Labs CBC & Chem 7: 11/04/18 05:51 11/04/18 05:51 Labs: Abnormal Lab Results - Last 24 Hours (Table) 11/04/18 11/04/18 11/04/18 Range/Units 05:51 05:51 05:51 RBC 3.21 L (3.80-5.40) m/uL Hgb 9.8 L (11.4-16.0) gm/dL Hct 29.7 L (34.0-46.0) % Plt Count 727 H (150-450) k/uL Lymphocytes # 0.9 L (1.0-4.8) k/uL Sodium 136 L (137-145) mmol/L Carbon Dioxide 21 L (22-30) mmol/L BUN 43 H (7-17) mg/dL Creatinine 1.34 H (0.52-1.04) mg/dL Glucose 109 H (74-99) mg/dL POC Glucose (mg/dL) (75-99) mg/dL Hemoglobin A1c (4.0-6.0) % Calcium 8.1 L (8.4-10.2) mg/dL Iron 20 L (50-170) ug/dL TIBC 157 L (228-460) ug/dL Ferritin 424.8 H (10.0-291.0) ng/mL Vitamin B12 >4000.0 H (211-911) pg/mL 11/04/18 11/04/18 11/04/18 Range/Units 05:51 06:56 11:46 RBC (3.80-5.40) m/uL Hgb (11.4-16.0) gm/dL Hct (34.0-46.0) % Plt Count (150-450) k/uL Lymphocytes # (1.0-4.8) k/uL Sodium (137-145) mmol/L Carbon Dioxide (22-30) mmol/L BUN (7-17) mg/dL Creatinine (0.52-1.04) mg/dL Glucose (74-99) mg/dL POC Glucose (mg/dL) 106 H 132 H (75-99) mg/dL Hemoglobin A1c 6.8 H (4.0-6.0) % Calcium (8.4-10.2) mg/dL Iron (50-170) ug/dL TIBC (228-460) ug/dL Ferritin (10.0-291.0) ng/mL Vitamin B12 (211-911) pg/mL 11/04/18 11/04/18 Range/Units 16:39 21:00 RBC (3.80-5.40) m/uL Hgb (11.4-16.0) gm/dL Hct (34.0-46.0) % Plt Count (150-450) k/uL Lymphocytes # (1.0-4.8) k/uL Sodium (137-145) mmol/L Carbon Dioxide (22-30) mmol/L BUN (7-17) mg/dL Creatinine (0.52-1.04) mg/dL Glucose (74-99) mg/dL POC Glucose (mg/dL) 140 H 159 H (75-99) mg/dL Hemoglobin A1c (4.0-6.0) % Calcium (8.4-10.2) mg/dL Iron (50-170) ug/dL TIBC (228-460) ug/dL Ferritin (10.0-291.0) ng/mL Vitamin B12 (211-911) pg/mL Microbiology - Last 24 Hours (Table) 11/03/18 07:11 Blood Culture - Preliminary Blood No Growth after 24 hours Laboratory Results WBC 6.0 k/uL (3.8-10.6) 11/04/18 05:51 RBC 3.21 m/uL (3.80-5.40) L 11/04/18 05:51 Hgb 9.8 gm/dL (11.4-16.0) L 11/04/18 05:51 Hct 29.7 % (34.0-46.0) L 11/04/18 05:51 MCV 92.6 fL (80.0-100.0) 11/04/18 05:51 MCH 30.7 pg (25.0-35.0) 11/04/18 05:51 MCHC 33.1 g/dL (31.0-37.0) 11/04/18 05:51 RDW 14.8 % (11.5-15.5) 11/04/18 05:51 Plt Count 727 k/uL (150-450) H 11/04/18 05:51 Neutrophils % 66 % 11/04/18 05:51 Lymphocytes % 14 % 11/04/18 05:51 Monocytes % 13 % 11/04/18 05:51 Eosinophils % 3 % 11/04/18 05:51 Basophils % 0 % 11/04/18 05:51 Neutrophils # 4.0 k/uL (1.3-7.7) 11/04/18 05:51 Lymphocytes # 0.9 k/uL (1.0-4.8) L 11/04/18 05:51 Monocytes # 0.7 k/uL (0-1.0) 11/04/18 05:51 Eosinophils # 0.2 k/uL (0-0.7) 11/04/18 05:51 Basophils # 0.0 k/uL (0-0.2) 11/04/18 05:51 Hypochromasia Slight 11/02/18 15:17 Retic Count 1.3 % (0.5-2.0) 11/04/18 05:51 PT 10.3 sec (9.0-12.0) 11/02/18 12:52 INR 1.0 (<1.2) 11/02/18 12:52 APTT 30.3 sec (22.0-30.0) H 11/02/18 12:52 Sodium 136 mmol/L (137-145) L 11/04/18 05:51 Potassium 4.3 mmol/L (3.5-5.1) 11/04/18 05:51 Chloride 105 mmol/L (98-107) 11/04/18 05:51 Carbon Dioxide 21 mmol/L (22-30) L 11/04/18 05:51 Anion Gap 10 mmol/L 11/04/18 05:51 BUN 43 mg/dL (7-17) H 11/04/18 05:51 Creatinine 1.34 mg/dL (0.52-1.04) H 11/04/18 05:51 Est GFR (CKD-EPI)AfAm 44 (>60 ml/min/1.73 sqM) 11/04/18 05:51 Est GFR (CKD-EPI)NonAf 38 (>60 ml/min/1.73 sqM) 11/04/18 05:51 Glucose 109 mg/dL (74-99) H 11/04/18 05:51 POC Glucose (mg/dL) 159 mg/dL (75-99) H 11/04/18 21:00 POC Glu Book Packer ID Andreea Stephens 11/04/18 21:[address] Glu mg/dL 148 11/04/18 05:51 Hemoglobin A1c 6.8 % (4.0-6.0) H 11/04/18 05:51 Calcium 8.1 mg/dL (8.4-10.2) L 11/04/18 05:51 Magnesium 1.8 mg/dL (1.6-2.3) 11/02/18 12:52 Iron 20 ug/dL (50-170) L 11/04/18 05:51 TIBC 157 ug/dL (228-460) L 11/04/18 05:51 Iron Saturation 12.74 (12.00-45.00) 11/04/18 05:51 Ferritin 424.8 ng/mL (10.0-291.0) H 11/04/18 05:51 Total Bilirubin 0.2 mg/dL (0.2-1.3) 11/02/18 12:52 AST 17 U/L (14-36) 11/02/18 12:52 ALT 23 U/L (9-52) 11/02/18 12:52 Alkaline Phosphatase 135 U/L (38-126) H 11/02/18 12:52 Troponin I <0.012 ng/mL (0.000-0.034) 11/02/18 12:52 NT-Pro-B Natriuret Pep 2460 pg/mL 11/02/18 12:52 Total Protein 4.2 g/dL (6.3-8.2) L 11/02/18 12:52 Albumin 1.9 g/dL (3.5-5.0) L 11/02/18 12:52 Vitamin B12 >4000.0 pg/mL (211-911) H 11/04/18 05:51 Folate 19.5 ng/mL 11/04/18 05:51 Stool Occult Blood Negative (Negative) 11/02/18 12:52 Random Vancomycin 18.8 ug/mL 11/04/18 05:51 Blood Type O Positive 11/02/18 12:52 Blood Type Recheck No 11/02/18 12:52 Antibody Screen NEGATIVE 11/02/18 12:52 Crossmatch See Detail 11/02/18 12:52 Spec Expiration Date 11/05/2018 - 4932 11/02/18 12:52 Microbiology 11/03/18 07:11 Blood Blood Culture - Preliminary No Growth after 24 hours Assessment and Plan (1) MRSA pneumonia Narrative/Plan: 77-year-old woman presents to Hospital after recent discharge receiving treated for MRSA pneumonia, empyema bacteremia. Tolerating her vancomycin therapy better over the last several days. She had a brief period of some vancomycin toxicity that has resolved. Her acute renal failure is resolved. She however is now developed acute blood loss anemia and is being evaluated. She will maintained on pharmacy dosing of her vancomycin for her recent complex infection and be monitored closely. Current Visit: Yes Status: Acute Code(s): J15.212 - PNEUMONIA DUE TO METHICILLIN RESISTANT STAPHYLOCOCCUS AUREUS SNOMED Code(s): 562406616146449 (2) Empyema Current Visit: Yes Status: Acute Code(s): J86.9 - PYOTHORAX WITHOUT FISTULA SNOMED Code(s): 116005395
[2018-11-05] MEDS: HYDROcodone/APAP 5-325MG 1 EACH TAB PO PRN (04:55)
[2018-11-05 07:13] LABS: Glucose,Whole Blood 140 mg/dL (75-99)
[2018-11-05 07:36] LABS: HCT 28.5 % (34.0-46.0); HGB 9.2 gm/dL (11.4-16.0); MCHC 32.3 g/dL (31.0-37.0); MCV 92.9 fL (80.0-100.0); Mean Platelet Volume 6.5; Platelet Count 594 k/uL (150-450); RBC 3.07 m/uL (3.80-5.40); RDW 14.5 % (11.5-15.5); WBC 5.8 k/uL (3.8-10.6)
[2018-11-05 07:51] LABS: Calcium 7.7 mg/dL (8.4-10.2); Potassium 3.9 mmol/L (3.5-5.1)
[2018-11-05] MEDS: INSULIN ASPART (NovoLOG) 100 UNIT/ML VIAL SQ SCH ×4 (08:14→22:00)
[2018-11-05] MEDS: HEPARIN SODIUM,PORCINE 5,000 UNIT/ML 1 ML VIAL SQ SCH ×2 (08:17→21:42)
[2018-11-05] MEDS: DOCUSATE 100 MG CAP PO SCH ×2 (08:17→21:42)
[2018-11-05] MEDS: ATENOLOL 25 MG TAB PO SCH ×2 (08:17→21:42)
[2018-11-05] MEDS: LORATADINE 10 MG TAB PO SCH (08:17)
[2018-11-05] MEDS: ISOSORBIDE MONONITRATE ER 60 MG TAB.ER.24H PO SCH ×2 (08:17→21:42)
[2018-11-05] MEDS: amLODIPine 10 MG TAB PO SCH (08:17)
[2018-11-05] MEDS: PANTOPRAZOLE 40 MG TABLET PO SCH ×2 (08:17→21:24)
[2018-11-05] MEDS: ALBUTEROL NEBULIZED 2.5 MG/3 ML INHALATION SCH (08:37)
[2018-11-05] MEDS: FLUTICASONE 50MCG/SPRAY NASAL 16GM EA NOSTRIL SCH (08:42)
[2018-11-05] MEDS: FUROSEMIDE 10 MG/ML 4 ML VIAL IV SCH (08:42)
[2018-11-05] MEDS: SODIUM FERRIC GLUCONAT-SUCROSE 125 MG in SODIUM CHLORIDE 0.9% 100 ML IVPB SCH (10:16)
[2018-11-05] MEDS: SYMBICORT 160-4.5 MCG INHALER INHALATION SCH ×2 (10:46→20:31)
[2018-11-05 11:34] LABS: Glucose,Whole Blood 131 mg/dL (75-99)
--- NOTE | 2018-11-05 12:31 | P.PN ---
Subjective Patient is seen in follow-up for acute kidney injury. Renal function is slightly better. Creatinine 1.29 today. She is maintained on Lasix 40 mg IV once daily. Lower extremity edema improving. Admits to good urine output. Hemoglobin 9.2 today. No active bleeding. Scheduled for EGD and colonoscopy today. Vital signs are stable. General: The patient appeared well nourished and normally developed. HEENT: Head exam is unremarkable. Neck is without jugular venous distension. LUNGS: Breath sounds decreased. HEART: Rate and Rhythm are regular. First and second heart sounds normal. No murmurs, rubs or gallops. ABDOMEN: Abdominal exam reveals normal bowel sounds. Non-tender and non- distended. No evidence of peritonitis. EXTREMITITES: 1+ edema. Objective - Vital Signs Vital signs: Vital Signs Temp 97.9 F 11/05/18 07:55 Pulse 74 11/05/18 08:55 Resp 16 11/05/18 08:37 BP 151/65 11/05/18 07:55 Pulse Ox 98 11/05/18 08:37 Intake & Output 11/04/18 11/05/18 11/05/18 18:59 06:59 18:59 Intake Total 250 1120 Balance 250 1120 Weight 45.359 kg Intake: Intake, IV Titration 250 80 Amount Lactated Ringers 1,000 ml 80 @ 20 mls/hr IV .Q24H [facility] Rx#:[id number] Vancomycin 1,000 mg In 250 Sodium Chloride 0.9% 250 ml @ 125 mls/hr IVPB ONCE ONE Rx#:[id number] Oral 1040 Other: Voiding Method Bedside Commode # Voids 1 # Bowel Movements 1 - Labs CBC & Chem 7: 11/05/18 07:11 11/05/18 07:11 Labs: Abnormal Lab Results - Last 24 Hours (Table) 11/04/18 11/04/18 11/04/18 Range/Units 05:51 05:51 16:39 RBC (3.80-5.40) m/uL Hgb (11.4-16.0) gm/dL Hct (34.0-46.0) % Plt Count (150-450) k/uL Chloride (98-107) mmol/L BUN (7-17) mg/dL Creatinine (0.52-1.04) mg/dL Glucose (74-99) mg/dL POC Glucose (mg/dL) 140 H (75-99) mg/dL Hemoglobin A1c 6.8 H (4.0-6.0) % Calcium (8.4-10.2) mg/dL Iron 20 L (50-170) ug/dL TIBC 157 L (228-460) ug/dL Ferritin 424.8 H (10.0-291.0) ng/mL Vitamin B12 >4000.0 H (211-911) pg/mL 11/04/18 11/05/18 11/05/18 Range/Units 21:00 07:09 07:11 RBC (3.80-5.40) m/uL Hgb (11.4-16.0) gm/dL Hct (34.0-46.0) % Plt Count (150-450) k/uL Chloride 108 H (98-107) mmol/L BUN 43 H (7-17) mg/dL Creatinine 1.29 H (0.52-1.04) mg/dL Glucose 135 H (74-99) mg/dL POC Glucose (mg/dL) 159 H 140 H (75-99) mg/dL Hemoglobin A1c (4.0-6.0) % Calcium 7.7 L (8.4-10.2) mg/dL Iron (50-170) ug/dL TIBC (228-460) ug/dL Ferritin (10.0-291.0) ng/mL Vitamin B12 (211-911) pg/mL 11/05/18 11/05/18 Range/Units 07:11 11:31 RBC 3.07 L (3.80-5.40) m/uL Hgb 9.2 L (11.4-16.0) gm/dL Hct 28.5 L (34.0-46.0) % Plt Count 594 H (150-450) k/uL Chloride (98-107) mmol/L BUN (7-17) mg/dL Creatinine (0.52-1.04) mg/dL Glucose (74-99) mg/dL POC Glucose (mg/dL) 131 H (75-99) mg/dL Hemoglobin A1c (4.0-6.0) % Calcium (8.4-10.2) mg/dL Iron (50-170) ug/dL TIBC (228-460) ug/dL Ferritin (10.0-291.0) ng/mL Vitamin B12 (211-911) pg/mL Microbiology - Last 24 Hours (Table) 11/03/18 07:11 Blood Culture - Preliminary Blood No Growth after 48 hours Assessment and Plan Plan: Assessment: 1. Acute kidney injury secondary to ATN secondary to infection and nonsteroidals. Also component of cardiorenal syndrome improving with diuresis. Creatinine 1.29 today. Baseline creatinine near 1. 2. MRSA pneumonia maintained on IV vancomycin. 3. Anemia with iron deficiency maintained on IV iron. Scheduled for EGD and colonoscopy today. No active bleeding noted. 4. Diastolic CHF with mild mitral and tricuspid regurgitation. Mild pulmonary hypertension. 5. Benign hypertension. Controlled. Plan: Maintain Lasix 40 mg IV once daily. Avoid nephrotoxins. Repeat electrolytes in the morning.
--- NOTE | 2018-11-05 14:50 | P.PN ---
Subjective Progress Note Date: 11/05/18 Principal diagnosis: follow up for anemia , MRSA bactremia , swelling in the legs , MUNDO patient seen and examined, patient doing ok, no new complaints. she is NPO for EGD and Cscope today . denies any SOB or chest pain , denies any GI bleeding Objective - Vital Signs Vital signs: Vital Signs Temp 97.9 F 11/05/18 07:55 Pulse 74 11/05/18 08:55 Resp 16 11/05/18 08:37 BP 151/65 11/05/18 07:55 Pulse Ox 98 11/05/18 08:37 Intake & Output 11/04/18 11/05/18 11/05/18 18:59 06:59 18:59 Intake Total 250 1120 Balance 250 1120 Weight 45.359 kg Intake: Intake, IV Titration 250 80 Amount Lactated Ringers 1,000 ml 80 @ 20 mls/hr IV .Q24H [facility] Rx#:[id number] Vancomycin 1,000 mg In 250 Sodium Chloride 0.9% 250 ml @ 125 mls/hr IVPB ONCE ONE Rx#:[id number] Oral 1040 Other: Voiding Method Bedside Commode # Voids 1 # Bowel Movements 1 - Exam Constitutional: vital signs stable, Not in acute distress, pleasant, conversant Lungs: Good breath sounds overall, slightly decreased over the right lung base, with some residual fine rales, normal respiratory effort no use of accessory muscles Cardiovascular: Regular rate and rhythm, no murmurs, no gallops, no rubs, +2 bilateral peripheral edema , compression stockings in place Gastrointestinal: Soft, no tenderness to palpation, bowel sounds positive, no abdominal wall hernias Extremities: No digital cyanosis or clubbing, peripheral pulses palpable and equal over bilateral radial arteries , with tenderness to palpation of bilateral legs Psych: Alert, oriented to place, person and time, appropriate affect, intact judgment Neuro: Cranial nerves II-XII grossly intact, no focal sensory deficits to touch - Labs CBC & Chem 7: 11/05/18 07:11 11/05/18 07:11 Labs: Abnormal Lab Results - Last 24 Hours (Table) 11/04/18 11/04/18 11/04/18 Range/Units 05:51 16:39 21:00 RBC (3.80-5.40) m/uL Hgb (11.4-16.0) gm/dL Hct (34.0-46.0) % Plt Count (150-450) k/uL Chloride (98-107) mmol/L BUN (7-17) mg/dL Creatinine (0.52-1.04) mg/dL Glucose (74-99) mg/dL POC Glucose (mg/dL) 140 H 159 H (75-99) mg/dL Hemoglobin A1c 6.8 H (4.0-6.0) % Calcium (8.4-10.2) mg/dL 11/05/18 11/05/18 11/05/18 Range/Units 07:09 07:11 07:11 RBC 3.07 L (3.80-5.40) m/uL Hgb 9.2 L (11.4-16.0) gm/dL Hct 28.5 L (34.0-46.0) % Plt Count 594 H (150-450) k/uL Chloride 108 H (98-107) mmol/L BUN 43 H (7-17) mg/dL Creatinine 1.29 H (0.52-1.04) mg/dL Glucose 135 H (74-99) mg/dL POC Glucose (mg/dL) 140 H (75-99) mg/dL Hemoglobin A1c (4.0-6.0) % Calcium 7.7 L (8.4-10.2) mg/dL 11/05/18 Range/Units 11:31 RBC (3.80-5.40) m/uL Hgb (11.4-16.0) gm/dL Hct (34.0-46.0) % Plt Count (150-450) k/uL Chloride (98-107) mmol/L BUN (7-17) mg/dL Creatinine (0.52-1.04) mg/dL Glucose (74-99) mg/dL POC Glucose (mg/dL) 131 H (75-99) mg/dL Hemoglobin A1c (4.0-6.0) % Calcium (8.4-10.2) mg/dL Microbiology - Last 24 Hours (Table) 11/03/18 07:11 Blood Culture - Preliminary Blood No Growth after 48 hours Assessment and Plan Assessment: 77-year-old female with recent hospitalization for pneumonia and right empyema. Patient is admitted as inpatient with anticipated length of stay more than 48 hours for acute anemia that developed at [facility] no evidence of GI bleeding. Patient had a prolonged hospital course recently was discharged 2 days ago for MRSA bacteremia and pneumonia with empyema complleted with acute kidney injury due to sepsis. Patient still takes vancomycin at the [facility]. patient transfused 2 units of blood for hgb <7 on 11/02 , toelrated well, hgb responded well. fecal occult blood test was negative. no source of bleeding. most likely explanation is her earlier sepsis and prolonged hospital course with frequent blood draws resulted in drop in her hgb with bone marrow suppression from overwhelming sepsis earlier this month during her hospitalization all factored into her anemia. this should start improving now her infection controlled. 11/04 hemoglobin stable , no signs of ongoing bleeding. GI planning on GD in AM, will do CT w out contrast of the chest and abd /pelvis to rule out any hematoma. Plan: Anemia, secondary to frequent blood draws and bone marrow suppression from brayan re acute illness, stable now and improving , r/o GI bleeding Acute kidney injury, improving Recent history of MRSA bacteremia, and MRSA empyema s/p chest tube and VATS, on vanco Bilateral leg swelling and tenderness, venous US of the legs negative for acute DVT Severe thrombocytosis possibly reactive to recent sepsis due to MRSA bacteremia, improving now Atelectasis and loss of volume over the right lung base with residual RT pleural effusion debility from prolonged hospital course and acute illness severe protein caolrie malnutrition blood pressure poorly controlled overall, increase Norvasc to 10 mg daily , continue with atenolol, and imdur hgb stable, check daily s/p 2 units transfusion total during this hospital course FOBT negative Continue aspirin GI plans for EGD on 11/05 Nephrology following Avoid nephrotoxic meds continue with IV lasix Encourage incentive spirometry Follow-up blood cultures Continue vancomycin goal trough 12-15, ID following, plans to continue vanco up until 11/15 Most recent positive culture was 10/17/2018 GI prophylaxis with PPI twice a day Sallis for pain control encourage dietry intake, ensure Chronic conditions Debility patient will be sent back to [facility] once stabilized Hypertension Hyperlipidemia History of CAD DVT prophylaxis on heparin subcu twice a day compression stocking plans for EGD in on 11/[address] chest / abd/pelvis showed no evidence of hematoma adjusted patient breathing regimen discharge to [facility] once stable
[2018-11-05] MEDS ORDERED: PROPOFOL 10 MG/ML 20 ML VIAL IV ONE (15:45)
[2018-11-05] MEDS ORDERED: LIDOCAINE 1% INJ 10MG/ML (20 ML MDV) ONE (15:45)
[2018-11-05] MEDS ORDERED: fentaNYL (PF) 50 MCG/ML 2 ML AMP ONE (15:45)
[2018-11-05] MEDS ORDERED: MIDAZOLAM 2 MG/2 ML VIAL ONE (15:45)
[2018-11-05] MEDS ORDERED: IV FLUID CONTINUATION 1,000 ML IV ONE (15:48)
--- NOTE | 2018-11-05 16:14 | P.PCN ---
Date of Procedure: 11/05/18 Description of Procedure: BRIEF HISTORY: Very pleasant 77-year-old female with a medical history significant for hypertension, hyperlipidemia, coronary artery disease, recent hospitalization during which she underwent treatment for sepsis secondary to MRSA pneumonia who presents after being found to be anemic. The patient had been complaining of generalized weakness, and decrease in her energy with outpatient labs significant for a depressed hemoglobin of 6. She denies any epigastric pain, chronic NSAID use, reporting very infrequent use of pain medications. She denies any change in her bowel habits, which are generally a bowel movement every other day. No hematochezia, melena, hematemesis or nausea and vomiting. She does suffer from reflux at baseline. She had stool testing on hospitalization which was found to be negative for occult blood. She reports remote history of colonoscopy. PROCEDURE PERFORMED: Esophagogastroduodenoscopy with biopsy. PREOPERATIVE DIAGNOSIS: Iron deficiency anemia. ESTIMATED BLOOD LOSS: Minimal. IV sedation per anesthesia. PROCEDURE: After informed consent was obtained, the patient was brought into the endoscopy unit. IV sedation was administered by Anesthesia under continuous monitoring. Initially the Olympus GIF-190 video endoscope was inserted into the mouth. Esophagus intubated without any difficulty. It was gradually advanced into the stomach and duodenum and carefully examined. The bulb and the second part of the duodenum appeared normal, with biopsies taken. The scope at this time was withdrawn to the stomach, adequately insufflated with air, and upon careful examination, mucosa of the antrum, body, cardia and the fundus appeared grossly normal with some mild scattered erythema of the antrum and body suggestive of mild gastritis with biopsies of the antrum and body taken. The patient had a few diminutive gastric polyps suggestive of fundic gland polyps with gastric polyps removed. The scope was then withdrawn into the esophagus. The GE junction was located at 37 cm from the incisors. The esophagus appeared normal. There were no erosions or ulcerations seen and the patient tolerated the procedure well. IMPRESSION: 1. Mild gastritis antrum and body, biopsied. 2. Duodenal biopsies. 3. Diminutive gastric polyps removed with polypectomy. 4. No evidence of active bleeding or pathology to explain anemia. RECOMMENDATIONS: The findings of this examination were discussed with the patient. Okay to resume diet. Continue to monitor hemoglobin and transfuse as needed. Patient will need colonoscopic evaluation as she failed to be able to prep and the inpatient setting, would recommend follow-up with Dr. Amaral who has previously done her colonoscopies or myself for further endoscopic evaluation. Await pathology from biopsies.
[2018-11-05 16:41] LABS: Glucose,Whole Blood 117 mg/dL (75-99)
--- NOTE | 2018-11-05 17:04 | P.PN ---
Subjective Progress Note Date: 11/05/18 77-year-old female who presents to Hospital for sudden significant worsening of her weakness and was found evidence of significant blood loss anemia. Was admitted over the weekend and I'm assuming care. Patient was recently hospitalized for she had MRSA pneumonia and empyema and underwent a VATS procedure. She is receiving vancomycin therapy with improvement of her pneumonia. She did have acute renal failure that has shown ongoing improvement. She is getting prepped for her endoscopy to evaluate causes of her acute blood loss anemia. No further fevers are noted. 11/05/2018 patient is feeling poorly. She had multiple bouts of nausea and emesis while she was taking her prep for her colonoscopy. Abdominal pain is improved this morning. She is denying of any acute difficulties. Continues to have pain on the chest wall to the right which chest tubes were in place and the surgical scars from the VATS. She however is utilizing her incentive spirometer and does not feel short of breath. Does not have fever or chills. Objective - Vital Signs Vital signs: Vital Signs Temp 98.5 F 11/05/18 14:51 Pulse 78 11/05/18 14:51 Resp 16 11/05/18 14:51 BP 172/71 11/05/18 14:51 Pulse Ox 97 11/05/18 14:51 Intake & Output 11/04/18 11/05/18 11/05/18 18:59 06:59 18:59 Intake Total 250 1120 200 Balance 250 1120 200 Weight 45.359 kg Intake: IV 200 Intake, IV Titration 250 80 Amount Lactated Ringers 1,000 ml 80 @ 20 mls/hr IV .Q24H [facility] Rx#:[id number] Vancomycin 1,000 mg In 250 Sodium Chloride 0.9% 250 ml @ 125 mls/hr IVPB ONCE ONE Rx#:[id number] Oral 1040 Other: Voiding Method Bedside Commode # Voids 1 2 # Bowel Movements 1 1 - Exam Pleasant 77-year-old woman of thin build not in distress but is with discomfort when she tries to change position in bed HEENT: Anicteric conjunctiva are pink and moist nasal mucosa grossly intact without significant lesions, there is no thrush. Neck: The neck is supple without significant lymphadenopathy or thyromegaly. Lungs: Symmetrical air entry is noted. chest tube is removed and there is evidence ofadequate breath sounds into the right chest only few basilar crackles Heart: Regular rate and rhythm with an audible S1-S2, no S3 no S4. There is no significant murmur click or rub, PMI was nondisplaced. Abdomen: Positive bowel sounds soft and nontender without palpable masses or organomegaly. There was no guarding or rebound. Extremities: Upper extremities are without edema but does have discomfort when t he left shoulder area is manipulated especially to change her position in bed. There is no edema or lesions. Lower extremities have trace edema no open ulcers Skin is without rash or blisters evidence of any vesicles over the left shoulder area no erythema or other rash Neuro: Awake alert oriented to person place and time. There are no acute new gross focal sensory motor deficits. - Labs CBC & Chem 7: 11/05/18 07:11 11/05/18 07:11 Labs: Abnormal Lab Results - Last 24 Hours (Table) 11/04/18 11/04/18 11/05/18 Range/Units 05:51 21:00 07:09 RBC (3.80-5.40) m/uL Hgb (11.4-16.0) gm/dL Hct (34.0-46.0) % Plt Count (150-450) k/uL Chloride (98-107) mmol/L BUN (7-17) mg/dL Creatinine (0.52-1.04) mg/dL Glucose (74-99) mg/dL POC Glucose (mg/dL) 159 H 140 H (75-99) mg/dL Hemoglobin A1c 6.8 H (4.0-6.0) % Calcium (8.4-10.2) mg/dL 11/05/18 11/05/18 11/05/18 Range/Units 07:11 07:11 11:31 RBC 3.07 L (3.80-5.40) m/uL Hgb 9.2 L (11.4-16.0) gm/dL Hct 28.5 L (34.0-46.0) % Plt Count 594 H (150-450) k/uL Chloride 108 H (98-107) mmol/L BUN 43 H (7-17) mg/dL Creatinine 1.29 H (0.52-1.04) mg/dL Glucose 135 H (74-99) mg/dL POC Glucose (mg/dL) 131 H (75-99) mg/dL Hemoglobin A1c (4.0-6.0) % Calcium 7.7 L (8.4-10.2) mg/dL 11/05/18 Range/Units 16:37 RBC (3.80-5.40) m/uL Hgb (11.4-16.0) gm/dL Hct (34.0-46.0) % Plt Count (150-450) k/uL Chloride (98-107) mmol/L BUN (7-17) mg/dL Creatinine (0.52-1.04) mg/dL Glucose (74-99) mg/dL POC Glucose (mg/dL) 117 H (75-99) mg/dL Hemoglobin A1c (4.0-6.0) % Calcium (8.4-10.2) mg/dL Microbiology - Last 24 Hours (Table) 11/03/18 07:11 Blood Culture - Preliminary Blood No Growth after 48 hours Laboratory Results WBC 5.8 k/uL (3.8-10.6) 11/05/18 07:11 RBC 3.07 m/uL (3.80-5.40) L 11/05/18 07:11 Hgb 9.2 gm/dL (11.4-16.0) L 11/05/18 07:11 Hct 28.5 % (34.0-46.0) L 11/05/18 07:11 MCV 92.9 fL (80.0-100.0) 11/05/18 07:11 MCH 30.0 pg (25.0-35.0) 11/05/18 07:11 MCHC 32.3 g/dL (31.0-37.0) 11/05/18 07:11 RDW 14.5 % (11.5-15.5) 11/05/18 07:11 Plt Count 594 k/uL (150-450) H 11/05/18 07:11 Neutrophils % 66 % 11/04/18 05:51 Lymphocytes % 14 % 11/04/18 05:51 Monocytes % 13 % 11/04/18 05:51 Eosinophils % 3 % 11/04/18 05:51 Basophils % 0 % 11/04/18 05:51 Neutrophils # 4.0 k/uL (1.3-7.7) 11/04/18 05:51 Lymphocytes # 0.9 k/uL (1.0-4.8) L 11/04/18 05:51 Monocytes # 0.7 k/uL (0-1.0) 11/04/18 05:51 Eosinophils # 0.2 k/uL (0-0.7) 11/04/18 05:51 Basophils # 0.0 k/uL (0-0.2) 11/04/18 05:51 Hypochromasia Slight 11/02/18 15:17 Retic Count 1.3 % (0.5-2.0) 11/04/18 05:51 PT 10.3 sec (9.0-12.0) 11/02/18 12:52 INR 1.0 (<1.2) 11/02/18 12:52 APTT 30.3 sec (22.0-30.0) H 11/02/18 12:52 Sodium 137 mmol/L (137-145) 11/05/18 07:11 Potassium 3.9 mmol/L (3.5-5.1) 11/05/18 07:11 Chloride 108 mmol/L (98-107) H 11/05/18 07:11 Carbon Dioxide 23 mmol/L (22-30) 11/05/18 07:11 Anion Gap 6 mmol/L 11/05/18 07:11 BUN 43 mg/dL (7-17) H 11/05/18 07:11 Creatinine 1.29 mg/dL (0.52-1.04) H 11/05/18 07:11 Est GFR (CKD-EPI)AfAm 46 (>60 ml/min/1.73 sqM) 11/05/18 07:11 Est GFR (CKD-EPI)NonAf 40 (>60 ml/min/1.73 sqM) 11/05/18 07:11 Glucose 135 mg/dL (74-99) H 11/05/18 07:11 POC Glucose (mg/dL) 117 mg/dL (75-99) H 11/05/18 16:37 POC Glu [employer] JEREMIAH Devika Guevara 11/05/18 16:[address] Glu mg/dL 148 11/04/18 05:51 Hemoglobin A1c 6.8 % (4.0-6.0) H 11/04/18 05:51 Calcium 7.7 mg/dL (8.4-10.2) L 11/05/18 07:11 Magnesium 1.8 mg/dL (1.6-2.3) 11/02/18 12:52 Iron 20 ug/dL (50-170) L 11/04/18 05:51 TIBC 157 ug/dL (228-460) L 11/04/18 05:51 Iron Saturation 12.74 (12.00-45.00) 11/04/18 05:51 Ferritin 424.8 ng/mL (10.0-291.0) H 11/04/18 05:51 Total Bilirubin 0.2 mg/dL (0.2-1.3) 11/02/18 12:52 AST 17 U/L (14-36) 11/02/18 12:52 ALT 23 U/L (9-52) 11/02/18 12:52 Alkaline Phosphatase 135 U/L (38-126) H 11/02/18 12:52 Troponin I <0.012 ng/mL (0.000-0.034) 11/02/18 12:52 NT-Pro-B Natriuret Pep 2460 pg/mL 11/02/18 12:52 Total Protein 4.2 g/dL (6.3-8.2) L 11/02/18 12:52 Albumin 1.9 g/dL (3.5-5.0) L 11/02/18 12:52 Vitamin B12 >4000.0 pg/mL (211-911) H 11/04/18 05:51 Folate 19.5 ng/mL 11/04/18 05:51 Stool Occult Blood Negative (Negative) 11/02/18 12:52 Random Vancomycin 18.8 ug/mL 11/04/18 05:51 Blood Type O Positive 11/02/18 12:52 Blood Type Recheck No 11/02/18 12:52 Antibody Screen NEGATIVE 11/02/18 12:52 Crossmatch See Detail 11/02/18 12:52 Spec Expiration Date 11/05/2018235111/02/18 12:52 Microbiology 11/03/18 07:11 Blood Blood Culture - Preliminary No Growth after 48 hours Assessment and Plan (1) MRSA pneumonia Narrative/Plan: 77-year-old woman presents to Hospital after recent discharge receiving treated for MRSA pneumonia, empyema bacteremia. Tolerating her vancomycin therapy better over the last several days. She had a brief period of some vancomycin toxicity that has resolved. Her acute renal failure is resolved. She however is now developed acute blood loss anemia and is being evaluated. She will m aintained on pharmacy dosing of her vancomycin for her recent complex infection and be monitored closely. 11/05/2018 patient is feeling somewhat better today now that she has not having to complete her oral preparation for her colonoscopy since it was canceled because of her ongoing nausea and emesis and attempting to take the prep. She's not having much abdominal pain. She's having no hematemesis motor or hematochezia. It is noted she had extensive anemia admission there appears to be stable. Iron infusion has a reoccurred. For now continue ongoing supportive care will need to complete her course of intravenous antibiotic therapy for MRSA pneumonia, empyema and bacteremia. 4 she seems to be tolerating the vancomycin therapy at this time. There was a prior bout of toxicity and renal. That is resolved. Current Visit: Yes Status: Acute Code(s): J15.212 - PNEUMONIA DUE TO METHICILLIN RESISTANT STAPHYLOCOCCUS AUREUS SNOMED Code(s): 435891846533734 (2) Empyema Current Visit: Yes Status: Acute Code(s): J86.9 - PYOTHORAX WITHOUT FISTULA SNOMED Code(s): 178128669
[2018-11-05] MEDS ORDERED: SYMBICORT 160-4.5 MCG INHALER INHALATION SCH (20:00)
[2018-11-05 21:23] LABS: Glucose,Whole Blood 148 mg/dL (75-99)
[2018-11-05] MEDS: LACTATED RINGERS 1,000 ML IV SCH (21:25)
[2018-11-05] MEDS: MONTELUKAST 10 MG TAB PO SCH (21:42)
[2018-11-05] MEDS: PRAVASTATIN SODIUM 40 MG TAB PO SCH (21:42)
[2018-11-06] MEDS: HYDROcodone/APAP 5-325MG 1 EACH TAB PO PRN ×3 (04:13→21:44)
--- NOTE | 2018-11-06 05:01 | XR ---
EXAM: XR Chest, 1 View CLINICAL HISTORY: chest pain TECHNIQUE: Frontal view of the chest. COMPARISON: 11-02-18 FINDINGS: Lungs: Mild to moderate diffuse airspace opacities in both lungs, more on the right. Pleural space: Pleural effusion is small on the left and moderate on the right. No pneumothorax. Heart: Unremarkable. No cardiomegaly. Mediastinum: Unremarkable. Bones/joints: Suspect osteopenia. IMPRESSION: No substantial change
[2018-11-06 05:22] LABS: Calcium 7.8 mg/dL (8.4-10.2); Potassium 3.8 mmol/L (3.5-5.1)
[2018-11-06 05:27] LABS: Vancomycin,Random 16.2 ug/mL
[2018-11-06] MEDS ORDERED: cloNIDine HCL 0.2 MG TAB PO PRN (08:01)
[2018-11-06] MEDS: ALBUTEROL NEBULIZED 2.5 MG/3 ML INHALATION PRN (08:04)
[2018-11-06] MEDS: SYMBICORT 160-4.5 MCG INHALER INHALATION SCH ×2 (08:04→20:28)
[2018-11-06 08:09] LABS: HCT 30.2 % (34.0-46.0); HGB 9.4 gm/dL (11.4-16.0); MCH 29.6 pg (25.0-35.0); MCHC 31.1 g/dL (31.0-37.0); MCV 95.2 fL (80.0-100.0); Platelet Count 522 k/uL (150-450); RBC 3.17 m/uL (3.80-5.40); RDW 14.5 % (11.5-15.5); WBC 7.7 k/uL (3.8-10.6)
[2018-11-06] MEDS: INSULIN ASPART (NovoLOG) 100 UNIT/ML VIAL SQ SCH ×4 (08:21→22:15)
[2018-11-06 08:24] LABS: Glucose,Whole Blood 117 mg/dL (75-99)
[2018-11-06] MEDS: DOCUSATE 100 MG CAP PO SCH ×2 (08:30→21:40)
[2018-11-06] MEDS: PANTOPRAZOLE 40 MG TABLET PO SCH ×2 (08:30→17:39)
[2018-11-06] MEDS: ATENOLOL 25 MG TAB PO SCH ×2 (08:30→21:40)
[2018-11-06] MEDS: LISINOPRIL 10 MG TAB PO SCH (08:30)
[2018-11-06] MEDS: ISOSORBIDE MONONITRATE ER 60 MG TAB.ER.24H PO SCH ×2 (08:30→21:40)
[2018-11-06] MEDS: LORATADINE 10 MG TAB PO SCH (08:30)
[2018-11-06] MEDS: SODIUM FERRIC GLUCONAT-SUCROSE 125 MG in SODIUM CHLORIDE 0.9% 100 ML IVPB SCH (08:30)
[2018-11-06] MEDS: amLODIPine 10 MG TAB PO SCH (08:31)
[2018-11-06] MEDS: FUROSEMIDE 10 MG/ML 4 ML VIAL IV SCH (08:31)
[2018-11-06] MEDS: FLUTICASONE 50MCG/SPRAY NASAL 16GM EA NOSTRIL SCH (08:31)
[2018-11-06] MEDS: HEPARIN SODIUM,PORCINE 5,000 UNIT/ML 1 ML VIAL SQ SCH ×2 (08:31→21:40)
[2018-11-06] MEDS ORDERED: VANCOMYCIN 1,000 MG in SODIUM CHLORIDE 0.9% 250 ML IVPB ONE (10:00)
--- NOTE | 2018-11-06 10:14 | P.PN ---
Subjective Progress Note Date: 11/06/18 Principal diagnosis: Iron deficiency anemia Status post EGD yesterday no evidence of active bleeding or pathology to explain anemia. Colonoscopy incomplete secondary to patient unable to complete her inpatient prep. No bleeding. Hemoglobin 9.4. MCV 95. Platelet 522. White c ount 7.7. Objective - Vital Signs Vital signs: Vital Signs Temp 98.4 F 11/06/18 07:51 Pulse 74 11/06/18 08:15 Resp 14 11/06/18 07:51 BP 161/70 11/06/18 07:51 Pulse Ox 97 11/06/18 07:51 Intake & Output 11/05/18 11/06/18 11/06/18 18:59 06:59 18:59 Intake Total 200 Balance 200 Intake: IV 200 Other: Voiding Method Bedside Commode # Voids 2 1 # Bowel Movements 1 1 - Exam General appearance: The patient is alert, oriented, in no acute distress. HET: Head is normocephalic and atraumatic. Pupils are equal and reactive. Oropharynx is clear without lesions. Neck: Supple without lymphadenopathy. Trachea midline. Heart: S1 S2. Regular rate and rhythm. Lungs: No crackles or wheezes are heard. Abdomen: Soft, nontender, nondistended with bowel sounds. No peritoneal signs. No palpable organomegaly or masses. Extremities: Normal skin color and turgor. No cyanosis, rash, ulceration, clubbing, or edema. Radial and pedal pulses are 2/4 bilaterally. Neurological: No focal deficits. Strength and sensation are grossly intact. - Labs CBC & Chem 7: 11/06/18 04:51 11/06/18 04:51 Labs: Abnormal Lab Results - Last 24 Hours (Table) 11/05/18 11/05/18 11/05/18 Range/Units 11:31 16:37 21:21 RBC (3.80-5.40) m/uL Hgb (11.4-16.0) gm/dL Hct (34.0-46.0) % Plt Count (150-450) k/uL BUN (7-17) mg/dL Creatinine (0.52-1.04) mg/dL Glucose (74-99) mg/dL POC Glucose (mg/dL) 131 H 117 H 148 H (75-99) mg/dL Calcium (8.4-10.2) mg/dL 11/06/18 11/06/18 11/06/18 Range/Units 04:51 04:51 08:22 RBC 3.17 L (3.80-5.40) m/uL Hgb 9.4 L (11.4-16.0) gm/dL Hct 30.2 L (34.0-46.0) % Plt Count 522 H (150-450) k/uL BUN 37 H (7-17) mg/dL Creatinine 1.30 H (0.52-1.04) mg/dL Glucose 114 H (74-99) mg/dL POC Glucose (mg/dL) 117 H (75-99) mg/dL Calcium 7.8 L (8.4-10.2) mg/dL Microbiology - Last 24 Hours (Table) 11/03/18 07:11 Blood Culture - Preliminary Blood No Growth after 72 hours Assessment and Plan (1) Anemia Narrative/Plan: Symptomatic anemia of unknown etiology. The patient denies any signs or symptoms of GI bleeding with negative stool testing for occult blood. Differential includes occult GI bleed, hematopoietic dysfunction in the setting of recent infection, or other source of blood loss. EGD completed yesterday with no evidence of active bleeding or bleeding sources. Colonoscopy incomplete secondary to patient's intolerance bowel prep. Current Visit: Yes Status: Acute Code(s): D64.9 - ANEMIA, UNSPECIFIED S NOMED Code(s): 986558741 (2) GERD (gastroesophageal reflux disease) Current Visit: Yes Status: Acute Code(s): K21.9 - GASTRO-ESOPHAGEAL REFLUX DISEASE WITHOUT ESOPHAGITIS SNOMED Code(s): 849851005 (3) MRSA pneumonia Current Visit: Yes Status: Acute Code(s): J15.212 - PNEUMONIA DUE TO METHICILLIN RESISTANT STAPHYLOCOCCUS AUREUS SNOMED Code(s): 604623179188004 Plan: Continue to monitor hemoglobin and transfuse as needed. Outpatient colonoscopy was advised. Biopsies pending. Continue GI prophylaxis iron supplementation. Assessment and plan a care discussed with Dr. Young
--- NOTE | 2018-11-06 11:29 | P.PN ---
Subjective Patient is seen in follow-up for acute kidney injury. Renal function is stable. Creatinine 1.3 today. She is maintained on Lasix 40 mg IV once daily. Lower extremity edema improving. Admits to good urine output. Hemoglobin 9.4 today. No active bleeding. Vital signs are stable. General: The patient appeared well nourished and normally developed. HEENT: Head exam is unremarkable. Neck is without jugular venous distension. LUNGS: Breath sounds decreased. HEART: Rate and Rhythm are regular. First and second heart sounds normal. No murmurs, rubs or gallops. ABDOMEN: Abdominal exam reveals normal bowel sounds. Non-tender and non-diste nded. No evidence of peritonitis. EXTREMITITES: 1+ edema. Objective - Vital Signs Vital signs: Vital Signs Temp 98.4 F 11/06/18 07:51 Pulse 74 11/06/18 08:15 Resp 14 11/06/18 07:51 BP 161/70 11/06/18 07:51 Pulse Ox 97 11/06/18 07:51 Intake & Output 11/05/18 11/06/18 11/06/18 18:59 06:59 18:59 Intake Total 200 Balance 200 Intake: IV 200 Other: Voiding Method Bedside Commode # Voids 2 1 # Bowel Movements 1 1 - Labs CBC & Chem 7: 11/06/18 04:51 11/06/18 04:51 Labs: Abnormal Lab Results - Last 24 Hours (Table) 11/05/18 11/05/18 11/05/18 Range/Units 11:31 16:37 21:21 RBC (3.80-5.40) m/uL Hgb (11.4-16.0) gm/dL Hct (34.0-46.0) % Plt Count (150-450) k/uL BUN (7-17) mg/dL Creatinine (0.52-1.04) mg/dL Glucose (74-99) mg/dL POC Glucose (mg/dL) 131 H 117 H 148 H (75-99) mg/dL Calcium (8.4-10.2) mg/dL 11/06/18 11/06/18 11/06/18 Range/Units 04:51 04:51 08:22 RBC 3.17 L (3.80-5.40) m/uL Hgb 9.4 L (11.4-16.0) gm/dL Hct 30.2 L (34.0-46.0) % Plt Count 522 H (150-450) k/uL BUN 37 H (7-17) mg/dL Creatinine 1.30 H (0.52-1.04) mg/dL Glucose 114 H (74-99) mg/dL POC Glucose (mg/dL) 117 H (75-99) mg/dL Calcium 7.8 L (8.4-10.2) mg/dL Microbiology - Last 24 Hours (Table) 11/03/18 07:11 Blood Culture - Preliminary Blood No Growth after 72 hours Assessment and Plan Plan: Assessment: 1. Acute kidney injury secondary to ATN secondary to infection and nonsteroidals. Also component of cardiorenal syndrome improving with diuresis. Creatinine 1.3 today. Baseline creatinine near 1. No proteinuria on UA. 2. MRSA pneumonia maintained on IV vancomycin. 3. Anemia with iron deficiency maintained on IV iron. Status post EGD and colonoscopy in November 05 which revealed mild gastritis in the antrum. No active bleeding was noted. 4. Diastolic CHF with mild mitral and tricuspid regurgitation. Mild pulmonary hypertension. 5. Benign hypertension. Blood pressures in the higher side. Lisinopril added. Plan: Maintain Lasix 40 mg IV once daily. Avoid nephrotoxins. Repeat electrolytes in the morning.
[2018-11-06 11:53] LABS: Glucose,Whole Blood 178 mg/dL (75-99)
--- NOTE | 2018-11-06 12:28 | P.PN ---
Subjective Progress Note Date: 11/06/18 Principal diagnosis: follow up for anemia , MRSA bactremia , swelling in the legs , MUNDO, uncontrolled hypertension patient seen and examined, patient tolerated procedure well , no source of bleeding identified. she denies any GI bleeding at this time. she reports increase right sided lower chest pain , pleuritic in nature, no fevers, no chills, no coughing Objective - Vital Signs Vital signs: Vital Signs Temp 98.4 F 11/06/18 07:51 Pulse 74 11/06/18 08:15 Resp 14 11/06/18 07:51 BP 161/70 11/06/18 07:51 Pulse Ox 97 11/06/18 07:51 Intake & Output 11/05/18 11/06/18 11/06/18 18:59 06:59 18:59 Intake Total 200 Balance 200 Intake: IV 200 Other: Voiding Method Bedside Commode # Voids 2 1 # Bowel Movements 1 1 - Exam Constitutional: vital signs stable, Not in acute distress, pleasant, conversant Lungs: decrease breath sounds at right lung base, no wheezing rhonci or rales, surgical wounds from recent procedures over right posterior chest seems to be open with yellowish discharge no induration , minimal erythema, tender to palpation (2 surgical wounds 2 cm each, and one area of superficial skin sloughing that looks raw, no drainage, Cardiovascular: Regular rate and rhythm, no murmurs, no gallops, no rubs, +1 bilateral peripheral edema , compression stockings in place Gastrointestinal: Soft, no tenderness to palpation, bowel sounds positive, no abdominal wall hernias Extremities: No digital cyanosis or clubbing, peripheral pulses palpable and equal over bilateral radial arteries , with tenderness to palpation of bilateral legs Psych: Alert, oriented to place, person and time, appropriate affect, intact judgment - Labs CBC & Chem 7: 11/06/18 04:51 11/06/18 04:51 Labs: Abnormal Lab Results - Last 24 Hours (Table) 11/05/18 11/05/18 11/06/18 Range/Units 16:37 21:21 04:51 RBC (3.80-5.40) m/uL Hgb (11.4-16.0) gm/dL Hct (34.0-46.0) % Plt Count (150-450) k/uL BUN 37 H (7-17) mg/dL Creatinine 1.30 H (0.52-1.04) mg/dL Glucose 114 H (74-99) mg/dL POC Glucose (mg/dL) 117 H 148 H (75-99) mg/dL Calcium 7.8 L (8.4-10.2) mg/dL 11/06/18 11/06/18 Range/Units 04:51 08:22 RBC 3.17 L (3.80-5.40) m/uL Hgb 9.4 L (11.4-16.0) gm/dL Hct 30.2 L (34.0-46.0) % Plt Count 522 H (150-450) k/uL BUN (7-17) mg/dL Creatinine (0.52-1.04) mg/dL Glucose (74-99) mg/dL POC Glucose (mg/dL) 117 H (75-99) mg/dL Calcium (8.4-10.2) mg/dL Microbiology - Last 24 Hours (Table) 11/03/18 07:11 Blood Culture - Preliminary Blood No Growth after 72 hours Assessment and Plan Assessment: 77-year-old female with recent hospitalization for pneumonia and right empyema. Patient is admitted as inpatient with anticipated length of stay more than 48 hours for acute anemia that developed at senior living no evidence of GI ble eding. Patient had a prolonged hospital course recently was discharged 2 days ago for MRSA bacteremia and pneumonia with empyema complleted with acute kidney injury due to sepsis. Patient still takes vancomycin at the senior living. patient transfused 2 units of blood for hgb <7 on 11/02 , toelrated well, hgb responded well. fecal occult blood test was negative. no source of bleeding. most likely explanation is her earlier sepsis and prolonged hospital course with frequent blood draws resulted in drop in her hgb with bone marrow suppression from overwhelming sepsis earlier this month during her hospitalization all factored into her anemia. this should start improving now her infection contr olled. 11/04 hemoglobin stable , no signs of ongoing bleeding. GI planning on GD in AM, will do CT w out contrast of the chest and abd /pelvis to rule out any hematoma. 11/06 patient is complaining of right sided chest pain radiating to the right shoulder, pleuritic in nature, EKG no changes from before. no fevers overnight, most recent imaging of the chest suggested some recurrence of right pleural effusion. surgical wounds over right chest are nonhealing with yellowish drainage. EGD did not show any bleeding source, follow up biopsies, GI recommends OP Cscope (poor prep inpatient ) hgb stable . blood pressure still poorly controlled ?pain / added lisinopril today . pulmonary was consulted for their input regarding recurrent pelural effusion Plan: Poorly controlled Blood pressure , ? Pain . BP meds adjusted Right sided pleuritic chest pain, Pulm to evaluate recurrent right pleural effusion, Recent history of MRSA bacteremia, and MRSA empyema s/p chest tube and VATS, on vanco Acute kidney injury, improving Anemia, secondary to frequent blood draws and bone marrow suppression from severe acute illness, stable now and improving , r/o GI bleeding EGD shows no source, OP Cscope (poor prep inpatient ) Bilateral leg swelling and tenderness, venous US of the legs negative for acute DVT Severe thrombocytosis possibly reactive to recent sepsis due to MRSA bacteremia, improving now Atelectasis and loss of volume over the right lung base with residual RT pleural effusion debility from prolonged hospital course and acute illness severe protein caolrie malnutrition added lisinopril , continue with atenolol, imdur and norvasc. Added clonidine PRN for systolic >170 hgb stable, check daily s/p 2 units transfusion total during this hospital course Continue aspirin Nephrology following Avoid nephrotoxic meds continue with IV lasix per nephro Encourage incentive spirometry Continue vancomycin goal trough 12-15, ID following, plans to continue vanco up until 11/15 Most recent positive culture was 10/17/2018 GI prophylaxis with PPI twice a day [place] for pain control encourage dietry intake, ensure Chronic conditions Debility patient will be sent back to senior living once stabilized Hypertension Hyperlipidemia History of CAD DVT prophylaxis on heparin subcu twice a day compression stocking optimize BP control Pulm to evaluate recurrent right pleural effusion ID to evaluate surgical wounds over right chest , non healing with slight drainage discharge to [facility] once stable
--- NOTE | 2018-11-06 14:33 | US ---
EXAMINATION TYPE: US chest DATE OF EXAM: 11/06/2018 COMPARISON: NONE CLINICAL HISTORY: Markings for thoracentesis by pulmonary staff. Pl Effusion TECHNIQUE: Targeted ultrasound of the posterior lower bilateral EXAM MEASUREMENTS: Right Pleural Effusion pocket size: 0.9 cm Left Pleural Effusion pocket size: 5.5 cm *debris seen within pocket Left skin surface to fluid distance: 3.1 cm Right side NOT marked Left side marked for possible thoracentesis outside the dept. Pulmonologists are able to review the images in the patient?s EMR. Impressions: 1. Bilateral pleural effusions. Mild on the right, larger on the left. IMPRESSIONS:
[2018-11-06 17:30] LABS: Glucose,Whole Blood 142 mg/dL (75-99)
[2018-11-06 19:25] LABS: Glucose,Whole Blood 158 mg/dL (75-99)
[2018-11-06] MEDS: MONTELUKAST 10 MG TAB PO SCH (21:40)
[2018-11-06] MEDS: PRAVASTATIN SODIUM 40 MG TAB PO SCH (21:40)
[2018-11-06] MEDS: LACTATED RINGERS 1,000 ML IV SCH (21:51)
--- NOTE | 2018-11-06 22:06 | P.PN ---
Subjective Progress Note Date: 11/06/18 77-year-old female who presents to Hospital for sudden significant worsening of her weakness and was found evidence of significant blood loss anemia. Was admitted over the weekend and I'm assuming care. Patient was recently hospitalized for she had MRSA pneumonia and empyema and underwent a VATS procedure. She is receiving vancomycin therapy with improvement of her pneumonia. She did have acute renal failure that has shown ongoing improvement. She is getting prepped for her endoscopy to evaluate causes of her acute blood loss anemia. No further fevers are noted. 11/05/2018 patient is feeling poorly. She had multiple bouts of nausea and emesis while she was taking her prep for her colonoscopy. Abdominal pain is improved this morning. She is denying of any acute difficulties. Continues to have pain on the chest wall to the right which chest tubes were in place and the surgical scars from the VATS. She however is utilizing her incentive spirometer and does not feel short of breath. Does not have fever or chills. On 11/06/2018 continues feel somewhat poorly. Is having some discomfort to the prior chest tube site in VATS site. Still having some pain and is referring to her scapula also. Shortness of breath is stable to improved. Nausea and emesis have improved now that she's no longer utilizing the prep for her colonoscopy. Objective - Vital Signs Vital signs: Vital Signs Temp 98.0 F 11/06/18 19:36 Pulse 81 11/06/18 19:36 Resp 18 11/06/18 19:36 BP 160/70 11/06/18 19:36 Pulse Ox 96 11/06/18 19:36 Intake & Output 11/06/18 11/06/18 11/07/18 06:59 18:59 06:59 Intake Total 0 Balance 0 Intake: Oral 0 Other: Voiding Method Bedside Commode # Voids 1 3 # Bowel Movements 1 - Exam Pleasant 77-year-old woman of thin build not in distress but is with discomfort when she tries to change position in bed HEENT: Anicteric conjunctiva are pink and moist nasal mucosa grossly intact without significant lesions, there is no thrush. Neck: The neck is supple without significant lymphadenopathy or thyromegaly. Lungs: Symmetrical air entry is noted. chest tube is removed and there is evidence ofadequate breath sounds into the right chest only few basilar crackles Heart: Regular rate and rhythm with an audible S1-S2, no S3 no S4. There is no significant murmur click or rub, PMI was nondisplaced. Abdomen: Positive bowel sounds soft and nontender without palpable masses or organomegaly. There was no guarding or rebound. Extremities: Upper extremities are without edema but does have discomfort when the left shoulder area is manipulated especially to change her position in bed. There is no edema or lesions. Lower extremities have trace edema no open ulcers Skin is without rash or blisters evidence of any vesicles over the left shoulder area no erythema or other rash, the right chest wall lateral surface where the chest tube was in place and VATS site shows evidence of minimal serous drainage no necrosis some minimal surrounding erythema. Site is tender. Neuro: Awake alert oriented to person place and time. There are no acute new gross focal sensory motor deficits. - Labs CBC & Chem 7: 11/06/18 04:51 11/06/18 04:51 Labs: Abnormal Lab Results - Last 24 Hours (Table) 11/06/18 11/06/18 11/06/18 Range/Units 04:51 04:51 08:22 RBC 3.17 L (3.80-5.40) m/uL Hgb 9.4 L (11.4-16.0) gm/dL Hct 30.2 L (34.0-46.0) % Plt Count 522 H (150-450) k/uL BUN 37 H (7-17) mg/dL Creatinine 1.30 H (0.52-1.04) mg/dL Glucose 114 H (74-99) mg/dL POC Glucose (mg/dL) 117 H (75-99) mg/dL Calcium 7.8 L (8.4-10.2) mg/dL 11/06/18 11/06/18 11/06/18 Range/Units 11:50 17:21 19:12 RBC (3.80-5.40) m/uL Hgb (11.4-16.0) gm/dL Hct (34.0-46.0) % Plt Count (150-450) k/uL BUN (7-17) mg/dL Creatinine (0.52-1.04) mg/dL Glucose (74-99) mg/dL POC Glucose (mg/dL) 178 H 142 H 158 H (75-99) mg/dL Calcium (8.4-10.2) mg/dL Microbiology - Last 24 Hours (Table) 11/03/18 07:11 Blood Culture - Preliminary Blood No Growth after 72 hours Laboratory Results WBC 7.7 k/uL (3.8-10.6) 11/06/18 04:51 RBC 3.17 m/uL (3.80-5.40) L 11/06/18 04:51 Hgb 9.4 gm/dL (11.4-16.0) L 11/06/18 04:51 Hct 30.2 % (34.0-46.0) L 11/06/18 04:51 MCV 95.2 fL (80.0-100.0) 11/06/18 04:51 MCH 29.6 pg (25.0-35.0) 11/06/18 04:51 MCHC 31.1 g/dL (31.0-37.0) 11/06/18 04:51 RDW 14.5 % (11.5-15.5) 11/06/18 04:51 Plt Count 522 k/uL (150-450) H 11/06/18 04:51 Neutrophils % 66 % 11/04/18 05:51 Lymphocytes % 14 % 11/04/18 05:51 Monocytes % 13 % 11/04/18 05:51 Eosinophils % 3 % 11/04/18 05:51 Basophils % 0 % 11/04/18 05:51 Neutrophils # 4.0 k/uL (1.3-7.7) 11/04/18 05:51 Lymphocytes # 0.9 k/uL (1.0-4.8) L 11/04/18 05:51 Monocytes # 0.7 k/uL (0-1.0) 11/04/18 05:51 Eosinophils # 0.2 k/uL (0-0.7) 11/04/18 05:51 Basophils # 0.0 k/uL (0-0.2) 11/04/18 05:51 Hypochromasia Slight 11/02/18 15:17 Retic Count 1.3 % (0.5-2.0) 11/04/18 05:51 PT 10.3 sec (9.0-12.0) 11/02/18 12:52 INR 1.0 (<1.2) 11/02/18 12:52 APTT 30.3 sec (22.0-30.0) H 11/02/18 12:52 Sodium 138 mmol/L (137-145) 11/06/18 04:51 Potassium 3.8 mmol/L (3.5-5.1) 11/06/18 04:51 Chloride 107 mmol/L (98-107) 11/06/18 04:51 Carbon Dioxide 24 mmol/L (22-30) 11/06/18 04:51 Anion Gap 7 mmol/L 11/06/18 04:51 BUN 37 mg/dL (7-17) H 11/06/18 04:51 Creatinine 1.30 mg/dL (0.52-1.04) H 11/06/18 04:51 Est GFR (CKD-EPI)AfAm 46 (>60 ml/min/1.73 sqM) 11/06/18 04:51 Est GFR (CKD-EPI)NonAf 40 (>60 ml/min/1.73 sqM) 11/06/18 04:51 Glucose 114 mg/dL (74-99) H 11/06/18 04:51 POC Glucose (mg/dL) 158 mg/dL (75-99) H 11/06/18 19:12 POC Glu Bench Carpenter JEREMIAH RendonJayesh 11/06/18 19:[address] Glu mg/dL 148 11/04/18 05:51 Hemoglobin A1c 6.8 % (4.0-6.0) H 11/04/18 05:51 Calcium 7.8 mg/dL (8.4-10.2) L 11/06/18 04:51 Magnesium 2.0 mg/dL (1.6-2.3) 11/06/18 04:51 Iron 20 ug/dL (50-170) L 11/04/18 05:51 TIBC 157 ug/dL (228-460) L 11/04/18 05:51 Iron Saturation 12.74 (12.00-45.00) 11/04/18 05:51 Ferritin 424.8 ng/mL (10.0-291.0) H 11/04/18 05:51 Total Bilirubin 0.2 mg/dL (0.2-1.3) 11/02/18 12:52 AST 17 U/L (14-36) 11/02/18 12:52 ALT 23 U/L (9-52) 11/02/18 12:52 Alkaline Phosphatase 135 U/L (38-126) H 11/02/18 12:52 Troponin I <0.012 ng/mL (0.000-0.034) 11/06/18 04:51 NT-Pro-B Natriuret Pep 2460 pg/mL 11/02/18 12:52 Total Protein 4.2 g/dL (6.3-8.2) L 11/02/18 12:52 Albumin 1.9 g/dL (3.5-5.0) L 11/02/18 12:52 Vitamin B12 >4000.0 pg/mL (211-911) H 11/04/18 05:51 Folate 19.5 ng/mL 11/04/18 05:51 Stool Occult Blood Negative (Negative) 11/02/18 12:52 Random Vancomycin 16.2 ug/mL 11/06/18 04:51 Blood Type O Positive 11/02/18 12:52 Blood Type Recheck No 11/02/18 12:52 Antibody Screen NEGATIVE 11/02/18 12:52 Crossmatch See Detail 11/02/18 12:52 Spec Expiration Date 11/05/2018 - 02411/02/18 12:52 Microbiology 11/03/18 07:11 Blood Blood Culture - Preliminary No Growth after 72 hours Microbiology 11/03/18 07:11 Blood Blood Culture - Preliminary No Growth after 72 hours Assessment and Plan (1) MRSA pneumonia Narrative/Plan: 77-year-old woman presents to Hospital after recent discharge receiving treated for MRSA pneumonia, empyema bacteremia. Tolerating her vancomycin therapy better over the last several days. She had a brief period of some vancomycin toxicity that has resolved. Her acute renal failure is resolved. She however is now developed acute blood loss anemia and is being evaluated. She will maintained on pharmacy dosing of her vancomycin for her recent complex infection and be monitored closely. 11/05/2018 patient is feeling somewhat better today now that she has not having to complete her oral preparation for her colonoscopy since it was canceled be cause of her ongoing nausea and emesis and attempting to take the prep. She's not having much abdominal pain. She's having no hematemesis motor or hematochezia. It is noted she had extensive anemia admission there appears to be stable. Iron infusion has a reoccurred. For now continue ongoing supportive care will need to complete her course of intravenous antibiotic therapy for MRSA pneumonia, empyema and bacteremia. 4 she seems to be tolerating the vancomycin therapy at this time. There was a prior bout of toxicity and renal. That is resolved. 10/27/2018 patient overall feels better than admission but still feels poorly. She still has severe discomfort to the right anterior chest wall at the site of the recent VATS and chest tube. There some mild redness to the site and silver dressing covered by foam will be requested to these areas to try to make them more comfortable. She remains on her vancomycin therapy for her MRSA bacteremia pneumonia and empyema with improved creatinine and improved renal failure. Current Visit: Yes Status: Acute Code(s): J15.212 - PNEUMONIA DUE TO METHICILLIN RESISTANT STAPHYLOCOCCUS AUREUS SNOMED Code(s): 749607909432990 (2) Empyema Current Visit: Yes Status: Acute Code(s): J86.9 - PYOTHORAX WITHOUT FISTULA SNOMED Code(s): 899434302
[2018-11-06 22:11] LABS: Glucose,Whole Blood 167 mg/dL (75-99)
[2018-11-07] MEDS: HYDROcodone/APAP 5-325MG 1 EACH TAB PO PRN (07:09)
[2018-11-07 07:17] LABS: Glucose,Whole Blood 107 mg/dL (75-99)
[2018-11-07] MEDS: SYMBICORT 160-4.5 MCG INHALER INHALATION SCH (07:38)
[2018-11-07] MEDS: INSULIN ASPART (NovoLOG) 100 UNIT/ML VIAL SQ SCH ×2 (07:41→13:26)
[2018-11-07] MEDS: PANTOPRAZOLE 40 MG TABLET PO SCH (09:05)
[2018-11-07] MEDS: LISINOPRIL 10 MG TAB PO SCH (09:06)
[2018-11-07] MEDS: ATENOLOL 25 MG TAB PO SCH (09:06)
[2018-11-07] MEDS: amLODIPine 10 MG TAB PO SCH (09:06)
[2018-11-07] MEDS: LORATADINE 10 MG TAB PO SCH (09:07)
[2018-11-07] MEDS: DOCUSATE 100 MG CAP PO SCH (09:07)
[2018-11-07] MEDS: ISOSORBIDE MONONITRATE ER 60 MG TAB.ER.24H PO SCH (09:07)
[2018-11-07] MEDS: HEPARIN SODIUM,PORCINE 5,000 UNIT/ML 1 ML VIAL SQ SCH (09:08)
[2018-11-07 09:39] LABS: Calcium 7.9 mg/dL (8.4-10.2); Potassium 3.8 mmol/L (3.5-5.1)
[2018-11-07] MEDS: SODIUM FERRIC GLUCONAT-SUCROSE 125 MG in SODIUM CHLORIDE 0.9% 100 ML IVPB SCH (09:51)
--- NOTE | 2018-11-07 09:54 | P.PN ---
Subjective Patient is seen in follow-up for acute kidney injury. Renal function is slightly worse which is due to diuresis. Creatinine 1.4 today. She is jewell ntained on Lasix 40 mg IV once daily. Lower extremity edema improving. Admits to good urine output. Hemoglobin 9.4 as of yesterday. No active bleeding. Oral intake is fair. Vital signs are stable. General: The patient appeared well nourished and normally developed. HEENT: Head exam is unremarkable. Neck is without jugular venous distension. LUNGS: Breath sounds decreased. HEART: Rate and Rhythm are regular. First and second heart sounds normal. No murmurs, rubs or gallops. ABDOMEN: Abdominal exam reveals normal bowel sounds. Non-tender and non- distended. No evidence of peritonitis. EXTREMITITES: 1+ edema. Objective - Vital Signs Vital signs: Vital Signs Temp 98.0 F 11/07/18 07:00 Pulse 74 11/07/18 07:00 Resp 16 11/07/18 07:00 BP 177/72 11/07/18 07:00 Pulse Ox 95 11/07/18 07:00 Intake & Output 11/06/18 11/07/18 11/07/18 18:59 06:59 18:59 Intake Total 0 Balance 0 Intake: Oral 0 Other: Voiding Method Bedside Commode # Voids 3 1 - Labs CBC & Chem 7: 11/06/18 04:51 11/07/18 08:49 Labs: Abnormal Lab Results - Last 24 Hours (Table) 11/06/18 11/06/18 11/06/18 Range/Units 11:50 17:21 19:12 Chloride (98-107) mmol/L BUN (7-17) mg/dL Creatinine (0.52-1.04) mg/dL Glucose (74-99) mg/dL POC Glucose (mg/dL) 178 H 142 H 158 H (75-99) mg/dL Calcium (8.4-10.2) mg/dL 11/06/18 11/07/18 11/07/18 Range/Units 21:59 07:12 08:49 Chloride 108 H (98-107) mmol/L BUN 35 H (7-17) mg/dL Creatinine 1.40 H (0.52-1.04) mg/dL Glucose 142 H (74-99) mg/dL POC Glucose (mg/dL) 167 H 107 H (75-99) mg/dL Calcium 7.9 L (8.4-10.2) mg/dL Microbiology - Last 24 Hours (Table) 11/03/18 07:11 Blood Culture - Preliminary Blood No Growth after 96 hours Assessment and Plan Plan: Assessment: 1. Acute kidney injury secondary to ATN secondary to infection and nonsteroidals. Also component of cardiorenal syndrome and recent addition of LOW inhibitor. Creatinine 1.4 today. Baseline creatinine near 1. No proteinuria on UA. 2. MRSA pneumonia maintained on IV vancomycin. 3. Anemia with iron deficiency maintained on IV iron. Status post EGD and colonoscopy in November 05 which revealed mild gastritis in the antrum. No active bleeding was noted. 4. Diastolic CHF with mild mitral and tricuspid regurgitation. Mild pulmonary hypertension. 5. Benign hypertension. Better controlled. Lisinopril added. Plan: I will change Lasix to 40 mg orally once daily. Avoid nephrotoxins. Potential discharge tomorrow today. Repeat BMP, mg in 2-3 days postdischarge and follow up outpatient in the next 1-2 weeks.
[2018-11-07] MEDS: ALBUTEROL NEBULIZED 2.5 MG/3 ML INHALATION PRN (11:21)
[2018-11-07] MEDS: FUROSEMIDE 10 MG/ML 4 ML VIAL IV SCH (11:28)
[2018-11-07 11:53] LABS: Glucose,Whole Blood 133 mg/dL (75-99)
--- NOTE | 2018-11-07 12:09 | P.PN ---
Subjective Progress Note Date: 11/07/18 Principal diagnosis: follow up for uncontrolled hypertension , MUNDO , anemia , MRSA bactremia , anasarca patient seen and examined, patient doing better today , pain is better tolerated on the right chest over the sites of most recent chest tube and VATS she denies any GI bleeding at this time. no fevers, no chills, no coughing Objective - Vital Signs Vital signs: Vital Signs Temp 98.0 F 11/07/18 07:00 Pulse 68 11/07/18 11:33 Resp 16 11/07/18 10:38 BP 160/74 11/07/18 10:47 Pulse Ox 95 11/07/18 07:00 Intake & Output 11/06/18 11/07/18 11/07/18 18:59 06:59 18:59 Intake Total 0 Balance 0 Intake: Oral 0 Other: Voiding Method Bedside Commode Bedside Commode # Voids 3 1 - Exam Constitutional: vital signs stable, Not in acute distress, pleasant, conversant Lungs: decrease breath sounds at right lung base (improving with some scattered rhonci over that area) , no wheezing or rales, surgical wounds from recent procedures over right posterior chest currently cleaned and optifoam applied Cardiovascular: Regular rate and rhythm, no murmurs, no gallops, no rubs, +1 bilateral peripheral edema , compression stockings in place Gastrointestinal: Soft, no tenderness to palpation, bowel sounds positive, no abdominal wall hernias Extremities: No digital cyanosis or clubbing, peripheral pulses palpable and equal over bilateral radial arteries , tenderness to palpation of bilateral legs (stable ) Psych: Alert, oriented to place, person and time, appropriate affect, intact judgment - Labs CBC & Chem 7: 11/06/18 04:51 11/07/18 08:49 Labs: Abnormal Lab Results - Last 24 Hours (Table) 11/06/18 11/06/18 11/06/18 Range/Units 11:50 17:21 19:12 Chloride (98-107) mmol/L BUN (7-17) mg/dL Creatinine (0.52-1.04) mg/dL Glucose (74-99) mg/dL POC Glucose (mg/dL) 178 H 142 H 158 H (75-99) mg/dL Calcium (8.4-10.2) mg/dL 11/06/18 11/07/18 11/07/18 Range/Units 21:59 07:12 08:49 Chloride 108 H (98-107) mmol/L BUN 35 H (7-17) mg/dL Creatinine 1.40 H (0.52-1.04) mg/dL Glucose 142 H (74-99) mg/dL POC Glucose (mg/dL) 167 H 107 H (75-99) mg/dL Calcium 7.9 L (8.4-10.2) mg/dL Microbiology - Last 24 Hours (Table) 11/03/18 07:11 Blood Culture - Preliminary Blood No Growth after 96 hours Assessment and Plan Assessment: 77-year-old female with recent hospitalization for pneumonia and right empyema. Patient is admitted as inpatient with anticipated length of stay more than 48 hours for acute anemia that developed at assisted no evidence of GI bleeding. Patient had a prolonged hospital course recently was discharged 2 days ago for MRSA bacteremia and pneumonia with empyema complleted with acute kidney injury due to sepsis. Patient still takes vancomycin at the assisted. patient transfused 2 units of blood for hgb <7 on 11/02 , toelrated well, hgb responded well. fecal occult blood test was negative. no source of bleeding. most likely explanation is her earlier sepsis and prolonged hospital course with frequent blood draws resulted in drop in her hgb with bone marrow suppression from overwhelming sepsis earlier this month during her hospitalization all factored into her anemia. this should start improving now her infection co ntrolled. 11/04 hemoglobin stable , no signs of ongoing bleeding. GI planning on GD in AM, will do CT w out contrast of the chest and abd /pelvis to rule out any hematoma. 11/06 patient is complaining of right sided chest pain radiating to the right shoulder, pleuritic in nature, EKG no changes from before. no fevers overnight, most recent imaging of the chest suggested some recurrence of right pleural effusion. surgical wounds over right chest are nonhealing with yellowish drainage. EGD did not show any bleeding source, follow up biopsies, GI recommends OP Cscope (poor prep inpatient ) hgb stable . blood pressure still poorly controlled ?pain / added lisinopril today . pulmonary was consulted for their input regarding recurrent pelural effusion 11/07 patient blood pressure is better controlled today , labs showing stable overall creatinine and Hgb, anasarca improving , patient is tolerating nutrition and increasing her protein in diet. I discussed with ID and they have checked on her chest wounds no acute infection is suspected, silver and optifoam dressing applied. GI recommending OP follow up with Cscope. follow up with nephrology OP. continue with vancomycin goal trough 12-15. until 11/15/2018. minimal pleural effusion bilateral (most likelly due to fluid overload status ) Plan: better overall control of blood pressure today Right sided pleuritic chest pain, improving with cleaning of surgical wounds and applying optifoam dressing Recent history of MRSA bacteremia, and MRSA empyema s/p chest tube and VATS, on vanco Acute kidney injury, improving Anemia, secondary to frequent blood draws and bone marrow suppression from severe acute illness, stable now and improving , r/o GI bleeding EGD shows no source, OP Cscope (poor prep inpatient ) Bilateral leg swelling and tenderness, venous US of the legs negative for acute DVT Severe thrombocytosis possibly reactive to recent sepsis due to MRSA bacteremia, improving now Atelectasis and loss of volume over the right lung base with residual RT pleural effusion debility from prolonged hospital course and acute illness severe protein caolrie malnutrition added lisinopril , continue with atenolol, imdur and norvasc. Added clonidine PRN for systolic >170 hgb stable, check daily s/p 2 units transfusion total during this hospital course Continue aspirin Nephrology following Avoid nephrotoxic meds continue with IV lasix per nephro Encourage incentive spirometry Continue vancomycin goal trough 12-15, ID following, plans to continue vanco up until 11/15 Most recent positive culture was 10/17/2018 GI prophylaxis with PPI twice a day [place] for pain control encourage dietry intake, ensure Chronic conditions Debility patient will be sent back to assisted once stabilized Hypertension Hyperlipidemia History of CAD DVT prophylaxis on heparin subcu twice a day compression stocking Possible discharge today back to [facility] discharge [facility] once stable
--- NOTE | 2018-11-07 12:28 | P.DS ---
Providers Date of admission: 11/02/18 14:48 Expected date of discharge: 11/07/18 Attending physician: Wendy Story MD Consults: 11/02/18 18:10 Consult Physician Routine Consulting Provider: Dar Young Consult Reason/Comments: anemia , epigastric discomfort Do you want consulting provider notified?: Yes Consult Physician Routine Consulting Provider: Sil Kim Consult Reason/Comments: MUNDO Do you want consulting provider notified?: Yes 11/02/18 18:11 Consult Physician Routine Consulting Provider: Zain Velasquez Consult Reason/Comments: recent histroy of MRSA bactremia Do you want consulting provider notified?: Yes 11/06/18 10:40 Consult Physician Routine Consulting Provider: Belén Marquez Consult Reason/Comments: recurrent Rt pleural effusion, symptomatic (pain) Do you want consulting provider notified?: Yes Primary care physician: Catalino Gaona Hospital Course: Final diagnosis at discharge Anemia, secondary to frequent blood draws and bone marrow suppression from severe acute illness, stable now and improving , r/o GI bleeding EGD shows no source, OP Cscope (poor prep inpatient ), s/p 2 units blood transfusion and iron infusion Recent history of MRSA bacteremia, and MRSA empyema s/p chest tube and VATS, on vanco , Goal trough 12-15, continue until November 15 Acute kidney injury, improving and stable now Bilateral leg swelling and tenderness, venous US of the legs negative for acute DVT Severe thrombocytosis possibly reactive to recent sepsis due to MRSA bacteremia, improving debility from prolonged hospital course and acute illness severe protein caolrie malnutrition Uncontrolled hypertension , better control with adjustment of BP meds Right sided pleuritic chest pain, improving with cleaning of surgical wounds and applying optifoam dressing , US showed minimal right pleural effusion , and slightly larger left sided pleural effusion , most likely as part of her fluid overload status that is impoving with diuresis , Atelectasis and loss of volume over the right lung base with residual RT pleural effusion hospital course 77-year-old female with recent hospitalization for pneumonia and right empyema resulting in MRSA bactremia. patient was sent back to the hospital from [facility] rehab due to acute [facility] that [facility] no evidence of GI bleeding. Patient had a prolonged hospital course recently was discharged for MRSA bacteremia and pneumonia with empyema complicated with acute kidney injury due to sepsis and vancomycin toxicity. Patient still takes [facility]comycin [facility] the [facility] with close monitoring of the trough level. patient transfused 2 units of blood for hgb <7 on 11/02 , tolerated well, hgb responded well. fecal occult blood test was negative. no source of bleeding. most likely explanation is her earlier sepsis and prolonged hospital course with frequent blood draws resulted in drop in her hgb with bone marrow suppression f rom overwhelming sepsis earlier this month during her hospitalization all factored into her anemia. this should start improving now her infection controlled. 11/04 hemoglobin stable , no signs of ongoing bleeding. GI planning on EGD in AM, CT w out contrast of the chest and abd /pelvis showed no evidence of any hematoma 11/05 EGD tolerated well, no source of bleeding identified, patient failed to do proper bowel prep , so Cscope was cancelled and deferred to OP follow up. 11/06 plans for discharge cancelled due to patient complaining of right sided chest pain radiating to the right shoulder, pleuritic in nature, EKG no changes from before. no fevers overnight, most recent imaging of the chest suggested some recurrence of right pleural effusion. surgical wounds over right chest are nonhealing with yellowish drainage. EGD did not show any bleeding source, follow up biopsies, GI recommends OP Cscope (poor prep inpatient ) hgb stable . blood pressure medications being adjusted to optimize BP control. 11/07 patient blood pressure is better controlled today , labs showing stable overall creatinine and Hgb, anasarca improving , patient is tolerating nutrition and increasing her protein in diet. I discussed with ID and they have checked on her chest wounds no acute infection is suspected, silver and optifoam dressing applied. GI recommending OP follow up with Cscope. follow up with nephrology OP. continue with vancomycin goal trough 12-15. until 11/15/2018. minimal pleural effusion bilateral (most likelly due to fluid overload status ) Patient seen and examined on day of discharge, seems to be stable, alert, very pleasant and talkative. she is showing more energy level now, and enthusiasm for rehab and recovering. denies any GI bleeding, shortness of breath. She reports that since reapplying new dressing over her chest tube wounds, the pain is more tolerable and controlled now Constitutional: vital signs stable, Not in acute distress, pleasant, conversant Lungs: decrease breath sounds at right lung base (improving with some scattered rhonci over that area) , no wheezing or rales, surgical wounds from recent procedures over right posterior chest currently cleaned and optifoam applied Cardiovascular: Regular rate and rhythm, no murmurs, no gallops, no rubs, +1 bilateral peripheral edema , compression stockings in place Gastrointestinal: Soft, no tenderness to palpation, bowel sounds positive, no abdominal wall hernias Extremities: No digital cyanosis or clubbing, peripheral pulses palpable and equal over bilateral radial arteries , tenderness to palpation of bilateral legs (stable ) Psych: Alert, oriented to place, person and time, appropriate affect, intact judgment Discharge back to [facility] in stable clinical condition follow up renal function and blood pressure, follow up with nephro OP Follow up with GI , for OP Cscope , monitor hgb and bowel movement for any evidence of bleeding Vancomycin until November 15 2018, dosing by pharmacy , Goal trough 12-15 encourage PO intake and increase protein in diet activity as tolerated 50 minutes were spent discharging this patient, and more than 50% of the time was spent in counseling the patient and family and in coordinating care. Procedures: EGD Patient Condition at Discharge: Stable Plan - Discharge Summary Discharge Rx Participant: Yes New Discharge Prescriptions: New amLODIPine [Norvasc] 10 mg PO DAILY tab Pantoprazole [Protonix] 40 mg PO AC-BID tablet. Budesonide-Formot 160-4.5 Mcg [Symbicort 160-4.5 Mcg Inhaler] 2 puff INHALATION RT-BID puff Lisinopril [Zestril] 10 mg PO DAILY tab Continue Atenolol [Tenormin] 25 mg PO BID Cetirizine HCl [Zyrtec] 10 mg PO DAILY Fluticasone Nasal [place] [Flonase Nasal [place]] 2 spr EA NOSTRIL DAILY Isosorbide Mononitrate ER [Imdur] 60 mg PO BID Lansoprazole [Prevacid] 30 mg PO DAILY Pravastatin Sodium [Pravachol] 40 mg PO HS Aspirin 81 mg PO DAILY chew Docusate [Colace] 100 mg PO BID cap Heparin Sodium,Porcine [Heparin Sodium] 5,000 unit SQ Q12HR vial Furosemide [Lasix] 40 mg PO DAILY #30 tablet Montelukast [Singulair] 10 mg PO HS tab Acetaminophen Tab [Tylenol] 650 mg PO Q6HR PRN tab PRN Reason: Fever and/ or MILD Pain Albuterol Nebulized [Ventolin Nebulized] 2.5 mg INHALATION RT-QID nebu Acetaminophen-Codeine 300-30mg [Tylenol w/codeine #3] 2 each PO Q6HR #21 tab Bisacodyl [Dulcolax] 10 mg RECTAL DAILY PRN PRN Reason: Constipation Insulin Aspart [NovoLOG] See Protocol SQ ACHS Magnesium Hydroxide [Milk of Magnesia] 2,400 mg PO DAILY PRN PRN Reason: Constipation Vancomycin 1,000 mg IVPB Q24HR #8 bag Discontinued Benzonatate [Tessalon Perles] 200 mg PO TID PRN PRN Reason: Cough Na Phos,M-B/Na Phos,Di-Ba [Fleet Adult] 133 ml RECTAL DAILY PRN PRN Reason: Constipation Discharge Medication List Atenolol [Tenormin] 25 mg PO BID 10/17/18 [History] Cetirizine HCl [Zyrtec] 10 mg PO DAILY 10/17/18 [History] Fluticasone Nasal [place] [Flonase Nasal [place]] 2 spr EA NOSTRIL DAILY 10/17/18 [History] Isosorbide Mononitrate ER [Imdur] 60 mg PO BID 10/17/18 [History] Lansoprazole [Prevacid] 30 mg PO DAILY 10/17/18 [History] Pravastatin Sodium [Pravachol] 40 mg PO HS 10/17/18 [History] Acetaminophen Tab [Tylenol] 650 mg PO Q6HR PRN tab 10/31/18 [Rx] Acetaminophen-Codeine 300-30mg [Tylenol w/codeine #3] 2 each PO Q6HR #21 tab 10/31/18 [Rx] Albuterol Nebulized [Ventolin Nebulized] 2.5 mg INHALATION RT-QID nebu 10/31/18 [Rx] Aspirin 81 mg PO DAILY chew 10/31/18 [Rx] Docusate [Colace] 100 mg PO BID cap 10/31/18 [Rx] Furosemide [Lasix] 40 mg PO DAILY #30 tablet 10/31/18 [Rx] Heparin Sodium,Porcine [Heparin Sodium] 5,000 unit SQ Q12HR vial 10/31/18 [Rx] Montelukast [Singulair] 10 mg PO HS tab 10/31/18 [Rx] Bisacodyl [Dulcolax] 10 mg RECTAL DAILY PRN 11/02/18 [History] Insulin Aspart [NovoLOG] See Protocol SQ ACHS 11/02/18 [History] Magnesium Hydroxide [Milk of Magnesia] 2,400 mg PO DAILY PRN 11/02/18 [History] Budesonide-Formot 160-4.5 Mcg [Symbicort 160-4.5 Mcg Inhaler] 2 puff INHALATION RT-BID puff 11/07/18 [Rx] Lisinopril [Zestril] 10 mg PO DAILY tab 11/07/18 [Rx] Pantoprazole [Protonix] 40 mg PO AC-BID tablet. 11/07/18 [Rx] Vancomycin 1,000 mg IVPB Q24HR #8 bag 11/07/18 [Rx] amLODIPine [Norvasc] 10 mg PO DAILY tab 11/07/18 [Rx] Follow up Appointment(s)/Referral(s): Catalino Gaona MD [Primary Care Provider] - 1-2 days Doron Amaral MD [STAFF PHYSICIAN] - 3 Weeks Ford Rivas MD [STAFF PHYSICIAN] - 1 Week Jeffery Reynolds DO [STAFF PHYSICIAN] - 1 Week Patient Instructions/Handouts: Vancomycin (By injection), MRSA (Methicillin- Resistant Staphylococcus Aureus) (ED), Acute Kidney Injury (DC), Heart Healthy Diet (ED) Activity/Diet/Wound Care/Special Instructions: increase protein in your diet, activity as tolerated Discharge Disposition: TRANSFER TO SNF/ECF
[2018-11-07] MEDS ORDERED: ARTIFICIAL TEARS-HYPROMELLOSE DROPS 15 ML BTL BOTH EYES PRN (12:32)
[2018-11-07 13:11] VITALS: BP 160/68; PULSE 84; RESP 19; TEMP 98.5
[2018-11-07] MEDS: FLUTICASONE 50MCG/SPRAY NASAL 16GM EA NOSTRIL SCH (13:23)
--- NOTE | 2018-11-07 13:35 | P.PN ---
Subjective Progress Note Date: 11/07/18 Principal diagnosis: Iron deficiency anemia Status post EGD no evidence of active bleeding or pathology to explain anemia. Colonoscopy incomplete secondary to patient unable to complete her inpatient prep. No bleeding. No CBC to review today. Objective - Vital Signs Vital signs: Vital Signs Temp 98.5 F 11/07/18 13:10 Pulse 84 11/07/18 13:10 Resp 19 11/07/18 13:10 BP 160/68 11/07/18 13:10 Pulse Ox 94 L 11/07/18 13:10 Intake & Output 11/06/18 11/07/18 11/07/18 18:59 06:59 18:59 Intake Total 0 Balance 0 Intake: Oral 0 Other: Voiding Method Bedside Commode Bedside Commode # Voids 3 1 - Exam General appearance: The patient is alert, oriented, in no acute distress. HET: Head is normocephalic and atraumatic. Pupils are equal and reactive. Oropharynx is clear without lesions. Neck: Supple without lymphadenopathy. Trachea midline. Heart: S1 S2. Regular rate and rhythm. Lungs: No crackles or wheezes are heard. Abdomen: Soft, nontender, nondistended with bowel sounds. No peritoneal signs. No palpable organomegaly or masses. Extremities: Normal skin color and turgor. No cyanosis, rash, ulceration, clubbing, or edema. Radial and pedal pulses are 2/4 bilaterally. Neurological: No focal deficits. Strength and sensation are grossly intact. - Labs CBC & Chem 7: 11/06/18 04:51 11/07/18 08:49 Labs: Abnormal Lab Results - Last 24 Hours (Table) 11/06/18 11/06/18 11/06/18 Range/Units 17:21 19:12 21:59 Chloride (98-107) mmol/L BUN (7-17) mg/dL Creatinine (0.52-1.04) mg/dL Glucose (74-99) mg/dL POC Glucose (mg/dL) 142 H 158 H 167 H (75-99) mg/dL Calcium (8.4-10.2) mg/dL 11/07/18 11/07/18 11/07/18 Range/Units 07:12 08:49 11:51 Chloride 108 H (98-107) mmol/L BUN 35 H (7-17) mg/dL Creatinine 1.40 H (0.52-1.04) mg/dL Glucose 142 H (74-99) mg/dL POC Glucose (mg/dL) 107 H 133 H (75-99) mg/dL Calcium 7.9 L (8.4-10.2) mg/dL Microbiology - Last 24 Hours (Table) 11/03/18 07:11 Blood Culture - Preliminary Blood No Growth after 96 hours Assessment and Plan (1) Anemia Narrative/Plan: Symptomatic anemia of unknown etiology. The patient denies any signs or symptoms of GI bleeding with negative stool testing for occult blood. Differential includes occult GI bleed, hematopoietic dysfunction in the setting of recent infection, or other source of blood loss. EGD completed yesterday with no evidence of active bleeding or bleeding sources. Colonoscopy incomplete secondary to patient's intolerance bowel prep. Current Visit: Yes Status: Acute Code(s): D64.9 - ANEMIA, UNSPECIFIED SNOMED Code(s): 706536705 (2) GERD (gastroesophageal reflux disease) Current Visit: Yes Status: Acute Code(s): K21.9 - GASTRO-ESOPHAGEAL REFLUX DISEASE WITHOUT ESOPHAGITIS SNOMED Code(s): 330943247 (3) MRSA pneumonia Current Visit: Yes Status: Acute Code(s): J15.212 - PNEUMONIA DUE TO METHICILLIN RESISTANT STAPHYLOCOCCUS AUREUS SNOMED Code(s): 053834973456464 Plan: Cc per medicine. Outpatient colonoscopy was advised she will follow with Dr. Amaral. Biopsies pending. Continue GI prophylaxis iron supplementation. Assessment and plan a care discussed with Dr. Young
--- NOTE | 2018-11-07 22:35 | P.PN ---
Subjective Progress Note Date: 11/07/18 77-year-old female who presents to Hospital for sudden significant worsening of her weakness and was found evidence of significant blood loss anemia. Was admitted over the weekend and I'm assuming care. Patient was recently hospitalized for she had MRSA pneumonia and empyema and underwent a VATS procedure. She is receiving vancomycin therapy with improvement of her pneumonia. She did have acute renal failure that has shown ongoing improvement. She is getting prepped for her endoscopy to evaluate causes of her acute blood loss anemia. No further fevers are noted. 11/05/2018 patient is feeling poorly. She had multiple bouts of nausea and emesis while she was taking her prep for her colonoscopy. Abdominal pain is improved this morning. She is denying of any acute difficulties. Continues to have pain on the chest wall to the right which chest tubes were in place and the surgical scars from the VATS. She however is utilizing her incentive spirometer and does not feel short of breath. Does not have fever or chills. On 11/06/2018 continues feel somewhat poorly. Is having some discomfort to the prior chest tube site in VATS site. Still having some pain and is referring to her scapula also. Shortness of breath is stable to improved. Nausea and emesis have improved now that she's no longer utilizing the prep for her colonoscopy. 11/07/2018 patient is feeling better today. She is less short of breath. Dressings to the chest tube sites have allowed improvement of discomfort. With her improvement she likely will transfer to extended care today. Objective - Vital Signs Vital signs: Vital Signs Temp 98.5 F 11/07/18 13:10 Pulse 84 11/07/18 13:10 Resp 19 11/07/18 13:10 BP 160/68 11/07/18 13:10 Pulse Ox 94 L 11/07/18 13:10 Intake & Output 11/07/18 11/07/18 11/08/18 06:59 18:59 06:59 Intake Total 160 Output Total 2 Balance 158 Weight 45.359 kg Intake: IV 160 Lactated Ringers 1,000 ml 160 @ 20 mls/hr IV .Q24H POPEYE Rx#:[id number] Output: Urine 2 Other: Voiding Method Bedside Commode Bedside Commode # Voids 1 - Exam Pleasant 77-year-old woman of thin build not in distress but is with discomfort when she tries to change position in bed HEENT: Anicteric conjunctiva are pink and moist nasal mucosa grossly intact without significant lesions, there is no thrush. Neck: The neck is supple without significant lymphadenopathy or thyromegaly. Lungs: Symmetrical air entry is noted. chest tube is removed and there is evidence ofadequate breath sounds into the right chest only few basilar crackles Heart: Regular rate and rhythm with an audible S1-S2, no S3 no S4. There is no significant murmur click or rub, PMI was nondisplaced. Abdomen: Positive bowel sounds soft and nontender without palpable masses or organomegaly. There was no guarding or rebound. Extremities: Upper extremities are without edema but does have discomfort when the left shoulder area is manipulated especially to change her position in bed. There is no edema or lesions. Lower extremities have trace edema no open ulcers Skin is without rash or blisters evidence of any vesicles over the left shoulder area no erythema or other rash, the right chest wall lateral surface where the chest tube was in place and VATS site shows evidence of minimal serous drainage no necrosis some minimal surrounding erythema. Silver alginate and Rissa in place which is allowing improvement of tenderness Neuro: Awake alert oriented to person place and time. There are no acute new gross focal sensory motor deficits. - Labs CBC & Chem 7: 11/06/18 04:51 11/07/18 08:49 Labs: Abnormal Lab Results - Last 24 Hours (Table) 11/07/18 11/07/18 11/07/18 Range/Units 07:12 08:49 11:51 Chloride 108 H (98-107) mmol/L BUN 35 H (7-17) mg/dL Creatinine 1.40 H (0.52-1.04) mg/dL Glucose 142 H (74-99) mg/dL POC Glucose (mg/dL) 107 H 133 H (75-99) mg/dL Calcium 7.9 L (8.4-10.2) mg/dL Microbiology - Last 24 Hours (Table) 11/03/18 07:11 Blood Culture - Preliminary Blood No Growth after 96 hours Laboratory Results WBC 7.7 k/uL (3.8-10.6) 11/06/18 04:51 RBC 3.17 m/uL (3.80-5.40) L 11/06/18 04:51 Hgb 9.4 gm/dL (11.4-16.0) L 11/06/18 04:51 Hct 30.2 % (34.0-46.0) L 11/06/18 04:51 MCV 95.2 fL (80.0-100.0) 11/06/18 04:51 MCH 29.6 pg (25.0-35.0) 11/06/18 04:51 MCHC 31.1 g/dL (31.0-37.0) 11/06/18 04:51 RDW 14.5 % (11.5-15.5) 11/06/18 04:51 Plt Count 522 k/uL (150-450) H 11/06/18 04:51 Neutrophils % 66 % 11/04/18 05:51 Lymphocytes % 14 % 11/04/18 05:51 Monocytes % 13 % 11/04/18 05:51 Eosinophils % 3 % 11/04/18 05:51 Basophils % 0 % 11/04/18 05:51 Neutrophils # 4.0 k/uL (1.3-7.7) 11/04/18 05:51 Lymphocytes # 0.9 k/uL (1.0-4.8) L 11/04/18 05:51 Monocytes # 0.7 k/uL (0-1.0) 11/04/18 05:51 Eosinophils # 0.2 k/uL (0-0.7) 11/04/18 05:51 Basophils # 0.0 k/uL (0-0.2) 11/04/18 05:51 Hypochromasia Slight 11/02/18 15:17 Retic Count 1.3 % (0.5-2.0) 11/04/18 05:51 PT 10.3 sec (9.0-12.0) 11/02/18 12:52 INR 1.0 (<1.2) 11/02/18 12:52 APTT 30.3 sec (22.0-30.0) H 11/02/18 12:52 Sodium 138 mmol/L (137-145) 11/07/18 08:49 Potassium 3.8 mmol/L (3.5-5.1) 11/07/18 08:49 Chloride 108 mmol/L (98-107) H 11/07/18 08:49 Carbon Dioxide 27 mmol/L (22-30) 11/07/18 08:49 Anion Gap 3 mmol/L 11/07/18 08:49 BUN 35 mg/dL (7-17) H 11/07/18 08:49 Creatinine 1.40 mg/dL (0.52-1.04) H 11/07/18 08:49 Est GFR (CKD-EPI)AfAm 42 (>60 ml/min/1.73 sqM) 11/07/18 08:49 Est GFR (CKD-EPI)NonAf 36 (>60 ml/min/1.73 sqM) 11/07/18 08:49 Glucose 142 mg/dL (74-99) H 11/07/18 08:49 POC Glucose (mg/dL) 133 mg/dL (75-99) H 11/07/18 11:51 POC Glu Card Feeder JEREMIAH Catrina Marie 11/07/18 11:[address] Glu mg/dL 148 11/04/18 05:51 Hemoglobin A1c 6.8 % (4.0-6.0) H 11/04/18 05:51 Calcium 7.9 mg/dL (8.4-10.2) L 11/07/18 08:49 Magnesium 2.0 mg/dL (1.6-2.3) 11/07/18 08:49 Iron 20 ug/dL (50-170) L 11/04/18 05:51 TIBC 157 ug/dL (228-460) L 11/04/18 05:51 Iron Saturation 12.74 (12.00-45.00) 11/04/18 05:51 Ferritin 424.8 ng/mL (10.0-291.0) H 11/04/18 05:51 Total Bilirubin 0.2 mg/dL (0.2-1.3) 11/02/18 12:52 AST 17 U/L (14-36) 11/02/18 12:52 ALT 23 U/L (9-52) 11/02/18 12:52 Alkaline Phosphatase 135 U/L (38-126) H 11/02/18 12:52 Troponin I <0.012 ng/mL (0.000-0.034) 11/06/18 04:51 NT-Pro-B Natriuret Pep 2460 pg/mL 11/02/18 12:52 Total Protein 4.2 g/dL (6.3-8.2) L 11/02/18 12:52 Albumin 1.9 g/dL (3.5-5.0) L 11/02/18 12:52 Vitamin B12 >4000.0 pg/mL (211-911) H 11/04/18 05:51 Folate 19.5 ng/mL 11/04/18 05:51 Stool Occult Blood Negative (Negative) 11/02/18 12:52 Random Vancomycin 16.2 ug/mL 11/06/18 04:51 Blood Type O Positive 11/02/18 12:52 Blood Type Recheck No 11/02/18 12:52 Antibody Screen NEGATIVE 11/02/18 12:52 Crossmatch See Detail 11/02/18 12:52 Spec Expiration Date 11/05/2018 - 235111/02/18 12:52 Microbiology 11/03/18 07:11 Blood Blood Culture - Preliminary No Growth after 96 hours Assessment and Plan (1) MRSA pneumonia Narrative/Plan: 77-year-old woman presents to Hospital after recent discharge receiving treated for MRSA pneumonia, empyema bacteremia. Tolerating her vancomycin therapy better over the last several days. She had a brief period of some vancomycin toxicity that has resolved. Her acute renal failure is resolved. She however is now developed acute blood loss anemia and is being evaluated. She will maintained on pharmacy dosing of her vancomycin for her recent complex infection and be monitored closely. 11/05/2018 patient is feeling somewhat better today now that she has not having to complete her oral preparation for her colonoscopy since it was canceled because of her ongoing nausea and emesis and attempting to take the prep. She's not having much abdominal pain. She's having no hematemesis motor or hematochezia. It is noted she had extensive anemia admission there appears to be stable. Iron infusion has a reoccurred. For now continue ongoing supportive care will need to complete her course of intravenous antibiotic therapy for MRSA pneumonia, empyema and bacteremia. 4 she seems to be tolerating the vancomycin therapy at this time. There was a prior bout of toxicity and renal. That is resolved. 11/06/2018 patient overall feels better than admission but still feels poorly. She still has severe discomfort to the right anterior chest wall at the site of the recent VATS and chest tube. There some mild redness to the site and silver dressing covered by foam will be requested to these areas to try to make them more comfortable. She remains on her vancomycin therapy for her MRSA bacteremia pneumonia and empyema with improved creatinine and improved renal failure. 11/07/2018 patient is feeling considerably better than admission. She is less short of breath. She's having no fever or chills. She will complete her 28 days of vancomycin therapy at the extended care facility at her transfer. This will complete the treatment of her pneumonia, empyema bacteremia. She's tolerated vancomycin therapy much better and her acute failure has resolved. Status: Acute Code(s): J15.212 - PNEUMONIA DUE TO METHICILLIN RESISTANT STAPHYLOCOCCUS AUREUS SNOMED Code(s): 463081430742865 (2) Empyema Status: Acute Code(s): J86.9 - PYOTHORAX WITHOUT FISTULA SNOMED Code(s): 991563952
[2018-11-08] MEDS ORDERED: FUROSEMIDE 40 MG TAB PO SCH (09:00)
--- NOTE | 2018-11-08 14:24 | CDI ---
Documentation Clarification Form Date: 11/08/2018 From: Analisa Castanon Phone: If questions call Va Saini @ [phone], Hours-8:30 am & 5 pm M- F Admit Date: 11/02/2018 2:48:00 PM Patient Name: Irina Case Visit Number: [id number] Discharge Date: 11/07/2018 3:10:00 PM ATTENTION: The Clinical Documentation Specialists (CDI) and [facility] Coding Staff appreciate your assistance in clarifying documentation. Please respond to the clarification below the line at the bottom and electronically sign. The CDI & [facility] Coding staff will review the response and follow-up if needed. Please note: Queries are made part of the Legal Health Record. If you have any questions, please contact the author of this message via ITS. Dr. Jeffery Reynolds Diastolic CHF is documented in the 11/05, 11/06 & 11/07 Pns. History/Risk Factors: CAD, Heart cath w stent, HTN BNP: 2460 Chest X Ray: Bilateral pleural effusions, mild on the right, larger on the left Treatment: IV Lasix 40 mg daily In your professional opinion, can you please clarify the acuity of CHF if known? Diastolic Heart Failure: Acute Chronic Acute on Chronic Unable to Determine Other, please specify Most likely Acute on chronic. PRINCESS SUTHERLANDD
== END 2018-11-07 15:10 | DRG 811 ==
LOC: EC 12:29 → 4SSUR 14:48
PROVIDERS: ADMIT Internal Medicine; ATTEND Internal Medicine
PROC: 30233N1 Transfusion of Nonautologous Red Blood Cells into Peripheral Vein, Percutaneous Approach (ICD-10-PCS; principal; 2018-11-02)
PROC: 0DB98ZX Excision of Duodenum, Via Natural or Artificial Opening Endoscopic, Diagnostic (ICD-10-PCS; 2018-11-05)
PROC: 0DB78ZX Excision of Stomach, Pylorus, Via Natural or Artificial Opening Endoscopic, Diagnostic (ICD-10-PCS; 2018-11-05)
PROC: 0DB68ZX Excision of Stomach, Via Natural or Artificial Opening Endoscopic, Diagnostic (ICD-10-PCS; 2018-11-05)
DX: D62 Acute posthemorrhagic anemia (principal); N17.0 Acute kidney failure with tubular necrosis; E43 Unspecified severe protein-calorie malnutrition; J15.212 Pneumonia due to Methicillin resistant Staphylococcus aureus; I50.33 Acute on chronic diastolic (congestive) heart failure; I13.0 Hypertensive heart and chronic kidney disease with heart failure and stage 1 through stage 4 chronic kidney disease, or unspecified chronic kidney disease; Z68.1 Body mass index [BMI] 19.9 or less, adult; J98.11 Atelectasis; D50.0 Iron deficiency anemia secondary to blood loss (chronic); I27.20 Pulmonary hypertension, unspecified; I08.1 Rheumatic disorders of both mitral and tricuspid valves; N18.3 Chronic kidney disease, stage 3 (moderate); K29.70 Gastritis, unspecified, without bleeding; K31.7 Polyp of stomach and duodenum; T39.395A Adverse effect of other nonsteroidal anti-inflammatory drugs [NSAID], initial encounter; T36.8X5A Adverse effect of other systemic antibiotics, initial encounter; D47.3 Essential (hemorrhagic) thrombocythemia; K21.9 Gastro-esophageal reflux disease without esophagitis; I25.10 Atherosclerotic heart disease of native coronary artery without angina pectoris; E78.5 Hyperlipidemia, unspecified; K59.00 Constipation, unspecified; J45.909 Unspecified asthma, uncomplicated; Z79.82 Long term (current) use of aspirin; Z79.899 Other long term (current) drug therapy; Z79.2 Long term (current) use of antibiotics; Z79.01 Long term (current) use of anticoagulants; Z86.11 Personal history of tuberculosis; Z86.14 Personal history of Methicillin resistant Staphylococcus aureus infection; Z95.5 Presence of coronary angioplasty implant and graft; Z90.710 Acquired absence of both cervix and uterus; Z98.51 Tubal ligation status; Z98.890 Other specified postprocedural states; Z88.8 Allergy status to other drugs, medicaments and biological substances; Z91.048 Other nonmedicinal substance allergy status; Z83.1 Family history of other infectious and parasitic diseases; Z83.3 Family history of diabetes mellitus; Z82.49 Family history of ischemic heart disease and other diseases of the circulatory system; Z82.61 Family history of arthritis; Z80.1 Family history of malignant neoplasm of trachea, bronchus and lung; Z83.6 Family history of other diseases of the respiratory system
CPT/HCPCS: 36415; 43239; 71045; 71046; 71250; 74176; 76604; 80048; 80053; 80202; 82272; 82607; 82728; 82746; 83036; 83540; 83550; 83735; 83880; 84484; 85025; 85027; 85045; 85610; 85652; 85730; 86140; 86850; 86900; 86901; 86920; 87040; 88305; 93005; 93970; 94640; 94760; 96360; 96361; 99285

== ENCOUNTER → 2018-12-20 | Outpatient (CLI) | payer MEDICARE ==
[2018-12-20 12:31] LABS: Appearance,Urine Clear (Clear); Bilirubin,Urine Negative (Negative); Blood,Urine Trace (Negative); Color,Urine Colorless; Glucose,Urine (UA) Negative (Negative); Hyaline Casts,Urine 9 /lpf (0-2); Ketones,Urine Negative (Negative); Leukocyte Esterase,Urine Negative (Negative); Mucus,Urine Rare /hpf; Nitrite,Urine Negative (Negative); Protein,Urine Negative (Negative); RBC,Urine 1 /hpf (0-5); Specific Gravity,Urine 1.007 (1.001-1.035); Squamous Epithelial Cell,Urine <1 /hpf (0-4); Urobilinogen,Urine <2.0 mg/dL (<2.0); WBC,Urine 1 /hpf (0-5)
[2018-12-20 12:41] LABS: Anisocytosis Slight; HCT 26.8 % (34.0-46.0); HGB 8.6 gm/dL (11.4-16.0); MCH 31.7 pg (25.0-35.0); MCHC 32.1 g/dL (31.0-37.0); MCV 98.6 fL (80.0-100.0); Macrocytosis Slight; Mean Platelet Volume 7.6; Platelet Count 265 k/uL (150-450); RBC 2.72 m/uL (3.80-5.40); RDW 16.8 % (11.5-15.5); WBC 4.7 k/uL (3.8-10.6)
[2018-12-20 19:07] LABS: Vitamin D 25 Hydroxy 53.3 ng/mL (30.0-100.0)
[2018-12-20 20:04] LABS: Albumin 3.9 g/dL (3.80-4.90); Albumin/Globulin Ratio 2.05 (1.60-3.17); Anion Gap 5.3 mmol/L (4.00-12.00); Calcium 9.8 mg/dL (8.7-10.3); Carbon Dioxide 22.7 mmol/L (21.6-31.8); Globulin 1.9 g/dL (1.6-3.3); Iron Saturation 34.56 (12.00-45.00); Magnesium 2.4 mg/dL (1.5-2.4); Phosphorus 5.1 mg/dL (2.4-5.1); Total Bilirubin 0.3 mg/dL (0.3-1.2); Total Protein 5.8 g/dL (6.2-8.2); Uric Acid 9.1 mg/dL (2.9-7.7)
[2018-12-20 20:14] LABS: Parathyroid Hormone Intact 16.6 pg/mL (14.0-72.0)
== END | disposition home or self-care (01) ==
LOC: LABWHC1 11:55
PROVIDERS: ATTEND Nurse Practitioner Family
DX: N17.9 Acute kidney failure, unspecified (principal); D64.9 Anemia, unspecified; E55.9 Vitamin D deficiency, unspecified; M10.9 Gout, unspecified
CPT/HCPCS: 36415; 80053; 81001; 82306; 82728; 83540; 83550; 83735; 83970; 84100; 84550; 85027

== ENCOUNTER 2018-12-23 10:24 | Emergency (ER) | payer MEDICARE ==
[2018-12-23 10:57] VITALS: RESP 16; TEMP 97.5
[2018-12-23] MEDS ORDERED: SODIUM CHLORIDE 0.9% 1,000 ML IV SCH (11:30)
--- NOTE | 2018-12-23 11:31 | ED ---
Recheck HPI - General Chief Complaint: Recheck/Abnormal Lab/Rx Stated Complaint: ABNORMAL LABS Time Seen by Provider: 12/23/18 11:01 Source: patient, RN notes reviewed, old records reviewed Mode of arrival: ambulatory Limitations: no limitations - History of Present Illness Initial Comments: 70-year-old female presents emergency department today for evaluation after being called for abnormal lab values from her mail clerk Dr. Kim. Patient states she was not lab values were abnormal. Patient reports that she has been evaluated by Dr. Kim for low potassium levels. Patient states that she's had no symptoms that she's otherwise been feeling well. She had a recent admission for pneumonia, and states that she is home at this time and regaining her strength. She denies any physical symptoms or complaints. Patient states that she has had normal urine output. - Related Data Home Medications Medication Instructions Recorded Confirmed Atenolol [Tenormin] 25 mg PO BID 10/17/18 12/23/18 Cetirizine HCl [Zyrtec] 10 mg PO DAILY 10/17/18 12/23/18 Isosorbide Mononitrate ER [Imdur] 60 mg PO BID 10/17/18 12/23/18 Lansoprazole [Prevacid] 30 mg PO DAILY 10/17/18 12/23/18 Pravastatin Sodium [Pravachol] 40 mg PO HS 10/17/18 12/23/18 Insulin Aspart [NovoLOG] See Protocol SQ ACHS 11/02/18 12/23/18 Benzonatate [Tessalon Perles] 200 mg PO HS PRN 12/23/18 12/23/18 Mirtazapine [Remeron] 15 mg PO HS 12/23/18 12/23/18 Potassium Chloride [Klor-Con 10] 10 meq PO 12/23/18 Previous Rx's Medication Instructions Recorded Albuterol Nebulized [Ventolin 2.5 mg INHALATION RT-QID nebu 10/31/18 Nebulized] Aspirin 81 mg PO DAILY chew 10/31/18 Docusate [Colace] 100 mg PO BID cap 10/31/18 Furosemide [Lasix] 40 mg PO DAILY #30 tablet 10/31/18 Montelukast [Singulair] 10 mg PO HS tab 10/31/18 Budesonide-Formot 160-4.5 Mcg 2 puff INHALATION RT-BID puff 11/07/18 [Symbicort 160-4.5 Mcg Inhaler] amLODIPine [Norvasc] 10 mg PO DAILY tab 11/07/18 Furosemide [Lasix] 20 mg PO DAILY #7 tab 12/23/18 Allergies Allergy/AdvReac Type Severity Reaction Status Date / Time losartan [From Cozaar] Allergy Unknown Verified 11/02/18 17:06 perfume Allergy Unknown Verified 11/02/18 17:06 pioglitazone [From Actos] Allergy Unknown Verified 11/02/18 17:06 Review of Systems ROS Statement: Those systems with pertinent positive or pertinent negative responses have been documented in the HPI. ROS Other: All systems not noted in ROS Statement are negative. Past Medical History Past Medical History: Asthma, Coronary Artery Disease (CAD), GERD/Reflux, Hyperlipidemia, Hypertension Additional Past Medical History / Comment(s): Constipation, history of ovarian cyst and history of tuberculosis in 1970. History of Any Multi-Drug Resistant Organisms: MRSA Date of last positivie culture/infection: 10/25/18 MDRO Source:: LUNG/BLOOD MRSA Past Surgical History: Breast Surgery, Heart Catheterization, Heart Catheterization With Stent, Hysterectomy, Joint Replacement, Orthopedic Surgery, Tubal Ligation Additional Past Surgical History / Comment(s): Trigger finger release surgery, fracture left patella with screw placement, history of ovarian cyst removal, fracture left hand, rotator cuff repair. Past Anesthesia/Blood Transfusion Reactions: No Reported Reaction Date of Last Stent Placement:: unknown Past Psychological History: No Psychological Hx Reported Smoking Status: Never smoker Past Alcohol Use History: None Reported Past Drug Use History: None Reported - Past Family History Mother Family Medical History: Diabetes Mellitus, Pneumonia Additional Family Medical History / Comment(s): Tuberculosis. Past away at age 98. Father Family Medical History: Cancer, Coronary Artery Disease (CAD) Additional Family Medical History / Comment(s): Past away at age 80. Brother(s) Family Medical History: Coronary Artery Disease (CAD) Sister(s) Additional Family Medical History / Comment(s): Rheumatoid arthritis. General Exam - General Exam Comments Initial Comments: This is a 78-year-old female. Alert and oriented 3. No significant distress. Limitations: no limitations General appearance: alert, in no apparent distress Head exam: Present: atraumatic, normocephalic, normal inspection Eye exam: Present: normal appearance, PERRL, EOMI. Absent: scleral icterus, conjunctival injection, periorbital swelling ENT exam: Present: normal exam, mucous membranes moist Neck exam: Present: normal inspection. Absent: tenderness, meningismus, lymphadenopathy Respiratory exam: Present: normal lung sounds bilaterally Cardiovascular Exam: Present: regular rate, normal rhythm, normal heart sounds. Absent: systolic murmur, diastolic murmur, rubs, gallop, clicks GI/Abdominal exam: Present: soft, normal bowel sounds. Absent: distended, tenderness, guarding, rebound, rigid Extremities exam: Present: normal inspection, full ROM, normal capillary refill. Absent: tenderness, pedal edema, joint swelling, calf tenderness Back exam: Present: normal inspection Neurological exam: Present: alert, oriented X3, CN II-XII intact Psychiatric exam: Present: normal affect, normal mood Skin exam: Present: warm, dry, intact, normal color. Absent: rash Course Vital Signs 12/23/18 10:54 Temperature 97.5 F L Pulse Rate 69 Respiratory 16 Rate Blood Pressure 99/56 O2 Sat by Pulse 100 Oximetry Medical Decision Making - Medical Decision Making 70-year-old female presents to return today for evaluation for abnormal advised Patient she states she is otherwise feeling well. He was recently treated for pneumonia and empyema. Patient's lab work was reviewed. Hemoglobin is stable at 8.6. Sodium 136. Potassium 5.6. BUN is 58, creatinine 1.8. Patient also has mildly elevated amylase of 114 and lipase of 582.Medication shows amlodipine, Lasix 40 mg daily, for con 10 mg. Patient otherwise appears clinically well. Patient's potassium has decreased from her outpatient number of 6.0 5.6. Her kidney function is being somewhat impaired however she still producing urine, and there is no significant change within the past month of this kidney function. Patient has been advised to stop the potassium for the next 2 days as well as will decrease her Lasix 20 mg daily instead of 40 that it is at this time. I discussed the Patient needs follow-up with her PCP and mail clerk. All questions were answered return parameters were discussed. - Lab Data Result diagrams: 12/23/18 11:30 12/23/18 11:30 Lab Results 12/23/18 12/23/18 Range/Units 11:30 11:30 WBC 4.5 (3.8-10.6) k/uL RBC 2.65 L (3.80-5.40) m/uL Hgb 8.6 L (11.4-16.0) gm/dL Hct 25.6 L (34.0-46.0) % MCV 96.5 (80.0-100.0) fL MCH 32.4 (25.0-35.0) pg MCHC 33.5 (31.0-37.0) g/dL RDW 17.2 H (11.5-15.5) % Plt Count 226 (150-450) k/uL Neutrophils % 56 % Lymphocytes % 23 % Monocytes % 7 % Eosinophils % 10 % Basophils % 0 % Neutrophils # 2.5 (1.3-7.7) k/uL Lymphocytes # 1.0 (1.0-4.8) k/uL Monocytes # 0.3 (0-1.0) k/uL Eosinophils # 0.4 (0-0.7) k/uL Basophils # 0.0 (0-0.2) k/uL Anisocytosis Slight Sodium 136 L (137-145) mmol/L Potassium 5.6 H (3.5-5.1) mmol/L Chloride 108 H (98-107) mmol/L Carbon Dioxide 22 (22-30) mmol/L Anion Gap 6 mmol/L BUN 58 H (7-17) mg/dL Creatinine 1.80 H (0.52-1.04) mg/dL Est GFR (CKD-EPI)AfAm 31 (>60 ml/min/1.73 sqM) Est GFR (CKD-EPI)NonAf 27 (>60 ml/min/1.73 sqM) Glucose 163 H (74-99) mg/dL Calcium 9.4 (8.4-10.2) mg/dL Total Bilirubin 0.3 (0.2-1.3) mg/dL AST 19 (14-36) U/L ALT 22 (9-52) U/L Alkaline Phosphatase 51 (38-126) U/L Total Protein 6.2 L (6.3-8.2) g/dL Albumin 3.8 (3.5-5.0) g/dL Amylase 114 H (30-110) U/L Lipase 582 H (23-300) U/L 12/23/18 11:30 EKG shows normal sinus rhythm left axis deviation, right bundle branch block. Abnormal EKG. Ventricular rate is 60 bpm. It was 174 ms. QS duration 1:30 milliseconds. QT QTc is 440/476 ms. - Radiology Data Radiology results: report reviewed Disposition Clinical Impression: Abnormal laboratory test result, Elevated lipase Disposition: HOME SELF-CARE Condition: Good Instructions (If sedation given, give patient instructions): Hyperkalemia (ED) Additional Instructions: Patient is to stop taking potassium pills for the next 2-3 days area and I recommended decreasing her Lasix to 20 mg daily. Patient should have close follow-up with primary care physician. Return to the emergency department if any alarming signs or symptoms occur. Prescriptions: Furosemide [Lasix] 20 mg PO DAILY #7 tab Is patient prescribed a controlled substance at d/c from ED?: No Referrals: Catalino Gaona MD [Primary Care Provider] - 1-2 days Time of Disposition: 12:41
[2018-12-23 11:45] LABS: Anisocytosis Slight; Basophils % (A) 0 %; Eosinophils # (A) 0.4 k/uL (0-0.7); Eosinophils % (A) 10 %; HCT 25.6 % (34.0-46.0); HGB 8.6 gm/dL (11.4-16.0); Lymphocytes % (A) 23 %; MCH 32.4 pg (25.0-35.0); MCHC 33.5 g/dL (31.0-37.0); MCV 96.5 fL (80.0-100.0); Mean Platelet Volume 7.7; Monocytes # (A) 0.3 k/uL (0-1.0); Monocytes % (A) 7 %; Neutrophils # (A) 2.5 k/uL (1.3-7.7); Neutrophils % (A) 56 %; Platelet Count 226 k/uL (150-450); RBC 2.65 m/uL (3.80-5.40); RDW 17.2 % (11.5-15.5); WBC 4.5 k/uL (3.8-10.6)
[2018-12-23 11:53] LABS: Albumin 3.8 g/dL (3.5-5.0); Calcium 9.4 mg/dL (8.4-10.2); Potassium 5.6 mmol/L (3.5-5.1); Total Bilirubin 0.3 mg/dL (0.2-1.3); Total Protein 6.2 g/dL (6.3-8.2)
[2018-12-23 12:59] VITALS: BP 111/63; PULSE 71
== END 2018-12-23 12:50 | disposition home or self-care (01) ==
LOC: EC 10:24
DX: R74.8 Abnormal levels of other serum enzymes (principal); I45.10 Unspecified right bundle-branch block; R94.31 Abnormal electrocardiogram [ECG] [EKG]; N28.9 Disorder of kidney and ureter, unspecified; I25.10 Atherosclerotic heart disease of native coronary artery without angina pectoris; K21.9 Gastro-esophageal reflux disease without esophagitis; E78.5 Hyperlipidemia, unspecified; I10 Essential (primary) hypertension; Z88.8 Allergy status to other drugs, medicaments and biological substances; Z91.048 Other nonmedicinal substance allergy status; Z79.4 Long term (current) use of insulin; Z79.899 Other long term (current) drug therapy; Z86.14 Personal history of Methicillin resistant Staphylococcus aureus infection; Z95.5 Presence of coronary angioplasty implant and graft; Z87.01 Personal history of pneumonia (recurrent)
CPT/HCPCS: 36415; 80053; 82150; 83690; 85025; 93005; 96360; 99284

== ENCOUNTER → 2019-01-01 | Outpatient (CLI) | payer MEDICARE ==
--- NOTE | 2019-01-01 14:20 | US ---
EXAMINATION TYPE: US kidneys/renal and bladder DATE OF EXAM: 01/01/2019 COMPARISON: CT 11/04/18 CLINICAL HISTORY: Acute kidney injury N17.9. EXAM MEASUREMENTS: Right Kidney: 10.6 x 5.2 x 3.7 cm Left Kidney: 11.1 x 4.8 x 4.9 cm Post Void Residual Volume: 20.1 mL Right Kidney: Medial, Mid pole cyst = 1.6 x 1.4 x 1.1 cm Left Kidney: Upper pole probable cyst =1.1 x 0.8 x 0.8 cm, Mid pole/medial cyst = 1.4 x 1.1 x 1.1 cm, Lower pole cyst = 10.8 x 7.7 x 5.5 cm Bladder: wnl Bilateral Jets seen: Yes Normal Post Void Residual: Yes There is no evidence for hydronephrosis at this point in time. No nephrolithiasis is seen. The urina ry bladder is anechoic. Bilateral ureteral jets are seen. IMPRESSION: 1. No hydronephrosis or nephrolithiasis. 2. Bilateral renal cysts the largest on the left measuring up to 10.8 cm in addition to a too small t o accurately characterize midpole left renal lesion that also likely represents a small cyst.
== END | disposition home or self-care (01) ==
LOC: RADUSWWP 13:35
PROVIDERS: ATTEND Internal Medicine Nephrology
DX: N28.1 Cyst of kidney, acquired (principal)
CPT/HCPCS: 76770

== ENCOUNTER → 2019-02-04 | Outpatient (CLI) | payer MEDICARE ==
[2019-02-04 08:13] LABS: ALT 24 U/L (9-52); AST 21 U/L (14-36); African American GFR (CKD) 47 (>60 ml/min/1.73 sqM); Albumin 3.8 g/dL (3.5-5.0); Albumin/Globulin Ratio 1.7; Alkaline Phosphatase 87 U/L (38-126); Anion Gap 5 mmol/L; Blood Urea Nitrogen 49 mg/dL (7-17); Calcium 9.5 mg/dL (8.4-10.2); Carbon Dioxide 31 mmol/L (22-30); Chloride 106 mmol/L (98-107); Globulin 2.3 g/dL; Glucose 130 mg/dL (74-99); Potassium 5.5 mmol/L (3.5-5.1); Sodium 142 mmol/L (137-145); Total Bilirubin 0.3 mg/dL (0.2-1.3); Total Protein 6.1 g/dL (6.3-8.2)
[2019-02-04 08:41] LABS: HCT 31.2 % (34.0-46.0); HGB 10.4 gm/dL (11.4-16.0); MCH 33.8 pg (25.0-35.0); MCHC 33.3 g/dL (31.0-37.0); Mean Platelet Volume 7.8; Platelet Count 229 k/uL (150-450); RBC 3.07 m/uL (3.80-5.40); RDW 13.7 % (11.5-15.5); WBC 4.2 k/uL (3.8-10.6)
[2019-02-04 08:48] LABS: MCV 101.5 fL (80.0-100.0)
[2019-02-04 09:35] LABS: Appearance,Urine Clear (Clear); Bacteria,Urine Rare /hpf; Bilirubin,Urine Negative (Negative); Blood,Urine Small (Negative); Color,Urine Light Yellow; Glucose,Urine (UA) Negative (Negative); Ketones,Urine Negative (Negative); Leukocyte Esterase,Urine Negative (Negative); Mucus,Urine Rare /hpf; Nitrite,Urine Negative (Negative); Protein,Urine Negative (Negative); RBC,Urine 8 /hpf (0-5); Urobilinogen,Urine <2.0 mg/dL (<2.0); WBC,Urine 1 /hpf (0-5)
[2019-02-04 12:30] LABS: Iron Saturation 26.3 (12.00-45.00)
[2019-02-04 12:33] LABS: Magnesium 2.5 mg/dL (1.5-2.4); Phosphorus 4.6 mg/dL (2.4-5.1); Uric Acid 7.9 mg/dL (2.9-7.7)
== END | disposition home or self-care (01) ==
LOC: LABWHC1 07:23
PROVIDERS: ATTEND Nurse Practitioner Family
DX: N17.9 Acute kidney failure, unspecified (principal); D64.9 Anemia, unspecified; N39.0 Urinary tract infection, site not specified; N25.81 Secondary hyperparathyroidism of renal origin; E55.9 Vitamin D deficiency, unspecified; M10.9 Gout, unspecified
CPT/HCPCS: 36415; 80053; 81001; 82728; 83540; 83550; 83735; 83970; 84100; 84550; 85027

== ENCOUNTER → 2019-05-06 | Outpatient (CLI) | payer MEDICARE ==
[2019-05-06 09:12] LABS: HCT 33.2 % (34.0-46.0); HGB 11.5 gm/dL (11.4-16.0); MCH 34.1 pg (25.0-35.0); MCHC 34.5 g/dL (31.0-37.0); MCV 98.7 fL (80.0-100.0); Mean Platelet Volume 7.2; Platelet Count 239 k/uL (150-450); RBC 3.37 m/uL (3.80-5.40); WBC 6.3 k/uL (3.8-10.6)
[2019-05-06 10:10] LABS: Appearance,Urine Clear (Clear); Bilirubin,Urine Negative (Negative); Blood,Urine Trace (Negative); Color,Urine Light Yellow; Glucose,Urine (UA) Negative (Negative); Ketones,Urine Negative (Negative); Leukocyte Esterase,Urine Negative (Negative); Mucus,Urine Rare /hpf; Nitrite,Urine Negative (Negative); Protein,Urine Negative (Negative); RBC,Urine 2 /hpf (0-5); Specific Gravity,Urine 1.012 (1.001-1.035); Urobilinogen,Urine <2.0 mg/dL (<2.0); WBC,Urine 2 /hpf (0-5)
[2019-05-06 15:45] LABS: Iron Saturation 36.97 (12.00-45.00)
[2019-05-06 15:54] LABS: Ferritin 135.6 ng/mL (10.0-291.0)
[2019-05-06 16:22] LABS: African American GFR (CKD) 50.1 (60.0-200.0); Albumin 3.8 g/dL (3.80-4.90); Albumin/Globulin Ratio 2.71 (1.60-3.17); Anion Gap 5.6 mmol/L (4.00-12.00); BUN/Creat Ratio 25.83 Ratio (12.00-20.00); Calcium 9.2 mg/dL (8.7-10.3); Carbon Dioxide 31.4 mmol/L (21.6-31.8); Globulin 1.4 g/dL (1.6-3.3); Phosphorus 4.3 mg/dL (2.4-5.1); Potassium 4.4 mmol/L (3.5-5.5); Total Bilirubin 0.6 mg/dL (0.3-1.2); Total Protein 5.2 g/dL (6.2-8.2); Uric Acid 6.3 mg/dL (2.9-7.7)
== END | disposition home or self-care (01) ==
LOC: LABWHC1 08:49
PROVIDERS: ATTEND Nurse Practitioner Family
DX: N39.0 Urinary tract infection, site not specified (principal); N25.81 Secondary hyperparathyroidism of renal origin; M10.9 Gout, unspecified; N17.9 Acute kidney failure, unspecified; D64.9 Anemia, unspecified
CPT/HCPCS: 36415; 80053; 81001; 82728; 83540; 83550; 83735; 83970; 84100; 84550; 85027

== ENCOUNTER → 2019-10-28 | Outpatient (CLI) | payer MEDICARE ==
[2019-10-28 08:40] LABS: HCT 36.9 % (34.0-46.0); HGB 12.3 gm/dL (11.4-16.0); MCH 32.5 pg (25.0-35.0); MCHC 33.4 g/dL (31.0-37.0); MCV 97.4 fL (80.0-100.0); Mean Platelet Volume 7.6; Platelet Count 265 k/uL (150-450); RBC 3.79 m/uL (3.80-5.40); RDW 12.2 % (11.5-15.5); WBC 7.3 k/uL (3.8-10.6)
[2019-10-28 09:26] LABS: Appearance,Urine Clear (Clear); Bacteria,Urine Rare /hpf; Bilirubin,Urine Negative (Negative); Blood,Urine Negative (Negative); Color,Urine Light Yellow; Glucose,Urine (UA) Negative (Negative); Ketones,Urine Negative (Negative); Leukocyte Esterase,Urine Small (Negative); Nitrite,Urine Negative (Negative); PH, Urine 6.5 (5.0-8.0); Protein,Urine Negative (Negative); RBC,Urine 1 /hpf (0-5); Specific Gravity,Urine 1.007 (1.001-1.035); Squamous Epithelial Cell,Urine <1 /hpf (0-4); Urobilinogen,Urine <2.0 mg/dL (<2.0); WBC,Urine 5 /hpf (0-5)
[2019-10-28 15:52] LABS: % Iron Saturation 28.91 (12.00-45.00); African American GFR (CKD) 55.7 (60.0-200.0); Albumin/Globulin Ratio 2.35 (1.60-3.17); Anion Gap 7.6 mmol/L (4.00-12.00); BUN/Creat Ratio 21.82 Ratio (12.00-20.00); Calcium 9.3 mg/dL (8.7-10.3); Carbon Dioxide 30.4 mmol/L (21.6-31.8); Globulin 1.7 g/dL (1.6-3.3); Magnesium 2.2 mg/dL (1.5-2.4); Phosphorus 4.3 mg/dL (2.4-5.1); Potassium 4.8 mmol/L (3.5-5.5); Total Bilirubin 0.6 mg/dL (0.3-1.2); Total Protein 5.7 g/dL (6.2-8.2)
[2019-10-28 16:01] LABS: Ferritin 59.3 ng/mL (10.0-291.0)
== END | disposition home or self-care (01) ==
LOC: LABWHC1 08:20
PROVIDERS: ATTEND Nurse Practitioner Family
DX: N17.9 Acute kidney failure, unspecified (principal); M10.9 Gout, unspecified; D64.9 Anemia, unspecified; N39.0 Urinary tract infection, site not specified; N25.81 Secondary hyperparathyroidism of renal origin
CPT/HCPCS: 36415; 80053; 81001; 82728; 83540; 83550; 83735; 83970; 84100; 84550; 85027

== ENCOUNTER 2020-01-27 07:08 | Inpatient (IN) | payer MEDICARE ==
[2020-01-27] MEDS ORDERED: DIPH,PERTUS(ACELL)TETVAC-LF 0.5 ML VIAL IM ONE (07:18)
--- NOTE | 2020-01-27 07:22 | ED ---
Fall HPI - General Stated Complaint: Fall Time Seen by Provider: 01/27/20 07:11 Source: patient, EMS Mode of arrival: EMS Limitations: no limitations - History of Present Illness Initial Comments: This is a 79-year-old female presents emergency department via EMS after a fall. Patient states she was going for her morning walk and which she states that it was extremely humid out and states that she wanted sit down states that she missed the bench falling. Patient states that she did not have any chest pain, shortness breath, dizziness, blurred vision or any focal weakness. She states she just missed and fell off the side. Patient complains of bilateral wrist pain, mild facial pain where she struck the left side of her forehead. She is unsure when her last tetanus was. She has no current headache, neck pain, back pain, hip pain. She does complain of primary left wrist pain, right wrist pain. Patient denies any paresthesias, nausea, vomiting, focal weakness,, loss conscious. - Related Data Home Medications Medication Instructions Recorded Confirmed Atenolol [Tenormin] 25 mg PO BID 10/17/18 12/23/18 Cetirizine HCl [Zyrtec] 10 mg PO DAILY 10/17/18 12/23/18 Isosorbide Mononitrate ER [Imdur] 60 mg PO BID 10/17/18 12/23/18 Lansoprazole [Prevacid] 30 mg PO DAILY 10/17/18 12/23/18 Pravastatin Sodium [Pravachol] 40 mg PO HS 10/17/18 12/23/18 Insulin Aspart [NovoLOG] See Protocol SQ ACHS 11/02/18 12/23/18 Benzonatate [Tessalon Perles] 200 mg PO HS PRN 12/23/18 12/23/18 Mirtazapine [Remeron] 15 mg PO HS 12/23/18 12/23/18 Potassium Chloride [Klor-Con 10] 10 meq PO 12/23/18 Previous Rx's Medication Instructions Recorded Albuterol Nebulized [Ventolin 2.5 mg INHALATION RT-QID nebu 10/31/18 Nebulized] Aspirin 81 mg PO DAILY chew 10/31/18 Docusate [Colace] 100 mg PO BID cap 10/31/18 Furosemide [Lasix] 40 mg PO DAILY #30 tablet 10/31/18 Montelukast [Singulair] 10 mg PO HS tab 10/31/18 Budesonide-Formot 160-4.5 Mcg 2 puff INHALATION RT-BID puff 11/07/18 [Symbicort 160-4.5 Mcg Inhaler] amLODIPine [Norvasc] 10 mg PO DAILY tab 11/07/18 Furosemide [Lasix] 20 mg PO DAILY #7 tab 12/23/18 Allergies Allergy/AdvReac Type Severity Reaction Status Date / Time losartan [From Cozaar] Allergy Unknown Verified 11/02/18 17:06 perfume Allergy Unknown Verified 11/02/18 17:06 pioglitazone [From Actos] Allergy Unknown Verified 11/02/18 17:06 Review of Systems ROS Statement: Those systems with pertinent positive or pertinent negative responses have been documented in the HPI. ROS Other: All systems not noted in ROS Statement are negative. Past Medical History Past Medical History: Asthma, Coronary Artery Disease (CAD), GERD/Reflux, Hyperlipidemia, Hypertension Additional Past Medical History / Comment(s): Constipation, history of ovarian cyst and history of tuberculosis in 1969. History of Any Multi-Drug Resistant Organisms: MRSA Date of last positivie culture/infection: 10/25/18 MDRO Source:: LUNG/BLOOD MRSA Past Surgical History: Breast Surgery, Heart Catheterization, Heart Catheterization With Stent, Hysterectomy, Joint Replacement, Orthopedic Surgery, Tubal Ligation Additional Past Surgical History / Comment(s): Trigger finger release surgery, fracture left patella with screw placement, history of ovarian cyst removal, fracture left hand, rotator cuff repair. Past Anesthesia/Blood Transfusion Reactions: No Reported Reaction Date of Last Stent Placement:: unknown Past Psychological History: No Psychological Hx Reported Smoking Status: Never smoker Past Alcohol Use History: None Reported Past Drug Use History: None Reported - Past Family History Mother Family Medical History: Diabetes Mellitus, Pneumonia Additional Family Medical History / Comment(s): Tuberculosis. Past away at age 98. Father Family Medical History: Cancer, Coronary Artery Disease (CAD) Additional Family Medical History / Comment(s): Past away at age 80. Brother(s) Family Medical History: Coronary Artery Disease (CAD) Sister(s) Additional Family Medical History / Comment(s): Rheumatoid arthritis. General Exam Limitations: no limitations General appearance: alert, in no apparent distress Head exam: Present: atraumatic, normocephalic, normal inspection Eye exam: Present: normal appearance, PERRL, EOMI. Absent: scleral icterus, conjunctival injection, periorbital swelling ENT exam: Present: mucous membranes moist, TM's normal bilaterally. Absent: normal exam, normal oropharynx (Small abrasion to lip noted sensation) Neck exam: Present: normal inspection, full ROM. Absent: tenderness, meningismus, lymphadenopathy Respiratory exam: Present: normal lung sounds bilaterally. Absent: respiratory distress, wheezes, rales, rhonchi, stridor Cardiovascular Exam: Present: regular rate, normal rhythm, normal heart sounds. Absent: systolic murmur, diastolic murmur, rubs, gallop, clicks GI/Abdominal exam: Present: soft, normal bowel sounds. Absent: distended, tenderness, guarding, rebound, rigid Extremities exam: Present: other (Left wrist there is moderate amount of swelling, ecchymosis small deformity noted, radial pulses equal bilaterally, cap refill less than 2 seconds DIGITS of extremities, right wrist there is a skin tear at the base of the thumb, tenderness palpation of the wrist no proximal arm tenderness) Back exam: Present: full ROM. Absent: tenderness, paraspinal tenderness, vertebral tenderness Neurological exam: Present: alert, oriented X3, CN II-XII intact, reflexes normal. Absent: motor sensory deficit Skin exam: Present: warm, dry, intact, normal color. Absent: rash Course Vital Signs 01/27/20 07:14 Temperature 98.7 F Pulse Rate 86 Respiratory 20 Rate Blood Pressure 170/89 O2 Sat by Pulse 97 Oximetry Procedures - Orthopedic Splinting/Casting Injury #1 Side: right Upper Extremity Injury Location: short arm, wrist Upper Extremity Immobilizer: volar splint, synthetic pre-padded splint Injury #2 Side: left Upper Extremity Injury Location: short arm, wrist Upper Extremity Immobilizer: posterior splint, synthetic pre-padded splint Medical Decision Making - Medical Decision Making Case discussed with chepe loredo on-call for Dr. Serrato recommends splints, admission for surgery. Disposition Clinical Impression: Fall, Wrist fracture, bilateral, Skin tear Disposition: ADMITTED IP TO THIS [facility] Condition: Fair Referrals: Catalino Gaona MD [Primary Care Provider] - 1-2 days
--- NOTE | 2020-01-27 08:05 | CT ---
EXAM: CT Head Without Intravenous Contrast CLINICAL HISTORY: pain/fall TECHNIQUE: Axial computed tomography images of the head/brain without intravenous contrast. CTDI is 45.2 mGy and DLP is 1008 mGy-cm. This CT exam was performed using one or more of the following dose reduction techniques: automated exposure control, adjustment of the mA and/or kV according to patient size, and/or use of iterative reconstruction technique. COMPARISON: No relevant prior studies available. FINDINGS: Brain: Mild prominence of cerebral sulci and sylvian fissures is noted. Minimal periventricular deep white matter hypodense changes noted. No hemorrhage. Ventricles: Unremarkable. No ventriculomegaly. Bones/joints: Unremarkable. No acute fracture. Soft tissues: No significant overlying soft tissue abnormality identified radiographically. No radiopaque foreign body. Vasculature: Atherosclerotic calcification of the cavernous internal carotid arteries is noted. Sinuses: Unremarkable as visualized. No acute sinusitis. Mastoid air cells: Unremarkable as visualized. No mastoid effusion. IMPRESSION: No acute intracranial process identified. EXAM: CT Cervical Spine Without Intravenous Contrast CLINICAL HISTORY: pain/fall TECHNIQUE: Axial computed tomography images of the cervical spine without intravenous contrast. CTDI is 8 mGy and DLP is 215.7 mGy-cm. This CT exam was performed using one or more of the following dose reduction techniques: automated exposure control, adjustment of the mA and/or kV according to patient size, and/or use of iterative reconstruction technique. COMPARISON: No relevant prior studies available. FINDINGS: Vertebrae: The vertebral bodies are intact without acute osseous traumatic injury. No anterolisthesis or retrolisthesis is identified. The facet joints are well aligned without subluxation or dislocation. The spinous processes are intact. Discs/spinal canal/neural foramina: Disc space narrowing with marginal hypertrophic changes are noted at multiple levels. No severe osseous canal stenosis. Incidental osseous neural foraminal encroachment noted at multiple levels. Soft tissues: As below. Incidental partial calcification of the nuchal ligament. No other significant acute traumatic injury. Thyroid: There is a hypodense nodule involving the right thyroid lobe with punctate marginal calcifications measuring approximately 1.9 x 2.7 by at least 2.4 cm. Lung apices: The visualized lung apices demonstrate no evidence for significant acute traumatic injury. IMPRESSION: 1. No acute osseous traumatic injury or significant abnormal alignment involving the cervical spine. Incidental degenerative changes. 2. There is a hypodense nodule involving the right thyroid lobe with punctate marginal calcifications measuring approximately 1.9 x 2.7 by at least 2.4 cm. Recommend nonemergent thyroid ultrasound for further evaluation, if not already interrogated.
--- NOTE | 2020-01-27 08:40 | XR ---
EXAMINATION TYPE: XR wrist complete BILATERAL DATE OF EXAM: 01/27/2020 COMPARISON: None HISTORY: Fall, pain TECHNIQUE: Bilateral wrists are examined in 4 projections each. FINDINGS: Left wrist: There is an impacted fracture of the distal metaphyseal radius. There is a longitudinal e xtension towards the articular surface may be some slight diastases of the articular longitudinal fra cture of the left wrist. There is approximately 45 degree posterior angulation of the distal fractur e fragment. Diffuse soft tissue swelling is present. No additional fractures are evident. Right wrist: There is a transverse fracture of the distal metaphyseal radius. There is approximately 30 degree posterior angulation of the fracture fragments. Diffuse soft tissue swelling is present. Th ere is extension of the fracture line to the articular surface. IMPRESSION: 1. Bilateral comminuted impacted distal radial fractures with posterior angulation and overlying sof t tissue swelling.
[2020-01-27] MEDS ORDERED: MORPHINE SULFATE 4 MG/ML SYRINGE IV PRN (09:50)
[2020-01-27] MEDS ORDERED: ONDANSETRON 4 MG/2 ML VIAL IVP PRN (09:50)
[2020-01-27] MEDS ORDERED: NALOXONE 0.4 MG/ML 1 ML VIAL IV PRN (09:50)
[2020-01-27 10:52] LABS: Basophils % (A) 0 %; Eosinophils # (A) 0.1 k/uL (0-0.7); Eosinophils % (A) 1 %; HCT 35.5 % (34.0-46.0); HGB 11.6 gm/dL (11.4-16.0); Lymphocytes # (A) 1.1 k/uL (1.0-4.8); Lymphocytes % (A) 18 %; MCH 31.9 pg (25.0-35.0); MCHC 32.6 g/dL (31.0-37.0); MCV 97.9 fL (80.0-100.0); Mean Platelet Volume 7.2; Monocytes # (A) 0.4 k/uL (0-1.0); Monocytes % (A) 7 %; Neutrophils # (A) 4.5 k/uL (1.3-7.7); Neutrophils % (A) 72 %; Platelet Count 246 k/uL (150-450); RBC 3.62 m/uL (3.80-5.40); RDW 12.1 % (11.5-15.5); WBC 6.3 k/uL (3.8-10.6)
[2020-01-27 11:00] LABS: Albumin 3.6 g/dL (3.5-5.0); Calcium 9.2 mg/dL (8.4-10.2); Potassium 4.1 mmol/L (3.5-5.1); Total Bilirubin 0.6 mg/dL (0.2-1.3); Total Protein 5.6 g/dL (6.3-8.2)
[2020-01-27 11:20] LABS: INR 0.9 (<1.2); Partial Thromboplastin Time 22.7 sec (22.0-30.0); Prothrombin Time 9.4 sec (9.0-12.0)
[2020-01-27] MEDS ORDERED: traMADol 50 MG TAB PO PRN (13:59)
[2020-01-27] MEDS ORDERED: HYDROcodone/APAP 5-325MG 1 EACH TAB PO PRN (14:01)
--- NOTE | 2020-01-27 15:39 | P.HPOR ---
History of Present Illness H&P Date: 01/27/20 Chief Complaint: Bilateral distal radius fractures Patient is a 79-year-old female who presented to [facility] early this morning after falling and injuring her bilateral wrists. Patient was out for a walk, she became tired and attempted to sit intervention if she, she did miss the bandage following on the bilateral wrist, she also struck the left side of her head during the fall. She did not lose consciousness she states. Upon arrival to the hospital, images were done on the bilateral wrists. Images demonstrated bilateral comminuted displaced distal radius fractures. I was contacted by the emergency room staff, I was able to discuss the case with my attending Dr. Serrato. It was determined the patient would need surgical intervention on both wrists, she was admitted for surgical intervention and management. Patient was evaluated today at bedside, she is resting comfortably. She did note some increasing pain and numbness of bilateral wrist, she was concerned the Juan Jose wrap is too tight. She has basica volar splints at this time. She has no other orthopedic complaints at this time besides the wrist. She is denies any previous surgery involving the bilateral wrists. Review of Systems Constitutional: Reports as per HPI Past Medical History Past Medical History: Asthma, Coronary Artery Disease (CAD), GERD/Reflux, Hyperlipidemia, Hypertension, Osteoarthritis (OA), Thyroid Disorder Additional Past Medical History / Comment(s): R empyema/sepsis/bacteremia-had R sided VATS/ decortication, IDDM type II, past L side TB-healed on own, anemia, slight thyroid enlargement, falls. History of Any Multi-Drug Resistant Organisms: MRSA Date of last positivie culture/infection: 10/25/18 MDRO Source:: LUNG/BLOOD MRSA Past Surgical History: Appendectomy, Breast Surgery, Heart Catheterization, Heart Catheterization With Stent, Hysterectomy, Orthopedic Surgery, Tubal Ligation Additional Past Surgical History / Comment(s): R VATS with decortication, breast benign bx-pt cannot recall laterallity, L ovarian cystectomy, L vocal cord cystectomy, R knee arthroscopy, L patella fracture with screw, R rotator cuff re pair, L hand fracture with surgery, R thumb trigger finger release, EGD, bilateral cataract removals/lens implants. Past Anesthesia/Blood Transfusion Reactions: No Reported Reaction Additional Past Anesthesia/Blood Transfusion Reaction / Comment(s): Pt has received blood in past without reaction. Date of Last Stent Placement:: 1999 Past Psychological History: No Psychological Hx Reported Additional Psychological History / Comment(s): Pt resides alone. She plans eventually to sell her home and move in with her son in [place]. She is independent. She has a glucometer. Smoking Status: Never smoker Past Alcohol Use History: None Reported Past Drug Use History: None Reported - Past Family History Mother Family Medical History: Diabetes Mellitus, Pneumonia Additional Family Medical History / Comment(s): Tuberculosis. Past away at age 98. Father Family Medical History: Cancer, Coronary Artery Disease (CAD) Additional Family Medical History / Comment(s): Father had lung cancer. He was a nonsmoker but a chemistry manager in [employer]. Past away at age 80. Brother(s) Family Medical History: Coronary Artery Disease (CAD) Sister(s) Additional Family Medical History / Comment(s): Rheumatoid arthritis. Medications and Allergies Home Medications Medication Instructions Recorded Confirmed Type Atenolol [Tenormin] 25 mg PO BID 10/17/18 01/27/20 History Cetirizine HCl [Zyrtec] 10 mg PO DAILY 10/17/18 01/27/20 History Isosorbide Mononitrate ER [Imdur] 60 mg PO BID 10/17/18 01/27/20 History Lansoprazole [Prevacid] 30 mg PO DAILY 10/17/18 01/27/20 History Pravastatin Sodium [Pravachol] 40 mg PO HS 10/17/18 01/27/20 History Montelukast [Singulair] 10 mg PO HS tab 10/31/18 01/27/20 Rx Insulin Aspart [NovoLOG] See Protocol SQ ACHS 11/02/18 01/27/20 History Benzonatate [Tessalon Perles] 200 mg PO TID 01/27/20 01/27/20 History Fluticasone Nasal [place] [Flonase 2 spr EA NOSTRIL DAILY 01/27/20 01/27/20 History Nasal [place]] Fluticasone Propion/Salmeterol 1 puff INHALATION RT-BID 01/27/20 01/27/20 History [Wixela 500-50 Inhub] Insulin Degludec [Tresiba 12 units SQ HS 01/27/20 01/27/20 History Flextouch U-100] Allergies Allergy/AdvReac Type Severity Reaction Status Date / Time losartan [From Cozaar] Allergy Unknown Verified 01/27/20 11:08 perfume Allergy Unknown Verified 01/27/20 11:08 pioglitazone [From Actos] Allergy Unknown Verified 01/27/20 11:08 Physical Examination Bilateral upper extremities: There are basic volar splints present on the bilateral wrists with Juan Jose bandage fixation. These were both removed and readjusted. The discomfort and numbness improved significantly bilaterally. Her sensory exam to light touch throughout the hand and wrist bilaterally are intact, radial pulses 2+ bilaterally. Obvious malalignment, ecchymosis and soft tissue swelling is present on the volar and dorsal aspect of the wrist bilaterally. There is a small laceration/skin tear involving the right thumb on the dorsal aspect. She is able to wiggle the fingers bilaterally with minimal difficulty. She denies any elbow pain or shoulder pain bilaterally. Results - Labs Labs: Abnormal Lab Results - Last 24 Hours (Table) 01/27/20 01/27/20 Range/Units 10:38 10:38 RBC 3.62 L (3.80-5.40) m/uL Sodium 131 L (137-145) mmol/L Chloride 96 L (98-107) mmol/L Carbon Dioxide 31 H (22-30) mmol/L BUN 24 H (7-17) mg/dL Glucose 130 H (74-99) mg/dL Total Protein 5.6 L (6.3-8.2) g/dL H & H 01/27/20 Range/Units 10:38 Hgb 11.6 (11.4-16.0) gm/dL Hct 35.5 (34.0-46.0) % Coagulation 01/27/20 Range/Units 10:38 INR 0.9 (<1.2) Result Diagrams: 01/27/20 10:38 01/27/20 10:38 - Diagnostic results Wrist/Hand x-ray: report reviewed, image reviewed (X-rays of bilateral wrists demonstrate obvious displacement and comminution bilaterally involving the distal radius.) Assessment and Plan Assessment: Bilateral comminuted and displaced distal radius fractures Status post fall from standing Plan: after discussion of the case, including physical exam findings and imaging studies my telling Dr. Serrato was determined surgical intervention would be needed. We are planning for surgery on 01/29/2020. Risk and benefits of the procedure were discussed with the patient at bedside today, she is in good understanding. She was also made aware Dr. Serrato would be available in the perioperative period for any further questions. Obtain consent Wrist splints were readjusted, advised significant elevating and icing the next day and a half until surgery Medical clearance and recommendations Regular diet at this time, she will be made nothing by mouth midnight before surgery Further recommendations to follow
--- NOTE | 2020-01-27 15:39 | P.CONS ---
History of Present Illness - Reason for Consult Consult date: 01/27/20 Medical management - Chief Complaint Bilateral wrist pain - History of Present Illness Mrs. a 79-year-old female with past medical history noted below who presented to the ER after sustaining a fall while walking outside. Patient said she was walking outside like usual. He was too hot and humid that she started feeling weak and wanted to sit down and relax. While trying to sit she missed the chair and landed forward on her outstretched arms and landed on her face. EMS were called by bystanders and patient was brought to the ER. Patient denies any loss of consciousness. No chest pain or palpitations prior to the event. She said that her legs gave out on her. She was evaluated in the ER and computed tomography scan of the cervical spine showed no acute fracture. Bilateral wrist x-rays showed bilateral fractional patient is currently admitted under orthopedic. I was asked to see her for medical management. Patient appeared comfortable. She does not have any specific concerns or complaints at this time. Bilateral wrist splints. Review of Systems Review of system: 14 points review of systems were obtained and were negative except to what were mentioned in the HPI. 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 History of Any Multi-Drug Resistant Organisms: MRSA Year Discovered:: 10/25/18 MDRO Source:: LUNG/BLOOD MRSA Past Surgical History: Appendectomy, Breast Surgery, Heart Catheterization, Heart Catheterization With Stent, Hysterectomy, Orthopedic Surgery, Tubal Ligation Additional Past Surgical History / Comment(s): R VATS with decortication, breast benign bx-pt cannot recall laterallity, L ovarian cystectomy, L vocal cord cystectomy, R knee arthroscopy, L patella fracture with screw, R rotator cuff repair, L hand fracture with surgery, R thumb trigger finger release, EGD, bilateral cataract removals/lens implants. Past Anesthesia/Blood Transfusion Reactions: No Reported Reaction Additional Past Anesthesia/Blood Transfusion Reaction / Comm: Pt has received blood in past without reaction. Date of Last Stent Placement:: 1999 Past Psychological History: No Psychological Hx Reported Additional Psychological History / Comment(s): Pt resides alone. She plans eventually to sell her home and move in with her son in [place]. She is independent. She has a glucometer. Smoking Status: Never smoker Past Alcohol Use History: None Reported Past Drug Use History: None Reported - Past Family History Mother Family Medical History: Diabetes Mellitus, Pneumonia Additional Family Medical History / Comment(s): Tuberculosis. Past away at age 98. Father Family Medical History: Cancer, Coronary Artery Disease (CAD) Additional Family Medical History / Comment(s): Father had lung cancer. He was a nonsmoker but a chemistry teacher in [place]. Past away at age 80. Brother(s) Family Medical History: Coronary Artery Disease (CAD) Sister(s) Additional Family Medical History / Comment(s): Rheumatoid arthritis. Medications and Allergies Home Medications Medication Instructions Recorded Confirmed Type Atenolol [Tenormin] 25 mg PO BID 10/17/18 01/27/20 History Cetirizine HCl [Zyrtec] 10 mg PO DAILY 10/17/18 01/27/20 History Isosorbide Mononitrate ER [Imdur] 60 mg PO BID 10/17/18 01/27/20 History Lansoprazole [Prevacid] 30 mg PO DAILY 10/17/18 01/27/20 History Pravastatin Sodium [Pravachol] 40 mg PO HS 10/17/18 01/27/20 History Montelukast [Singulair] 10 mg PO HS tab 10/31/18 01/27/20 Rx Insulin Aspart [NovoLOG] See Protocol SQ ACHS 11/02/18 01/27/20 History Benzonatate [Tessalon Perles] 200 mg PO TID 01/27/20 01/27/20 History Fluticasone Nasal [place] [Flonase 2 spr EA NOSTRIL DAILY 01/27/20 01/27/20 History Nasal [place]] Fluticasone Propion/Salmeterol 1 puff INHALATION RT-BID 01/27/20 01/27/20 History [Wixela 500-50 Inhub] Insulin Degludec [Tresiba 12 units SQ HS 01/27/20 01/27/20 History Flextouch U-100] Allergies Allergy/AdvReac Type Severity Reaction Status Date / Time losartan [From Cozaar] Allergy Unknown Verified 01/27/20 11:08 perfume Allergy Unknown Verified 01/27/20 11:08 pioglitazone [From Actos] Allergy Unknown Verified 01/27/20 11:08 Physical Exam Vitals: Vital Signs Temp Pulse Pulse Resp BP BP Pulse Ox 01/27/20 13:34 67 16 01/27/20 13:05 97.9 F 67 16 176/65 97 01/27/20 11:31 68 16 145/75 97 01/27/20 10:46 98.2 F 67 18 168/74 96 01/27/20 07:14 98.7 F 86 20 170/89 97 Intake and Output 01/27/20 01/27/20 01/27/20 06:59 14:59 22:59 Other: Voiding Method Toilet Weight 58.967 kg General: The patient is awake and alert, in no distress Eye: there is normal conjunctiva bilaterally. Neck: The neck is supple, there is no JVD. Cardiovascular: Normal S1-S2, no S3-S4, no murmurs. Respiratory: Lungs clear to auscultation bilaterally Gastrointestinal: Abdomen is soft, nontender Musculoskeletal: There is no pedal edema. Neurological:. Speech is normal. Skin: Skin is warm and dry Results CBC & Chem 7: 01/27/20 10:38 01/27/20 10:38 Labs: Abnormal Lab Results - Last 24 Hours (Table) 01/27/20 01/27/20 Range/Units 10:38 10:38 RBC 3.62 L (3.80-5.40) m/uL Sodium 131 L (137-145) mmol/L Chloride 96 L (98-107) mmol/L Carbon Dioxide 31 H (22-30) mmol/L BUN 24 H (7-17) mg/dL Glucose 130 H (74-99) mg/dL Total Protein 5.6 L (6.3-8.2) g/dL Assessment and Plan Assessment: 1. Bilateral wrist fracture, awaiting orthopedic evaluation. Pain control with [place] as needed. 2. Essential hypertension, blood pressure well controlled. Continue current regimen 3. Type 2 diabetes, continue home dose of insulin with 12 units of Lantus at bedtime plus sliding scale 4. Hyperlipidemia: On Pravachol 5. Thyroid nodule, incidental finding on CT. We'll check thyroid function test. Schedule outpatient ultrasound for further evaluation. 6. DVT prophylaxis with subcu heparin
[2020-01-27] MEDS: SODIUM CHLORIDE 0.9% 1,000 ML IV SCH (16:29)
[2020-01-27 17:24] LABS: Glucose,Whole Blood 96 mg/dL (75-99)
[2020-01-27] MEDS: INSULIN ASPART (NovoLOG) 100 UNIT/ML VIAL SQ SCH ×2 (17:45→20:11)
[2020-01-27] MEDS: SYMBICORT 160-4.5 MCG INHALER INHALATION SCH (19:22)
[2020-01-27 20:04] LABS: Glucose,Whole Blood 148 mg/dL (75-99)
[2020-01-27] MEDS: atenoloL 25 MG TAB PO SCH (20:11)
[2020-01-27] MEDS: HEPARIN SODIUM,PORCINE 5,000 UNIT/ML 1 ML VIAL SQ SCH (20:11)
[2020-01-27] MEDS: MONTELUKAST 10 MG TAB PO SCH (20:12)
[2020-01-27] MEDS: ISOSORBIDE MONONITRATE ER 60 MG TAB.ER.24H PO SCH (20:12)
[2020-01-27] MEDS: INSULIN DETEMIR (LEVEMIR) 100 UNIT/ML SYR SQ SCH (20:12)
[2020-01-27] MEDS: PRAVASTATIN SODIUM 40 MG TAB PO SCH (20:12)
[2020-01-27] MEDS: HYDROcodone/APAP 5-325MG 1 EACH TAB PO PRN (21:40)
[2020-01-28 00:03] LABS: Glucose,Whole Blood 133 mg/dL (75-99)
[2020-01-28 07:00] LABS: Glucose,Whole Blood 93 mg/dL (75-99)
[2020-01-28] MEDS: INSULIN ASPART (NovoLOG) 100 UNIT/ML VIAL SQ SCH ×4 (07:03→21:48)
[2020-01-28 07:14] LABS: Basophils % (A) 0 %; Eosinophils # (A) 0.1 k/uL (0-0.7); Eosinophils % (A) 2 %; HCT 33.5 % (34.0-46.0); HGB 10.8 gm/dL (11.4-16.0); Lymphocytes # (A) 1.1 k/uL (1.0-4.8); Lymphocytes % (A) 20 %; MCH 31.7 pg (25.0-35.0); MCHC 32.2 g/dL (31.0-37.0); MCV 98.4 fL (80.0-100.0); Mean Platelet Volume 7.2; Monocytes # (A) 0.5 k/uL (0-1.0); Monocytes % (A) 9 %; Neutrophils # (A) 3.7 k/uL (1.3-7.7); Neutrophils % (A) 67 %; Platelet Count 223 k/uL (150-450); RBC 3.41 m/uL (3.80-5.40); RDW 12.1 % (11.5-15.5); WBC 5.5 k/uL (3.8-10.6)
[2020-01-28] MEDS: atenoloL 25 MG TAB PO SCH ×2 (07:17→21:48)
[2020-01-28] MEDS: PANTOPRAZOLE 40 MG TABLET PO SCH (07:17)
[2020-01-28] MEDS: HEPARIN SODIUM,PORCINE 5,000 UNIT/ML 1 ML VIAL SQ SCH ×2 (07:17→21:48)
[2020-01-28] MEDS: FLUTICASONE 50MCG/SPRAY NASAL 16GM EA NOSTRIL SCH (07:17)
[2020-01-28] MEDS: ISOSORBIDE MONONITRATE ER 60 MG TAB.ER.24H PO SCH ×2 (07:17→21:49)
[2020-01-28] MEDS: HYDROcodone/APAP 5-325MG 1 EACH TAB PO PRN ×2 (07:18→13:38)
[2020-01-28 07:23] LABS: Calcium 8.9 mg/dL (8.4-10.2)
[2020-01-28] MEDS: SYMBICORT 160-4.5 MCG INHALER INHALATION SCH ×2 (07:35→19:54)
[2020-01-28 08:29] LABS: T4, Free (Free Thyroxine) 1.7 ng/dL (0.78-2.19)
[2020-01-28 11:22] LABS: Glucose,Whole Blood 210 mg/dL (75-99)
--- NOTE | 2020-01-28 12:40 | P.PN ---
Progress Note - Text Progress Note Date: 01/28/20 Diagnosis: Bilateral displaced distal radius fractures Exam: Basic wrist splints are in good position and condition. Her sensory exam to light touch throughout the bilateral extremities is intact, skin is warm to touch Plan: Patient is scheduled for surgery in the bilateral wrists on 01/29/[address] Serrato. She will be made nothing by mouth tonight after midnight
[2020-01-28] MEDS: SODIUM CHLORIDE 0.9% 1,000 ML IV SCH (13:36)
[2020-01-28 16:51] LABS: Glucose,Whole Blood 152 mg/dL (75-99)
--- NOTE | 2020-01-28 16:56 | P.PN ---
Subjective Progress Note Date: 01/28/20 (delayed charting seen at 0900) Principal diagnosis: fall wrist pain Patient is a 79-year-old female with a history of hypertension, dyslipidemia, GERD, diabetes and significant right sided empyema with sepsis and bacteremia who presented to the hospital after sustaining a fall walking outside. She was found have bilateral wrist fractures and has subsequently been admitted to orthopedic surgery. We were consulted for hypertensive management. Patient seen and examined at bedside. She reports that she has no one at home that can take care of her, her son would be able to come for 2 weeks but not the full 6 week she will be in a cast. She is still having some bilateral wrist pain but this is manageable. She does complain of some scratching of the back of her splint from the fiberglass. She is having difficulty feeding herself and currently can not perform ADLs independently. No headache, nausea, vomiting, chest pain, or shortness of breath. 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 Objective - Vital Signs Vital signs: Vital Signs Temp 98.3 F 01/28/20 13:05 Pulse 65 01/28/20 16:00 Resp 18 01/28/20 16:00 BP 127/52 01/28/20 13:05 Pulse Ox 93 L 01/28/20 13:05 Intake & Output 01/27/20 01/28/20 01/28/20 18:59 06:59 18:59 Intake Total 1140 1320 Balance 1140 1320 Weight 58.967 kg Intake: Intake, IV Titration 300 600 Amount Sodium Chloride 0.9% 1, 300 600 000 ml @ 50 mls/hr IV . Q20H [facility] Rx#:[id number] Oral 840 720 Other: Voiding Method Toilet Toilet Toilet # Voids 1 1 4 - Exam General: non toxic, no distress, appears at stated age, frail Derm: warm, dry Head: atraumatic, normocephalic, symmetric Eyes: EOMI, no lid lag, anicteric sclera Mouth: no lip lesion, mucus membranes moist Cardiovascular: S1S2 reg, no murmur, positive posterior tibial pulse bilateral, Lungs: Decreased breath sounds bilateral, no rhonchi, no rales , no accessory muscle use Abdominal: soft, nontender to palpation, no guarding, no appreciable organomegaly Ext: Bilateral lateral wrist insulin with swelling and ecchymoses bilateral fingers, no gross muscle atrophy, no contractures Neuro: CN II-XI grossly intact, no focal neuro deficits Psych: Alert, oriented, appropriate affect - Labs CBC & Chem 7: 01/28/20 06:48 01/28/20 06:48 Labs: Abnormal Lab Results - Last 24 Hours (Table) 01/27/20 01/28/20 01/28/20 Range/Units 20:02 00:01 06:48 RBC 3.41 L (3.80-5.40) m/uL Hgb 10.8 L (11.4-16.0) gm/dL Hct 33.5 L (34.0-46.0) % Sodium (137-145) mmol/L BUN (7-17) mg/dL POC Glucose (mg/dL) 148 H 133 H (75-99) mg/dL TSH (0.465-4.680) mIU/L 01/28/20 01/28/20 Range/Units 06:48 11:11 RBC (3.80-5.40) m/uL Hgb (11.4-16.0) gm/dL Hct (34.0-46.0) % Sodium 132 L (137-145) mmol/L BUN 25 H (7-17) mg/dL POC Glucose (mg/dL) 210 H (75-99) mg/dL TSH 7.130 H (0.465-4.680) mIU/L Assessment and Plan Assessment: Patient is a 79-year-old female admitted after a fall with bilateral wrist fractures. Pain management per orthopedic services. Hypertension -Blood pressure well controlled -Continue with Imdur and atenolol Hyponatremia, suspect due to dehydration - IVF - repeat labs in AM Diabetes mellitus type 2 -Lantus to 60 units tonight with plan for surgery in the morning -Sliding-scale insulin -Follow Accu-Cheks -Check A1c Fall -PT/OT Presyncope -Likely secondary to dehydration -IV fluids -No additional episodes of dizziness -Patient had an echocardiogram 1 year ago which showed an ejection fraction of 55% with no significant valvular dysfunction Dyslipidemia -Continue with statin therapy Thyroid nodule, incidental finding on CT -Will need outpatient thyroid ultrasound, will defer to primary care physician Anemia, suspect dlutional vs blood loss - repeat CBC in AM - check iron studies Thank you for allowing us to participate in the care of this pleasant patient. Do not hesitate to contact us with questions. Someone can be reached from the [facility] hospitalist group all hours of the day at [phone] or via [employer].
[2020-01-28 20:06] LABS: Glucose,Whole Blood 266 mg/dL (75-99)
[2020-01-28] MEDS ORDERED: INSULIN DETEMIR (LEVEMIR) 100 UNIT/ML SYR SQ SCH ×2 (21:00→21:15)
[2020-01-28] MEDS ORDERED: atenoloL 25 MG TAB ONE (21:35)
[2020-01-28] MEDS ORDERED: INSULIN ASPART (NovoLOG) 100 UNIT/ML VIAL SQ ONE ×3 (21:35)
[2020-01-28] MEDS ORDERED: SODIUM CHLORIDE 0.9% 1,000 ML BAG ONE (21:35)
[2020-01-28] MEDS ORDERED: HEPARIN SODIUM,PORCINE 5,000 UNIT/ML 1 ML VIAL ONE (21:35)
[2020-01-28] MEDS ORDERED: HYDROcodone/APAP 5-325MG 1 EACH TAB ONE (21:35)
[2020-01-28] MEDS ORDERED: SYMBICORT 160-4.5 MCG INHALER INHALATION ONE (21:35)
[2020-01-28] MEDS ORDERED: MAGNESIUM OXIDE 400 MG TAB ONE (21:35)
[2020-01-28] MEDS ORDERED: ISOSORBIDE MONONITRATE ER 60 MG TAB.ER.24H PO ONE (21:35)
[2020-01-28] MEDS ORDERED: MONTELUKAST 10 MG TAB ONE (21:35)
[2020-01-28] MEDS ORDERED: PRAVASTATIN SODIUM 40 MG TAB PO ONE (21:35)
[2020-01-28] MEDS: PRAVASTATIN SODIUM 40 MG TAB PO SCH (21:49)
[2020-01-28] MEDS: MONTELUKAST 10 MG TAB PO SCH (22:08)
[2020-01-28] MEDS: INSULIN DETEMIR (LEVEMIR) 100 UNIT/ML SYR SQ SCH (22:24)
[2020-01-29] MEDS: MAGNESIUM OXIDE 400 MG TAB PO SCH ×2 (05:00→08:35)
[2020-01-29] MEDS: HYDROcodone/APAP 5-325MG 1 EACH TAB PO PRN ×3 (06:57→20:58)
[2020-01-29] MEDS: atenoloL 25 MG TAB PO SCH ×2 (06:57→20:58)
[2020-01-29 07:00] LABS: Glucose,Whole Blood 160 mg/dL (75-99)
[2020-01-29] MEDS ORDERED: HYDROmorphone 0.5 MG/0.5 ML SYRINGE IVP PRN (07:12)
[2020-01-29] MEDS: INSULIN ASPART (NovoLOG) 100 UNIT/ML VIAL SQ SCH ×4 (07:15→20:59)
[2020-01-29] MEDS: LACTATED RINGERS 1,000 ML IV SCH (07:35)
[2020-01-29] MEDS ORDERED: ONDANSETRON 4 MG/2 ML VIAL ONE (07:45)
[2020-01-29] MEDS ORDERED: GLYCOPYRROLATE 0.2 MG/ML 2 ML VIAL ONE (07:45)
[2020-01-29] MEDS ORDERED: fentaNYL (PF) 50 MCG/ML 2 ML AMP ONE (07:45)
[2020-01-29] MEDS ORDERED: ePHEDrine SULFATE/0.9% NACL/PF 50 MG/5 ML SYRINGE IV ONE (07:45)
[2020-01-29] MEDS ORDERED: NEOSTIGMINE 1 MG/ML 10 ML VIAL ONE (07:45)
[2020-01-29] MEDS ORDERED: PROPOFOL 10 MG/ML 20 ML VIAL IV ONE (07:45)
[2020-01-29] MEDS ORDERED: LIDOCAINE 1% INJ 10MG/ML (20 ML MDV) ONE (07:45)
[2020-01-29] MEDS ORDERED: MIDAZOLAM 2 MG/2 ML VIAL ONE (07:45)
[2020-01-29] MEDS ORDERED: hydrALAZINE HCL 20 MG/ML 1 ML VIAL ONE (07:45)
[2020-01-29] MEDS ORDERED: diphenhydrAMINE 50 MG/ML 1 ML VIAL ONE (07:45)
[2020-01-29] MEDS ORDERED: ROCURONIUM BROMIDE 10 MG/ML 5 ML VIAL IV ONE (07:45)
[2020-01-29] MEDS ORDERED: SUCCINYLCHOLINE CHLORIDE 100 MG/5 ML SYR IV ONE (07:45)
[2020-01-29] MEDS ORDERED: SODIUM CHLORIDE 0.9% 100 ML with ceFAZolin 2,000 MG IV ONE ×2 (08:05)
[2020-01-29] MEDS ORDERED: BUPIVACAINE (PF) 0.25% 30 ML VIAL SQ ONE (08:26)
[2020-01-29] MEDS: FLUTICASONE 50MCG/SPRAY NASAL 16GM EA NOSTRIL SCH (08:34)
[2020-01-29] MEDS: HEPARIN SODIUM,PORCINE 5,000 UNIT/ML 1 ML VIAL SQ SCH ×2 (08:34→20:59)
[2020-01-29] MEDS: SODIUM CHLORIDE 0.9% 1,000 ML IV SCH (08:35)
[2020-01-29] MEDS: ISOSORBIDE MONONITRATE ER 60 MG TAB.ER.24H PO SCH ×2 (08:35→20:58)
[2020-01-29] MEDS: PANTOPRAZOLE 40 MG TABLET PO SCH (08:35)
--- NOTE | 2020-01-29 09:50 | XR ---
EXAMINATION TYPE: XR wrist limited bilateral, FL guidance operating room DATE OF EXAM: 01/29/2020 COMPARISON: NONE HISTORY: 79-year-old female with bilateral wrist ORIF FINDINGS: 2 intraoperative fluoroscopic images of either wrist demonstrating volar plate and screw fixation of the distal radius. FLUOROSCOPY Fluoroscopy time of 31 seconds was used during bilateral distal radial fracture ORIF. 4 image/s docu ment/s the procedure. IMPRESSION: Intraoperative fluoroscopy as above.
[2020-01-29] MEDS: SYMBICORT 160-4.5 MCG INHALER INHALATION SCH ×2 (09:57→19:56)
--- NOTE | 2020-01-29 10:06 | P.OP ---
Date of Procedure: 01/29/20 Preoperative Diagnosis: 1. Comminuted/displaced right distal radius fracture 2. Comminuted/displaced left distal radius fracture Postoperative Diagnosis: 1. Comminuted/displaced right distal radius fracture 2. Comminuted/displaced left distal radius fracture Procedure(s) Performed: 1. Open reduction and internal fixation right distal radius fracture 2. Open reduction and internal fixation left distal radius fracture Implants: 1. Synthes right distal volar wrist plate with appropriate length screws 2. Synthes left distal volar wrist plate with appropriate length screws Anesthesia: CHAVA, local Surgeon: Rodo Serrato Customer Support Analyst #1: Salbador Aguilar Estimated Blood Loss (ml): 25 Pathology: none sent Condition: stable Disposition: PACU Indications for Procedure: 79-year-old patient who was seen with comminuted/displaced right distal radius fracture and left distal radius fracture. I recommended open reduction internal fixation. Patient was agreeable. Consent was obtained. Operative Findings: See description of procedure Description of Procedure: The patient was taken to the operative suite. The patient underwent a general anesthetic by the department of anesthesia. The patient received preoperative IV antibiotics. A well-padded tourniquet was placed along the proximal right upper extremity. The right upper extremity was now prepped and draped in the normal sterile orthopedic fashion. The extremity was elevated and tourniquet insufflated to 200. A standard distal volar wrist incision was made sharply through skin. We dissected down through the fascia and then bluntly dissected down to the fracture site. Blunt retractors were used for retraction. The fracture was identified. The fracture was reduced. Rodriguez LARA held the fracture in a reduced position while I secured and appropriate size distal volar wrist plate. I initially secured it with a single proximal screw. I checked the construct under AP and lateral intraoperative imaging and noted good positioning of the plate. We now pulled the C-arm back. Rodriguez LARA again held the fracture and a reduced position while I drilled appropriate distal holes and one proximal hole and filled it with appropriate length pegs and screws. All had good purchase and fixation. We now brought the C-arm back and see operative field noting adequate alignment of both the hardware and the fracture. Spot films repeated document that. The wound was irrigated. The incision was approximated with a running subcu trigger suture with skin glue. Sterile dressings were applied. The tourniquet was released with immediate capillary refill of digits noted. The right upper extremity was placed in a well-padded volar wrist splint. At this point the bed was rotated. A well-padded tourniquet was placed on the left upper extremity. Left upper extremity was prepped and draped in the normal sterile orthopedic fashion. The extremity was elevated and the tourniquet was insufflated to 200. A standard distal volar wrist incision was made sharply through skin. I dissected down through the fascia and then bluntly dissected down to the fracture site. Blunt retractors were used for retraction. The fracture was identified. I reduced the fracture. Rodriguez LARA helped by holding that in a reduced position was secured and appropriate size distal volar wrist plate. I now brought the C-arm into the operative field noting adequate positioning of our hardware and adequate reduction of the fracture. The C-arm was pulled back. Rodriguez LARA again held the fracture in a reduced position while I drilled appropriate distal holes in the proximal hole. I now introduced appropriate length pegs and screws and good purchase and fixation noted. The C- arm was brought back into the operative field noting adequate alignment of both the fracture and the hardware. Spot films repeated document that. The wound was irrigated. Incision was approximately running subcuticular suture followed by skin glue. Sterile dressings were applied. The tourniquet was released with immediate capillary refill of all digits noted. The extremity was placed in well-padded volar wrist splint. The patient was awakened, transferred to a bed and recovery stable condition. Rodriguez LARA assisted with both of the procedures.
[2020-01-29 10:11] LABS: Glucose,Whole Blood 159 mg/dL (75-99)
[2020-01-29 12:27] LABS: Glucose,Whole Blood 114 mg/dL (75-99)
[2020-01-29 16:10] LABS: Basophils % (A) 0 %; Eosinophils # (A) 0.1 k/uL (0-0.7); Eosinophils % (A) 1 %; HCT 34.4 % (34.0-46.0); HGB 11.5 gm/dL (11.4-16.0); Lymphocytes # (A) 0.8 k/uL (1.0-4.8); Lymphocytes % (A) 11 %; MCH 32.7 pg (25.0-35.0); MCHC 33.3 g/dL (31.0-37.0); MCV 98.1 fL (80.0-100.0); Mean Platelet Volume 7.3; Monocytes # (A) 0.4 k/uL (0-1.0); Monocytes % (A) 6 %; Neutrophils # (A) 5.9 k/uL (1.3-7.7); Neutrophils % (A) 81 %; Platelet Count 224 k/uL (150-450); RBC 3.51 m/uL (3.80-5.40); RDW 12.2 % (11.5-15.5); WBC 7.3 k/uL (3.8-10.6)
[2020-01-29 16:14] LABS: Calcium 8.4 mg/dL (8.4-10.2); Potassium 4.1 mmol/L (3.5-5.1)
--- NOTE | 2020-01-29 16:28 | P.PN ---
Subjective Progress Note Date: 01/29/20 (delayed charting seen at 1450) Principal diagnosis: fall wrist pain Patient is a 79-year-old female with a history of hypertension, dyslipidemia, GERD, diabetes and significant right sided empyema with sepsis and bacteremia who presented to the hospital after sustaining a fall walking outside. She was found have bilateral wrist fractures and has subsequently been admitted to orthopedic surgery. We were consulted for hypertensive management. She was found to have thyroid nodule and TSH was elevated and T4 normal. Patient seen and examined at bedside. She reports that she has a history of a thyroid nodule in the past as well as some abnormal thyroid labs but did not r equired Synthroid replacement. She is aware that she needs to follow-up with Dr. Gaona in outpatient setting for possible repeat thyroid ultrasound and repeat TSH and free T4. She states that her pain is currently controlled. She is having some back pain after surgery. She denies any nausea, lightheadedness, dizziness, or shortness of breath after surgery. Of note patient states her son will be here on 01/30 and could potentially take the patient home and monitor her for 2 weeks here, allowing her to have follow- up with Dr. Rodriguez. He then would take her to his house in [place] for 4 weeks. I will check to see if Dr. Gaona feels that she is safe to travel. She would like to avoid [facility] with ELIZABETH. Objective - Vital Signs Vital signs: Vital Signs Temp 97.3 F L 01/29/20 11:40 Pulse 65 01/29/20 12:40 Resp 16 01/29/20 11:40 BP 179/64 01/29/20 12:40 Pulse Ox 93 L 01/29/20 12:40 Intake & Output 01/28/20 01/29/20 01/29/20 18:59 06:59 18:59 Intake Total 1320 1300 Output Total 25 Balance 1320 1275 Intake: IV 900 Intake, IV Titration 600 400 Amount Sodium Chloride 0.9% 1, 600 400 000 ml @ 50 mls/hr IV . Q20H [facility] Rx#:[id number] Oral 720 Output: Estimated Blood Loss 25 Other: Voiding Method Toilet Toilet Toilet # Voids 4 1 - Exam General: non toxic, no distress, appears at stated age, frail Derm: warm, dry Head: atraumatic, normocephalic, symmetric Eyes: EOMI, no lid lag, anicteric sclera Mouth: no lip lesion, mucus membranes moist Cardiovascular: S1S2 reg, no murmur, positive posterior tibial pulse bilateral, Lungs: Decreased breath sounds bilateral, no rhonchi, no rales , no accessory muscle use Abdominal: soft, nontender to palpation, no guarding, no appreciable organomegaly Ext: Bilateral lateral wrist in casts with swelling and ecchymoses bilateral fingers, no gross muscle atrophy, no contractures Neuro: CN II-XI grossly intact, no focal neuro deficits Psych: Alert, oriented, appropriate affect - Labs CBC & Chem 7: 01/29/20 15:36 07 15:36 Labs: Abnormal Lab Results - Last 24 Hours (Table) 01/28/20 01/28/20 01/28/20 Range/Units 06:48 16:44 20:05 RBC (3.80-5.40) m/uL Lymphocytes # (1.0-4.8) k/uL Sodium 132 L (137-145) mmol/L BUN 25 H (7-17) mg/dL Glucose (74-99) mg/dL POC Glucose (mg/dL) 152 H 266 H (75-99) mg/dL TSH 7.130 H (0.465-4.680) mIU/L 01/29/20 01/29/20 01/29/20 Range/Units 06:58 10:10 12:24 RBC (3.80-5.40) m/uL Lymphocytes # (1.0-4.8) k/uL Sodium (137-145) mmol/L BUN (7-17) mg/dL Glucose (74-99) mg/dL POC Glucose (mg/dL) 160 H 159 H 114 H (75-99) mg/dL TSH (0.465-4.680) mIU/L 01/29/20 01/29/20 Range/Units 15:36 15:36 RBC 3.51 L (3.80-5.40) m/uL Lymphocytes # 0.8 L (1.0-4.8) k/uL Sodium 130 L (137-145) mmol/L BUN 19 H (7-17) mg/dL Glucose 139 H (74-99) mg/dL POC Glucose (mg/dL) (75-99) mg/dL TSH (0.465-4.680) mIU/L Assessment and Plan Assessment: Patient is a 79-year-old female admitted after a fall with bilateral wrist fractures. Pain management per orthopedic services. Hypertension -Blood pressure well controlled -Continue with Imdur and atenolol Hyponatremia, suspect due to dehydration - stop IVF - repeat labs in AM Diabetes mellitus type 2 -Lantus 10 units tonight -Sliding-scale Insulin -Follow Accu-Cheks -A1c 7.4 12/09 Fall -PT/OT Presyncope -Likely secondary to dehydration -IV fluids -No additional episodes of dizziness -Patient had an echocardiogram 1 year ago which showed an ejection fraction of 55% with no significant valvular dysfunction Dyslipidemia -Continue with statin therapy Thyroid nodule, incidental finding on CT -Will need outpatient thyroid ultrasound D/W Dr. Gaona -Repeat TSH with free T4 Anemia, suspect dlutional vs blood loss - repeat CBC in AM - Iron studies done 11/09 with mild Fe deficiency anemia - start oral iron We'll call Dr. Gaona to see if he is comfortable with patient going to [place] with her son for 4 weeks to avoid rehab therapy.3
[2020-01-29 17:25] LABS: Glucose,Whole Blood 152 mg/dL (75-99)
[2020-01-29] MEDS: FERROUS SULFATE 325 MG TAB PO SCH (17:28)
[2020-01-29 20:11] LABS: Glucose,Whole Blood 150 mg/dL (75-99)
[2020-01-29] MEDS: PRAVASTATIN SODIUM 40 MG TAB PO SCH (20:58)
[2020-01-29] MEDS: MONTELUKAST 10 MG TAB PO SCH (20:58)
[2020-01-29] MEDS ORDERED: INSULIN DETEMIR (LEVEMIR) 100 UNIT/ML SYR SQ SCH (21:00)
[2020-01-29] MEDS: SENNOSIDES-DOCUSATE SODIUM 1 EACH TAB PO SCH (22:09)
[2020-01-29] MEDS: MAG HYDROX/AL HYDROX/SIMETH 30 ML CUP PO SCH (22:09)
[2020-01-30] MEDS: HYDROcodone/APAP 5-325MG 1 EACH TAB PO PRN ×3 (05:48→21:21)
[2020-01-30 06:29] LABS: Basophils % (A) 0 %; Eosinophils # (A) 0.1 k/uL (0-0.7); Eosinophils % (A) 1 %; HCT 31.8 % (34.0-46.0); HGB 10.3 gm/dL (11.4-16.0); Lymphocytes # (A) 0.7 k/uL (1.0-4.8); Lymphocytes % (A) 13 %; MCHC 32.3 g/dL (31.0-37.0); MCV 99.1 fL (80.0-100.0); Mean Platelet Volume 7.2; Monocytes # (A) 0.4 k/uL (0-1.0); Monocytes % (A) 7 %; Neutrophils # (A) 4.6 k/uL (1.3-7.7); Neutrophils % (A) 78 %; Platelet Count 209 k/uL (150-450); RBC 3.21 m/uL (3.80-5.40); RDW 12.1 % (11.5-15.5); WBC 5.9 k/uL (3.8-10.6)
[2020-01-30 06:34] LABS: Calcium 8.1 mg/dL (8.4-10.2); Potassium 3.9 mmol/L (3.5-5.1)
[2020-01-30 07:16] LABS: Glucose,Whole Blood 69 mg/dL (75-99)
[2020-01-30] MEDS: INSULIN ASPART (NovoLOG) 100 UNIT/ML VIAL SQ SCH ×4 (07:17→21:19)
[2020-01-30 07:34] LABS: Glucose,Whole Blood 96 mg/dL (75-99)
[2020-01-30] MEDS: MAG HYDROX/AL HYDROX/SIMETH 30 ML CUP PO SCH ×4 (08:31→21:19)
[2020-01-30] MEDS: atenoloL 25 MG TAB PO SCH ×2 (08:31→21:19)
[2020-01-30] MEDS: FERROUS SULFATE 325 MG TAB PO SCH (08:31)
[2020-01-30] MEDS: ISOSORBIDE MONONITRATE ER 60 MG TAB.ER.24H PO SCH ×2 (08:31→21:19)
[2020-01-30] MEDS: FLUTICASONE 50MCG/SPRAY NASAL 16GM EA NOSTRIL SCH (08:31)
[2020-01-30] MEDS: MAGNESIUM OXIDE 400 MG TAB PO SCH (08:31)
[2020-01-30] MEDS: HEPARIN SODIUM,PORCINE 5,000 UNIT/ML 1 ML VIAL SQ SCH ×2 (08:31→21:19)
[2020-01-30] MEDS: SENNOSIDES-DOCUSATE SODIUM 1 EACH TAB PO SCH (08:31)
[2020-01-30] MEDS: PANTOPRAZOLE 40 MG TABLET PO SCH (08:31)
[2020-01-30] MEDS ORDERED: ASPIRIN 325 MG TAB PO SCH (09:00)
[2020-01-30] MEDS: SYMBICORT 160-4.5 MCG INHALER INHALATION SCH ×2 (09:04→20:19)
--- NOTE | 2020-01-30 10:56 | P.PN ---
Subjective Progress Note Date: 01/30/20 Principal diagnosis: Status post ORIF bilateral distal radius fractures Patient is evaluated at bedside today, she is resting comfortably. Pain meds seem to be managing pain at this time. She denies any acute changes to the night, she denies any paresthesias of the bilateral hand/wrist. Objective - Vital Signs Vital signs: Vital Signs Temp 98.1 F 01/30/20 05:40 Pulse 71 01/30/20 05:40 Resp 16 01/30/20 05:40 BP 145/65 01/30/20 05:40 Pulse Ox 96 01/30/20 05:40 Intake & Output 01/29/20 01/30/20 01/30/20 18:59 06:59 18:59 Intake Total 1300 765 Output Total 25 Balance 1275 765 Intake: IV 900 Intake, IV Titration 400 175 Amount Sodium Chloride 0.9% 1, 400 175 000 ml @ 50 mls/hr IV . Q20H [facility] Rx#:[id number] Oral 590 Output: Estimated Blood Loss 25 Other: Voiding Method Toilet Toilet Toilet # Voids 3 - Exam Bilateral upper extremities: Postoperative splints are in good position and condition. Sensation to light touch both proximal distal to the splinter intact. Minimal soft tissue swelling and ecchymosis present on the bilateral hands. Skin is warm to touch. - Labs CBC & Chem 7: 01/30/20 05:36 01/30/20 05:36 Labs: Abnormal Lab Results - Last 24 Hours (Table) 01/29/20 01/29/20 01/29/20 Range/Units 12:24 15:36 15:36 RBC 3.51 L (3.80-5.40) m/uL Hgb (11.4-16.0) gm/dL Hct (34.0-46.0) % Lymphocytes # 0.8 L (1.0-4.8) k/uL Sodium 130 L (137-145) mmol/L BUN 19 H (7-17) mg/dL Glucose 139 H (74-99) mg/dL POC Glucose (mg/dL) 114 H (75-99) mg/dL Calcium (8.4-10.2) mg/dL 01/29/20 01/29/20 01/30/20 Range/Units 17:23 20:09 05:36 RBC 3.21 L (3.80-5.40) m/uL Hgb 10.3 L (11.4-16.0) gm/dL Hct 31.8 L (34.0-46.0) % Lymphocytes # 0.7 L (1.0-4.8) k/uL Sodium (137-145) mmol/L BUN (7-17) mg/dL Glucose (74-99) mg/dL POC Glucose (mg/dL) 152 H 150 H (75-99) mg/dL Calcium (8.4-10.2) mg/dL 01/30/20 01/30/20 Range/Units 05:36 07:13 RBC (3.80-5.40) m/uL Hgb (11.4-16.0) gm/dL Hct (34.0-46.0) % Lymphocytes # (1.0-4.8) k/uL Sodium 133 L (137-145) mmol/L BUN 20 H (7-17) mg/dL Glucose 66 L (74-99) mg/dL POC Glucose (mg/dL) 69 L (75-99) mg/dL Calcium 8.1 L (8.4-10.2) mg/dL Assessment and Plan Assessment: Status post ORIF bilateral distal radius fractures Plan: Pain control, plan for discharge home on oral medication Splint instructions were discussed Activity level instructions discussed Planning for discharge to home tomorrow Time with Patient: Less than 30
[2020-01-30 11:31] LABS: Glucose,Whole Blood 133 mg/dL (75-99)
[2020-01-30] MEDS: LACTATED RINGERS 1,000 ML IV SCH (12:26)
[2020-01-30 17:15] LABS: Glucose,Whole Blood 192 mg/dL (75-99)
--- NOTE | 2020-01-30 17:38 | P.PN ---
Subjective Progress Note Date: 01/30/20 Principal diagnosis: fall with wrist pain Patient is a 79-year-old female with a history of hypertension, dyslipidemia, GERD, diabetes and significant right sided empyema with sepsis and bacteremia who presented to the hospital after sustaining a fall walking outside. She was found have bilateral wrist fractures and has subsequently been admitted to orthopedic surgery. We were consulted for hypertensive management. She was found to have thyroid nodule and TSH was elevated and T4 normal. Patient seen and examined at bedside. Blood sugar was low this morning and she vomited. She did not have any other classic symptoms of diaphoresis, shaking, or confusion. No chest pain, shortness of breath. She is glad to be going home with her son instead of to [facility]. Objective - Vital Signs Vital signs: Vital Signs Temp 98.0 F 01/30/20 14:04 Pulse 62 01/30/20 14:04 Resp 19 01/30/20 14:04 BP 164/79 01/30/20 14:04 Pulse Ox 100 01/30/20 14:04 Intake & Output 01/29/20 01/30/20 01/30/20 18:59 06:59 18:59 Intake Total 1300 765 160 Output Total 25 Balance 1275 765 160 Intake: IV 900 Intake, IV Titration 400 175 160 Amount Sodium Chloride 0.9% 1, 400 175 160 000 ml @ 50 mls/hr IV . Q20H [facility] Rx#:[id number] Oral 590 Output: Estimated Blood Loss 25 Other: Voiding Method Toilet Toilet Toilet # Voids 3 1 - Exam General: non toxic, no distress, appears at stated age, frail Derm: warm, dry Head: atraumatic, normocephalic, symmetric Eyes: EOMI, no lid lag, anicteric sclera Mouth: no lip lesion, mucus membranes moist Cardiovascular: S1S2 reg, no murmur, positive posterior tibial pulse bilateral, Lungs: CTA bilateral, no rhonchi, no rales , no accessory muscle use Abdominal: soft, nontender to palpation, no guarding, no appreciable organomegaly Ext: Bilateral lateral wrist in casts with ecchymoses bilateral fingers, no gross muscle atrophy, no contractures Neuro: CN II-XI grossly intact, no focal neuro deficits Psych: Alert, oriented, appropriate affect - Labs CBC & Chem 7: 01/30/20 05:36 01/30/20 05:36 Labs: Abnormal Lab Results - Last 24 Hours (Table) 01/29/20 01/30/20 01/30/20 Range/Units 20:09 05:36 05:36 RBC 3.21 L (3.80-5.40) m/uL Hgb 10.3 L (11.4-16.0) gm/dL Hct 31.8 L (34.0-46.0) % Lymphocytes # 0.7 L (1.0-4.8) k/uL Sodium 133 L (137-145) mmol/L BUN 20 H (7-17) mg/dL Glucose 66 L (74-99) mg/dL POC Glucose (mg/dL) 150 H (75-99) mg/dL Calcium 8.1 L (8.4-10.2) mg/dL 01/30/20 01/30/20 01/30/20 Range/Units 07:13 11:29 17:13 RBC (3.80-5.40) m/uL Hgb (11.4-16.0) gm/dL Hct (34.0-46.0) % Lymphocytes # (1.0-4.8) k/uL Sodium (137-145) mmol/L BUN (7-17) mg/dL Glucose (74-99) mg/dL POC Glucose (mg/dL) 69 L 133 H 192 H (75-99) mg/dL Calcium (8.4-10.2) mg/dL Assessment and Plan Assessment: Patient is a 79-year-old female admitted after a fall with bilateral wrist fractures. Pain management per orthopedic services. Diabetes mellitus type 2 with hypoglycemia -Lantus 8 units tonight -Sliding-scale Insulin -Follow Accu-Cheks -A1c 7.4 12/09 Hypertension -Blood pressure well controlled -Continue with Imdur and atenolol Fall -PT/OT Presyncope, resolved -Likely secondary to dehydration -IV fluids -No additional episodes of dizziness -Patient had an echocardiogram 1 year ago which showed an ejection fraction of 55% with no significant valvular dysfunction Dyslipidemia -Continue with statin therapy Thyroid nodule, incidental finding on CT -Will need outpatient thyroid ultrasound D/W Dr. Gaona -Repeat TSH with free T4 Anemia, suspect dilutional vs blood loss - repeat CBC in AM - Iron studies done 11/09 with mild Fe deficiency anemia - start oral iron Hyponatremia, improving D/W home in [place] to care of son.
[2020-01-30 19:53] LABS: Glucose,Whole Blood 159 mg/dL (75-99)
[2020-01-30] MEDS ORDERED: INSULIN DETEMIR (LEVEMIR) 100 UNIT/ML SYR SQ SCH (21:00)
[2020-01-30] MEDS: MONTELUKAST 10 MG TAB PO SCH (21:19)
[2020-01-30] MEDS: PRAVASTATIN SODIUM 40 MG TAB PO SCH (21:21)
[2020-01-31 07:20] LABS: Glucose,Whole Blood 131 mg/dL (75-99)
[2020-01-31] MEDS: SYMBICORT 160-4.5 MCG INHALER INHALATION SCH (07:37)
[2020-01-31] MEDS: HYDROcodone/APAP 5-325MG 1 EACH TAB PO PRN (08:06)
[2020-01-31] MEDS: PANTOPRAZOLE 40 MG TABLET PO SCH (08:08)
[2020-01-31] MEDS: ISOSORBIDE MONONITRATE ER 60 MG TAB.ER.24H PO SCH (08:08)
[2020-01-31] MEDS: SENNOSIDES-DOCUSATE SODIUM 1 EACH TAB PO SCH (08:08)
[2020-01-31] MEDS: atenoloL 25 MG TAB PO SCH (08:08)
[2020-01-31] MEDS: MAG HYDROX/AL HYDROX/SIMETH 30 ML CUP PO SCH (08:08)
[2020-01-31] MEDS: MAGNESIUM OXIDE 400 MG TAB PO SCH (08:09)
[2020-01-31] MEDS: HEPARIN SODIUM,PORCINE 5,000 UNIT/ML 1 ML VIAL SQ SCH (08:09)
[2020-01-31] MEDS: FERROUS SULFATE 325 MG TAB PO SCH (08:09)
[2020-01-31] MEDS: INSULIN ASPART (NovoLOG) 100 UNIT/ML VIAL SQ SCH (08:09)
[2020-01-31] MEDS: FLUTICASONE 50MCG/SPRAY NASAL 16GM EA NOSTRIL SCH (08:59)
--- NOTE | 2020-01-31 09:13 | P.PN ---
Subjective Progress Note Date: 01/31/20 Principal diagnosis: fall with wrist pain Patient is a 79-year-old female with a history of hypertension, dyslipidemia, GERD, diabetes and significant right sided empyema with sepsis and bacteremia who presented to the hospital after sustaining a fall walking outside. She was found have bilateral wrist fractures and has subsequently been admitted to orthopedic surgery. We were consulted for hypertensive management. She was found to have thyroid nodule and TSH was elevated and T4 normal. Patient seen and examined at bedside. Pain rihgt greater than left but manageable. No chest pain or shortness of breath. No edema. Aware needs to be lifted from under arms. Discussed discharge insulin instructions. Objective - Vital Signs Vital signs: Vital Signs Temp 97.8 F 01/31/20 05:58 Pulse 67 01/31/20 05:58 Resp 16 01/31/20 05:58 BP 166/66 01/31/20 05:58 Pulse Ox 95 01/31/20 05:58 Intake & Output 01/30/20 01/31/20 01/31/20 18:59 06:59 18:59 Intake Total 160 750 Balance 160 750 Intake: IV 160 ns @20 160 Intake, IV Titration 160 Amount Sodium Chloride 0.9% 1, 160 000 ml @ 50 mls/hr IV . Q20H [facility] Rx#:[id number] Oral 590 Other: Voiding Method Toilet Toilet # Voids 1 1 - Exam General: non toxic, no distress, appears at stated age, frail Derm: warm, dry Head: atraumatic, normocephalic, symmetric Eyes: EOMI, no lid lag, anicteric sclera Mouth: no lip lesion, mucus membranes moist Cardiovascular: S1S2 reg, no murmur, positive posterior tibial pulse bilateral, Lungs: CTA bilateral, no rhonchi, no rales , no accessory muscle use Abdominal: soft, nontender to palpation, no guarding, no appreciable organomegaly Ext: Bilateral lateral wrist in casts with ecchymoses bilateral fingers, no gross muscle atrophy, no contractures,no lower extremity edema Neuro: CN II-XI grossly intact, no focal neuro deficits Psych: Alert, oriented, appropriate affect,pleasant - Labs CBC & Chem 7: 01/30/20 05:36 01/30/20 05:36 Labs: Abnormal Lab Results - Last 24 Hours (Table) 01/30/20 01/30/20 01/30/20 Range/Units 11:29 17:13 19:52 POC Glucose (mg/dL) 133 H 192 H 159 H (75-99) mg/dL 01/31/20 Range/Units 07:18 POC Glucose (mg/dL) 131 H (75-99) mg/dL Assessment and Plan Assessment: Patient is a 79-year-old female admitted after a fall with bilateral wrist fractures. Pain management per orthopedic services. Diabetes mellitus type 2 with hypoglycemia -Tresiba 10 units at home, increase if AM blood sugar greater than 150 X 2 -Sliding-scale Insulin -Follow Accu-Cheks -A1c 7.4 12/09 Hypertension -Blood pressure well controlled -Continue with Imdur and atenolol Fall -PT/OT Presyncope, resolved -Likely secondary to dehydration -IV fluids -No additional episodes of dizziness -Patient had an echocardiogram 1 year ago which showed an ejection fraction of 55% with no significant valvular dysfunction Dyslipidemia -Continue with statin therapy Thyroid nodule, incidental finding on CT -Will need outpatient thyroid ultrasound D/W Dr. Gaona -Repeat TSH with free T4 Anemia, suspect dilutional vs blood loss - Iron studies done 11/09 with mild Fe deficiency anemia, oral iron on discharge Hyponatremia, improving Medically optimized for discharge. Discharge Rx completed.
--- NOTE | 2020-01-31 11:56 | P.PN ---
Subjective Progress Note Date: 01/31/20 Principal diagnosis: Status post ORIF bilateral distal radius fractures Patient is evaluated at bedside today, she is resting comfortably. Pain meds seem to be managing pain at this time. She denies any acute changes to the night, she denies any paresthesias of the bilateral hand/wrist. Objective - Vital Signs Vital signs: Vital Signs Temp 97.8 F 01/31/20 05:58 Pulse 67 01/31/20 08:35 Resp 16 01/31/20 08:35 BP 166/66 01/31/20 05:58 Pulse Ox 95 01/31/20 05:58 Intake & Output 01/30/20 01/31/20 01/31/20 18:59 06:59 18:59 Intake Total 160 750 Balance 160 750 Intake: IV 160 ns @20 160 Intake, IV Titration 160 Amount Sodium Chloride 0.9% 1, 160 000 ml @ 50 mls/hr IV . Q20H [facility] Rx#:[id number] Oral 590 Other: Voiding Method Toilet Toilet Toilet # Voids 1 1 - Exam Bilateral upper extremities: Postoperative splints are in good position and condition. Sensation to light touch both proximal distal to the splinter intact. Minimal soft tissue swelling and ecchymosis present on the bilateral hands. Skin is warm to touch. - Labs CBC & Chem 7: 01/30/20 05:36 01/30/20 05:36 Labs: Abnormal Lab Results - Last 24 Hours (Table) 01/30/20 01/30/20 01/31/20 Range/Units 17:13 19:52 07:18 POC Glucose (mg/dL) 192 H 159 H 131 H (75-99) mg/dL Assessment and Plan Assessment: Status post ORIF bilateral distal radius fractures Plan: Pain control, plan for discharge home on oral medication Splint instructions were discussed Activity level instructions discussed Planning for discharge to home today Time with Patient: Less than 30
--- NOTE | 2020-01-31 11:56 | P.DS ---
Providers Date of admission: 01/27/20 09:48 Expected date of discharge: 01/31/20 Attending physician: Rodo Serrato Consults: 01/27/20 09:51 Consult Physician Urgent Consulting Provider: Daylin Carrillo Consult Reason/Comments: Medical management Do you want consulting provider notified?: Yes Primary care physician: Catalino Gaona [place] [facility] Course: Date of admission: 01/27/2020 Date of discharge: 01/31/2020 Admission diagnosis: Displaced and comminuted bilateral distal radius fractures Discharge diagnosis: Status post ORIF bilateral distal radius fractures Attending physician: Dr. Serrato Surgical procedures: Open reduction internal fixation bilateral distal radius fractures Brief history: Patient is a 79-year-old female who presented to [facility] on 01/27/2020 after falling and injuring her bilateral wrists. It was determined she had bilateral distal radius fractures that require surgical intervention. She was admitted under our care with plan for surgery, internal medicine was consult for clearance and management. Hospital course: Details of patient's surgery can be found in operative report. Patient tolerated the procedure well and was subsequently transported to orthopedic floor. Patient's orthopeidc and medical care was provided daily. Patient had daily laboratory tests performed for evaluation of overall blood counts. Patient had daily physical therapy to include strengthening range of motion as well as education with walker ambulation. Patient was treated with Lovenox for their postoperative DVT prophylaxis during their inpatient stay. Patient was noted to have a relatively uneventful postoperative course. Patient reported satisfactory pain control with oral pain medications by postoperative day 0. Patient showed satisfactory progress with physical therapy. Patient moved steadily through the program and had no difficulty meeting the goals by postoperative day 1. Given patient's otherwise satisfactory course and having met physical therapy goals, plan is to discharge patient home on postoperative day 2. Discharge condition/disposition: Patient will be discharged home in stable condition. Discharge medications: Instructions are given on resumption of patient's normal daily medications per primary care recommendation, in addition patient will be prescribed Marienthal 5 mg/325 mg, aspirin 81. Discharge instructions: 1. Do not remove the splints, keep covered when showering, keep clean and dry 2. Basic range of motion of the fingers is okay 3. Plan for [facility] 2 weeks, with any questions Procedures: Open reduction internal fixation of bilateral distal radius fractures Patient Condition at Discharge: Good Plan - Discharge Summary Discharge Rx Participant: No New Discharge Prescriptions: New Hydrocodone/Acetaminophen [Marienthal 5-325] 1 - 2 each PO Q6HR PRN #40 tab PRN Reason: Pain Ferrous Sulfate [Iron (65 MG Elemental)] 325 mg PO DAILY #30 tab Continue Atenolol [Tenormin] 25 mg PO BID Cetirizine HCl [Zyrtec] 10 mg PO DAILY Isosorbide Mononitrate ER [Imdur] 60 mg PO BID Lansoprazole [Prevacid] 30 mg PO DAILY Pravastatin Sodium [Pravachol] 40 mg PO HS Montelukast [Singulair] 10 mg PO HS tab Insulin Aspart [NovoLOG] See Protocol SQ ACHS Insulin Degludec [Tresiba Flextouch U-100] 12 units SQ HS Fluticasone Propion/Salmeterol [Wixela 500-50 Inhub] 1 puff INHALATION RT-BID Fluticasone Nasal [place] [Flonase Nasal [place]] 2 spr EA NOSTRIL DAILY Benzonatate [Tessalon Perles] 200 mg PO TID Discharge Medication List Atenolol [Tenormin] 25 mg PO BID 10/17/18 [History] Cetirizine HCl [Zyrtec] 10 mg PO DAILY 10/17/18 [History] Isosorbide Mononitrate ER [Imdur] 60 mg PO BID 10/17/18 [History] Lansoprazole [Prevacid] 30 mg PO DAILY 10/17/18 [History] Pravastatin Sodium [Pravachol] 40 mg PO HS 10/17/18 [History] Montelukast [Singulair] 10 mg PO HS tab 10/31/18 [Rx] Insulin Aspart [NovoLOG] See Protocol SQ ACHS 11/02/18 [History] Benzonatate [Tessalon Perles] 200 mg PO TID 01/27/20 [History] Fluticasone Nasal [place] [Flonase Nasal [place]] 2 spr EA NOSTRIL DAILY 01/27/20 [History] Fluticasone Propion/Salmeterol [Wixela 500-50 Inhub] 1 puff INHALATION RT-BID 01/27/20 [History] Insulin Degludec [Tresiba Flextouch U-100] 12 units SQ HS 01/27/20 [History] Hydrocodone/Acetaminophen [Marienthal 5-325] 1 - 2 each PO Q6HR PRN #40 tab 01/30/20 [Rx] Ferrous Sulfate [Iron (65 MG Elemental)] 325 mg PO DAILY #30 tab 01/31/20 [Rx] Follow up Appointment(s)/Referral(s): Catalino Gaona MD [Primary Care Provider] - 1-2 days Salbador Aguilar PAC [PHYSICIAN HSE ADVISOR] - 2 Weeks Activity/Diet/Wound Care/Special Instructions: Diet: carb consistent Special Instructions: Tresiba 10 units at night, if morning blood sugar is greater than 150 for 2 days then resume your prior 12 units. Orthopedic discharge instructions: 1. Do not remove the splints, keep covered and dry while showering 2. Pain medication as needed 3. Plan for follow-up at [facility] 2 weeks Discharge Disposition: HOME SELF-CARE
[2020-01-31 11:59] LABS: Glucose,Whole Blood 210 mg/dL (75-99)
[2020-01-31 12:23] VITALS: BP 188/70; PULSE 58; RESP 17; TEMP 97.9
== END 2020-01-31 13:51 | disposition home or self-care (01) | DRG 511 ==
LOC: EC 07:08 → 5NMEDONC 09:48
PROVIDERS: ADMIT Orthopaedic Surgery; ATTEND Orthopaedic Surgery
PROC: 0PSH04Z Reposition Right Radius with Internal Fixation Device, Open Approach (ICD-10-PCS; principal; 2020-01-29 14:45)
PROC: 0PSJ04Z Reposition Left Radius with Internal Fixation Device, Open Approach (ICD-10-PCS; principal; 2020-01-29 14:45)
DX: S52.501A Unspecified fracture of the lower end of right radius, initial encounter for closed fracture (principal); S52.502A Unspecified fracture of the lower end of left radius, initial encounter for closed fracture; E87.1 Hypo-osmolality and hyponatremia; I25.10 Atherosclerotic heart disease of native coronary artery without angina pectoris; J45.909 Unspecified asthma, uncomplicated; E78.5 Hyperlipidemia, unspecified; K21.9 Gastro-esophageal reflux disease without esophagitis; W18.30XA Fall on same level, unspecified, initial encounter; Y93.01 Activity, walking, marching and hiking; I10 Essential (primary) hypertension; E04.1 Nontoxic single thyroid nodule; E86.0 Dehydration; D50.9 Iron deficiency anemia, unspecified; E11.649 Type 2 diabetes mellitus with hypoglycemia without coma; Z11.59 Encounter for screening for other viral diseases; Z79.4 Long term (current) use of insulin; Z79.51 Long term (current) use of inhaled steroids; Z79.82 Long term (current) use of aspirin; Z79.899 Other long term (current) drug therapy; Z86.11 Personal history of tuberculosis; Z86.14 Personal history of Methicillin resistant Staphylococcus aureus infection; Z95.5 Presence of coronary angioplasty implant and graft; Z90.710 Acquired absence of both cervix and uterus; Z80.1 Family history of malignant neoplasm of trachea, bronchus and lung; Z82.49 Family history of ischemic heart disease and other diseases of the circulatory system; Z83.3 Family history of diabetes mellitus; Z98.51 Tubal ligation status; Z98.890 Other specified postprocedural states; Z82.61 Family history of arthritis; Z83.6 Family history of other diseases of the respiratory system
CPT/HCPCS: 29125; 70450; 72125; 80048; 80053; 84439; 84443; 85025; 85610; 85730; 90471; 90715; 94640; 96365; 99285

== ENCOUNTER → 2020-04-08 | Outpatient (CLI) | payer MEDICARE ==
--- NOTE | 2020-04-12 18:13 | BD ---
EXAMINATION TYPE: Axial Bone Density DATE OF EXAM: 04/08/2020 COMPARISON: 11.04.2007 CLINICAL HISTORY: 79 YR OLD FEMALE.....ICD-10 CODE: M85.9 DISORDER OF BONE Height: 63 Weight: 124 FRAX RISK QUESTIONS: Glucocorticoids (More than 3mos): YES (Ex: prednisone, prednisolone, methylprednisolone, dexamethasone, and hydrocortisone). History of Fracture in Adulthood: YES Secondary Osteoporosis: YES 1. Type 1 Diabetes: YES RISK FACTORS HISTORY OF: HX OR RT KNEE FRACTURE X2 LAST YR History of Wrist Fracture: YES, LAST YR, AND HX OF HAND FX IN LT HAND, NAVICULAR BONE Active: YES Postmenopausal woman: YES, AT ABOUT 52 Take estrogen and/or progesterone medications: YES, FOR A WHILE, NONE NOW Lost more than 2 inches in height since high school: YES Frequent falls: YES, WITH BROKEN BONES.. Hyperparathyroidism: NO Adrenal Insufficiency: NO MEDICATIONS: Prednisone or other steroids: YES INHALERS FOR ASTHMA, ADVAIR AND RESCUE INHALER Osteoporosis Medications: FOSAMAX, IN PAST, NONE NOW Additional Medications: BP MEDS, INSULIN, METFORMIN, REFLUX MEDS, STATIN FOR CHOLESTEROL, VIT B12 AND D3 Additional History: HX OF MRSA, HEART PROBLEMS, ASTHMA, DIABETES, HYPERTENSION, REFLUX, CHOLESTEROL EXAM MEASUREMENTS: Bone mineral densitometry was performed using the [employer] System. Bone mineral density as measured about the Lumbar spine is: ----- L1-L4(G/cm2): 0.987 T Score Values are as follows: ----- L1: -4.1 ----- L2: -4.2 ----- L3: 0.7 ----- L4: 0.8 ----- L1-L4: -1.6 Bone densitometry measurements at L3 and L4 appear artifactually elevated due to degenerative scleros is. Measurements will be taken averaged at L1 and L2. Bone mineral density has: Increased 7.9% since study of: 11.04.2007 Bone mineral density about the R hip (g/cm2): 0.800 Bone mineral density about the L hip (g/cm2): 0.844 T Score values are as follows: -----R Neck: -1.6 -----L Neck: -1.0 -----R Total: -1.6 -----L Total: -1.3 Bone mineral density has: Decreased -3.2% since study of: 11.04.2007 FRAX%s: THERE IS A 17.4% CHANCE FOR A MAJOR OSTEOPOROTIC FX AND A 4.5% FOR HIP.....PROBABILITY FOR F X IN 10 YRS TIME IMPRESSION: Osteoporosis as indicated by T score values average between L1 and L2. Measurements at L3 and L4 are discarded due to the presence of degenerative sclerosis artifactually elevating the measurements. Osteoporosis (T Score less than -2.5). There is increased fracture risk and therapy is usually indicated based on age. Re-Screen 1-2 years. NOTE: T-SCORE=SD OF THE YOUNG ADULT MEAN.
== END | disposition home or self-care (01) ==
LOC: RADBDWWP 08:30
PROVIDERS: ATTEND Internal Medicine
DX: M81.8 Other osteoporosis without current pathological fracture (principal)
CPT/HCPCS: 77080

== ENCOUNTER → 2020-05-12 | Outpatient (CLI) | payer MEDICARE ==
[~2020-05-12] MED LIST: DENOSUMAB 60 MG/ML 1 ML SYRINGE SQ NR
[2020-05-12 11:42] VITALS: BP 183/77; PULSE 97; RESP 16
== END | disposition home or self-care (01) ==
LOC: PROCWHC3 11:30
PROVIDERS: ATTEND Internal Medicine
DX: M81.0 Age-related osteoporosis without current pathological fracture (principal)
CPT/HCPCS: 96372; J0897

== ENCOUNTER → 2020-05-21 | Outpatient (CLI) | payer MEDICARE ==
[2020-05-21 09:40] LABS: Basophils % (A) 1 %; Eosinophils # (A) 0.1 k/uL (0-0.7); Eosinophils % (A) 2 %; HGB 12.8 gm/dL (11.4-16.0); Lymphocytes # (A) 1.9 k/uL (1.0-4.8); Lymphocytes % (A) 27 %; MCH 32.5 pg (25.0-35.0); MCHC 32.8 g/dL (31.0-37.0); Mean Platelet Volume 7.9; Monocytes # (A) 0.5 k/uL (0-1.0); Monocytes % (A) 7 %; Neutrophils # (A) 4.3 k/uL (1.3-7.7); Neutrophils % (A) 61 %; Platelet Count 265 k/uL (150-450); RBC 3.94 m/uL (3.80-5.40); RDW 13.1 % (11.5-15.5); WBC 7.1 k/uL (3.8-10.6)
[2020-05-21 10:11] LABS: Appearance,Urine Clear (Clear); Bilirubin,Urine Negative (Negative); Blood,Urine Negative (Negative); Color,Urine Light Yellow; Glucose,Urine (UA) Negative (Negative); Ketones,Urine Negative (Negative); Leukocyte Esterase,Urine Moderate (Negative); Nitrite,Urine Negative (Negative); Protein,Urine Negative (Negative); Specific Gravity,Urine 1.007 (1.001-1.035); Squamous Epithelial Cell,Urine <1 /hpf (0-4); Urobilinogen,Urine <2.0 mg/dL (<2.0); WBC,Urine 7 /hpf (0-5)
[2020-05-21 15:32] LABS: Ferritin 45.9 ng/mL (10.0-291.0)
[2020-05-21 16:25] LABS: Creatinine,Urine Random 28.6 mg/dL
[2020-05-21 16:46] LABS: Total Protein,Urine Random 5.3 mg/dL (0.0-13.5)
[2020-05-21 18:12] LABS: % Iron Saturation 19.82 (12.00-45.00); African American GFR (CKD) 49.8 (60.0-200.0); Albumin 4.2 g/dL (3.80-4.90); BUN/Creat Ratio 23.33 Ratio (12.00-20.00); Calcium 9.8 mg/dL (8.7-10.3); Magnesium 2.3 mg/dL (1.5-2.4); Non-African American GFR(CKD) 42.9 (60.0-200.0); Phosphorus 4.5 mg/dL (2.4-5.1); Potassium 5.4 mmol/L (3.5-5.5)
[2020-05-21 18:13] LABS: Uric Acid 6.7 mg/dL (2.9-7.7)
== END | disposition home or self-care (01) ==
LOC: LABWHC1 08:50
PROVIDERS: ATTEND Internal Medicine Nephrology
DX: D64.9 Anemia, unspecified (principal); N18.30 Chronic kidney disease, stage 3 unspecified; E55.9 Vitamin D deficiency, unspecified; N25.81 Secondary hyperparathyroidism of renal origin; M10.9 Gout, unspecified; N39.0 Urinary tract infection, site not specified; R80.9 Proteinuria, unspecified
CPT/HCPCS: 36415; 80048; 81001; 82040; 82306; 82570; 82728; 83540; 83550; 83735; 83970; 84100; 84156; 84550; 85025

== ENCOUNTER → 2020-10-20 | Outpatient (CLI) | payer MEDICARE ==
[2020-10-20 08:48] LABS: Appearance,Urine Clear (Clear); Bilirubin,Urine Negative (Negative); Blood,Urine Negative (Negative); Color,Urine Light Yellow; Glucose,Urine (UA) Negative (Negative); Ketones,Urine Negative (Negative); Leukocyte Esterase,Urine Negative (Negative); Nitrite,Urine Negative (Negative); PH, Urine 6.5 (5.0-8.0); Protein,Urine Negative (Negative); Specific Gravity,Urine 1.007 (1.001-1.035); Urobilinogen,Urine <2.0 mg/dL (<2.0)
[2020-10-20 14:51] LABS: HCT 36.8 % (37.2-46.3); HGB 11.8 g/dL (12.0-15.0); MCH 32.5 pg (27.0-32.0); MCHC 32.1 g/dL (32.0-37.0); MCV 101.4 fL (80.0-97.0); Mean Platelet Volume 10.3 fL (9.5-12.2); Platelet Count 274 X 10*3/uL (140-440); RBC 3.63 X 10*6/uL (4.10-5.20); RDW 12.7 % (11.5-14.5); WBC 6.06 X 10*3/uL (4.50-10.00)
[2020-10-20 16:55] LABS: % Iron Saturation 21.05 (12.00-45.00); African American GFR (CKD) 55.3 (60.0-200.0); Albumin 3.9 g/dL (3.80-4.90); Anion Gap 8.6 mmol/L (4.00-12.00); BUN/Creat Ratio 23.64 Ratio (12.00-20.00); Calcium 9.3 mg/dL (8.7-10.3); Carbon Dioxide 28.4 mmol/L (21.6-31.8); Globulin 1.3 g/dL (1.6-3.3); Magnesium 2.2 mg/dL (1.5-2.4); Non-African American GFR(CKD) 47.7 (60.0-200.0); Phosphorus 4.2 mg/dL (2.4-5.1); Potassium 4.9 mmol/L (3.5-5.5); Total Bilirubin 0.5 mg/dL (0.2-1.2); Total Protein 5.2 g/dL (6.2-8.2); Uric Acid 6.6 mg/dL (2.9-7.7)
[2020-10-20 17:04] LABS: Ferritin 53.7 ng/mL (10.0-291.0)
== END | disposition home or self-care (01) ==
LOC: LABWHC1 08:02
PROVIDERS: ATTEND Nurse Practitioner Family
DX: N39.0 Urinary tract infection, site not specified (principal); D64.9 Anemia, unspecified; E21.3 Hyperparathyroidism, unspecified; N18.30 Chronic kidney disease, stage 3 unspecified; M10.9 Gout, unspecified
CPT/HCPCS: 36415; 80053; 81003; 82728; 83540; 83550; 83735; 83970; 84100; 84550; 85027

== ENCOUNTER → 2021-02-04 | Outpatient (CLI) | payer MEDICARE ==
[2021-02-04 09:26] VITALS: BP 168/78; PULSE 66; RESP 16; TEMP 97.8
== END | disposition home or self-care (01) ==
LOC: PROCWHC3 09:03
PROVIDERS: ATTEND Internal Medicine
DX: M81.0 Age-related osteoporosis without current pathological fracture (principal)
CPT/HCPCS: 96372; J0897

== ENCOUNTER 2021-02-08 14:27 | Emergency (ER) | payer MEDICARE ==
[2021-02-08 15:05] VITALS: TEMP 97.9
[2021-02-08] MEDS ORDERED: KETOROLAC 15 MG/ML 1 ML VIAL IM STA (15:46)
[2021-02-08] MEDS ORDERED: ACETAMINOPHEN TAB 500 MG TAB PO STA (15:52)
[2021-02-08] MEDS ORDERED: LIDOCAINE 1% INJ 10MG/ML (20 ML MDV) SQ ONE (16:11)
--- NOTE | 2021-02-08 16:28 | XR ---
EXAMINATION TYPE: XR knee complete RT DATE OF EXAM: 02/08/2021 COMPARISON: None HISTORY: Fall TECHNIQUE: 3 view right knee FINDINGS: Some soft tissue injury may be over the anterior inferior soft tissues. Patellofemoral join t space is preserved. There is narrowing of the lateral compartment joint space. Some calcification i s within the meniscus. Minimal meniscal calcification is present medially. There is milder narrowing of the medial compartment joint space. Vascular calcification is present. No joint effusion is eviden t. There is some deformity through the distal third of the patella. No diastases evident. Correlate for occult fracture of the patella CT could be performed for additional evaluation. IMPRESSION: 1. Anterior and posterior irregularity of the distal third of the patella. Nondisplaced fracture cou ld be considered. 2. Soft tissue injury over the infrapatellar and the knee region
--- NOTE | 2021-02-08 16:42 | ED ---
Wound/Laceration HPI - General Chief Complaint: Wound/Laceration Stated Complaint: Fall, leg lac Time Seen by Provider: 02/08/21 15:26 Source: patient, RN notes reviewed Mode of arrival: ambulatory Limitations: no limitations - History of Present Illness Initial Comments: 80-year-old female presented emergency department with a right knee laceration. She notes that she tripped fell skin her knee. She'll that she's broken her knee Several times in the past. She was in no apparent distress or pain. She denied any other complaints or issues. She had full range of motion sensation of her right lower extremity. The chest pain shortness breath headache nausea vomiting diarrhea constipation fever fatigue chills. - Related Data Home Medications Medication Instructions Recorded Confirmed Cetirizine HCl [Zyrtec] 10 mg PO DAILY 10/17/18 02/04/21 Isosorbide Mononitrate ER [Imdur] 60 mg PO BID 10/17/18 02/04/21 Lansoprazole [Prevacid] 30 mg PO DAILY 10/17/18 02/04/21 Pravastatin Sodium [Pravachol] 40 mg PO HS 10/17/18 02/04/21 atenoloL [Tenormin] 25 mg PO BID 10/17/18 02/04/21 Insulin Aspart [NovoLOG] See Protocol SQ ACHS 11/02/18 02/04/21 Benzonatate [Tessalon Perles] 200 mg PO TID 01/27/20 02/04/21 Fluticasone Nasal Clio [Flonase 2 spr EA NOSTRIL DAILY 01/27/20 02/04/21 Nasal Clio] Fluticasone Propion/Salmeterol 1 puff INHALATION RT-BID 01/27/20 02/04/21 [Wixela 500-50 Inhub] Aspirin EC [Ecotrin] 325 mg PO DAILY 02/04/21 02/04/21 Denosumab [Prolia] 60 mg SQ DIRECTED 02/04/21 02/04/21 Furosemide [Lasix] 20 mg PO DAILY 02/04/21 02/04/21 Insulin Glargine [Lantus] 15 unit SQ DAILY 02/04/21 02/04/21 Ipratropium/Albuter 20-100Mcg 1 puff INHALATION QID PRN 02/04/21 02/04/21 [Combivent Respimat 20-100Mcg Inhaler] Nitroglycerin Sl Tabs [Nitrostat] 0.4 mg SUBLINGUAL Q5M PRN 02/04/21 02/04/21 Omalizumab [Xolair] 150 mg SQ DIRECTED PRN 02/04/21 02/04/21 Stool Softener 02/04/21 Previous Rx's Medication Instructions Recorded Montelukast [Singulair] 10 mg PO HS tab 10/31/18 Ferrous Sulfate [Iron (65 MG 325 mg PO DAILY #30 tab 01/31/20 Elemental)] Cephalexin [Keflex] 500 mg PO Q6HR #40 cap 02/08/21 Allergies Allergy/AdvReac Type Severity Reaction Status Date / Time losartan [From Cozaar] Allergy Unknown Verified 02/08/21 15:04 perfume Allergy Unknown Verified 02/08/21 15:04 pioglitazone [From Actos] Allergy Unknown Verified 02/08/21 15:04 Review of Systems ROS Statement: Those systems with pertinent positive or pertinent negative responses have been documented in the HPI. ROS Other: All systems not noted in ROS Statement are negative. 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 History of Any Multi-Drug Resistant Organisms: MRSA Date of last positivie culture/infection: 10/25/18 MDRO Source:: LUNG/BLOOD MRSA Past Surgical History: Appendectomy, Breast Surgery, Heart Catheterization, Heart Catheterization With Stent, Hysterectomy, Orthopedic Surgery, Tubal Ligation Additional Past Surgical History / Comment(s): R VATS with decortication, breast benign bx-pt cannot recall laterallity, L ovarian cystectomy, L vocal cord cystectomy, R knee arthroscopy, L patella fracture with screw, R rotator cuff repair, L hand fracture with surgery, R thumb trigger finger release, EGD, bilateral cataract removals/lens implants. JANUARY 2020 - SURGERY BILATERAL WRISTS WITH PLATES/SCREWS AFTER FALL Past Anesthesia/Blood Transfusion Reactions: No Reported Reaction Additional Past Anesthesia/Blood Transfusion Reaction / Comment(s): Pt has received blood in past without reaction. Date of Last Stent Placement:: 1999 Past Psychological History: No Psychological Hx Reported Smoking Status: Never smoker Past Alcohol Use History: None Reported Past Drug Use History: None Reported - Past Family History Mother Family Medical History: Diabetes Mellitus, Pneumonia Additional Family Medical History / Comment(s): Tuberculosis. Past away at age 98. Father Family Medical History: Cancer, Coronary Artery Disease (CAD) Additional Family Medical History / Comment(s): Father had lung cancer. He was a nonsmoker but a manager chemistry in [employer]. Past away at age 80. Brother(s) Family Medical History: Coronary Artery Disease (CAD) Sister(s) Additional Family Medical History / Comment(s): Rheumatoid arthritis. General Exam Limitations: no limitations General appearance: alert, in no apparent distress Head exam: Present: atraumatic, normocephalic, normal inspection Eye exam: Present: normal appearance, PERRL, EOMI. Absent: scleral icterus, conjunctival injection, periorbital swelling Neck exam: Present: normal inspection Respiratory exam: Present: normal lung sounds bilaterally. Absent: respiratory distress, wheezes, rales, rhonchi, stridor Cardiovascular Exam: Present: regular rate, normal rhythm, normal heart sounds. Absent: systolic murmur, diastolic murmur, rubs, gallop, clicks Right Knee exam: Present: full ROM, laceration (Measuring approximately 5 inches just inferior the patella.). Absent: normal inspection, tenderness, swelling Neurological exam: Present: alert, oriented X3 Psychiatric exam: Present: normal affect, normal mood Skin exam: Present: warm, dry, intact, normal color. Absent: rash Course Vital Signs 02/08/21 15:02 Temperature 97.9 F Pulse Rate 62 Respiratory 16 Rate Blood Pressure 165/80 O2 Sat by Pulse 98 Oximetry Procedures - Laceration Laceration #1 Consent Obtained: verbal consent Indication: laceration Site: lower extremity (Right knee inferior patella) Size (cm): 11 Description: linear, flap Depth: simple, single layer Anesthetic Used: lidocaine 1% Anesthesia Technique: local infiltration Amount (mls): 8 Pre-repair: irrigated extensively Type of Sutures: nylon Size of Sutures: 4-0 Number of Sutures: 13 Technique: simple, interrupted Patient Tolerated Procedure: well, no complications Medical Decision Making - Medical Decision Making 80-year-old female with a right knee laceration. X-ray of the right knee, 1000 mg of Toradol, lidocaine ordered. X-ray negative for any acute fracture. Patient tolerated suturing well. Case discussed with Dr. Nicholas, patient discharge home with follow-up to primary care. - Radiology Data Radiology results: report reviewed, image reviewed X-ray of the right knee: Anterior and posterior irregularity of the distal third of the patella. Nondisplaced fracture could be considered. Soft tissue injury over the infrapatellar in the knee region. Disposition Clinical Impression: Laceration, Fall Disposition: HOME SELF-CARE Condition: Stable Instructions (If sedation given, give patient instructions): Laceration (ED), Care For Your Stitches (ED) Additional Instructions: Please return to the Emergency Department if symptoms worsen or any other concerns. Follow-up with primary care as needed. Please return in 7-10 days to have sutures removed. Keep area clean and dry. Take antibiotics as prescribed until complete. Is patient prescribed a controlled substance at d/c from ED?: No Referrals: Milli Cook MD [Primary Care Provider] - 1-2 days Time of Disposition: 17:50
[2021-02-08 18:06] VITALS: BP 149/84; PULSE 66; RESP 18
== END 2021-02-08 18:10 | disposition home or self-care (01) ==
LOC: EC 14:27
DX: S81.011A Laceration without foreign body, right knee, initial encounter (principal); J45.909 Unspecified asthma, uncomplicated; E11.9 Type 2 diabetes mellitus without complications; I10 Essential (primary) hypertension; M19.90 Unspecified osteoarthritis, unspecified site; E78.5 Hyperlipidemia, unspecified; K21.9 Gastro-esophageal reflux disease without esophagitis; I25.10 Atherosclerotic heart disease of native coronary artery without angina pectoris; Z88.8 Allergy status to other drugs, medicaments and biological substances; Z91.048 Other nonmedicinal substance allergy status; Z79.899 Other long term (current) drug therapy; Z79.4 Long term (current) use of insulin; Z79.82 Long term (current) use of aspirin; Z79.51 Long term (current) use of inhaled steroids; Z87.39 Personal history of other diseases of the musculoskeletal system and connective tissue; Z96.652 Presence of left artificial knee joint; W01.0XXA Fall on same level from slipping, tripping and stumbling without subsequent striking against object, initial encounter
CPT/HCPCS: 99284; 12034; 73562; J2001

== ENCOUNTER → 2021-04-14 | Outpatient (CLI) | payer MEDICARE ==
[2021-04-14 14:20] LABS: HCT 37.1 % (37.2-46.3); HGB 11.9 g/dL (12.0-15.0); MCH 33.2 pg (27.0-32.0); MCHC 32.1 g/dL (32.0-37.0); MCV 103.6 fL (80.0-97.0); Platelet Count 233 X 10*3/uL (140-440); RBC 3.58 X 10*6/uL (4.10-5.20); RDW 12.7 % (11.5-14.5); WBC 6.47 X 10*3/uL (4.50-10.00)
[2021-04-14 14:56] LABS: Appearance,Urine Clear (Clear); Bilirubin,Urine Negative (Negative); Blood,Urine Negative (Negative); Color,Urine Light Yellow; Glucose,Urine (UA) Negative (Negative); Ketones,Urine Negative (Negative); Leukocyte Esterase,Urine Moderate (Negative); Nitrite,Urine Negative (Negative); Protein,Urine Negative (Negative); RBC,Urine <1 /hpf (0-5); Specific Gravity,Urine 1.008 (1.001-1.035); Squamous Epithelial Cell,Urine <1 /hpf (0-4); Urobilinogen,Urine <2.0 mg/dL (<2.0); WBC,Urine 8 /hpf (0-5)
[2021-04-14 22:45] LABS: % Iron Saturation 29.41 (12.00-45.00); African American GFR (CKD) 54.9 (60.0-200.0); Albumin 4.4 g/dL (3.80-4.90); Albumin/Globulin Ratio 2.75 (1.60-3.17); Anion Gap 10.5 mmol/L (4.00-12.00); BUN/Creat Ratio 20.91 Ratio (12.00-20.00); Calcium 9.3 mg/dL (8.7-10.3); Carbon Dioxide 27.5 mmol/L (21.6-31.8); Globulin 1.6 g/dL (1.6-3.3); Magnesium 2.3 mg/dL (1.5-2.4); Non-African American GFR(CKD) 47.4 (60.0-200.0); Phosphorus 2.7 mg/dL (2.4-5.1); Potassium 4.4 mmol/L (3.5-5.5); Total Bilirubin 0.7 mg/dL (0.3-1.2); Uric Acid 7.1 mg/dL (2.9-7.7)
[2021-04-14 22:50] LABS: Ferritin 86.1 ng/mL (10.0-291.0)
== END | disposition home or self-care (01) ==
LOC: LABWHC1 11:13
PROVIDERS: ATTEND Nurse Practitioner Family
DX: N18.32 Chronic kidney disease, stage 3b (principal); D64.9 Anemia, unspecified; N39.0 Urinary tract infection, site not specified; N25.81 Secondary hyperparathyroidism of renal origin; M10.9 Gout, unspecified
CPT/HCPCS: 36415; 80053; 81001; 82728; 83540; 83550; 83735; 83970; 84100; 84550; 85027

== ENCOUNTER → 2021-04-27 | Outpatient (CLI) | payer MEDICARE ==
--- NOTE | 2021-04-27 12:33 | XR ---
EXAMINATION TYPE: XR ankle limited LT DATE OF EXAM: 04/27/2021 COMPARISON: None HISTORY: Left ankle pain TECHNIQUE: 2 view left ankle FINDINGS: Ankle mortise appears intact. Minimal soft tissue prominence may be over the medial malleol us no acute fractures or dislocations are evident. Follow up exams can be performed 7-10 days from acute trauma for continued pain IMPRESSION: 1. No acute osseous abnormality. 2. There may be some mild soft tissue swelling along the medial aspect left ankle
== END | disposition home or self-care (01) ==
LOC: RADXRMAIN 12:06
PROVIDERS: ATTEND Internal Medicine
DX: M25.572 Pain in left ankle and joints of left foot (principal)